=== PATIENT | female | born 1945 | race African-American/Black ===

== ENCOUNTER 2018-02-09 07:43 | Inpatient (IN) | payer MEDICARE ==
[2018-02-09 08:07] LABS: #Lymphocytes 1.3 thou/uL (1.20-3.40); #Monocytes 0.6 thou/uL (0.11-0.59); #Neutrophils 8.3 thou/uL (1.40-6.50); %Basophils 0.1 % (0.0-1.0); %Eosinophils 0.2 % (0.0-10.0); %Lymphocytes 12.7 % (21.0-51.0); %Neutrophils 80.9 % (42.0-75.0); Hemoglobin 10.9 g/dL (12.0-16.0); Mean Corpuscular HGB CONC 34.6 g/dL (32.0-36.0); Mean Corpuscular Hemoglobin 28.7 pg (27.0-31.0); Mean Corpuscular Volume 82.8 fL (78.0-98.0); Mean Platelet Volume 11.2 fL (7.4-10.4); Platelet Count 136 thou/uL (130-400); RBC Distribution Width 16.9 % (11.5-14.5); Red Blood Cell (RBC) Count 3.81 mill/uL (4.20-5.40); White Blood Cell (WBC) Count 10.3 thou/uL (4.8-10.8)
[2018-02-09 08:13] LABS: INR-International Normal Ratio 1.1; Prothrombin Time 14.5 SEC (12.0-14.7)
[2018-02-09 08:14] LABS: PTT 29.2 SEC (22.9-36.1)
[2018-02-09 08:17] LABS: ALT (SGPT) 26 U/L (8-55); AST (SGOT) 31 U/L (5-34); Albumin 3.7 g/dL (3.4-4.8); Alkaline Phosphatase 183 U/L (40-150); Anion Gap 14 mmol/L (10-20); BUN (Urea Nitrogen) 45 mg/dL (9.8-20.1); Bilirubin, Total 0.6 mg/dL (0.2-1.2); CK (CPK) 68 U/L (29-168); Calc. Creatinine Clearance 0 mL/min (70-130); Calcium 9.6 mg/dL (7.8-10.44); Carbon Dioxide 19 mmol/L (23-31); Chloride 113 mmol/L (98-107); Estimated GFR-MDRD 15; Globulin 4.2 g/dL (2.4-3.5); Glucose 174 mg/dL (83-110); Potassium 4.7 mmol/L (3.5-5.1); Protein, Total 7.9 g/dL (6.0-8.3); Sodium 141 mmol/L (136-145)
[2018-02-09 08:22] LABS: CKMB 1.2 ng/mL (0-6.6); Troponin I 0.077 ng/mL (< 0.028)
--- NOTE | 2018-02-09 08:36 | CT ---
BRAIN CT WITHOUT IV CONTRAST: HISTORY: A 72-year-old female with a history of left-sided weakness and a left-sided facial droop. Last seen normal approximately 8 hours ago. FINDINGS: There is a large, well defined area of abnormal low attenuation in the right temporal lobe and extend ing into the posterior frontal lobe and the anterior parietal lobe, evidence for a large, subacute ri ght middle cerebral artery distribution infarct. No evidence of acute hemorrhage. No evidence of a midline shift. Mild right-sided maxillary sinus mucosal disease. The mastoids are clear. IMPRESSION: Large right middle cerebral artery distribution subacute infarct without evidence for acute hemorrhag e. Findings discussed with Dr. Lobato in the ER at 8:00 a.m. CODE CR POS: ELISE
[2018-02-09] MEDS ORDERED: Labetalol HCl 100 MG/20 ML VIAL ONE (08:54)
--- NOTE | 2018-02-09 08:56 | RAD ---
CHEST 1 VIEW: Date: 02/09/18 HISTORY: 72-year-old female with history of altered mental status, aphasia, left-sided deficits, stroke alert. FINDINGS: Minimal cardiomegaly with some mild bilateral vascular congestion. No confluent pneumonia, overt alexis a, or pleural effusion. IMPRESSION: Cardiomegaly with mild vascular congestion. POS: DEBORAHH
[2018-02-09] MEDS ORDERED: niCARdipine 20MG In NaCl 20 MG/200 ML BAG ONE ×2 (09:08→13:09)
[2018-02-09] MEDS ORDERED: Ondansetron HCl/PF 4 MG/2 ML Vial IVP PRN (10:29)
[2018-02-09] MEDS ORDERED: Aspirin 300 MG Suppository ONE (11:00)
[2018-02-09] MEDS ORDERED: Dextrose 50% Abboject 50 ML SYRINGE SLOW IVP PRN (11:46)
[2018-02-09] MEDS ORDERED: Dextrose 5% in Water 1,000 ML IV PRN (11:46)
--- NOTE | 2018-02-09 12:02 | ULT ---
BILATERAL CAROTID DUPLEX ULTRASOUND INCLUDING COLOR AND SPECTRAL DOPPLER IMAGING: DATE: 02/09/18 HISTORY: 72-year-old female with history of CVA, motor deficits, left arm weakness, left hand weakness, left l eg weakness, and aphasia. FINDINGS: Visual plaque noted in the proximal ICAs and distal CCAs. PSV Right ICA: 71 cm/sec EDV: 7 cm/sec ICA/CCA Ratio: 0.8 PSV Left ICA: 86 cm/sec EDV: 13 cm/sec ICA/CCA Ratio: 1.0 Minimal increased velocities in both right and left ECAs, worse on the right side. IMPRESSION: No hemodynamically significant stenosis. Bilateral plaque, evidence for atherosclerotic arteriovascul ar carotid disease bilaterally. POS: ELISE
--- NOTE | 2018-02-09 12:32 | HP ---
CHIEF COMPLAINT: Altered mental status. HISTORY OF PRESENT ILLNESS: This patient is a 72-year-old female with history of hypertension, diabe medina who presented to this facility via [facility] transfer. The patient was apparently in her usual state of health yesterday; however, she went to bed early in the evening, according to her family ar ound 6:00 p.m. Today, the patient was found to be altered and the patient's son had asked another so n to come and evaluate her. When he was unable to get her on the phone, he called an ambulance and t he patient was subsequently transported. Here, the patient was noted to have slurred speech and prof ound left-sided weakness consistent with CVA. CT scan of the brain confirms a large right middle cer ebral artery distribution infarct which is already relatively mature. ER physician noted the patient will be on her window for TPA. He discussed the case with Dr. Aparicio to discuss possible retrieval i ntervention; however, given the majority of the infarct on the scan, she is not a candidate for that either. The patient has had significant elevations in her blood pressure in the emergency department which was initially unresponsive to labetalol and she has subsequently been placed on a Cardene drip . PAST MEDICAL HISTORY: Primarily notable from the record includes history of reflux and "blood clot i n the leg and neck," history of diabetes, hypertension, and apparent history of CVA as well. SOCIAL HISTORY: No alcohol, drugs or tobacco. FAMILY HISTORY: Not known at this time. REVIEW OF SYSTEMS: Not obtainable. CURRENT MEDICATIONS: Ferrous sulfate 65 mg 1 p.o. b.i.d. and Coreg 25 mg 1 p.o. b.i.d. ALLERGIES: None known. PHYSICAL EXAMINATION: VITAL SIGNS: Most recent recorded vitals, blood pressure 192/88, pulse was 80, respirations 16, O2 s at 94% on room air. GENERAL APPEARANCE: Age appropriate female. She is lying supine in the bed. She is intermittently awake. She does acknowledge her presence and occasionally speaks one syllable words. HEENT: Pupils are equal and reactive. She has no OP lesions. NECK: Supple and symmetric. HEART: Regular rate and rhythm without murmurs, gallops or rubs. LUNGS: Clear to auscultation bilaterally. No wheezes or rales. ABDOMEN: Soft, nontender, nondistended, positive bowel sounds. No masses or organomegaly. EXTREMITIES: Warm and dry without edema. SKIN: Intact without lesions. NEUROLOGIC: Patient is borderline obtunded, but we will interact. She has profound left hemiplegia at present. She has some dysarthria, but is able to communicate somewhat. She appears to have signi ficant left-sided neglect and left-sided facial hypesthesia. LABORATORY DATA AND IMAGING DATA: White count 7.3, hemoglobin 10.9, platelets 136. INR is 1.1, PTT 29.2. Sodium is 141, potassium 4.7, chloride 113, CO2 19, BUN 45, creatinine 3.59, glucose 174, calc ium 9.6, AST 31, ALT 26, alkaline phosphatase 183. CK 68, troponin 0.077, albumin 3.7. CT of the he ad as mentioned above with a large right middle cerebral artery infarct. Chest x-ray is negative. IMPRESSION AND PLAN: 1. Large right hemispheric infarct in the right MCA distribution. This infarct appears to be subacu te at this point fairly mature based on the evidence revealed on the CT scan. The patient has manife stations of profound left-sided hemiplegia and left-sided neglect with apparently some left-sided fac ial hypesthesia as well. The patient has received an aspirin. She will be admitted to the ICU. We will consult the stroke team including Neurology, speech therapy, PT and OT. We will obtain a caroti d Doppler and an echocardiogram. I discussed at length with the patient's family. The patient is ce rtainly at risk of some complications over the next 24-48 hours including extension of the infarct, w orsening cerebral edema, seizures and others. 2. Chronic kidney disease stage 4. The patient is followed by Dr. Murcia. She has not received a CTA partly because the infarct was beyond the point of being benefited from retrieval and because of the risks to the kidneys. We will consult Dr. Murcia to continue to follow the patient while she is in the hospital. 3. Hypertension. The patient has post-infarct hypertension. We will allow some permissive hyperten donaldo. She is currently on Cardene with acceptable blood pressure control. 4. Diabetes mellitus. We will continue with Accu-Cheks and sliding scale as needed. The patient has not determined any end of life issues or done any advanced planning. She has 2 sons. They can speak on her behalf, one of whom is present. I will consult Palliative Care team as well.
[2018-02-09] MEDS: Sodium Chloride 0.45% 1,000 ML IV SCH (15:00)
[2018-02-09] MEDS: Insulin Regular 300 UNITS/3 ML VIAL SC PRN (18:36)
--- NOTE | 2018-02-09 19:42 | CON ---
DATE OF CONSULTATION: 02/09/2018 This consult encompassed 70 minutes time. Of that time, greater than 50% was spent with the patient and/or in the patient's critical care unit. HISTORY OF PRESENT ILLNESS: The patient is a 72-year-old female who presented with altered mental st atus and left-sided hemiplegia. She apparently presented 12 hours after onset and is considered outs marlyn the window for TPA. She is severely hypertensive and is currently on a Cardene drip. The patient cannot give much in the way of history, but she can talk. PAST MEDICAL HISTORY: 1. Gastroesophageal reflux. 2. Blood clot in the leg and neck. 3. History of diabetes mellitus. 4. Hypertension. 5. Previous stroke. PAST SURGICAL HISTORY: Blindness in the left eye. SOCIAL HISTORY: Does not consume alcohol, does not use illicit drugs. FAMILY MEDICAL HISTORY: Unknown. MEDICATIONS PRIOR TO ADMISSION: Iron sulfate, Coreg. PAST SURGICAL HISTORY: Unknown. ALLERGIES: None. REVIEW OF SYSTEMS: Cannot be obtained secondary to patient's altered mental status. PHYSICAL EXAMINATION: VITAL SIGNS: Temperature 98, O2 sat 95%, blood pressure 185/75, pulse 89, respiration rate 17. GENERAL: The patient is awake. Neurologically, she has a left-sided facial droop. She has left arm and left leg hemiparesis. She has no sensation on the left side and no movement in the left side. Right side has full movement and full sensation. HEENT: Otherwise, unremarkable. NECK: No JVD. LUNGS: Clear without wheezing or rhonchi. CARDIAC: S1, S2 regular without murmur. ABDOMEN: Soft, nontender, nondistended. EXTREMITIES: No clubbing, cyanosis, or edema. IMAGING: Chest x-ray reviewed personally by myself shows normal heart size, perhaps some mild fullne ss in the right hilum, otherwise negative. Brain CT demonstrated a large right MCA distribution infa rct without evidence of acute hemorrhage. LABORATORY DATA: White blood cell count 10, hematocrit 31.6, platelet count 136. INR 1.1. Sodium 1 41, potassium 4.7, chloride 113, CO2 19, BUN 45, creatinine 3.6, glucose 174, alkaline phosphatase 18 3. Troponin 0.07. ASSESSMENT: 1. Cerebrovascular accident - right MCA distribution with resultant left-sided hemiparesis and left- sided facial paralysis. 2. Chronic kidney disease. 3. Hypertension. 4. Diabetes mellitus. 5. Hypertension, out of control. PLAN: The patient is currently on a Cardene drip for blood pressure control. Tomorrow she could pro bably be converted over to oral medications. Neurology has been consulted. She is on sliding scale insulin for her diabetes mellitus.
[2018-02-10] MEDS: niCARdipine HCl 50 MG in Sodium Chloride 0.9% 250 ML 230 ML IVPB SCH ×4 (03:00→20:01)
[2018-02-10 06:02] LABS: Cardiac Risk 5.1 (Less than 4.5)
[2018-02-10] MEDS: Insulin Regular 300 UNITS/3 ML VIAL SC PRN ×3 (06:49→17:59)
[2018-02-10] MEDS: Sodium Chloride 0.45% 1,000 ML IV SCH ×2 (07:37→20:01)
[2018-02-10 07:50] LABS: #Basophils 0.1 thou/uL (0.0-0.2); #Lymphocytes 1.2 thou/uL (1.20-3.40); #Monocytes 0.6 thou/uL (0.11-0.59); #Neutrophils 11.4 thou/uL (1.40-6.50); %Basophils 0.4 % (0.0-1.0); %Lymphocytes 9.2 % (21.0-51.0); %Monocytes 4.3 % (0.0-10.0); %Neutrophils 86.2 % (42.0-75.0); Hemoglobin 10.5 g/dL (12.0-16.0); Mean Corpuscular HGB CONC 34.8 g/dL (32.0-36.0); Mean Corpuscular Hemoglobin 28.5 pg (27.0-31.0); Mean Corpuscular Volume 81.8 fL (78.0-98.0); Mean Platelet Volume 10.9 fL (7.4-10.4); Platelet Count 154 thou/uL (130-400); White Blood Cell (WBC) Count 13.2 thou/uL (4.8-10.8)
[2018-02-10 08:18] LABS: Anion Gap 18 mmol/L (10-20); BUN (Urea Nitrogen) 54 mg/dL (9.8-20.1); Calc. Creatinine Clearance 17 mL/min (70-130); Calcium 9.4 mg/dL (7.8-10.44); Carbon Dioxide 14 mmol/L (23-31); Chloride 115 mmol/L (98-107); Estimated GFR-MDRD 15; Glucose 177 mg/dL (83-110); Sodium 142 mmol/L (136-145)
--- NOTE | 2018-02-10 08:54 | PRG ---
DATE OF SERVICE: 02/10/2018 The patient is doing about the same. She is dysarthric. She has hemiparesis on the left side, but s he will follow commands with the right. PHYSICAL EXAMINATION: VITAL SIGNS: Temperature is 99.2, pulse 97, blood pressure 169/60, O2 sat 93%. HEENT: Unremarkable except for facial droop. NECK: No JVD. LUNGS: Coarse breath sounds. CARDIAC: S1 and S2 regular. ABDOMEN: Soft, nontender. EXTREMITIES: No edema. LABORATORY DATA: White blood cell count 13.2, hematocrit 30, platelet count 154. INR 1.1. Sodium 1 42, potassium 5, chloride 115, CO2 14, BUN 54, creatinine 3.7, glucose 177. ASSESSMENT: 1. Status post cerebrovascular accident with left-sided hemiparesis. She has a right middle cerebra l artery distribution infarct. 2. Chronic kidney disease. 3. Non-anion gap metabolic acidosis. 4. Hypertension. 5. Poor swallowing. 6. Diabetes mellitus. PLAN: She needs to be seen by Speech Therapy to evaluate her swallowing. If she cannot swallow, the n we need to put in some type of feeding tube, whether it be NG tube or PEG tube so that we can give her blood pressure medication. In the meantime, she is continuing with Cardene drip which necessitat es keeping her in the CCU.
--- NOTE | 2018-02-10 13:53 | CON ---
DATE OF CONSULTATION: 02/09/2018 REFERRING PHYSICIAN: Dr. Sam Payton. REASON FOR CONSULTATION: Left hemiparesis. HISTORY OF PRESENT ILLNESS: Ms. Vogel is a pleasant 72-year-old -[place] female, who has been considered for evaluation of left hemiparesis. History is obtained from the patient's dictated H&P note as patient unable to provide and there were no family member present at bedside. Apparently , patient was in her usual state of health yesterday; however, she went to bed early in the evening a round 6:00 p.m. when one of the son had called her and she did not answer the phone, which concerned him and thus, he had called an ambulance. Patient was subsequently transferred to [facility]. She was found to have slurred speech and left hemiplegia. CT scan was obtained in the ER, which had shown large right MCA distribution. Hypodensity, for this reason, she was not a candidate for an y endovascular therapy. She is now being admitted to ICU for close observation. Patient currently d enies any headache, chest pain, palpitation. PAST MEDICAL HISTORY: Significant for diabetes, hypertension, history of stroke, and history of blood clot. FAMILY HISTORY: Not contributory. SOCIAL HISTORY: She does not smoke cigarettes, drink alcohol or use illicit drugs. CURRENT MEDICATIONS: Unknown. ALLERGIES: Include LISINOPRIL. REVIEW OF SYSTEMS: As mentioned, which was negative. PHYSICAL EXAMINATION: VITAL SIGNS: Blood pressure of 181/94, pulse of 95, respirations of 18, O2 sats of 93%, and temperat ure of 98.7. GENERAL: Well-developed, well-nourished -[place] female, in no apparent distress. RESPIRATORY: Clear to auscultation bilaterally. CARDIOVASCULAR: Regular rate and rhythm. NEUROLOGIC: Mental status: The patient is awake, alert, oriented x3. Speech and language mildly dy sarthric speech. Cranial nerves: Pupils are 3 mm and reactive. Visual camilo are intact. External muscles are intact. She does have a right gaze deviation. There is a left facial droop noted. Mot or exam showed normal tone and bulk on the right upper and right lower extremity. She has a flaccid left upper and left lower extremity. Her strength in the left upper and left lower extremity is 0/5. Strength in the right upper and right lower extremity is 5/5. Sensory: She has a hemineglect on t he left side. She has loss of sensation on the left side. Deep tendon reflexes, brisk reflexes in t he left upper and left lower extremity. Babinski plantar responses extensor on the left. Gait and R omberg coordination could not be tested. LABORATORY DATA: I reviewed, which included CBC, coag panel, CMP, which is significant for hemoglobi n 10.9, hematocrit 31.6, BUN of 45, creatinine of 3.59, glucose of 174, alkaline phosphatase of 183. IMAGING STUDIES: CT head without contrast was reviewed, which showed large hypodensity involving the right MCA distribution suggestive of acute ischemic event. IMPRESSION: 1. Large right middle cerebral artery distribution ischemic infarct. 2. Left hemiparesis noted due to #1. 3. Dysarthric noted due to #1. ASSESSMENT AND PLAN: Ms. Vogel is a pleasant 72-year-old -[place] female, who presented w ith an acute onset of left hemiparesis and dysarthria. She had a CT scan of the head done, which enma wed large right MCA distribution ischemic infarct. At this time, I would recommend making patient n. p.o. until further evaluated by Speech Therapy. I will recommend consulting PT, OT, speech therapy. I will recommend starting her on aspirin 300 mg suppository until she is able to take orally, at [facility] time it can be switched to aspirin 325 mg daily for secondary stroke prevention. I will recommend obtaining echocardiogram and placing her on telemetry monitoring to observe any paroxysmal atrial fi brillation. She does have a very large area of the stroke, which concerns me that she may develop sw elling. If there is a deterioration in neurological function, then we need to obtain stat CT head an d consult Neurosurgery for their assistance. I discussed the prognosis and the CT scan results [facility] with the son Abdifatah Bishop over the phone and explained that she does have a large area of the stroke and currently prognosis is guarded. I have answered all his questions and concerns during the conversation. Continue supportive care. Continue current medical management.
--- NOTE | 2018-02-10 15:04 | PDOC.PN ---
- Subjective Encounter Start Date: 02/10/18 Encounter Start Time: 08:50 Denies any pain or any specific needs. She expresses understanding of her medical situation. - Objective Resuscitation Status: Resuscitation Status FULL:Full Resuscitation Vital Signs & Weight: Vital Signs (12 hours) Temp Pulse Pulse Pulse Resp BP BP 02/10/18 12:00 99.7 F H 02/10/18 09:05 95 96 171/65 H 141/115 H 02/10/18 08:00 99.2 F 95 23 H 02/10/18 07:00 99.2 F 02/10/18 04:00 98.4 F Pulse Ox Pulse Ox Pulse Ox 02/10/18 12:00 02/10/18 09:05 95 94 L 02/10/18 08:00 95 02/10/18 07:00 02/10/18 04:00 Weight Admit Weight 170 lb 6.677 oz Weight 170 lb 6.677 oz Most Recent Monitor Data Heart Rate from ECG 98 NIBP 202/66 NIBP BP-Mean 85 Respiration from ECG 15 SpO2 92 I&O: 02/09/18 02/10/18 02/11/18 06:59 06:59 06:59 Intake Total 2337 30 Output Total 600 Balance 2337 -570 Result Diagrams: 02/10/18 05:30 02/10/18 05:30 Additional Labs: Accuchecks 02/10/18 02/10/18 02/09/18 11:26 05:35 23:25 POC Glucose 214 H 175 H 136 H 02/09/18 17:35 POC Glucose 209 H Phys Exam - Physical Examination Constitutional: NAD Still sleeps much of the time. Neck: no JVD, supple Respiratory: no wheezing, no rales, no rhonchi, clear to auscultation bilateral Cardiovascular: RRR, no significant murmur, no rub Gastrointestinal: soft, non-tender, no distention, positive bowel sounds Musculoskeletal: no edema Dense left hemiplegia. Speech is improved. Dx/Plan (1) Acute CVA (cerebrovascular accident) Code(s): I63.9 - CEREBRAL INFARCTION, UNSPECIFIED Status: Acute Comment: Dense left hemiplegia. BP has continued to be a challenge. Swallowing changes intermittently. Had ASA yesterday. Will change to oral today. Continue with the stroke team and assessing swallow. (2) Hypertensive urgency Code(s): I16.0 - HYPERTENSIVE URGENCY Status: Acute Comment: On Cardene gtt. Continue to titrate as needed. (3) Diabetes Code(s): E11.9 - TYPE 2 DIABETES MELLITUS WITHOUT COMPLICATIONS Status: Chronic Comment: Will continue with SSI. No able to eat much at this time. (4) Hypertension Code(s): I10 - ESSENTIAL (PRIMARY) HYPERTENSION Status: Chronic Comment: Resume home meds. (5) Hyperlipidemia Code(s): E78.5 - HYPERLIPIDEMIA, UNSPECIFIED Status: Chronic Comment: Resume home statin (6) Hemiplegia affecting left nondominant side Code(s): G81.94 - HEMIPLEGIA, UNSPECIFIED AFFECTING LEFT NONDOMINANT SIDE Status: Acute Comment: PT/OT (7) Dysphagia Code(s): R13.10 - DYSPHAGIA, UNSPECIFIED Status: Acute Comment: ST continually assessing. Believes she can take pills now, but still not ready for food. (8) CKD (chronic kidney disease) stage 4, GFR 15-29 ml/min Code(s): N18.4 - CHRONIC KIDNEY DISEASE, STAGE 4 (SEVERE) Status: Acute Comment: Renal dose meds. - Plan * .
[2018-02-10] MEDS: hydrALAZINE 20 MG/ML VIAL SLOW IVP PRN (20:04)
[2018-02-10] MEDS: Heparin 5,000 UNITS/ML VIAL SC SCH (20:04)
[2018-02-10] MEDS: Carvedilol 25 MG TAB PO SCH (20:13)
[2018-02-10] MEDS: Pravastatin Sodium 40 MG TAB PO SCH (20:13)
[2018-02-11] MEDS: niCARdipine HCl 50 MG in Sodium Chloride 0.9% 250 ML 230 ML IVPB SCH ×6 (00:27→23:43)
[2018-02-11] MEDS: Insulin Regular 300 UNITS/3 ML VIAL SC PRN ×4 (00:33→18:43)
[2018-02-11 05:45] LABS: #Lymphocytes 1.5 thou/uL (1.20-3.40); #Monocytes 0.9 thou/uL (0.11-0.59); #Neutrophils 10.2 thou/uL (1.40-6.50); %Basophils 0.2 % (0.0-1.0); %Lymphocytes 12.1 % (21.0-51.0); %Monocytes 6.7 % (0.0-10.0); %Neutrophils 80.9 % (42.0-75.0); Hemoglobin 9.7 g/dL (12.0-16.0); Mean Corpuscular HGB CONC 35.2 g/dL (32.0-36.0); Mean Corpuscular Hemoglobin 28.9 pg (27.0-31.0); Mean Platelet Volume 10.3 fL (7.4-10.4); Platelet Count 151 thou/uL (130-400); RBC Distribution Width 16.9 % (11.5-14.5); Red Blood Cell (RBC) Count 3.36 mill/uL (4.20-5.40); White Blood Cell (WBC) Count 12.7 thou/uL (4.8-10.8)
[2018-02-11 05:56] LABS: Anion Gap 16 mmol/L (10-20); BUN (Urea Nitrogen) 65 mg/dL (9.8-20.1); Calc. Creatinine Clearance 17 mL/min (70-130); Calcium 9.2 mg/dL (7.8-10.44); Carbon Dioxide 15 mmol/L (23-31); Chloride 118 mmol/L (98-107); Estimated GFR-MDRD 15; Glucose 248 mg/dL (83-110); Potassium 4.5 mmol/L (3.5-5.1); Sodium 144 mmol/L (136-145)
[2018-02-11] MEDS: Sodium Chloride 0.45% 1,000 ML IV SCH ×2 (06:02→20:01)
[2018-02-11] MEDS: Carvedilol 25 MG TAB PO SCH ×2 (09:40→20:03)
[2018-02-11] MEDS: Amlodipine 10 MG TAB PO SCH (09:40)
[2018-02-11] MEDS: Clopidogrel Bisulfate 75 MG TAB PO SCH (09:40)
[2018-02-11] MEDS: Leflunomide 10 mg Tablet PO SCH (09:41)
--- NOTE | 2018-02-11 09:45 | PRG ---
DATE OF SERVICE: 02/11/2018 SUBJECTIVE: The patient remains in the CCU on a Cardene drip. She will say one word phrases when st imulated, but will not follow any commands for me specifically. PHYSICAL EXAMINATION: VITAL SIGNS: Temperature 98.8, pulse 101, blood pressure 150/76. Currently on a Cardene drip at 15. HEENT: Unremarkable. NECK: No JVD. LUNGS: Clear. CARDIAC: S1 and S2 regular. ABDOMEN: Soft. EXTREMITIES: No edema. LABORATORY DATA: Sodium 144, potassium 4.5, chloride 118, CO2 15, BUN 65, creatinine 3.6. White blo od cell count 12.7, hematocrit 27.5, platelet count 151. ASSESSMENT: 1. Cerebrovascular accident with continued decline in mental status. 2. Chronic renal failure. 3. Large middle cerebral artery distribution infarct. PLAN: Her prognosis is extremely poor. I doubt that she can swallow any antihypertensive medication . Palliative care is meeting with the family today. I would encourage DNR and conversion to comfort measures.
[2018-02-11] MEDS: Heparin 5,000 UNITS/ML VIAL SC SCH ×2 (09:50→20:04)
[2018-02-11] MEDS ORDERED: Aspirin 300 MG Suppository PR SCH (12:30)
--- NOTE | 2018-02-11 15:55 | PDOC.PN ---
- Subjective Encounter Start Date: 02/11/18 Encounter Start Time: 12:30 Patient able to speak, but limited. Nursing notes she has been a little somnolent, but awakens easily and will speak if asked. - Objective Resuscitation Status: Resuscitation Status FULL:Full Resuscitation Vital Signs & Weight: Vital Signs (12 hours) Temp Pulse Pulse BP BP Pulse Ox Pulse Ox 02/11/18 12:00 98.5 F 02/11/18 10:44 98 98 173/61 H 181/56 H 95 96 02/11/18 08:00 98.1 F Weight Admit Weight 170 lb 6.677 oz Weight 170 lb 6.677 oz Most Recent Monitor Data Heart Rate from ECG 96 NIBP 168/54 NIBP BP-Mean 102 Respiration from ECG 16 SpO2 96 I&O: 02/10/18 02/11/18 02/12/18 06:59 06:59 06:59 Intake Total 2337 1504 Output Total 1100 Balance 2337 404 Result Diagrams: 02/11/18 05:30 02/11/18 05:30 Additional Labs: Accuchecks 02/11/18 02/11/18 02/10/18 12:06 00:34 17:57 POC Glucose 213 H 247 H 222 H Phys Exam - Physical Examination Lying supine, eyes open. HEENT: oral pharynx no lesions Neck: no JVD, supple Respiratory: no wheezing Upper airway rales from secretions. Cardiovascular: RRR, no significant murmur Gastrointestinal: soft, no distention, positive bowel sounds Some puffy edema of the hands, left > right. Dense left hemiplegia, subdued mental status, Left neglect. Dx/Plan (1) Acute CVA (cerebrovascular accident) Code(s): I63.9 - CEREBRAL INFARCTION, UNSPECIFIED Status: Acute Comment: Dense left hemiplegia. BP has continued to be a challenge but better. Swallowing changes intermittently. Had ASA yesterday. Will change to rectal today. Continue with the stroke team and assessing swallow. (2) Hypertensive urgency Code(s): I16.0 - HYPERTENSIVE URGENCY Status: Acute Comment: On Cardene gtt. Continue to titrate as needed. PRN's in addition to Cadene. Expect it will improve within a day or two. (3) Diabetes Code(s): E11.9 - TYPE 2 DIABETES MELLITUS WITHOUT COMPLICATIONS Status: Chronic Comment: Will continue with SSI. No able to eat much at this time. (4) Hypertension Code(s): I10 - ESSENTIAL (PRIMARY) HYPERTENSION Status: Chronic Comment: Resume home meds. When and if swallowing allows. (5) Hyperlipidemia Code(s): E78.5 - HYPERLIPIDEMIA, UNSPECIFIED Status: Chronic Comment: Resume home statin when possible. (6) Hemiplegia affecting left nondominant side Code(s): G81.94 - HEMIPLEGIA, UNSPECIFIED AFFECTING LEFT NONDOMINANT SIDE Status: Acute Comment: PT/OT (7) Dysphagia Code(s): R13.10 - DYSPHAGIA, UNSPECIFIED Status: Acute Comment: ST continually assessing. Believes she can take pills now, but still not ready for food. (8) CKD (chronic kidney disease) stage 4, GFR 15-29 ml/min Code(s): N18.4 - CHRONIC KIDNEY DISEASE, STAGE 4 (SEVERE) Status: Acute Comment: Renal dose meds. Made Dr. Murcia aware of her situation. - Plan * Very long discussion with the patient's children and sister. Explained everything that has happened and what we are doing for her. Answered their questions. They believe she wants everything possible done and she wants to fight to get better. Agreed that if she is not able to take po's in next 24 hours, we will consider DHT for feeding. They understand that there is risk of aspiration even with that. I also explained that there are a number of potential complications that still exist and that her recovery will be difficult , long and not guaranteed. * Time spent with family counseling 30 min.
[2018-02-11] MEDS: Artificial Tears 18 DROP/0.9 ML EA EYE PRN (18:16)
[2018-02-11] MEDS: Pravastatin Sodium 40 MG TAB PO SCH (20:04)
[2018-02-12] MEDS: niCARdipine HCl 50 MG in Sodium Chloride 0.9% 250 ML 230 ML IVPB SCH ×3 (03:03→10:37)
[2018-02-12] MEDS: Insulin Regular 300 UNITS/3 ML VIAL SC PRN ×3 (05:41→18:43)
--- NOTE | 2018-02-12 09:37 | PRG ---
DATE OF SERVICE: 02/12/2018 SUBJECTIVE: The patient remains in the CCU. She is almost entirely aphasic, but I can get her to sa y yes occasionally. OBJECTIVE: VITAL SIGNS: On exam, temperature is 98.9, pulse 99, blood pressure 182/63. A 24-hour intake 908, o utput 1100. HEENT: Unremarkable. NECK: No JVD. LUNGS: Clear. CARDIAC: S1 and S2, regular. ABDOMEN: Soft. EXTREMITIES: Trace edema. LABORATORY DATA: Sodium 144, potassium 4.5, chloride 118, CO2 of 18, BUN 65, creatinine 3.6, glucose 248. White blood cell count 12.7, hematocrit 27.5, and platelet count 151. ASSESSMENT: 1. Cerebrovascular accident. 2. Aphasia. 3. Poor oral intake. PLAN: She needs a Dobbhoff tube and start tube feeds. Apparently, the family is inclined to continu e with FULL CODE status, although I think the patient's prognosis is rather dismal. She does have a fairly significant non-anion gap metabolic acidosis, which may have to be addressed. I think we need to stop her IV fluids once tube feeds get started.
[2018-02-12 13:21] LABS: Anion Gap 15 mmol/L (10-20); BUN (Urea Nitrogen) 72 mg/dL (9.8-20.1); Calc. Creatinine Clearance 18 mL/min (70-130); Carbon Dioxide 14 mmol/L (23-31); Chloride 122 mmol/L (98-107); Estimated GFR-MDRD 16; Glucose 188 mg/dL (83-110); Potassium 4.4 mmol/L (3.5-5.1); Sodium 147 mmol/L (136-145)
--- NOTE | 2018-02-12 14:48 | PDOC.PN ---
- Subjective Encounter Start Date: 02/12/18 Encounter Start Time: 12:15 Unchanged. No new issues per nursing. - Objective Resuscitation Status: Resuscitation Status FULL:Full Resuscitation Vital Signs & Weight: Vital Signs (12 hours) Temp Pulse Pulse Pulse Resp BP BP 02/12/18 12:00 98.9 F 02/12/18 08:47 94 135 H 158/60 H 182/63 H 02/12/18 08:00 98.9 F 02/12/18 07:59 98.2 F 100 20 02/12/18 03:00 98.2 F Pulse Ox 02/12/18 12:00 100 02/12/18 08:47 02/12/18 08:00 02/12/18 07:59 100 02/12/18 03:00 Weight Admit Weight 170 lb 6.677 oz Weight 170 lb 6.677 oz Most Recent Monitor Data Heart Rate from ECG 99 NIBP 173/56 NIBP BP-Mean 102 Respiration from ECG 17 SpO2 100 I&O: 02/11/18 02/12/18 02/13/18 06:59 06:59 06:59 Intake Total 1504 2908 Output Total 1100 Balance 404 2908 Result Diagrams: 02/11/18 05:30 02/12/18 12:54 Additional Labs: Accuchecks 02/12/18 02/12/18 02/11/18 13:53 05:41 23:44 POC Glucose 184 H 199 H 177 H 02/11/18 02/11/18 18:43 12:06 POC Glucose 200 H 213 H Phys Exam - Physical Examination Constitutional: NAD Slightly tachypneic. Occasional cough with upper airway noise - secetions Respiratory: no wheezing Upper airway noise Cardiovascular: RRR, no significant murmur Gastrointestinal: soft, non-tender, no distention Generalized puffy edema Dense left hemiplegia. Still has movement on the right. May be slightly weaker on the right. Dx/Plan (1) Acute CVA (cerebrovascular accident) Code(s): I63.9 - CEREBRAL INFARCTION, UNSPECIFIED Status: Acute Comment: Dense left hemiplegia. BP has continued to be a challenge but better. Swallowing changes intermittently. She has not had any neurologic improvement in the first 48 hours. DHT placement for nutrition. Continue antiplatelet therapy. (2) Hypertensive urgency Code(s): I16.0 - HYPERTENSIVE URGENCY Status: Acute Comment: On Cardene gtt. Continue to titrate as needed. PRN's in addition to Cadene. Improving. (3) Diabetes Code(s): E11.9 - TYPE 2 DIABETES MELLITUS WITHOUT COMPLICATIONS Status: Chronic Comment: Will continue with SSI. No able to eat much at this time. (4) Hypertension Code(s): I10 - ESSENTIAL (PRIMARY) HYPERTENSION Status: Chronic Comment: Resume home meds. When and if swallowing allows or via DHT. (5) Hyperlipidemia Code(s): E78.5 - HYPERLIPIDEMIA, UNSPECIFIED Status: Chronic Comment: Resume home statin when possible. (6) Hemiplegia affecting left nondominant side Code(s): G81.94 - HEMIPLEGIA, UNSPECIFIED AFFECTING LEFT NONDOMINANT SIDE Status: Acute Comment: PT/OT (7) Dysphagia Code(s): R13.10 - DYSPHAGIA, UNSPECIFIED Status: Acute Comment: ST continually assessing. Believes she can take pills now, but still not ready for food. (8) CKD (chronic kidney disease) stage 4, GFR 15-29 ml/min Code(s): N18.4 - CHRONIC KIDNEY DISEASE, STAGE 4 (SEVERE) Status: Acute Comment: Renal dose meds. Made Dr. Murcia aware of her situation. - Plan * Prognosis is still very poor. Continue supportive measures. * Still acidotic. Check ABG for possible hypoventilation with hypercapnea.
[2018-02-12] MEDS: Amlodipine 10 MG TAB PO SCH (16:40)
[2018-02-12] MEDS: Clopidogrel Bisulfate 75 MG TAB PO SCH (16:40)
[2018-02-12] MEDS: Aspirin 300 MG Suppository PR SCH (16:40)
[2018-02-12] MEDS: Carvedilol 25 MG TAB PO SCH ×2 (16:40→20:45)
[2018-02-12] MEDS: Heparin 5,000 UNITS/ML VIAL SC SCH ×2 (16:40→20:45)
[2018-02-12] MEDS: Leflunomide 10 mg Tablet PO SCH (16:41)
[2018-02-12] MEDS: Sodium Chloride 0.45% 1,000 ML IV SCH (16:59)
--- NOTE | 2018-02-12 17:25 | RAD ---
KUB 02/12/18 PROVIDED CLINICAL HISTORY: Feeding tube placement. FINDINGS/IMPRESSION: Enteric catheter is noted, the tip of which projects over the right mid abdomen. The abdominal bowel gas pattern is nonspecific. POS: SIMA
[2018-02-12 17:45] LABS: pH, Arterial 7.39 (7.35-7.45)
[2018-02-12 17:46] LABS: Actual Bicarbonate (HCO3a) 13.3 mEq/L (22-28); Base Excess (BEa) -10.5 mEq/L (-2.0 to +3.0); CO2 Tension 22.2 mmHg (35.0-45.0); Calcium, Ionized 1.1 mmol/L (1.12-1.30); Hemoglobin (Hb) 7.1 g/dL (12.0-16.0); O2 Tension (PaO2) 90.1 mmHg (> 70.0); Puncture Site RR
[2018-02-12] MEDS: Pravastatin Sodium 40 MG TAB PO SCH (20:45)
[2018-02-13 05:03] LABS: Anion Gap 14 mmol/L (10-20); BUN (Urea Nitrogen) 82 mg/dL (9.8-20.1); Calc. Creatinine Clearance 17 mL/min (70-130); Calcium 8.6 mg/dL (7.8-10.44); Carbon Dioxide 13 mmol/L (23-31); Chloride 123 mmol/L (98-107); Estimated GFR-MDRD 15; Glucose 303 mg/dL (83-110); Potassium 4.3 mmol/L (3.5-5.1); Sodium 146 mmol/L (136-145)
[2018-02-13 05:28] LABS: #Lymphocytes 1.1 thou/uL (1.20-3.40); #Monocytes 0.6 thou/uL (0.11-0.59); #Neutrophils 7.2 thou/uL (1.40-6.50); %Basophils 0.2 % (0.0-1.0); %Eosinophils 0.1 % (0.0-10.0); %Lymphocytes 11.9 % (21.0-51.0); %Monocytes 7.1 % (0.0-10.0); %Neutrophils 80.7 % (42.0-75.0); Hemoglobin 7.9 g/dL (12.0-16.0); Mean Corpuscular HGB CONC 35.5 g/dL (32.0-36.0); Mean Corpuscular Hemoglobin 29.2 pg (27.0-31.0); Mean Corpuscular Volume 82.3 fL (78.0-98.0); Mean Platelet Volume 10.4 fL (7.4-10.4); PLT Morphology Comment Appears Decreased; Platelet Count 112 thou/uL (130-400); RBC Distribution Width 16.5 % (11.5-14.5); Red Blood Cell (RBC) Count 2.71 mill/uL (4.20-5.40); White Blood Cell (WBC) Count 8.9 thou/uL (4.8-10.8)
[2018-02-13] MEDS: Insulin Regular 300 UNITS/3 ML VIAL SC PRN ×3 (06:35→18:19)
[2018-02-13] MEDS: Aspirin 300 MG Suppository PR SCH (08:34)
[2018-02-13] MEDS: Clopidogrel Bisulfate 75 MG TAB PO SCH (08:42)
[2018-02-13] MEDS: Leflunomide 10 mg Tablet PO SCH (08:42)
[2018-02-13] MEDS: Heparin 5,000 UNITS/ML VIAL SC SCH ×2 (08:42→20:25)
[2018-02-13] MEDS: Amlodipine 10 MG TAB PO SCH (08:42)
[2018-02-13] MEDS: Carvedilol 25 MG TAB PO SCH ×2 (08:42→20:24)
[2018-02-13] MEDS: hydrALAZINE 20 MG/ML VIAL SLOW IVP PRN ×2 (08:50→19:28)
--- NOTE | 2018-02-13 10:02 | CON ---
DATE OF CONSULTATION: 02/13/2018 SERVICE: Renal Medicine. HISTORY OF PRESENT ILLNESS: Ms. Vogel is a 72-year-old black female with chronic renal failure fr om her hypertensive nephropathy and admitted for left-sided hemiplegia secondary to a CVA. We are be ing consulted for her chronic renal failure. Creatinine has been fluctuating the last few days. REVIEW OF SYSTEMS: Not obtainable since the patient is not following commands. MEDICATIONS: Aspirin 300 mg tab daily, Norvasc 10 mg daily, Plavix 75 mg once a day, hydralazine 10 mg p.r.n., heparin 5000 units subcutaneous b.i.d., Humulin R sliding scale, Imdur 60 mg daily, Leflun omide 20 mg daily, nicardipine drip - on hold, Zofran p.r.n. PAST MEDICAL HISTORY: Includes the following, recent diagnosis of CVA with left hemiplegia, type 2 d iabetes mellitus, chronic renal failure from hypertensive nephropathy, longstanding history of hypert ension. SOCIAL HISTORY: The patient lives in [place]. Single, several children. Currently, no smoking, no alcohol intake. Status post blood transfusion. No IV drug abuse. ALLERGIES: No known drug allergies. TRAUMA: None. IMMUNIZATIONS: Up to date. HOSPITALIZATIONS: Please see past medical history. FAMILY HISTORY: No family history of ESRD. PHYSICAL EXAMINATION: VITAL SIGNS: Blood pressure is noted at 187/79, heart rate 91, respiratory rate 20, temperature 98.8 , pulse ox 95%. GENERAL: The patient is somnolent. Minimal respond to verbal stimuli. SKIN: Adequate turgor. HEENT: She has slightly pale conjunctivae, anicteric sclerae. NECK: No neck mass, no carotid bruits, no JVD. CHEST: No deformities. LUNGS: Decreased breath sounds. HEART: Normal sinus rhythm. No murmur, no gallops, no rubs. ABDOMEN: Globular, soft, nontender, no masses. EXTREMITIES: No edema. NEUROLOGIC: Decreased mentation, left-sided weakness. No tremors, no asterixis. LABORATORY DATA AND X-RAY FINDINGS: Of 02/13/2018, white count 8.9, hemoglobin 7.9. Sodium 146, pot assium 4.3, chloride 123, carbon dioxide 13, BUN is 82, creatinine 3.57, glucose 303, calcium 8.6. F urther review of her creatinine shows the following, 10/13/2017, 3.37; 10/12/2017, 3.65, 02/10/2018, creatinine is 3.7; 02/09/2018, creatinine is 3.59; 12/06/2017, creatinine was 3.14. ASSESSMENT AND PLAN: 1. Chronic renal failure. This is secondary to hypertensive nephropathy. During this hospitalizati on, the creatinine is relatively stable, but over time as a followup in the renal clinic - her renal function has been worsening, which may actually reflect disease progression. Continue supportive car e. There is no indication for any dialytic intervention. 2. Status post cerebrovascular accident/left hemiplegia, supportive care. 3. Metabolic acidosis. Start sodium bicarbonate 650 mg t.i.d. 4. Borderline anemia - we will continue to observe. We will try first to optimize blood pressure be fore starting Epogen. 5. Hypertension. I will probably add minoxidil 5 mg tab q.a.m.
[2018-02-13] MEDS: Artificial Tears 18 DROP/0.9 ML EA EYE PRN (10:18)
--- NOTE | 2018-02-13 11:06 | PRG ---
DATE OF SERVICE: 02/13/2018 SUBJECTIVE: Ms. Vogel will open her eyes. She will answer with yes/no to questions, but does not expound beyond that. PHYSICAL EXAMINATION: VITAL SIGNS: Temperature is 98.8, pulse 91, respiration is 20, O2 sat 95% on room air, and blood pre ssure 187/79. HEENT: Unremarkable. NECK: No JVD. LUNGS: Clear. CARDIAC: S1 and S2, regular. ABDOMEN: Soft. EXTREMITIES: No edema. NEUROLOGIC: She is hemiparetic on the left. ASSESSMENT: 1. Large right middle cerebral artery distribution stroke. 2. Marginal neuro status. PLAN: This patient is probably going to be a PEG tube for nutrition. She has non-anion gap metaboli c acidosis secondary to her renal status. Dr. Murcia has been consulted to deal with that and started h er on bicarbonate. There really are no pulmonary concerns at this time, but her stroke puts her at r isk for aspiration. I will sign off the case. Please recall if further assistance needed. I would encourage palliative care to continue to work with this family as her prognosis for recovery is very poor.
--- NOTE | 2018-02-13 12:14 | PDOC.PN ---
- Subjective Encounter Start Date: 02/13/18 Encounter Start Time: 12:12 Minimally verbal. No new issues. - Objective Resuscitation Status: Resuscitation Status FULL:Full Resuscitation Vital Signs & Weight: Vital Signs (12 hours) Temp Pulse Pulse Pulse Resp BP BP 02/13/18 08:59 83 86 145/65 H 193/102 H 02/13/18 08:50 91 02/13/18 08:42 91 02/13/18 08:30 98.8 F 91 20 02/13/18 08:00 98.8 F 91 20 02/13/18 03:50 98.7 F 87 18 BP Pulse Ox 02/13/18 08:59 02/13/18 08:50 02/13/18 08:42 02/13/18 08:30 02/13/18 08:00 187/79 H 95 02/13/18 03:50 181/75 H 100 Weight Admit Weight 170 lb 6.677 oz Weight 171 lb 9.6 oz Most Recent Monitor Data Heart Rate from ECG 80 NIBP 163/62 NIBP BP-Mean 133 Respiration from ECG 21 SpO2 100 I&O: 02/12/18 02/13/18 02/14/18 06:59 06:59 06:59 Intake Total 2908 1703 Balance 2908 1703 Result Diagrams: 02/13/18 04:25 02/13/18 04:25 Additional Labs: Accuchecks 02/13/18 02/13/18 02/13/18 12:07 06:01 00:15 POC Glucose 324 H 298 H 251 H 02/12/18 02/12/18 18:45 13:53 POC Glucose 179 H 184 H Phys Exam - Physical Examination Sleeps much of the time. Will awaken and follow commands. Speaks one word Slow to answer. Has some upper airway rales. Cardiovascular: RRR, no significant murmur Gastrointestinal: soft, non-tender, no distention Musculoskeletal: no edema Dx/Plan (1) Acute CVA (cerebrovascular accident) Code(s): I63.9 - CEREBRAL INFARCTION, UNSPECIFIED Status: Acute Comment: Dense left hemiplegia. BP has continued to be a challenge but better. She has not had any neurologic improvement in three days. DHT placement for nutrition. Continue antiplatelet therapy. Will need placement. (2) Hypertensive urgency Code(s): I16.0 - HYPERTENSIVE URGENCY Status: Acute Comment: Still present, but subtle improvement. Dr. Murcia added minoxidil. (3) Diabetes Code(s): E11.9 - TYPE 2 DIABETES MELLITUS WITHOUT COMPLICATIONS Status: Chronic Comment: Will continue with SSI. Need to adjust as feeds are titrated to goal. (4) Hypertension Code(s): I10 - ESSENTIAL (PRIMARY) HYPERTENSION Status: Chronic Comment: Trying to use home meds. Minoxidil was added. (5) Hyperlipidemia Code(s): E78.5 - HYPERLIPIDEMIA, UNSPECIFIED Status: Chronic Comment: Resume home statin when possible. (6) Hemiplegia affecting left nondominant side Code(s): G81.94 - HEMIPLEGIA, UNSPECIFIED AFFECTING LEFT NONDOMINANT SIDE Status: Acute Comment: PT/OT. Will need placement. (7) Dysphagia Code(s): R13.10 - DYSPHAGIA, UNSPECIFIED Status: Acute Comment: Using DHT. Unlikely that she will recover swallow. Need to discuss PEG with family. (8) CKD (chronic kidney disease) stage 4, GFR 15-29 ml/min Code(s): N18.4 - CHRONIC KIDNEY DISEASE, STAGE 4 (SEVERE) Status: Acute Comment: Renal dose meds. Made Dr. Murcia aware of her situation. Added Bicarb for acidosis. - Plan * Transitioning to more chronic care. Consider PEG. Consider placement options.
[2018-02-13] MEDS: Scopolamine 1.5 mg/72 hour Patch TD SCH (12:53)
[2018-02-13] MEDS: Sodium Bicarbonate Tab 325 MG TAB PO SCH ×2 (14:34→20:24)
[2018-02-13] MEDS: Pravastatin Sodium 40 MG TAB PO SCH (20:24)
[2018-02-14] MEDS: Insulin Regular 300 UNITS/3 ML VIAL SC PRN ×5 (00:08→21:51)
[2018-02-14] MEDS: hydrALAZINE 20 MG/ML VIAL SLOW IVP PRN ×2 (03:27→14:20)
[2018-02-14 06:18] LABS: #Lymphocytes 0.6 thou/uL (1.20-3.40); #Monocytes 0.6 thou/uL (0.11-0.59); #Neutrophils 7.2 thou/uL (1.40-6.50); %Eosinophils 0.2 % (0.0-10.0); %Lymphocytes 7.4 % (21.0-51.0); %Monocytes 6.9 % (0.0-10.0); %Neutrophils 85.5 % (42.0-75.0); Hemoglobin 8.1 g/dL (12.0-16.0); Mean Corpuscular HGB CONC 35.2 g/dL (32.0-36.0); Mean Corpuscular Hemoglobin 29.3 pg (27.0-31.0); Mean Corpuscular Volume 83.4 fL (78.0-98.0); Mean Platelet Volume 10.5 fL (7.4-10.4); Platelet Count 126 thou/uL (130-400); RBC Distribution Width 16.5 % (11.5-14.5); Red Blood Cell (RBC) Count 2.77 mill/uL (4.20-5.40); White Blood Cell (WBC) Count 8.5 thou/uL (4.8-10.8)
[2018-02-14 06:27] LABS: Anion Gap 13 mmol/L (10-20); BUN (Urea Nitrogen) 88 mg/dL (9.8-20.1); Calc. Creatinine Clearance 17 mL/min (70-130); Carbon Dioxide 15 mmol/L (23-31); Chloride 125 mmol/L (98-107); Estimated GFR-MDRD 14; Glucose 424 mg/dL (83-110); Potassium 4.4 mmol/L (3.5-5.1); Sodium 149 mmol/L (136-145)
[2018-02-14] MEDS ORDERED: Sodium Chloride 0.45% 1,000 ML IV SCH (07:00)
[2018-02-14] MEDS: Amlodipine 10 MG TAB PO SCH (08:19)
[2018-02-14] MEDS: Clopidogrel Bisulfate 75 MG TAB PO SCH (08:20)
[2018-02-14] MEDS: Minoxidil 2.5 MG TAB PO SCH (08:21)
[2018-02-14] MEDS: Sodium Bicarbonate Tab 325 MG TAB PO SCH ×3 (08:22→21:42)
[2018-02-14] MEDS: Heparin 5,000 UNITS/ML VIAL SC SCH ×2 (08:22→21:42)
[2018-02-14] MEDS: Carvedilol 25 MG TAB PO SCH ×2 (08:22→21:41)
[2018-02-14] MEDS: Artificial Tears 18 DROP/0.9 ML EA EYE PRN (08:23)
[2018-02-14] MEDS ORDERED: Insulin Glargine 10 UNITS in Pre-Filled Syringe 1 EACH SC SCH (09:00)
[2018-02-14] MEDS: Aspirin 300 MG Suppository PR SCH (09:27)
[2018-02-14] MEDS: Sodium Chloride 0.45% 1,000 ML IV SCH ×3 (09:28→23:12)
[2018-02-14] MEDS: Leflunomide 10 mg Tablet PO SCH (09:28)
--- NOTE | 2018-02-14 09:35 | PRG ---
DATE OF SERVICE: 02/14/2018 SERVICE: Renal Medicine. SUBJECTIVE: Ms. Vogel is a 72-year-old black female with chronic renal failure from hypertensive nephropathy and admitted for CVA. She has a left-sided hemiplegia. We are following her up for her chronic renal failure. Creatinine this morning was noted at 3.72, which is slightly higher from yest erday of 3.57. Currently, she has been started on half normal saline. I decided to increase it from 125 to 150 mL per hour. No other complaints. PHYSICAL EXAMINATION: VITAL SIGNS: Blood pressure 201/80, heart rate 94, respiratory rate 22, temperature 98.5, pulse ox 9 5%. GENERAL: The patient is lethargic, but arousable, and can follow simple commands. SKIN: Adequate turgor. HEENT: She has slightly pale conjunctivae, anicteric sclerae. NECK: No neck mass, no carotid bruits, no JVD. CHEST: No deformities. LUNGS: Clear breath sounds. HEART: Normal sinus rhythm. No murmur, no gallops, no rubs. ABDOMEN: Globular, soft, nontender, no masses. EXTREMITIES: No edema, no deformities. MEDICATIONS: Of 02/14/2018 was reviewed. LABORATORY DATA: Of 02/14/2018 showed a white count of 8.5, hemoglobin 8.1. Sodium 146, potassium 4 .3, chloride 123, carbon dioxide 13, BUN 82, creatinine 3.57. On 02/14/2018, lab work showed a sodiu m of 149, potassium 4.4, chloride 125, carbon dioxide 15, BUN 88, creatinine 3.72, glucose 424, calci um 9. ASSESSMENT AND PLAN: 1. Acute kidney injury on top of her chronic renal failure - I suspect a component of prerenal azote zuleika. Agree to start the patient on 1/2 normal saline - we will increase it from 125 to 150 mL per ho ur. No indication for any dialytic intervention. 2. Mild hypernatremia - start on half normal saline 150 mL an hour. 3. Metabolic acidosis - sodium bicarbonate has been started. 4. Anemia. Continue to observe, p.r.n. blood transfusion. Once blood pressure is improved, we will start Epogen. 5. Hypertension. Recently I added minoxidil. Continue current blood pressure regimen. Adjust medi cations as needed. Overall, prognosis remains guarded.
--- NOTE | 2018-02-14 12:45 | PDOC.PN ---
- Subjective Encounter Start Date: 02/14/18 Encounter Start Time: 09:00 Subjective: awake, not oriented or follows verbal stimuli -: moves right UE freely -: unable to clear oral secretions - Objective Resuscitation Status: Resuscitation Status FULL:Full Resuscitation MAR Reviewed: Yes Vital Signs & Weight: Vital Signs (12 hours) Temp Pulse Pulse Pulse Resp BP BP 02/14/18 11:48 98.6 F 83 18 02/14/18 09:30 80 82 130/60 137/57 L 02/14/18 08:19 94 02/14/18 07:38 98.5 F 94 22 H 02/14/18 04:00 99.1 F 90 24 H 02/14/18 03:59 02/14/18 03:27 86 BP Pulse Ox 02/14/18 11:48 151/61 H 94 L 02/14/18 09:30 02/14/18 08:19 02/14/18 07:38 201/80 H 95 02/14/18 04:00 205/76 H 98 02/14/18 03:59 150/68 H 02/14/18 03:27 Weight Admit Weight 170 lb 6.677 oz Weight 176 lb 12.8 oz Most Recent Monitor Data Heart Rate from ECG 80 NIBP 163/62 NIBP BP-Mean 133 Respiration from ECG 21 SpO2 100 I&O: 02/13/18 02/14/18 02/15/18 06:59 06:59 06:59 Intake Total 1703 740 Balance 1703 740 Result Diagrams: 02/14/18 05:38 02/14/18 05:38 Additional Labs: Accuchecks 02/14/18 02/14/18 02/14/18 12:19 05:38 00:03 POC Glucose 438 H 416 H 358 H 02/13/18 18:18 POC Glucose 378 H Phys Exam - Physical Examination HEENT: PERRLA, sclera anicteric Neck: no JVD, supple Respiratory: no wheezing, no rales rhonchi+ Cardiovascular: RRR, no significant murmur Gastrointestinal: soft, no distention, positive bowel sounds Musculoskeletal: no edema, pulses present left hemiplegia, aphasia and dysphagia Dx/Plan (1) Acute CVA (cerebrovascular accident) Code(s): I63.9 - CEREBRAL INFARCTION, UNSPECIFIED Status: Acute Comment: Dense left hemiplegia with large right MCA cva (2) CKD (chronic kidney disease) stage 4, GFR 15-29 ml/min Code(s): N18.4 - CHRONIC KIDNEY DISEASE, STAGE 4 (SEVERE) Status: Chronic (3) Dysphagia Code(s): R13.10 - DYSPHAGIA, UNSPECIFIED Status: Acute (4) Hemiplegia affecting left nondominant side Code(s): G81.94 - HEMIPLEGIA, UNSPECIFIED AFFECTING LEFT NONDOMINANT SIDE Status: Acute Comment: PT/OT. Will need placement. (5) Hypertensive urgency Code(s): I16.0 - HYPERTENSIVE URGENCY Status: Acute (6) Diabetes Code(s): E11.9 - TYPE 2 DIABETES MELLITUS WITHOUT COMPLICATIONS Status: Chronic Qualifiers: Diabetes mellitus type: type 2 Diabetes mellitus care home insulin use: without intermediate card tender use Diabetes mellitus complication status: with kidney complications Diabetes mellitus complication detail: with chronic kidney disease Chronic kidney disease stage: stage 4 (severe) Qualified Code(s): E11.22 - Type 2 diabetes mellitus with diabetic chronic kidney disease; N18.4 - Chronic kidney disease, stage 4 (severe); N18.4 - Chronic kidney disease, stage 4 (severe); N18.4 - Chronic kidney disease, stage 4 (severe); N18.4 - Chronic kidney disease, stage 4 (severe) (7) Hyperlipidemia Code(s): E78.5 - HYPERLIPIDEMIA, UNSPECIFIED Status: Chronic Qualifiers: Hyperlipidemia type: unspecified Qualified Code(s): E78.5 - Hyperlipidemia , unspecified Comment: Resume home statin when possible. (8) Hypertension Code(s): I10 - ESSENTIAL (PRIMARY) HYPERTENSION Status: Chronic (9) FRANCIS (acute kidney injury) Code(s): N17.9 - ACUTE KIDNEY FAILURE, UNSPECIFIED Status: Acute (10) Metabolic acidosis Code(s): E87.2 - ACIDOSIS Status: Acute (11) FTT (failure to thrive) in adult Status: Acute - Plan prognosis gaurded, d/w daughter over phone -: family wants peg placed -: will need snf placement -: is on asp, plavix, coreg, imdur, minoxidil and pravachol -: 1/2 ns for hydration, d/w * . add lantus 10u bid with aggressive scale cov until glucose drops to less than 200. Discussed about code status with daughter and palliative care, they need time to come around, she will talk to her brothers and discuss about it. Review of Systems - Medications/Allergies Allergies/Adverse Reactions: Allergies Allergy/AdvReac Type Severity Reaction Status Date / Time lisinopril [From Prinivil] Allergy Verified 02/13/18 01:44 Medications: Current Medications Amlodipine Besylate (Norvasc) 10 mg PO DAILY [facility] Last Admin: 02/14/18 08:19 Dose: 10 mg Artificial Tears (Tears Naturale) 2 drop EA EYE PRN PRN PRN Reason: DRY EYES Last Admin: 02/14/18 08:23 Dose: 2 drop Aspirin (Aspirin) 300 mg [place] DAILY [facility] Last Admin: 02/14/18 09:27 Dose: 300 mg Carvedilol (Coreg) 25 mg PO BID [facility] Last Admin: 02/14/18 08:22 Dose: 25 mg Clopidogrel Bisulfate (Plavix) 75 mg PO DAILY [facility] Last Admin: 02/14/18 08:20 Dose: 75 mg Dextrose/Water (Dextrose 50%) 25 gm SLOW IVP PRN PRN PRN Reason: Hypoglycemia Glucagon (Glucagon) 1 mg IM PRN PRN PRN Reason: Hypoglycemia Heparin Sodium (Porcine) (Heparin) 5,000 units SC BID [facility] Last Admin: 02/14/18 08:22 Dose: 5,000 units Hydralazine HCl (Apresoline) 10 mg SLOW IVP Q4H PRN PRN Reason: SBP>185 Last Admin: 02/14/18 03:27 Dose: 10 mg Dextrose/Water (D5w) 1,000 mls @ 0 mls/hr IV .Q0M PRN; As Directed PRN Reason: Hypoglycemia Nicardipine HCl 50 mg/ Sodium (Chloride) 250 mls @ 0 mls/hr IVPB INF BETSY; Titrate PRN Reason: Protocol Last Admin: 02/12/18 10:37 Dose: 250 mls Sodium Chloride (1/2 Normal Saline) 1,000 mls @ 150 mls/hr IV .Q6H40M [facility] Last Admin: 02/14/18 09:28 Dose: Not Given Insulin Human Regular (Humulin R) 0 units SC .AGGRESSIVE SLIDING PRN; Protocol PRN Reason: AGGRESSIVE SLIDING SCALE Isosorbide Mononitrate (Imdur) 60 mg PO DAILY [facility] Last Admin: 02/14/18 08:21 Dose: 60 mg Minoxidil (Minoxidil) 5 mg PO DAILY [facility] Last Admin: 02/14/18 08:21 Dose: 5 mg Ondansetron HCl (Zofran) 4 mg IVP Q6H PRN PRN Reason: Nausea/Vomiting Pravastatin Sodium (Pravachol) 40 mg PO HS [facility] Last Admin: 02/13/18 20:24 Dose: 40 mg Scopolamine (Transderm Scop) 1.5 mg TD Q3D [facility] Last Admin: 02/13/18 12:53 Dose: 1.5 mg Sodium Bicarbonate (Bicarbonate, Sodium) 650 mg PO TID [facility] Last Admin: 02/14/18 08:22 Dose: 650 mg Sodium Chloride (Flush - Normal Saline) 10 ml IVF Q12HR [facility] Last Admin: 02/14/18 08:23 Dose: 10 ml Sodium Chloride (Flush - Normal Saline) 10 ml IVF PRN PRN PRN Reason: Saline Flush
--- NOTE | 2018-02-14 13:50 | CON ---
DATE OF CONSULTATION: 02/14/2018 HISTORY OF PRESENT ILLNESS: The patient is a 72-year-old female who was in her norm mo state of health until last week when she developed altered mental status. She was brought to the hospital and subsequently diagnosed with a large right hemispheric infarct in the right MCA distribut ion. She denies any pain or any other problems. PAST MEDICAL HISTORY: Diabetes, hypertension, cerebrovascular accident. SOCIAL HISTORY: She does not smoke or drink. ALLERGIES: LISINOPRIL. MEDICATIONS: Insulin 50 units subcu b.i.d., pravastatin 40 mg p.o. at bedtime, ____ 20 mg p daily, N orvasc 10 mg p.o. daily, isosorbide mononitrate 60 mg p.o. daily, Coreg 25 mg p.o. b.i.d., calcitriol 0.25 mcg p.o. daily, clonidine 0.2 mg p.o. q.8 h, Plavix 75 mg p.o. every day, Glipizide 2 p.o. b.i. d. REVIEW OF SYSTEMS: Unobtainable. PHYSICAL EXAMINATION: GENERAL: Shows an elderly black female in no acute distress. VITAL SIGNS: Temperature 98.6, pulse 83, respiratory rate 18, blood pressure 151/61. HEENT: Significant for a nasogastric tube in place. NECK: Supple. CHEST: Clear. CARDIOVASCULAR: Regular rate and rhythm. ABDOMEN: Soft, nontender, without organomegaly or masses. Bowel sounds are present and normoactive. RECTAL: Deferred. EXTREMITIES: Normal. NEUROLOGIC: Nonfocal. LABORATORY: Shows a hemoglobin of 8.1, hematocrit 23.1, platelet count 126,000. PT is 14.5 with an INR of 1.1. Chemistries show a chloride of 113, CO2 19, BUN 45, creatinine 3.59, glucose 174, alkali ne phosphatase 183. ASSESSMENT: 1. Oropharyngeal dysphagia secondary to cerebrovascular accident. 2. Cerebrovascular accident. 3. Chronic renal disease. RECOMMENDATIONS: 1. Esophagogastroduodenoscopy and PEG tomorrow. 2. Continue aspirin and Plavix. 3. Hold tube feedings at midnight.
[2018-02-14] MEDS: Pravastatin Sodium 40 MG TAB PO SCH (21:43)
[2018-02-15] MEDS: hydrALAZINE 20 MG/ML VIAL SLOW IVP PRN ×2 (02:25→16:20)
[2018-02-15] MEDS: Insulin Regular 300 UNITS/3 ML VIAL SC PRN ×2 (06:00→17:43)
[2018-02-15] MEDS: Sodium Chloride 0.45% 1,000 ML IV SCH ×4 (06:02→16:23)
[2018-02-15 06:18] LABS: Anion Gap 13 mmol/L (10-20); BUN (Urea Nitrogen) 80 mg/dL (9.8-20.1); Calc. Creatinine Clearance 19 mL/min (70-130); Carbon Dioxide 16 mmol/L (23-31); Chloride 124 mmol/L (98-107); Estimated GFR-MDRD 16; Glucose 267 mg/dL (83-110); Potassium 4.6 mmol/L (3.5-5.1); Sodium 148 mmol/L (136-145)
[2018-02-15 06:50] LABS: Band 10 % (5-11); Hemoglobin 8.2 g/dL (12.0-16.0); Hypochromia SLIGHT = 6-15 cells (100X) (0-5/hpf); Lymphocytes 6 % (21-51); MDiff Complete? YES; Mean Corpuscular HGB CONC 34.8 g/dL (32.0-36.0); Mean Corpuscular Volume 83.1 fL (78.0-98.0); Mean Platelet Volume 10.1 fL (7.4-10.4); Monocytes 5 % (0-10); Neutrophil 79 % (42-75); PLT Morphology Comment Appears Decreased; Platelet Count 107 thou/uL (130-400); RBC Distribution Width 16.6 % (11.5-14.5); Red Blood Cell (RBC) Count 2.84 mill/uL (4.20-5.40); White Blood Cell (WBC) Count 7.7 thou/uL (4.8-10.8)
[2018-02-15] MEDS: Minoxidil 2.5 MG TAB PO SCH (08:13)
[2018-02-15] MEDS: Amlodipine 10 MG TAB PO SCH (08:13)
[2018-02-15] MEDS: Carvedilol 25 MG TAB PO SCH ×2 (08:13→20:38)
[2018-02-15] MEDS: Heparin 5,000 UNITS/ML VIAL SC SCH ×2 (08:14→20:36)
[2018-02-15] MEDS: Sodium Bicarbonate Tab 325 MG TAB PO SCH ×3 (08:14→20:38)
--- NOTE | 2018-02-15 09:44 | PRG ---
DATE OF SERVICE: 02/15/2018 SUBJECTIVE: Ms. Vogel is a 72-year-old black female with known history of hypertension, chronic r enal failure and admitted for CVA. She has a left hemiplegia. This morning she is more lethargic an d unresponsive to my verbal stimuli. Her renal function is being monitored and is actually stable at the present time. No acute events last night. OBJECTIVE: VITAL SIGNS: Blood pressure is 182/83, heart rate 88, respiratory rate 20, temperature 98.2, pulse o x 96%. GENERAL: The patient is unresponsive to verbal stimuli. SKIN: Adequate turgor. HEENT: She has slightly pale conjunctivae, anicteric sclerae. NECK: No neck mass, no carotid bruits, no JVD. CHEST: No deformities. LUNGS: Clear breath sounds. No wheezing, no crackles. HEART: Normal sinus rhythm. No murmur, no gallops or rubs. ABDOMEN: Globular, soft, nontender, no masses. EXTREMITIES: No edema, no deformities. NEUROLOGIC: Decreased mentation. Left-sided weakness. MEDICATIONS: 02/15/2018 - Reviewed. LABORATORY DATA: 02/15/2018 - White count 7.7, hemoglobin 8.2. Sodium 140, potassium 4.6, chloride 124, carbon dioxide 16, BUN 80, creatinine 3.37, glucose 267, calcium 9.0. ASSESSMENT AND PLAN: 1. Status post cerebrovascular accident. Continue supportive care. The patient's mentation is some what more depressed today. 2. Labile hypertension. Still not in good control. We will increase minoxidil from 5 to 10 mg per day. 3. Chronic renal failure from hypertensive nephropathy. Renal function stable. As a matter of fact , creatinine is slightly improved from 3.7 to a most recent value of 3.37 after volume repletion. Ou r plan is to continue the current IV fluid at 1/2 normal saline - but would decrease 125 mL per hour. 4. Mild hypernatremia, stable and slowly improving. Continue IV fluids - hypotonic solution. The patient has been scheduled for a PEG tube placement today.
[2018-02-15] MEDS ORDERED: Labetalol HCl 100 MG/20 ML VIAL ONE (11:37)
[2018-02-15] MEDS ORDERED: CEFAZOLIN/Water 2 GM/20 ML SYRINGE ONE (12:12)
--- NOTE | 2018-02-15 12:14 | PDOC.PN ---
- Subjective Encounter Start Date: 02/15/18 Encounter Start Time: 09:15 Subjective: lethargic this am, not waking up to verbal stimuli or touch -: not in distress - Objective Resuscitation Status: Resuscitation Status FULL:Full Resuscitation MAR Reviewed: Yes Vital Signs & Weight: Vital Signs (12 hours) Temp Pulse Resp BP BP BP Pulse Ox 02/15/18 09:18 180/60 H 02/15/18 09:05 98.3 F 88 20 02/15/18 08:13 88 02/15/18 07:19 98.3 F 88 20 182/83 H 96 02/15/18 04:43 174/76 H 02/15/18 03:08 97.8 F 88 22 H 195/72 H 95 02/15/18 02:25 85 229/86 H Weight Admit Weight 170 lb 6.677 oz Weight 178 lb 11.2 oz Most Recent Monitor Data Heart Rate from ECG 80 NIBP 163/62 NIBP BP-Mean 133 Respiration from ECG 21 SpO2 100 I&O: 02/14/18 02/15/18 02/16/18 06:59 06:59 06:59 Intake Total 740 3841 Balance 740 3841 Result Diagrams: 02/15/18 05:56 02/15/18 05:56 Additional Labs: Accuchecks 02/15/18 02/15/18 02/14/18 05:22 00:05 21:33 POC Glucose 270 H 400 H 431 H 02/14/18 02/14/18 18:16 12:19 POC Glucose 425 H 438 H Phys Exam - Physical Examination HEENT: PERRLA, sclera anicteric Neck: no JVD, supple Respiratory: no wheezing, no rales Cardiovascular: RRR, no significant murmur Gastrointestinal: soft, non-tender, positive bowel sounds Musculoskeletal: no edema, pulses present left hemiplegia, dysphagia, aphasia Dx/Plan (1) Acute CVA (cerebrovascular accident) Code(s): I63.9 - CEREBRAL INFARCTION, UNSPECIFIED Status: Acute Comment: Dense left hemiplegia with large right MCA cva (2) CKD (chronic kidney disease) stage 4, GFR 15-29 ml/min Code(s): N18.4 - CHRONIC KIDNEY DISEASE, STAGE 4 (SEVERE) Status: Chronic (3) Dysphagia Code(s): R13.10 - DYSPHAGIA, UNSPECIFIED Status: Acute (4) Hemiplegia affecting left nondominant side Code(s): G81.94 - HEMIPLEGIA, UNSPECIFIED AFFECTING LEFT NONDOMINANT SIDE Status: Acute Comment: PT/OT. Will need placement. (5) Hypertensive urgency Code(s): I16.0 - HYPERTENSIVE URGENCY Status: Acute (6) Diabetes Code(s): E11.9 - TYPE 2 DIABETES MELLITUS WITHOUT COMPLICATIONS Status: Chronic Qualifiers: Diabetes mellitus type: type 2 Diabetes mellitus issuer insulin use: without issuer use Diabetes mellitus complication status: with kidney complications Diabetes mellitus complication detail: with chronic kidney disease Chronic kidney disease stage: stage 4 (severe) Qualified Code(s): E11.22 - Type 2 diabetes mellitus with diabetic chronic kidney disease; N18.4 - Chronic kidney disease, stage 4 (severe); N18.4 - Chronic kidney disease, stage 4 (severe); N18.4 - Chronic kidney disease, stage 4 (severe); N18.4 - Chronic kidney disease, stage 4 (severe) (7) Hyperlipidemia Code(s): E78.5 - HYPERLIPIDEMIA, UNSPECIFIED Status: Chronic Qualifiers: Hyperlipidemia type: unspecified Qualified Code(s): E78.5 - Hyperlipidemia , unspecified Comment: Resume home statin when possible. (8) Hypertension Code(s): I10 - ESSENTIAL (PRIMARY) HYPERTENSION Status: Chronic (9) FRANCIS (acute kidney injury) Code(s): N17.9 - ACUTE KIDNEY FAILURE, UNSPECIFIED Status: Acute (10) Metabolic acidosis Code(s): E87.2 - ACIDOSIS Status: Acute (11) FTT (failure to thrive) in adult Status: Acute - Plan for peg today -: start all antihypertensives via peg when allowed -: prognosis guarded, had massive cva and is encephalopathic since then -: family is aware of above, are yet to decide about code status -: placement pending, likely dc in 24-36hrs once she tolerated feeding * . Review of Systems - Medications/Allergies Allergies/Adverse Reactions: Allergies Allergy/AdvReac Type Severity Reaction Status Date / Time lisinopril [From Prinivil] Allergy Verified 02/13/18 01:44 Medications: Current Medications Amlodipine Besylate (Norvasc) 10 mg PO DAILY [facility] Last Admin: 02/15/18 08:13 Dose: 10 mg Artificial Tears (Tears Naturale) 2 drop EA EYE PRN PRN PRN Reason: DRY EYES Last Admin: 02/14/18 08:23 Dose: 2 drop Aspirin (Aspirin) 300 mg [place] DAILY [facility] Last Admin: 02/14/18 09:27 Dose: 300 mg Carvedilol (Coreg) 25 mg PO BID [facility] Last Admin: 02/15/18 08:13 Dose: 25 mg Clopidogrel Bisulfate (Plavix) 75 mg PO DAILY [facility] Last Admin: 02/14/18 08:20 Dose: 75 mg Dextrose/Water (Dextrose 50%) 25 gm SLOW IVP PRN PRN PRN Reason: Hypoglycemia Glucagon (Glucagon) 1 mg IM PRN PRN PRN Reason: Hypoglycemia Heparin Sodium (Porcine) (Heparin) 5,000 units SC BID [facility] Last Admin: 02/15/18 08:14 Dose: Not Given Hydralazine HCl (Apresoline) 10 mg SLOW IVP Q4H PRN PRN Reason: SBP>185 Last Admin: 02/15/18 02:25 Dose: 10 mg Dextrose/Water (D5w) 1,000 mls @ 0 mls/hr IV .Q0M PRN; As Directed PRN Reason: Hypoglycemia Nicardipine HCl 50 mg/ Sodium (Chloride) 250 mls @ 0 mls/hr IVPB INF [facility]; Titrate PRN Reason: Protocol Last Admin: 02/12/18 10:37 Dose: 250 mls Sodium Chloride (1/2 Normal Saline) 1,000 mls @ 150 mls/hr IV .Q6H40M [facility] Last Admin: 02/15/18 07:12 Dose: 1,000 mls Insulin Glargine 10 units/ (Miscellaneous Medication) 0.1 mls @ 0 mls/hr SC BID [facility] Insulin Human Regular (Humulin R) 0 units SC .AGGRESSIVE SLIDING PRN; Protocol PRN Reason: AGGRESSIVE SLIDING SCALE Last Admin: 02/15/18 06:00 Dose: 9 unit Isosorbide Mononitrate (Imdur) 60 mg PO DAILY [facility] Last Admin: 02/15/18 08:14 Dose: 60 mg Minoxidil (Minoxidil) 10 mg PO DAILY [facility] Ondansetron HCl (Zofran) 4 mg IVP Q6H PRN PRN Reason: Nausea/Vomiting Pravastatin Sodium (Pravachol) 40 mg PO [facility] Last Admin: 02/14/18 21:43 Dose: 40 mg Scopolamine (Transderm Scop) 1.5 mg TD Q3D [facility] Last Admin: 02/13/18 12:53 Dose: 1.5 mg Sodium Bicarbonate (Bicarbonate, Sodium) 650 mg PO TID [facility] Last Admin: 02/15/18 08:14 Dose: 650 mg Sodium Chloride (Flush - Normal Saline) 10 ml IVF Q12HR [facility] Last Admin: 02/15/18 08:14 Dose: Not Given Sodium Chloride (Flush - Normal Saline) 10 ml IVF PRN PRN PRN Reason: Saline Flush
[2018-02-15] MEDS ORDERED: Promethazine HCl 25 MG/ML VIAL SLOW IVP PRN (12:38)
[2018-02-15] MEDS ORDERED: Promethazine HCl 25 MG/ML VIAL IM PRN (12:38)
[2018-02-15] MEDS ORDERED: Ondansetron HCl/PF 4 MG/2 ML Vial IVP PRN (12:38)
[2018-02-15] MEDS ORDERED: PROPOFOL 200 MG/20 ML VIAL ONE (12:45)
[2018-02-15] MEDS ORDERED: Lidocaine 1% PF 5 ML VIAL ONE (12:45)
--- NOTE | 2018-02-15 13:08 | PQF ---
CLINICAL DOCUMENTATION IMPROVEMENT CLARIFICATION FORM: ICD-10 Updated PLEASE DO AN ADDENDUM TO THE PROGRESS NOTE WITH ANY DOCUMENTATION UPDATES OR ADDITIONS AND CARRY THROUGH TO DC SUMMARY. THANK YOU. DATE: 02/15 ATTN : DR. Jann SCOTT Please exercise your independent, professional judgment in responding to the clarification form. Clinical indicators are provided on the bottom of this form for your review. Please check appropriate box(s): [ x ] Encephalopathy: Type: [ x ] Acute [ ] Subacute [ ] Chronic Etiology: [ ] Hypertensive [ ] Metabolic [ ] Toxic [ ] Unspecified [ x ] Other (please specify) sec to cva [ ] Other diagnosis [ ] Unable to determine For continuity of documentation, please document condition throughout progress notes and discharge summary. Thank You. CLINICAL INDICATORS - SIGNS / SYMPTOMS / LABS ER PRESENTATION 02/09: PT PRESENTS VIA PHI FOR AMS SINCE THIS MORNING PULMONOLOGY CONSULT 02/09: PT PRESENTED W/AMS; 02/11 PN: CONTINUED DECLINE IN MENTAL STATUS NEPHROLOGY CONSULT 02/13: MINIMAL RESPONSE TO VERBAL STIMULI; DECREASED MENTATION; PN 02/14: LETHARGIC BUT AROUSABLE; PN 02/15: MORE LETHARGIC & UNRESPONSIVE TO MY VERBAL STIMULI ATTENDING PN 02/14: NOT ORIENTED OR FOLLOWING VERBAL STIMULI; PN 02/15: LETHARGIC THIS AM, NOT WAKING UP TO VERBAL STIMULI OR TOUCH; HAD MASSIVE CVA & IS ENCEPHALOPATHIC SINCE THEN RISK FACTORS: LARGE R MCA ISCHEMIC CVA HYPERTENSIVE URGENCY TREATMENTS: NICARDIPINE GTT (02/10 - PRESENT) CCU MONITORING (02/09 - 02/12) NEUROLOGY CONSULT THANK YOU! Kassie (This form is maintained as a part of the permanent medical record) 2014 [employer]. All Rights Reserved Kassie Sherman, RN, BSN [email or web address] Office: [phone] [facility]
--- NOTE | 2018-02-15 13:26 | OP ---
DATE OF PROCEDURE: 02/15/2018 GI ENDOSCOPY NOTE SURGEON: Sam Pedraza M.D. SENIOR MARKETING SPECIALIST SURGEON: None. PROCEDURE: Esophagogastroduodenoscopy with PEG tube placement. INDICATION: Oropharyngeal dysphagia following stroke. MEDICATIONS: 1. See anesthesia record. 2. Ancef 2 grams IV. FINDINGS: After discussion of the risks, benefits and alternatives of the procedure, informed consen t was obtained and witnessed. Pre-endoscopic cardiopulmonary examination was satisfactory. Timeout was performed before sedation was achieved. Sedation was achieved with anesthesia assistance in the endoscopy unit. The patient was placed in the supine position. A Pentax adult upper endoscope was p laced into the oropharynx and passed through the cricopharyngeus under direct visualization. The eso phageal mucosa appeared normal. The endoscope was advanced into the stomach. Forward and retroflexe d views of the entire gastric mucosa were obtained. The gastric mucosa appeared normal. The endosco pe was then advanced through the pylorus and into the first and second portions of the duodenum, whic h also appeared normal. The endoscope was then withdrawn back into the gastric lumen. Using one-to- one pressure and transillumination methods, a suitable site for PEG placement was located in the left upper quadrant. The site was prepped and draped in a sterile fashion and then anesthetized with sub cutaneous lidocaine. A 1 cm vertical incision was then made and the introducer needle and catheter w ere then introduced transcutaneously into the gastric lumen. The needle was withdrawn and the cathet er was grasped with a snare through the endoscope. The wire was passed through the catheter and gras ped with the snare and then the wire was withdrawn out of the mouth. The 20-Greek traction PEG tube was affixed to the wire and pulled through into position in the usual fashion without difficulty. T he external bumper clamp and ports were then affixed to the tube and the external bumper was tightene d to a distance of 3 cm. The endoscope was then passed back into the stomach to view the internal bu mper which appeared to be in good position with no complications apparent. The upper endoscope was t hen completely withdrawn and the patient was allowed to recover. The patient tolerated the procedure well. There were no immediate post-procedure complications. IMPRESSION: Successful placement of 20-Greek traction PEG tube to the left upper quadrant, with ext ernal bumper at a distance of 3 cm. RECOMMENDATIONS: 1. May use the PEG tube for medications now. 2. May use the tube for feeds in 4 hours. 3. Flush tube regularly. 4. We will plan to come by tomorrow to check on the PEG site and possibly adjust the external bumper as needed.
[2018-02-15] MEDS: Clopidogrel Bisulfate 75 MG TAB PO SCH (13:52)
[2018-02-15] MEDS: Aspirin 300 MG Suppository PR SCH (13:52)
[2018-02-15] MEDS ORDERED: Minoxidil 10 MG TAB PER TUBE SCH (14:00)
[2018-02-15] MEDS ORDERED: Clopidogrel Bisulfate 75 MG TAB PER TUBE SCH (14:00)
[2018-02-15] MEDS ORDERED: Aspirin 325 MG TAB PER TUBE SCH (14:00)
[2018-02-15] MEDS ORDERED: Carvedilol 25 MG TAB PER TUBE SCH (14:00)
[2018-02-15] MEDS ORDERED: Amlodipine 10 MG TAB PER TUBE SCH (14:00)
[2018-02-15] MEDS: Insulin Glargine 10 UNITS in Pre-Filled Syringe 1 EACH SC SCH (20:38)
[2018-02-15] MEDS: Pravastatin Sodium 40 MG TAB PO SCH (20:38)
[2018-02-16] MEDS: Insulin Regular 300 UNITS/3 ML VIAL SC PRN ×4 (00:33→23:39)
[2018-02-16] MEDS: Sodium Chloride 0.45% 1,000 ML IV SCH ×3 (01:40→19:55)
[2018-02-16] MEDS: hydrALAZINE 20 MG/ML VIAL SLOW IVP PRN (05:10)
[2018-02-16] MEDS: Amlodipine 10 MG TAB PO SCH (09:43)
[2018-02-16] MEDS: Clopidogrel Bisulfate 75 MG TAB PO SCH (09:44)
[2018-02-16] MEDS: Furosemide 40 MG TAB PO SCH ×2 (09:44→15:44)
[2018-02-16] MEDS: hydrALAZINE 25 MG TAB PO SCH ×3 (09:45→20:02)
[2018-02-16] MEDS: Sodium Bicarbonate Tab 325 MG TAB PO SCH ×3 (09:45→20:01)
[2018-02-16] MEDS: Carvedilol 25 MG TAB PO SCH ×2 (09:45→20:02)
[2018-02-16] MEDS: Aspirin 325 MG TAB PER TUBE SCH (09:46)
[2018-02-16] MEDS: Minoxidil 2.5 MG TAB PO SCH (09:47)
[2018-02-16] MEDS: Insulin Glargine 10 UNITS in Pre-Filled Syringe 1 EACH SC SCH ×2 (09:52→20:03)
--- NOTE | 2018-02-16 09:55 | PRG ---
DATE OF SERVICE: 02/16/2018 SUBJECTIVE: Ms. Vogel is a 72-year-old black female with chronic renal failure from hypertensive nephropathy and being seen by the [facility]al Service for her acute kidney injury on top of her chronic lion al failure. She was admitted for a cerebrovascular accident with left hemiplegia. Yesterday, she un derwent an upper GI endoscopy with PEG tube placement. This morning she is more arousable. No new c omplaints. PHYSICAL EXAMINATION: VITAL SIGNS: Blood pressure 183/89, heart rate 84, respiratory rate 16, temperature 98.7, pulse ox 9 8%. GENERAL: Sleepy, but arousable and can follow simple commands, not in distress. SKIN: Adequate turgor. HEENT: Slightly pale conjunctivae, anicteric sclerae. NECK: No neck mass, no carotid bruits, no JVD. CHEST: No deformities. LUNGS: Clear breath sounds. No wheezing, no crackles. HEART: Normal sinus rhythm. No murmur, no gallops or rubs. ABDOMEN: Globular, soft, nontender, no masses. EXTREMITIES: No edema, no deformities. NEUROLOGICAL: Decreased mentation: Left-sided weakness. MEDICATIONS: 02/16/2018 - Reviewed. LABORATORY DATA: 02/15/2018 - Hemoglobin 8.2. Sodium 148, potassium 4.6, chloride 124, carbon dioxi de 16, BUN 80, creatinine 3.37, glucose 267. ASSESSMENT AND PLAN: 1. Hypertension - minoxidil was increased to 10 mg tab q.a.m. yesterday. 2. Acute kidney injury/chronic renal failure - superimposed prerenal azotemia. Much improved creati nine with empiric volume repletion. 3. Mild hypernatremia - slightly improved with half normal saline. Would consider increasing free w ater intake by PEG tube. 4. Metabolic acidosis, currently on sodium bicarbonate 650 mg p.o. t.i.d. There is no indication for any dialytic intervention with this patient. Continue supportive care. Will recheck base met and CBC in the a.m.
[2018-02-16] MEDS: Heparin 5,000 UNITS/ML VIAL SC SCH ×2 (10:08→20:02)
[2018-02-16] MEDS ORDERED: Bisacodyl 10 MG SUPP PR SCH (10:45)
[2018-02-16] MEDS ORDERED: Isosorbide Dinitrate 20 MG TAB PER TUBE SCH (10:45)
--- NOTE | 2018-02-16 11:09 | PDOC.PN ---
- Subjective Encounter Start Date: 02/16/18 Encounter Start Time: 08:00 Subjective: awakens to touch, not in distress, mostly snoring -: per staff was talking a few words and sat with PT this am -: needed max support to sit - Objective Resuscitation Status: Resuscitation Status FULL:Full Resuscitation MAR Reviewed: Yes Vital Signs & Weight: Vital Signs (12 hours) Temp Pulse Resp BP BP Pulse Ox 02/16/18 09:45 84 02/16/18 09:43 84 02/16/18 07:56 98.7 F 84 16 183/89 H 98 02/16/18 06:18 161/76 H 02/16/18 05:10 80 197/74 H 02/16/18 04:20 98.1 F 80 20 197/74 H 98 02/16/18 00:00 98.5 F 80 20 166/79 H 99 Weight Admit Weight 170 lb 6.677 oz Weight 177 lb 11.2 oz Most Recent Monitor Data Heart Rate from ECG 80 NIBP 163/62 NIBP BP-Mean 133 Respiration from ECG 21 SpO2 100 I&O: 02/15/18 02/16/18 02/17/18 06:59 06:59 06:59 Intake Total 3841 170 Balance 3841 170 Result Diagrams: 02/15/18 05:56 02/15/18 05:56 Additional Labs: Accuchecks 02/16/18 02/16/18 02/15/18 05:18 00:27 20:30 POC Glucose 252 H 319 H 307 H 02/15/18 17:40 POC Glucose 212 H Phys Exam - Physical Examination HEENT: PERRLA, sclera anicteric Neck: no JVD, supple Respiratory: no wheezing, no rales Cardiovascular: RRR, no significant murmur Gastrointestinal: soft, non-tender, positive bowel sounds peg+ Musculoskeletal: pulses present, edema present left hemiplegia, dysphagia Dx/Plan (1) Acute CVA (cerebrovascular accident) Code(s): I63.9 - CEREBRAL INFARCTION, UNSPECIFIED Status: Acute Comment: Dense left hemiplegia with large right MCA cva (2) CKD (chronic kidney disease) stage 4, GFR 15-29 ml/min Code(s): N18.4 - CHRONIC KIDNEY DISEASE, STAGE 4 (SEVERE) Status: Chronic (3) Dysphagia Code(s): R13.10 - DYSPHAGIA, UNSPECIFIED Status: Acute (4) Hemiplegia affecting left nondominant side Code(s): G81.94 - HEMIPLEGIA, UNSPECIFIED AFFECTING LEFT NONDOMINANT SIDE Status: Acute Comment: PT/OT. Will need placement. (5) Hypertensive urgency Code(s): I16.0 - HYPERTENSIVE URGENCY Status: Resolved (6) Diabetes Code(s): E11.9 - TYPE 2 DIABETES MELLITUS WITHOUT COMPLICATIONS Status: Chronic Qualifiers: Diabetes mellitus type: type 2 Diabetes mellitus manager terminal insulin use: without manager terminal use Diabetes mellitus complication status: with kidney complications Diabetes mellitus complication detail: with chronic kidney disease Chronic kidney disease stage: stage 4 (severe) Qualified Code(s): E11.22 - Type 2 diabetes mellitus with diabetic chronic kidney disease; N18.4 - Chronic kidney disease, stage 4 (severe); N18.4 - Chronic kidney disease, stage 4 (severe); N18.4 - Chronic kidney disease, stage 4 (severe); N18.4 - Chronic kidney disease, stage 4 (severe) (7) Hyperlipidemia Code(s): E78.5 - HYPERLIPIDEMIA, UNSPECIFIED Status: Chronic Qualifiers: Hyperlipidemia type: unspecified Qualified Code(s): E78.5 - Hyperlipidemia , unspecified Comment: Resume home statin when possible. (8) Hypertension Code(s): I10 - ESSENTIAL (PRIMARY) HYPERTENSION Status: Chronic (9) FRANCIS (acute kidney injury) Code(s): N17.9 - ACUTE KIDNEY FAILURE, UNSPECIFIED Status: Acute (10) Metabolic acidosis Code(s): E87.2 - ACIDOSIS Status: Acute (11) FTT (failure to thrive) in adult Status: Acute (12) Acute encephalopathy Code(s): G93.40 - ENCEPHALOPATHY, UNSPECIFIED Status: Acute Comment: sec to massive cva - Plan peg feedings are initiated, gently increase volume as tolerated -: needs free water via peg as tolerated -: labs for today, still encephalopathic for the most part -: a bit of progress with cognitive function, per staff responded with 1 word -: -answers this am, needs to mobilize more. * . Add lasix with iv fluids, has edema++. Prognosis guarded Has been accepted to [facility], await clinical response to peg feeding, trending of renal function. Will d/w daughter later today Is on multiple meds for htn, add hydralazine. Review of Systems - Medications/Allergies Allergies/Adverse Reactions: Allergies Allergy/AdvReac Type Severity Reaction Status Date / Time lisinopril [From Prinivil] Allergy Verified 02/13/18 01:44 Medications: Current Medications Amlodipine Besylate (Norvasc) 10 mg PO DAILY [facility] Last Admin: 02/16/18 09:43 Dose: 10 mg Artificial Tears (Tears Naturale) 2 drop EA EYE PRN PRN PRN Reason: DRY EYES Last Admin: 02/14/18 08:23 Dose: 2 drop Aspirin (Aspirin) 325 mg PER TUBE DAILY [facility] Last Admin: 02/16/18 09:46 Dose: 325 mg Bisacodyl (Dulcolax) 10 mg MA NOW [facility] Stop: 02/16/18 13:00 Last Admin: 02/16/18 10:48 Dose: 10 mg Carvedilol (Coreg) 25 mg PO BID [facility] Last Admin: 02/16/18 09:45 Dose: 25 mg Clopidogrel Bisulfate (Plavix) 75 mg PO DAILY [facility] Last Admin: 02/16/18 09:44 Dose: 75 mg Dextrose/Water (Dextrose 50%) 25 gm SLOW IVP PRN PRN PRN Reason: Hypoglycemia Furosemide (Lasix) 40 mg PO 0900,1400 [facility] Last Admin: 02/16/18 09:44 Dose: 40 mg Glucagon (Glucagon) 1 mg IM PRN PRN PRN Reason: Hypoglycemia Heparin Sodium (Porcine) (Heparin) 5,000 units SC BID [facility] Last Admin: 02/16/18 10:08 Dose: 5,000 units Hydralazine HCl (Apresoline) 10 mg SLOW IVP Q4H PRN PRN Reason: SBP>185 Last Admin: 02/16/18 05:10 Dose: 10 mg Hydralazine HCl (Apresoline) 25 mg PO TID [facility] Last Admin: 02/16/18 09:45 Dose: 25 mg Dextrose/Water (D5w) 1,000 mls @ 0 mls/hr IV .Q0M PRN; As Directed PRN Reason: Hypoglycemia Sodium Chloride (1/2 Normal Saline) 1,000 mls @ 125 mls/hr IV .Q8H [facility] Last Admin: 02/16/18 10:09 Dose: 1,000 mls Insulin Glargine 10 units/ (Miscellaneous Medication) 0.1 mls @ 0 mls/hr SC BID [facility] Last Admin: 02/16/18 09:52 Dose: 0.1 mls Insulin Human Regular (Humulin R) 0 units SC .AGGRESSIVE SLIDING PRN; Protocol PRN Reason: AGGRESSIVE SLIDING SCALE Last Admin: 02/16/18 05:22 Dose: 9 unit Isosorbide Dinitrate (Isordil) 30 mg PER TUBE BID [facility] Isosorbide Dinitrate (Isordil) 30 mg PER TUBE NOW [facility] Stop: 02/16/18 12:00 Last Admin: 02/16/18 10:48 Dose: 30 mg Isosorbide Mononitrate (Imdur) 60 mg PO DAILY [facility] Last Admin: 02/16/18 09:53 Dose: Not Given Minoxidil (Minoxidil) 10 mg PO DAILY [facility] Last Admin: 02/16/18 09:47 Dose: 10 mg Ondansetron HCl (Zofran) 4 mg IVP Q6H PRN PRN Reason: Nausea/Vomiting Pravastatin Sodium (Pravachol) 40 mg PO HS [facility] Last Admin: 02/15/18 20:38 Dose: 40 mg Scopolamine (Transderm Scop) 1.5 mg TD Q3D [facility] Last Admin: 02/13/18 12:53 Dose: 1.5 mg Sodium Bicarbonate (Bicarbonate, Sodium) 650 mg PO TID [facility] Last Admin: 02/16/18 09:45 Dose: 650 mg Sodium Chloride (Flush - Normal Saline) 10 ml IVF Q12HR [facility] Last Admin: 02/16/18 09:55 Dose: 10 ml Sodium Chloride (Flush - Normal Saline) 10 ml IVF PRN PRN PRN Reason: Saline Flush
[2018-02-16 13:50] LABS: #Lymphocytes 1.3 thou/uL (1.20-3.40); #Monocytes 0.7 thou/uL (0.11-0.59); #Neutrophils 7.7 thou/uL (1.40-6.50); %Basophils 0.3 % (0.0-1.0); %Eosinophils 0.3 % (0.0-10.0); %Lymphocytes 13.6 % (21.0-51.0); %Monocytes 7.4 % (0.0-10.0); %Neutrophils 78.4 % (42.0-75.0); Hemoglobin 8.1 g/dL (12.0-16.0); Mean Corpuscular HGB CONC 34.7 g/dL (32.0-36.0); Mean Corpuscular Hemoglobin 28.6 pg (27.0-31.0); Mean Corpuscular Volume 82.4 fL (78.0-98.0); Mean Platelet Volume 10.7 fL (7.4-10.4); Platelet Count 115 thou/uL (130-400); RBC Distribution Width 16.6 % (11.5-14.5); Red Blood Cell (RBC) Count 2.85 mill/uL (4.20-5.40); White Blood Cell (WBC) Count 9.8 thou/uL (4.8-10.8)
[2018-02-16 14:12] LABS: Anion Gap 12 mmol/L (10-20); BUN (Urea Nitrogen) 78 mg/dL (9.8-20.1); Calc. Creatinine Clearance 20 mL/min (70-130); Calcium 8.7 mg/dL (7.8-10.44); Carbon Dioxide 15 mmol/L (23-31); Chloride 121 mmol/L (98-107); Estimated GFR-MDRD 17; Glucose 182 mg/dL (83-110); Potassium 4.5 mmol/L (3.5-5.1); Sodium 143 mmol/L (136-145)
[2018-02-16] MEDS: Scopolamine 1.5 mg/72 hour Patch TD SCH (15:43)
--- NOTE | 2018-02-16 17:59 | PRG ---
DATE OF SERVICE: 02/16/2018 SUBJECTIVE: The patient is status post PEG. She is without complaints, seems to be comfortable. OBJECTIVE: VITAL SIGNS: Temperature 97.9, pulse 81, respiratory rate 18, blood pressure 193/90. CHEST: Clear. CARDIOVASCULAR: Regular rate and rhythm. ABDOMEN: Protuberant, but nontender. The PEG site looks good. Bumpers were adjusted. LABORATORY DATA: Hemoglobin 8.1, hematocrit 23.8, platelet count 115. Chemistries significant for C O2 of 15, creatinine 3.27. ASSESSMENT: 1. Oropharyngeal dysphagia. 2. Status post PEG placement. RECOMMENDATIONS: 1. Continue to check residuals. 2. We will sign off. Reconsult if any PEG problems.
[2018-02-16] MEDS: Isosorbide Dinitrate 20 MG TAB PER TUBE SCH (20:00)
[2018-02-16] MEDS: Pravastatin Sodium 40 MG TAB PO SCH (20:02)
[2018-02-17] MEDS: Sodium Chloride 0.45% 1,000 ML IV SCH ×4 (03:32→21:48)
[2018-02-17] MEDS: Insulin Regular 300 UNITS/3 ML VIAL SC PRN ×3 (04:44→18:04)
[2018-02-17 05:21] LABS: #Lymphocytes 0.9 thou/uL (1.20-3.40); #Monocytes 0.4 thou/uL (0.11-0.59); #Neutrophils 5.9 thou/uL (1.40-6.50); %Basophils 0.2 % (0.0-1.0); %Eosinophils 0.5 % (0.0-10.0); %Neutrophils 80.3 % (42.0-75.0); Hemoglobin 7.3 g/dL (12.0-16.0); Mean Corpuscular Hemoglobin 28.4 pg (27.0-31.0); Mean Corpuscular Volume 83.4 fL (78.0-98.0); Mean Platelet Volume 11.2 fL (7.4-10.4); Platelet Count 111 thou/uL (130-400); RBC Distribution Width 16.5 % (11.5-14.5); Red Blood Cell (RBC) Count 2.59 mill/uL (4.20-5.40); White Blood Cell (WBC) Count 7.3 thou/uL (4.8-10.8)
[2018-02-17 05:31] LABS: Anion Gap 14 mmol/L (10-20); BUN (Urea Nitrogen) 89 mg/dL (9.8-20.1); Calc. Creatinine Clearance 19 mL/min (70-130); Calcium 8.7 mg/dL (7.8-10.44); Carbon Dioxide 13 mmol/L (23-31); Chloride 118 mmol/L (98-107); Estimated GFR-MDRD 16; Glucose 281 mg/dL (83-110); Potassium 4.3 mmol/L (3.5-5.1); Sodium 141 mmol/L (136-145)
--- NOTE | 2018-02-17 08:41 | PRG ---
DATE OF SERVICE: 02/17/2018 Mrs. Vogel is a 72-year-old black female followed up for her acute kidney injury on top of her ch ronic renal failure. She was initially admitted for a CVA with left-sided hemiplegia. This morning she still has decreased mentation, but she is arousable and can follow my simple commands. No acute event noted last night. She is currently on a diuretic regimen. PHYSICAL EXAMINATION: VITAL SIGNS: Blood pressure is noted at 165/71, heart rate 95, respiratory rate 22, temperature 99.3 , pulse ox 94%. GENERAL: The patient has decreased mentation, but arousable and can follow simple commands. SKIN: Adequate turgor. HEENT: She has slightly pale conjunctivae, anicteric sclerae. NECK: No neck mass, no carotid bruits, no JVD. CHEST: No deformities. LUNGS: Decreased breath sounds. HEART: Normal sinus rhythm. No murmur, no gallops, no rubs. ABDOMEN: Globular, soft, nontender, no masses. EXTREMITIES: Trace edema. MEDICATIONS: 02/17/2018 - Reviewed. LABORATORIES: 02/17/2018 - White count 7.3, hemoglobin 7.3, hematocrit 21.6. Sodium 141, potassium 4.3, chloride 118, carbon dioxide 13, BUN is 89, creatinine 3.48, GFR 16 mL per minute. Calcium 8.7. ASSESSMENT: 1. Status post cerebrovascular accident with left hemiplegia. Continue supportive care. PEG tube h as already been placed with this patient. 2. Acute kidney injury/chronic renal failure, fluctuating creatinine. The slightly higher creatinin e this a.m. may be a reflection of the current diuretic regimen. My bias is to adjust the furosemide downwards. There is no indication for any dialytic intervention with this patient. 3. Hypertension. Continue current blood pressure meds. Please note I recently increased her minoxi dil to 10 mg tab once a day. The blood pressure is slightly improved with this maneuver. 4. Anemia - will start Epogen 7500 units subcu every week.
[2018-02-17] MEDS ORDERED: glipiZIDE 5 MG TAB PO SCH (09:00)
[2018-02-17] MEDS ORDERED: Epoetin (ESRD) 20,000 UNITS/ML SC SCH (09:00)
[2018-02-17] MEDS: Amlodipine 10 MG TAB PO SCH (09:35)
[2018-02-17] MEDS: Isosorbide Dinitrate 20 MG TAB PER TUBE SCH ×2 (09:36→21:33)
[2018-02-17] MEDS: Sodium Bicarbonate Tab 325 MG TAB PO SCH ×3 (09:37→21:34)
[2018-02-17] MEDS: hydrALAZINE 25 MG TAB PO SCH ×3 (09:37→21:34)
[2018-02-17] MEDS: Minoxidil 2.5 MG TAB PO SCH (09:38)
[2018-02-17] MEDS: Carvedilol 25 MG TAB PO SCH ×2 (09:39→21:34)
[2018-02-17] MEDS: Clopidogrel Bisulfate 75 MG TAB PO SCH (09:39)
[2018-02-17] MEDS: Aspirin 325 MG TAB PER TUBE SCH (09:39)
[2018-02-17] MEDS: glipiZIDE 5 MG TAB PO SCH ×2 (09:40→21:35)
[2018-02-17] MEDS: Heparin 5,000 UNITS/ML VIAL SC SCH ×2 (09:41→21:32)
[2018-02-17] MEDS: Insulin Glargine 15 UNITS in Pre-Filled Syringe 1 EACH SC SCH ×2 (10:48→21:32)
--- NOTE | 2018-02-17 11:17 | PDOC.PN ---
- Subjective Encounter Start Date: 02/17/18 Encounter Start Time: 09:00 Subjective: awakens to touch, not oriented, does not follow verbal stimuli - Objective Resuscitation Status: Resuscitation Status FULL:Full Resuscitation MAR Reviewed: Yes Vital Signs & Weight: Vital Signs (12 hours) Temp Pulse Resp BP BP Pulse Ox 02/17/18 09:37 92 165/71 H 02/17/18 09:35 92 165/71 H 02/17/18 08:00 99.3 F 95 22 H 165/71 H 94 L 02/17/18 04:35 97.9 F 92 16 168/72 H 97 Weight Admit Weight 170 lb 6.677 oz Weight 185 lb Most Recent Monitor Data Heart Rate from ECG 80 NIBP 163/62 NIBP BP-Mean 133 Respiration from ECG 21 SpO2 100 I&O: 02/16/18 02/17/18 02/18/18 06:59 06:59 06:59 Intake Total 170 1550 Balance 170 1550 Result Diagrams: 02/17/18 04:49 02/17/18 04:49 Additional Labs: Accuchecks 02/17/18 02/16/18 02/16/18 04:45 23:28 19:55 POC Glucose 279 H 222 H 225 H 02/16/18 17:09 POC Glucose 206 H Phys Exam - Physical Examination HEENT: PERRLA, sclera anicteric Neck: no JVD, supple Respiratory: no wheezing, no rales rhonchi+ Cardiovascular: RRR, no significant murmur Gastrointestinal: soft, non-tender, positive bowel sounds peg+ Musculoskeletal: no edema, pulses present left hemiplegia, dysphagia, encephalopathy Dx/Plan (1) Acute CVA (cerebrovascular accident) Code(s): I63.9 - CEREBRAL INFARCTION, UNSPECIFIED Status: Acute Comment: Dense left hemiplegia with large right MCA cva (2) CKD (chronic kidney disease) stage 4, GFR 15-29 ml/min Code(s): N18.4 - CHRONIC KIDNEY DISEASE, STAGE 4 (SEVERE) Status: Chronic (3) Dysphagia Code(s): R13.10 - DYSPHAGIA, UNSPECIFIED Status: Acute (4) Hemiplegia affecting left nondominant side Code(s): G81.94 - HEMIPLEGIA, UNSPECIFIED AFFECTING LEFT NONDOMINANT SIDE Status: Acute Comment: PT/OT. Will need placement. (5) Hypertensive urgency Code(s): I16.0 - HYPERTENSIVE URGENCY Status: Resolved (6) Diabetes Code(s): E11.9 - TYPE 2 DIABETES MELLITUS WITHOUT COMPLICATIONS Status: Chronic Qualifiers: Diabetes mellitus type: type 2 Diabetes mellitus petroleum terminal plant operator insulin use: without petroleum terminal plant operator use Diabetes mellitus complication status: with kidney complications Diabetes mellitus complication detail: with chronic kidney disease Chronic kidney disease stage: stage 4 (severe) Qualified Code(s): E11.22 - Type 2 diabetes mellitus with diabetic chronic kidney disease; N18.4 - Chronic kidney disease, stage 4 (severe); N18.4 - Chronic kidney disease, stage 4 (severe); N18.4 - Chronic kidney disease, stage 4 (severe); N18.4 - Chronic kidney disease, stage 4 (severe) (7) Hyperlipidemia Code(s): E78.5 - HYPERLIPIDEMIA, UNSPECIFIED Status: Chronic Qualifiers: Hyperlipidemia type: unspecified Qualified Code(s): E78.5 - Hyperlipidemia , unspecified Comment: Resume home statin when possible. (8) Hypertension Code(s): I10 - ESSENTIAL (PRIMARY) HYPERTENSION Status: Chronic (9) FRANCIS (acute kidney injury) Code(s): N17.9 - ACUTE KIDNEY FAILURE, UNSPECIFIED Status: Acute (10) Metabolic acidosis Code(s): E87.2 - ACIDOSIS Status: Acute (11) FTT (failure to thrive) in adult Status: Acute (12) Acute encephalopathy Code(s): G93.40 - ENCEPHALOPATHY, UNSPECIFIED Status: Acute Comment: sec to massive cva - Plan d/w daughter and poa for patient -: plan for dc to [facility] in am -: d/w , needs weekly bmp at [facility] to be faxed to his office -: tolerating peg feeding, cognitively not much improvement -: prognosis is guarded and family is aware * . htn is fairly well controlled, oral lasix dm is labile, increase lantus and add glipizide. Revisited code status with daughter, wants her to be full code for now. Review of Systems - Medications/Allergies Allergies/Adverse Reactions: Allergies Allergy/AdvReac Type Severity Reaction Status Date / Time lisinopril [From Prinivil] Allergy Verified 02/13/18 01:44 Medications: Current Medications Amlodipine Besylate (Norvasc) 10 mg PO DAILY [facility] Last Admin: 02/17/18 09:35 Dose: 10 mg Artificial Tears (Tears Naturale) 2 drop EA EYE PRN PRN PRN Reason: DRY EYES Last Admin: 02/14/18 08:23 Dose: 2 drop Aspirin (Aspirin) 325 mg PER TUBE DAILY [facility] Last Admin: 02/17/18 09:39 Dose: 325 mg Carvedilol (Coreg) 25 mg PO BID [facility] Last Admin: 02/17/18 09:39 Dose: 25 mg Clonidine (Catapres) 0.2 mg PO Q8HR [facility] Clopidogrel Bisulfate (Plavix) 75 mg PO DAILY [facility] Last Admin: 02/17/18 09:39 Dose: 75 mg Dextrose/Water (Dextrose 50%) 25 gm SLOW IVP PRN PRN PRN Reason: Hypoglycemia Epoetin Vimal (Procrit) 7,500 units SC Q7D@0900 [facility] Last Admin: 02/17/18 10:18 Dose: 7,500 units Furosemide (Lasix) 40 mg PO DAILY[facility] Glipizide (Glucotrol) 5 mg PO BID [facility] Last Admin: 02/17/18 09:40 Dose: 5 mg Glucagon (Glucagon) 1 mg IM PRN PRN PRN Reason: Hypoglycemia Heparin Sodium (Porcine) (Heparin) 5,000 units SC BID [facility] Last Admin: 02/17/18 09:41 Dose: Not Given Hydralazine HCl (Apresoline) 10 mg SLOW IVP Q4H PRN PRN Reason: SBP>185 Last Admin: 02/16/18 05:10 Dose: 10 mg Hydralazine HCl (Apresoline) 25 mg PO TID [facility] Last Admin: 02/17/18 09:37 Dose: 25 mg Dextrose/Water (D5w) 1,000 mls @ 0 mls/hr IV .Q0M PRN; As Directed PRN Reason: Hypoglycemia Sodium Chloride (1/2 Normal Saline) 1,000 mls @ 125 mls/hr IV .Q8H [facility] Last Admin: 02/17/18 10:56 Dose: Not Given Insulin Glargine 15 units/ (Miscellaneous Medication) 0.15 mls @ 0 mls/hr SC BID [facility] Last Admin: 02/17/18 10:48 Dose: 0.15 mls Insulin Human Regular (Humulin R) 0 units SC .AGGRESSIVE SLIDING PRN; Protocol PRN Reason: AGGRESSIVE SLIDING SCALE Last Admin: 02/17/18 04:44 Dose: 9 unit Isosorbide Dinitrate (Isordil) 30 mg PER TUBE BID [facility] Last Admin: 02/17/18 09:36 Dose: 30 mg Minoxidil (Minoxidil) 10 mg PO DAILY [facility] Last Admin: 02/17/18 09:38 Dose: 10 mg Ondansetron HCl (Zofran) 4 mg IVP Q6H PRN PRN Reason: Nausea/Vomiting Pravastatin Sodium (Pravachol) 40 mg PO HS [facility] Last Admin: 02/16/18 20:02 Dose: 40 mg Scopolamine (Transderm Scop) 1.5 mg TD Q3D [facility] Last Admin: 02/16/18 15:43 Dose: 1.5 mg Sodium Bicarbonate (Bicarbonate, Sodium) 650 mg PO TID [facility] Last Admin: 02/17/18 09:37 Dose: 650 mg Sodium Chloride (Flush - Normal Saline) 10 ml IVF Q12HR [facility] Last Admin: 02/17/18 09:42 Dose: Not Given Sodium Chloride (Flush - Normal Saline) 10 ml IVF PRN PRN PRN Reason: Saline Flush
[2018-02-17] MEDS ORDERED: Metoclopramide HCl 10 MG/2 ML VIAL IVP SCH (13:00)
[2018-02-17] MEDS: cloNIDine 0.2 MG TAB PO SCH ×2 (15:05→21:34)
[2018-02-17] MEDS: Metoclopramide HCl 10 MG/2 ML VIAL IVP SCH (21:32)
[2018-02-17] MEDS: Pravastatin Sodium 40 MG TAB PO SCH (21:34)
[2018-02-18] MEDS: cloNIDine 0.2 MG TAB PO SCH ×4 (05:09→21:51)
[2018-02-18] MEDS: Insulin Regular 300 UNITS/3 ML VIAL SC PRN ×3 (05:10→18:51)
[2018-02-18] MEDS: Sodium Chloride 0.45% 1,000 ML IV SCH (06:11)
--- NOTE | 2018-02-18 07:20 | PRG ---
DATE OF SERVICE: 02/18/2018 SUBJECTIVE: Ms. Vogel is a 72-year-old black female with chronic renal failure from hypertensive nephropathy and being followed by the [facility]al [facility]. She was initially admitted with cerebrovascular accident with left hemiplegia. In the interim, she had a PEG tube placed. She is noted to be impro ving mentation guaman. This morning, she is more awake. She was responsive to my verbal stimuli. She can follow commands and she can answer appropriately. No acute events noted except for some abdomin al distention. Please note she had a PEG tube placed recently. No complaints of chest pain, shortne ss of breath today. OBJECTIVE: VITAL SIGNS: Blood pressure 142/59, heart rate 78, respiratory rate 20, temperature 98.6, pulse ox 9 4%. GENERAL: Noted to be awake, alert, comfortable, not in distress. SKIN: Adequate turgor. HEENT: Pinkish conjunctivae, anicteric sclerae. NECK: No neck mass, no carotid bruits, no JVD. CHEST: No deformities. LUNGS: Clear breath sounds. HEART: Normal sinus rhythm. No murmur, no gallops, no rubs. ABDOMEN: Globular, soft, nontender, no masses. EXTREMITIES: No edema, no deformities. Please note she has a PEG tube noted. MEDICATIONS: Of 02/18/2018 was reviewed. LABORATORY DATA: Of 02/18/2018 pending. Laboratories of 02/17/2018, sodium 141, potassium 4.3, chlo ride 118, carbon dioxide 13, BUN 89, creatinine 3.48. White count 7.3, hemoglobin 7.3. ASSESSMENT AND PLAN: 1. Chronic renal failure from hypertensive nephropathy, stable - most recent creatinine was noted at 3.48, which is near baseline. She is currently on a diuretic regimen. This has been adjusted downw ards. If renal function further worsens, we may need to hold off the diuretics. There is no indicat ion for any dialytic intervention. 2. Hypertension, much improved with minoxidil. 3. Anemia - patient currently has been started on Epogen. 4. Status post cerebrovascular accident. Continue supportive care. We will recheck base met and CBC in a.m.
[2018-02-18] MEDS ORDERED: Furosemide 40 MG TAB PO SCH (07:30)
[2018-02-18] MEDS: Heparin 5,000 UNITS/ML VIAL SC SCH ×2 (10:08→21:53)
[2018-02-18] MEDS: Metoclopramide HCl 10 MG/2 ML VIAL IVP SCH ×2 (10:08→21:54)
[2018-02-18] MEDS: Sodium Bicarbonate Tab 325 MG TAB PO SCH ×3 (10:09→21:47)
[2018-02-18] MEDS: Aspirin 325 MG TAB PER TUBE SCH (10:09)
[2018-02-18] MEDS: Minoxidil 2.5 MG TAB PO SCH (10:10)
[2018-02-18] MEDS: glipiZIDE 5 MG TAB PO SCH ×2 (10:10→21:51)
[2018-02-18] MEDS: Carvedilol 25 MG TAB PO SCH ×2 (10:10→21:51)
[2018-02-18] MEDS: Isosorbide Dinitrate 20 MG TAB PER TUBE SCH ×2 (10:10→21:47)
[2018-02-18] MEDS: hydrALAZINE 25 MG TAB PO SCH ×3 (10:11→21:52)
[2018-02-18] MEDS: Clopidogrel Bisulfate 75 MG TAB PO SCH (10:11)
[2018-02-18] MEDS: Amlodipine 10 MG TAB PO SCH (10:17)
[2018-02-18] MEDS: Insulin Glargine 25 UNITS in Pre-Filled Syringe 1 EACH SC SCH ×2 (10:42→22:24)
[2018-02-18] MEDS ORDERED: Fleet Enema 133 ML BOT PR SCH (11:15)
--- NOTE | 2018-02-18 13:51 | PDOC.PN ---
- Subjective Encounter Start Date: 02/18/18 Encounter Start Time: 09:15 Subjective: not awake or oriented -: lethargic, moves right UE -: has some residuals per staff on peg feeding - Objective Resuscitation Status: Resuscitation Status FULL:Full Resuscitation MAR Reviewed: Yes Vital Signs & Weight: Vital Signs (12 hours) Temp Pulse Resp BP BP Pulse Ox 02/18/18 11:54 98.7 F 88 16 128/56 L 92 L 02/18/18 10:17 89 02/18/18 10:12 142/59 H 02/18/18 10:11 89 02/18/18 07:59 99.4 F 89 18 95 02/18/18 05:09 142/59 H 02/18/18 03:46 98.6 F 78 20 142/59 H 94 L Weight Admit Weight 170 lb 6.677 oz Weight 187 lb 6.4 oz Most Recent Monitor Data Heart Rate from ECG 80 NIBP 163/62 NIBP BP-Mean 133 Respiration from ECG 21 SpO2 100 I&O: 02/17/18 02/18/18 02/19/18 06:59 06:59 06:59 Intake Total 6877 879 1222 Balance 5433 320 7690 Result Diagrams: 02/17/18 04:49 02/17/18 04:49 Additional Labs: Accuchecks 02/18/18 02/18/18 02/17/18 12:20 05:12 23:43 POC Glucose 317 H 245 H 308 H 02/17/18 02/17/18 20:25 17:50 POC Glucose 335 H 311 H Phys Exam - Physical Examination HEENT: PERRLA, sclera anicteric Neck: no nodes, no JVD Respiratory: no wheezing, no rales rhonchi+ Cardiovascular: RRR, no significant murmur Gastrointestinal: soft, non-tender, positive bowel sounds peg+ Musculoskeletal: no edema, pulses present left hemiplegia, dysphagia encephalopathic Dx/Plan (1) Acute CVA (cerebrovascular accident) Code(s): I63.9 - CEREBRAL INFARCTION, UNSPECIFIED Status: Acute Comment: Dense left hemiplegia with large right MCA cva (2) CKD (chronic kidney disease) stage 4, GFR 15-29 ml/min Code(s): N18.4 - CHRONIC KIDNEY DISEASE, STAGE 4 (SEVERE) Status: Chronic (3) Dysphagia Code(s): R13.10 - DYSPHAGIA, UNSPECIFIED Status: Acute (4) Hemiplegia affecting left nondominant side Code(s): G81.94 - HEMIPLEGIA, UNSPECIFIED AFFECTING LEFT NONDOMINANT SIDE Status: Acute Comment: PT/OT. Will need placement. (5) Hypertensive urgency Code(s): I16.0 - HYPERTENSIVE URGENCY Status: Resolved (6) Diabetes Code(s): E11.9 - TYPE 2 DIABETES MELLITUS WITHOUT COMPLICATIONS Status: Chronic Qualifiers: Diabetes mellitus type: type 2 Diabetes mellitus lobsterman insulin use: without lobsterman use Diabetes mellitus complication status: with kidney complications Diabetes mellitus complication detail: with chronic kidney disease Chronic kidney disease stage: stage 4 (severe) Qualified Code(s): E11.22 - Type 2 diabetes mellitus with diabetic chronic kidney disease; N18.4 - Chronic kidney disease, stage 4 (severe); N18.4 - Chronic kidney disease, stage 4 (severe); N18.4 - Chronic kidney disease, stage 4 (severe); N18.4 - Chronic kidney disease, stage 4 (severe) (7) Hyperlipidemia Code(s): E78.5 - HYPERLIPIDEMIA, UNSPECIFIED Status: Chronic Qualifiers: Hyperlipidemia type: unspecified Qualified Code(s): E78.5 - Hyperlipidemia , unspecified Comment: Resume home statin when possible. (8) Hypertension Code(s): I10 - ESSENTIAL (PRIMARY) HYPERTENSION Status: Chronic Qualifiers: Hypertension type: essential hypertension Qualified Code(s): I10 - Essential (primary) hypertension (9) FRANCIS (acute kidney injury) Code(s): N17.9 - ACUTE KIDNEY FAILURE, UNSPECIFIED Status: Acute (10) Metabolic acidosis Code(s): E87.2 - ACIDOSIS Status: Acute (11) FTT (failure to thrive) in adult Status: Acute (12) Acute encephalopathy Code(s): G93.40 - ENCEPHALOPATHY, UNSPECIFIED Status: Acute Comment: sec to massive cva - Plan neurologically no sig improvement, still encephalopathic -: poor prognosis, family wants her to be full code -: fleets until clear, reglan bid -: htn is stable, may dc to snf if passing stool and tolerating peg feeds -: weekly renal function panel to see trend * . Review of Systems - Medications/Allergies Allergies/Adverse Reactions: Allergies Allergy/AdvReac Type Severity Reaction Status Date / Time lisinopril [From Prinivil] Allergy Verified 02/13/18 01:44 Medications: Current Medications Amlodipine Besylate (Norvasc) 10 mg PO DAILY [facility] Last Admin: 02/18/18 10:17 Dose: 10 mg Artificial Tears (Tears Naturale) 2 drop EA EYE PRN PRN PRN Reason: DRY EYES Last Admin: 02/14/18 08:23 Dose: 2 drop Aspirin (Aspirin) 325 mg PER TUBE DAILY [facility] Last Admin: 02/18/18 10:09 Dose: 325 mg Carvedilol (Coreg) 25 mg PO BID [facility] Last Admin: 02/18/18 10:10 Dose: 25 mg Clonidine (Catapres) 0.2 mg PO TID [facility] Last Admin: 02/18/18 10:12 Dose: 0.2 mg Clopidogrel Bisulfate (Plavix) 75 mg PO DAILY [facility] Last Admin: 02/18/18 10:11 Dose: 75 mg Dextrose/Water (Dextrose 50%) 25 gm SLOW IVP PRN PRN PRN Reason: Hypoglycemia Epoetin Vimal (Procrit) 7,500 units SC Q7D@0900 [facility] Last Admin: 02/17/18 10:18 Dose: 7,500 units Furosemide (Lasix) 40 mg PO DAILY-[facility] Last Admin: 02/18/18 10:17 Dose: 40 mg Glipizide (Glucotrol) 5 mg PO BID [facility] Last Admin: 02/18/18 10:10 Dose: 5 mg Glucagon (Glucagon) 1 mg IM PRN PRN PRN Reason: Hypoglycemia Heparin Sodium (Porcine) (Heparin) 5,000 units SC BID [facility] Last Admin: 02/18/18 10:08 Dose: 5,000 units Hydralazine HCl (Apresoline) 10 mg SLOW IVP Q4H PRN PRN Reason: SBP>185 Last Admin: 02/16/18 05:10 Dose: 10 mg Hydralazine HCl (Apresoline) 25 mg PO TID [facility] Last Admin: 02/18/18 10:11 Dose: 25 mg Dextrose/Water (D5w) 1,000 mls @ 0 mls/hr IV .Q0M PRN; As Directed PRN Reason: Hypoglycemia Insulin Glargine 25 units/ (Miscellaneous Medication) 0.25 mls @ 0 mls/hr SC BID [facility] Last Admin: 02/18/18 10:42 Dose: 0.25 mls Insulin Human Regular (Humulin R) 0 units SC .AGGRESSIVE SLIDING PRN; Protocol PRN Reason: AGGRESSIVE SLIDING SCALE Last Admin: 02/18/18 12:42 Dose: 11 unit Isosorbide Dinitrate (Isordil) 30 mg PER TUBE BID [facility] Last Admin: 02/18/18 10:10 Dose: 30 mg Metoclopramide HCl (Reglan) 10 mg IVP Q12HR [facility] Last Admin: 02/18/18 10:08 Dose: 10 mg Minoxidil (Minoxidil) 10 mg PO DAILY [facility] Last Admin: 02/18/18 10:10 Dose: 10 mg Ondansetron HCl (Zofran) 4 mg IVP Q6H PRN PRN Reason: Nausea/Vomiting Pravastatin Sodium (Pravachol) 40 mg PO HS [facility] Last Admin: 02/17/18 21:34 Dose: 40 mg Scopolamine (Transderm Scop) 1.5 mg TD Q3D [facility] Last Admin: 02/16/18 15:43 Dose: 1.5 mg Sodium Bicarbonate (Bicarbonate, Sodium) 650 mg PO TID [facility] Last Admin: 02/18/18 10:09 Dose: 650 mg Sodium Chloride (Flush - Normal Saline) 10 ml IVF Q12HR [facility] Last Admin: 02/18/18 10:44 Dose: Not Given Sodium Chloride (Flush - Normal Saline) 10 ml IVF PRN PRN PRN Reason: Saline Flush
[2018-02-18] MEDS: Fleet Enema 133 ML BOT PR SCH ×2 (15:55→18:24)
[2018-02-18] MEDS: Pravastatin Sodium 40 MG TAB PO SCH (21:51)
[2018-02-19] MEDS: Fleet Enema 133 ML BOT PR SCH ×2 (00:21→07:43)
[2018-02-19 05:38] LABS: Anion Gap 14 mmol/L (10-20); BUN (Urea Nitrogen) 101 mg/dL (9.8-20.1); Calc. Creatinine Clearance 18 mL/min (70-130); Calcium 8.4 mg/dL (7.8-10.44); Carbon Dioxide 14 mmol/L (23-31); Chloride 118 mmol/L (98-107); Estimated GFR-MDRD 14; Glucose 86 mg/dL (83-110); Potassium 4.1 mmol/L (3.5-5.1); Sodium 142 mmol/L (136-145)
[2018-02-19 06:24] LABS: Mean Corpuscular HGB CONC 35.1 g/dL (32.0-36.0); Mean Corpuscular Hemoglobin 29.3 pg (27.0-31.0); Mean Corpuscular Volume 83.6 fL (78.0-98.0); Mean Platelet Volume 10.9 fL (7.4-10.4); Platelet Count 113 thou/uL (130-400); RBC Distribution Width 16.8 % (11.5-14.5); Red Blood Cell (RBC) Count 2.38 mill/uL (4.20-5.40); White Blood Cell (WBC) Count 10.5 thou/uL (4.8-10.8)
[2018-02-19 07:33] LABS: Band 25 % (5-11); Lymphocytes 11 % (21-51); MDiff Complete? YES; Monocytes 4 % (0-10); Neutrophil 60 % (42-75)
[2018-02-19] MEDS: Sodium Chloride 0.9% 1,000 ML IV SCH ×3 (09:49→21:56)
[2018-02-19] MEDS: Metoclopramide HCl 10 MG/2 ML VIAL IVP SCH (09:50)
[2018-02-19] MEDS: Minoxidil 2.5 MG TAB PO SCH (09:50)
[2018-02-19] MEDS: Aspirin 325 MG TAB PER TUBE SCH (09:51)
[2018-02-19] MEDS: Sodium Bicarbonate Tab 325 MG TAB PO SCH ×3 (09:51→21:50)
[2018-02-19] MEDS: Isosorbide Dinitrate 20 MG TAB PER TUBE SCH ×2 (09:51→21:51)
[2018-02-19] MEDS: Clopidogrel Bisulfate 75 MG TAB PO SCH (09:52)
[2018-02-19] MEDS: hydrALAZINE 25 MG TAB PO SCH ×3 (09:52→21:53)
[2018-02-19] MEDS: Carvedilol 25 MG TAB PO SCH ×2 (09:52→21:51)
[2018-02-19] MEDS: cloNIDine 0.2 MG TAB PO SCH ×3 (09:52→21:52)
[2018-02-19] MEDS: Amlodipine 10 MG TAB PO SCH (09:53)
[2018-02-19] MEDS: Heparin 5,000 UNITS/ML VIAL SC SCH ×2 (09:56→21:54)
--- NOTE | 2018-02-19 10:29 | PRG ---
DATE OF SERVICE: 02/19/2018 RENAL MEDICINE SUBJECTIVE: Ms. Vogel is a 72-year-old black female who was admitted for CVA with left hemiplegia . In the interim, she has received a PEG tube placement. We are following her up for acute kidney i njury on top of chronic renal failure. She was being diuresed recently and the diuretics have been a djusted downwards. However, I noted BUN was elevated more than 100 today. For this reason, we will stop the furosemide and start her on normal saline. She voices no new complaints. She is tolerating the PEG tube feeding. No complaints of chest pain or shortness of breath. Mentation is improving o lucas time. PHYSICAL EXAMINATION: VITAL SIGNS: Blood pressure is 176/50 with heart rate of 85, respiratory rate 24, temperature 99, pu lse ox 94% room air. GENERAL: Patient is awake, can follow commands. She is verbal. She is not in distress. SKIN: Adequate turgor. HEENT: Slightly pale conjunctivae, anicteric sclerae. NECK: No neck mass, no carotid bruits, no JVD. CHEST: No deformities. LUNGS: Decreased breath sounds. HEART: Normal sinus rhythm. No murmurs, no gallops, no rubs. ABDOMEN: Globular, soft, nontender, no masses. Positive for PEG tube. EXTREMITIES: No edema, no deformities. MEDICATIONS: Medications of 02/19/2018 reviewed. LABORATORY DATA: Laboratories of 02/19/2018, white count 10.5, hemoglobin 7. Sodium 142, potassium 4.1, chloride 118, carbon dioxide 14, BUN 101, creatinine 3.82, calcium 8.4. ASSESSMENT AND PLAN: 1. Acute kidney injury on top of her chronic renal failure, worsening renal dysfunction. We will di scontinue Lasix with this patient and start normal saline 100 mL per hour. 2. Metabolic acidosis. Continuing current sodium bicarbonate tabs. 3. Anemia, on weekly Epogen. P.r.n. blood transfusion. Consider blood transfusion if hemoglobin is less than 7. 4. Status post cerebrovascular accident with left hemiplegia. Continue supportive care. Her mentat ion has been much improved in the last 2 days. She is awake and can follow commands. She is verbal. We will recheck base met and CBC in a.m.
[2018-02-19] MEDS: glipiZIDE 5 MG TAB PO SCH ×2 (11:53→22:40)
[2018-02-19] MEDS: Insulin Glargine 25 UNITS in Pre-Filled Syringe 1 EACH SC SCH (11:55)
--- NOTE | 2018-02-19 12:13 | PDOC.PN ---
- Subjective Encounter Start Date: 02/19/18 Encounter Start Time: 09:00 Subjective: is more awake this morning and folllows verbal stimuli -: is moving her right extremities -: has not had bm from 4 days, no relief with 4 fleets so far - Objective Resuscitation Status: Resuscitation Status FULL:Full Resuscitation MAR Reviewed: Yes Vital Signs & Weight: Vital Signs (12 hours) Temp Pulse Resp BP BP Pulse Ox 02/19/18 11:58 99 F 86 24 H 94 L 02/19/18 09:53 85 02/19/18 09:52 85 176/50 H 02/19/18 08:55 99.0 F 85 24 H 94 L 02/19/18 07:51 99 F 85 24 H 94 L 02/19/18 04:00 98.8 F 81 18 145/54 H 94 L Weight Admit Weight 170 lb 6.677 oz Weight 187 lb 6.4 oz Most Recent Monitor Data Heart Rate from ECG 80 NIBP 163/62 NIBP BP-Mean 133 Respiration from ECG 21 SpO2 100 I&O: 02/18/18 02/19/18 02/20/18 06:59 06:59 06:59 Intake Total 537 1791 125 Balance 537 1791 125 Result Diagrams: 02/19/18 04:40 02/19/18 04:40 Additional Labs: Accuchecks 02/19/18 02/19/18 02/18/18 04:42 00:16 22:00 POC Glucose 93 141 H 172 H 02/18/18 02/18/18 18:37 12:20 POC Glucose 251 H 317 H Phys Exam - Physical Examination HEENT: PERRLA, sclera anicteric Neck: no JVD, supple Respiratory: no wheezing, no rales Cardiovascular: RRR, no significant murmur Gastrointestinal: soft, non-tender, positive bowel sounds peg+ Musculoskeletal: pulses present, edema present left hemiplegia, dysphagia Dx/Plan (1) Acute CVA (cerebrovascular accident) Code(s): I63.9 - CEREBRAL INFARCTION, UNSPECIFIED Status: Acute Comment: Dense left hemiplegia with large right MCA cva (2) CKD (chronic kidney disease) stage 4, GFR 15-29 ml/min Code(s): N18.4 - CHRONIC KIDNEY DISEASE, STAGE 4 (SEVERE) Status: Chronic (3) Dysphagia Code(s): R13.10 - DYSPHAGIA, UNSPECIFIED Status: Acute (4) Hemiplegia affecting left nondominant side Code(s): G81.94 - HEMIPLEGIA, UNSPECIFIED AFFECTING LEFT NONDOMINANT SIDE Status: Acute Comment: PT/OT. Will need placement. (5) Hypertensive urgency Code(s): I16.0 - HYPERTENSIVE URGENCY Status: Resolved (6) Diabetes Code(s): E11.9 - TYPE 2 DIABETES MELLITUS WITHOUT COMPLICATIONS Status: Chronic Qualifiers: Diabetes mellitus type: type 2 Diabetes mellitus halfway insulin use: without computer terminal operator use Diabetes mellitus complication status: with kidney complications Diabetes mellitus complication detail: with chronic kidney disease Chronic kidney disease stage: stage 4 (severe) Qualified Code(s): E11.22 - Type 2 diabetes mellitus with diabetic chronic kidney disease; N18.4 - Chronic kidney disease, stage 4 (severe); N18.4 - Chronic kidney disease, stage 4 (severe); N18.4 - Chronic kidney disease, stage 4 (severe); N18.4 - Chronic kidney disease, stage 4 (severe) (7) Hyperlipidemia Code(s): E78.5 - HYPERLIPIDEMIA, UNSPECIFIED Status: Chronic Qualifiers: Hyperlipidemia type: unspecified Qualified Code(s): E78.5 - Hyperlipidemia , unspecified Comment: Resume home statin when possible. (8) Hypertension Code(s): I10 - ESSENTIAL (PRIMARY) HYPERTENSION Status: Chronic Qualifiers: Hypertension type: essential hypertension Qualified Code(s): I10 - Essential (primary) hypertension (9) FRANCIS (acute kidney injury) Code(s): N17.9 - ACUTE KIDNEY FAILURE, UNSPECIFIED Status: Acute (10) Metabolic acidosis Code(s): E87.2 - ACIDOSIS Status: Acute (11) FTT (failure to thrive) in adult Status: Acute (12) Acute encephalopathy Code(s): G93.40 - ENCEPHALOPATHY, UNSPECIFIED Status: Acute Comment: sec to massive cva - Plan worsoning francis, on iv fluids now -: start peg feeding, reglan tid via peg -: kub xray, will start golytely if badly constipated -: watch for residuals, give 150ml free water inbetween 3 cans of peg feeds -: poor prognosis, hold discharge in view of worsoning renal function * . Review of Systems - Medications/Allergies Allergies/Adverse Reactions: Allergies Allergy/AdvReac Type Severity Reaction Status Date / Time lisinopril [From Prinivil] Allergy Verified 02/13/18 01:44 Medications: Current Medications Amlodipine Besylate (Norvasc) 10 mg PO DAILY [facility] Last Admin: 02/19/18 09:53 Dose: 10 mg Artificial Tears (Tears Naturale) 2 drop EA EYE PRN PRN PRN Reason: DRY EYES Last Admin: 02/14/18 08:23 Dose: 2 drop Aspirin (Aspirin) 325 mg PER TUBE DAILY [facility] Last Admin: 02/19/18 09:51 Dose: 325 mg Carvedilol (Coreg) 25 mg PO BID [facility] Last Admin: 02/19/18 09:52 Dose: 25 mg Clonidine (Catapres) 0.2 mg PO TID [facility] Last Admin: 02/19/18 09:52 Dose: 0.2 mg Clopidogrel Bisulfate (Plavix) 75 mg PO DAILY [facility] Last Admin: 02/19/18 09:52 Dose: 75 mg Dextrose/Water (Dextrose 50%) 25 gm SLOW IVP PRN PRN PRN Reason: Hypoglycemia Epoetin Vimal (Procrit) 7,500 units SC Q7D@0900 [facility] Last Admin: 02/17/18 10:18 Dose: 7,500 units Glipizide (Glucotrol) 5 mg PO BID [facility] Last Admin: 02/19/18 11:53 Dose: Not Given Glucagon (Glucagon) 1 mg IM PRN PRN PRN Reason: Hypoglycemia Heparin Sodium (Porcine) (Heparin) 5,000 units SC BID [facility] Last Admin: 02/19/18 09:56 Dose: 5,000 units Hydralazine HCl (Apresoline) 10 mg SLOW IVP Q4H PRN PRN Reason: SBP>185 Last Admin: 02/16/18 05:10 Dose: 10 mg Hydralazine HCl (Apresoline) 25 mg PO TID [facility] Last Admin: 02/19/18 09:52 Dose: 25 mg Dextrose/Water (D5w) 1,000 mls @ 0 mls/hr IV .Q0M PRN; As Directed PRN Reason: Hypoglycemia Insulin Glargine 25 units/ (Miscellaneous Medication) 0.25 mls @ 0 mls/hr SC BID [facility] Last Admin: 02/19/18 11:55 Dose: Not Given Sodium Chloride (Normal Saline 0.9%) 1,000 mls @ 125 mls/hr IV .Q8H [facility] Last Admin: 02/19/18 09:49 Dose: 1,000 mls Insulin Human Regular (Humulin R) 0 units SC .AGGRESSIVE SLIDING PRN; Protocol PRN Reason: AGGRESSIVE SLIDING SCALE Last Admin: 02/18/18 18:51 Dose: 9 unit Isosorbide Dinitrate (Isordil) 30 mg PER TUBE BID [facility] Last Admin: 02/19/18 09:51 Dose: 30 mg Metoclopramide HCl (Reglan) 10 mg IVP Q12HR [facility] Last Admin: 02/19/18 09:50 Dose: 10 mg Minoxidil (Minoxidil) 10 mg PO DAILY [facility] Last Admin: 02/19/18 09:50 Dose: 10 mg Ondansetron HCl (Zofran) 4 mg IVP Q6H PRN PRN Reason: Nausea/Vomiting Pravastatin Sodium (Pravachol) 40 mg PO HS [facility] Last Admin: 02/18/18 21:51 Dose: 40 mg Scopolamine (Transderm Scop) 1.5 mg TD Q3D [facility] Last Admin: 02/16/18 15:43 Dose: 1.5 mg Sodium Bicarbonate (Bicarbonate, Sodium) 650 mg PO TID [facility] Last Admin: 02/19/18 09:51 Dose: 650 mg Sodium Biphosphate/Sodium Phosphate (Fleet Enema) 133 ml NC ASDIR [facility] Last Admin: 02/19/18 07:43 Dose: 133 ml Sodium Chloride (Flush - Normal Saline) 10 ml IVF Q12HR [facility] Last Admin: 02/19/18 09:55 Dose: 10 ml Sodium Chloride (Flush - Normal Saline) 10 ml IVF PRN PRN PRN Reason: Saline Flush
[2018-02-19] MEDS: Scopolamine 1.5 mg/72 hour Patch TD SCH (12:18)
--- NOTE | 2018-02-19 14:54 | RAD ---
FRONTAL VIEW ABDOMEN/KUB: COMPARISON: 02/12/18. FINDINGS: There is a large calcification of the left aspect of the pelvis and additional smaller calcific densi ties overlying the pelvis. Left side ostomy is noted with air insufflated balloon at the left medial abdomen. There is moderate retained fecal material of the colon. Imaged upper abdomen reveals a pa ucity of bowel gas. Portions of upper abdomen are excluded from view. Mild chronic osseous deformity is present at the inferior pelvis. IMPRESSION: 1. Calcific densities overlying the pelvis. The component could relate to calcified uterine fibroid disease, although findings are not further delineated on the basis of this exam. 2. Nonspecific bowel gas pattern. POS: [facility]
[2018-02-19] MEDS: Metoclopramide 10 MG/10 ML UDCUP PER TUBE SCH ×2 (15:54→21:51)
[2018-02-19] MEDS: Insulin Regular 300 UNITS/3 ML VIAL SC PRN (17:33)
[2018-02-19] MEDS: Pravastatin Sodium 40 MG TAB PO SCH (21:54)
[2018-02-20] MEDS: Insulin Glargine 25 UNITS in Pre-Filled Syringe 1 EACH SC SCH ×3 (00:30→21:31)
[2018-02-20] MEDS: Sodium Chloride 0.9% 1,000 ML IV SCH ×3 (05:26→21:43)
[2018-02-20] MEDS: Insulin Regular 300 UNITS/3 ML VIAL SC PRN ×3 (05:53→19:18)
[2018-02-20 06:24] LABS: #Eosinphils 0.1 thou/uL (0.0-0.7); #Lymphocytes 0.9 thou/uL (1.20-3.40); #Monocytes 0.9 thou/uL (0.11-0.59); #Neutrophils 8.7 thou/uL (1.40-6.50); %Eosinophils 0.6 % (0.0-10.0); %Lymphocytes 8.9 % (21.0-51.0); %Monocytes 8.5 % (0.0-10.0); %Neutrophils 82.1 % (42.0-75.0); Hemoglobin 7.1 g/dL (12.0-16.0); Mean Corpuscular HGB CONC 35.1 g/dL (32.0-36.0); Mean Corpuscular Hemoglobin 29.5 pg (27.0-31.0); Mean Platelet Volume 11.4 fL (7.4-10.4); Platelet Count 121 thou/uL (130-400); Red Blood Cell (RBC) Count 2.42 mill/uL (4.20-5.40); White Blood Cell (WBC) Count 10.6 thou/uL (4.8-10.8)
[2018-02-20 06:36] LABS: Anion Gap 13 mmol/L (10-20); BUN (Urea Nitrogen) 98 mg/dL (9.8-20.1); Calc. Creatinine Clearance 18 mL/min (70-130); Calcium 8.3 mg/dL (7.8-10.44); Carbon Dioxide 14 mmol/L (23-31); Chloride 118 mmol/L (98-107); Estimated GFR-MDRD 15; Glucose 215 mg/dL (83-110); Potassium 4.1 mmol/L (3.5-5.1); Sodium 141 mmol/L (136-145)
--- NOTE | 2018-02-20 10:13 | PRG ---
DATE OF SERVICE: 02/20/2018 RENAL MEDICINE SUBJECTIVE: Ms. Vogel is a 72-year-old black female who was seen by the Renal Service for her chr onic renal failure and fluctuating creatinine. Due to the worsening renal dysfunction, she was start ed on normal saline. She has also been scheduled for blood transfusion. This morning, she is more a wake, alert, and able to converse appropriately. Please note this patient recently was diagnosed with CVA with left hemiplegia. PHYSICAL EXAMINATION: VITAL SIGNS: Blood pressure 153/83, heart rate 83, respiratory rate 20, temperature 98, pulse ox 95% on room air. GENERAL: Awake, alert, comfortable, not in distress. SKIN: Adequate turgor. HEENT: Slightly pale conjunctivae, anicteric sclerae. NECK: No neck mass, no carotid bruits, no JVD. CHEST: No deformities. LUNGS: Clear breath sounds. No wheezing, no crackles. HEART: Normal sinus rhythm. No murmur, no gallops, no rubs. ABDOMEN: Globular, soft, nontender. EXTREMITIES: No edema. MEDICATIONS: Medications of 02/20/2018 reviewed. LABORATORY DATA: Laboratories of 02/20/2018; white count 10.6, hemoglobin 7.1. Sodium 141, potassiu m 4.1, chloride ____, carbon dioxide 14, BUN 98, creatinine 3.7, glucose 215, calcium was noted at 8. 3. ASSESSMENT AND PLAN: 1. Chronic renal failure, fluctuating creatinine. Creatinine has stabilized from 3.82 to a most rec ent value of 3.7. Continue normal saline at 125 mL per hour. Continue to optimize hemodynamics. Th e patient will be receiving 1-2 units of packed red blood cells today. 2. Metabolic acidosis. Continue sodium bicarbonate. 3. Anemia p.r.n. blood transfusion. Continue weekly Epogen. 4. Hypertension, stable. Continue current antihypertensive regimen. We will be rechecking a base m et and CBC in a.m.
[2018-02-20] MEDS: Heparin 5,000 UNITS/ML VIAL SC SCH ×2 (10:22→21:35)
[2018-02-20] MEDS: Metoclopramide 10 MG/10 ML UDCUP PER TUBE SCH ×3 (10:25→21:32)
[2018-02-20] MEDS: glipiZIDE 5 MG TAB PO SCH ×2 (10:25→21:33)
[2018-02-20] MEDS: Aspirin 325 MG TAB PER TUBE SCH (10:25)
[2018-02-20] MEDS: Sodium Bicarbonate Tab 325 MG TAB PO SCH ×3 (10:25→21:35)
[2018-02-20] MEDS: Isosorbide Dinitrate 20 MG TAB PER TUBE SCH ×2 (10:26→21:34)
[2018-02-20] MEDS: Minoxidil 2.5 MG TAB PO SCH (10:27)
[2018-02-20] MEDS: Carvedilol 25 MG TAB PO SCH ×2 (10:28→21:43)
[2018-02-20] MEDS: Amlodipine 10 MG TAB PO SCH (10:28)
[2018-02-20] MEDS: cloNIDine 0.2 MG TAB PO SCH ×3 (10:28→21:33)
[2018-02-20] MEDS: Clopidogrel Bisulfate 75 MG TAB PO SCH (10:28)
[2018-02-20] MEDS: hydrALAZINE 25 MG TAB PO SCH ×3 (10:29→21:33)
--- NOTE | 2018-02-20 10:37 | PDOC.PN ---
- Subjective Encounter Start Date: 02/20/18 Encounter Start Time: 08:00 Subjective: is awake, responds to verbal stimuli -: moves right extremities but not left -: PT here to work with her, is needing max assist to even sit - Objective Resuscitation Status: Resuscitation Status FULL:Full Resuscitation MAR Reviewed: Yes Vital Signs & Weight: Vital Signs (12 hours) Temp Pulse Resp BP BP Pulse Ox 02/20/18 10:29 83 02/20/18 10:28 83 132/66 02/20/18 08:00 98.0 F 83 20 153/83 H 95 02/20/18 04:00 98.4 F 82 19 143/69 H 95 02/20/18 00:00 98.7 F 84 18 135/100 H 94 L Weight Admit Weight 170 lb 6.677 oz Weight 191 lb 3.2 oz Most Recent Monitor Data Heart Rate from ECG 80 NIBP 163/62 NIBP BP-Mean 133 Respiration from ECG 21 SpO2 100 I&O: 02/19/18 02/20/18 02/21/18 06:59 06:59 06:59 Intake Total 1791 2087 1607 Balance 1791 2087 1607 Result Diagrams: 02/20/18 05:56 02/20/18 05:56 Additional Labs: Accuchecks 02/20/18 02/19/18 02/19/18 05:46 22:27 16:39 POC Glucose 228 H 183 H 195 H 02/19/18 12:03 POC Glucose 92 Phys Exam - Physical Examination HEENT: PERRLA, sclera anicteric Neck: no JVD, supple Respiratory: no wheezing, no rales Cardiovascular: RRR, no significant murmur Gastrointestinal: soft, non-tender, positive bowel sounds Musculoskeletal: pulses present, edema present left hemiplegia, dysphagia Dx/Plan (1) Acute CVA (cerebrovascular accident) Code(s): I63.9 - CEREBRAL INFARCTION, UNSPECIFIED Status: Acute Comment: Dense left hemiplegia with large right MCA cva (2) CKD (chronic kidney disease) stage 4, GFR 15-29 ml/min Code(s): N18.4 - CHRONIC KIDNEY DISEASE, STAGE 4 (SEVERE) Status: Chronic (3) Dysphagia Code(s): R13.10 - DYSPHAGIA, UNSPECIFIED Status: Acute Comment: s/p peg (4) Hemiplegia affecting left nondominant side Code(s): G81.94 - HEMIPLEGIA, UNSPECIFIED AFFECTING LEFT NONDOMINANT SIDE Status: Acute Comment: PT/OT. Will need placement. (5) Hypertensive urgency Code(s): I16.0 - HYPERTENSIVE URGENCY Status: Resolved (6) Diabetes Code(s): E11.9 - TYPE 2 DIABETES MELLITUS WITHOUT COMPLICATIONS Status: Chronic Qualifiers: Diabetes mellitus type: type 2 Diabetes mellitus terminal make up operator insulin use: without usp use Diabetes mellitus complication status: with kidney complications Diabetes mellitus complication detail: with chronic kidney disease Chronic kidney disease stage: stage 4 (severe) Qualified Code(s): E11.22 - Type 2 diabetes mellitus with diabetic chronic kidney disease; N18.4 - Chronic kidney disease, stage 4 (severe); N18.4 - Chronic kidney disease, stage 4 (severe); N18.4 - Chronic kidney disease, stage 4 (severe); N18.4 - Chronic kidney disease, stage 4 (severe) (7) Hyperlipidemia Code(s): E78.5 - HYPERLIPIDEMIA, UNSPECIFIED Status: Chronic Qualifiers: Hyperlipidemia type: unspecified Qualified Code(s): E78.5 - Hyperlipidemia , unspecified Comment: Resume home statin when possible. (8) Hypertension Code(s): I10 - ESSENTIAL (PRIMARY) HYPERTENSION Status: Chronic Qualifiers: Hypertension type: essential hypertension Qualified Code(s): I10 - Essential (primary) hypertension (9) FRANCIS (acute kidney injury) Code(s): N17.9 - ACUTE KIDNEY FAILURE, UNSPECIFIED Status: Acute (10) Metabolic acidosis Code(s): E87.2 - ACIDOSIS Status: Acute (11) FTT (failure to thrive) in adult Status: Acute (12) Acute encephalopathy Code(s): G93.40 - ENCEPHALOPATHY, UNSPECIFIED Status: Acute Comment: sec to massive cva - Plan encephalopathy is slowly clearing up -: francis holding up, is on iv fluids, watch for overload -: constipation, 1 liter golytely, failed fleets enema -: htn is better controlled -: prognosis guarded, needs to mobilize more, peg feeds, free water as tolerat * . Review of Systems - Medications/Allergies Allergies/Adverse Reactions: Allergies Allergy/AdvReac Type Severity Reaction Status Date / Time lisinopril [From Prinivil] Allergy Verified 02/13/18 01:44 Medications: Current Medications Amlodipine Besylate (Norvasc) 10 mg PO DAILY [facility] Last Admin: 02/20/18 10:28 Dose: 10 mg Artificial Tears (Tears Naturale) 2 drop EA EYE PRN PRN PRN Reason: DRY EYES Last Admin: 02/14/18 08:23 Dose: 2 drop Aspirin (Aspirin) 325 mg PER TUBE DAILY [facility] Last Admin: 02/20/18 10:25 Dose: 325 mg Carvedilol (Coreg) 25 mg PO BID [facility] Last Admin: 02/20/18 10:28 Dose: 25 mg Clonidine (Catapres) 0.2 mg PO TID [facility] Last Admin: 02/20/18 10:28 Dose: 0.2 mg Clopidogrel Bisulfate (Plavix) 75 mg PO DAILY [facility] Last Admin: 02/20/18 10:28 Dose: 75 mg Dextrose/Water (Dextrose 50%) 25 gm SLOW IVP PRN PRN PRN Reason: Hypoglycemia Epoetin Vimal (Procrit) 7,500 units SC Q7D@0900 [facility] Last Admin: 02/17/18 10:18 Dose: 7,500 units Glipizide (Glucotrol) 5 mg PO BID [facility] Last Admin: 02/20/18 10:25 Dose: 5 mg Glucagon (Glucagon) 1 mg IM PRN PRN PRN Reason: Hypoglycemia Heparin Sodium (Porcine) (Heparin) 5,000 units SC BID [facility] Last Admin: 02/20/18 10:22 Dose: 5,000 units Hydralazine HCl (Apresoline) 10 mg SLOW IVP Q4H PRN PRN Reason: SBP>185 Last Admin: 02/16/18 05:10 Dose: 10 mg Hydralazine HCl (Apresoline) 25 mg PO TID [facility] Last Admin: 02/20/18 10:29 Dose: 25 mg Dextrose/Water (D5w) 1,000 mls @ 0 mls/hr IV .Q0M PRN; As Directed PRN Reason: Hypoglycemia Insulin Glargine 25 units/ (Miscellaneous Medication) 0.25 mls @ 0 mls/hr SC BID [facility] Last Admin: 02/20/18 10:23 Dose: 0.25 mls Sodium Chloride (Normal Saline 0.9%) 1,000 mls @ 125 mls/hr IV .Q8H [facility] Last Admin: 02/20/18 05:26 Dose: 1,000 mls Insulin Human Regular (Humulin R) 0 units SC .AGGRESSIVE SLIDING PRN; Protocol PRN Reason: AGGRESSIVE SLIDING SCALE Last Admin: 02/20/18 05:53 Dose: 6 unit Isosorbide Dinitrate (Isordil) 30 mg PER TUBE BID [facility] Last Admin: 02/20/18 10:26 Dose: 30 mg Metoclopramide HCl (Reglan) 10 mg PER TUBE TID [facility] Last Admin: 02/20/18 10:25 Dose: 10 mg Minoxidil (Minoxidil) 10 mg PO DAILY [facility] Last Admin: 02/20/18 10:27 Dose: 10 mg Ondansetron HCl (Zofran) 4 mg IVP Q6H PRN PRN Reason: Nausea/Vomiting Polyethylene Glycol/Electrolytes (Golytely) 1,000 ml PO ONE [facility] Pravastatin Sodium (Pravachol) 40 mg PO HS [facility] Last Admin: 02/19/18 21:54 Dose: 40 mg Scopolamine (Transderm Scop) 1.5 mg TD Q3D [facility] Last Admin: 02/19/18 12:18 Dose: 1.5 mg Sodium Bicarbonate (Bicarbonate, Sodium) 650 mg PO TID [facility] Last Admin: 02/20/18 10:25 Dose: 650 mg Sodium Biphosphate/Sodium Phosphate (Fleet Enema) 133 ml RI ASDIR [facility] Last Admin: 02/19/18 07:43 Dose: 133 ml Sodium Chloride (Flush - Normal Saline) 10 ml IVF Q12HR [facility] Last Admin: 02/19/18 21:56 Dose: Not Given Sodium Chloride (Flush - Normal Saline) 10 ml IVF PRN PRN PRN Reason: Saline Flush
[2018-02-20] MEDS ORDERED: GoLYTELY 4,000 ml Bottle PO SCH (11:15)
[2018-02-20] MEDS: Pravastatin Sodium 40 MG TAB PO SCH (21:35)
[2018-02-21 05:27] LABS: #Eosinphils 0.1 thou/uL (0.0-0.7); #Lymphocytes 0.9 thou/uL (1.20-3.40); #Monocytes 0.8 thou/uL (0.11-0.59); #Neutrophils 9.5 thou/uL (1.40-6.50); %Basophils 0.1 % (0.0-1.0); %Monocytes 6.7 % (0.0-10.0); %Neutrophils 84.2 % (42.0-75.0); Hemoglobin 8.6 g/dL (12.0-16.0); Mean Corpuscular HGB CONC 34.4 g/dL (32.0-36.0); Mean Corpuscular Hemoglobin 29.4 pg (27.0-31.0); Mean Corpuscular Volume 85.4 fL (78.0-98.0); Mean Platelet Volume 10.5 fL (7.4-10.4); Platelet Count 128 thou/uL (130-400); RBC Distribution Width 16.2 % (11.5-14.5); Red Blood Cell (RBC) Count 2.93 mill/uL (4.20-5.40); White Blood Cell (WBC) Count 11.3 thou/uL (4.8-10.8)
[2018-02-21 05:46] LABS: Anion Gap 12 mmol/L (10-20); BUN (Urea Nitrogen) 94 mg/dL (9.8-20.1); Calc. Creatinine Clearance 20 mL/min (70-130); Calcium 8.4 mg/dL (7.8-10.44); Carbon Dioxide 17 mmol/L (23-31); Chloride 121 mmol/L (98-107); Estimated GFR-MDRD 16; Glucose 174 mg/dL (83-110); Potassium 4.1 mmol/L (3.5-5.1); Sodium 146 mmol/L (136-145)
[2018-02-21] MEDS: Sodium Chloride 0.9% 1,000 ML IV SCH (06:21)
[2018-02-21] MEDS: Clopidogrel Bisulfate 75 MG TAB PO SCH (08:28)
[2018-02-21] MEDS: Sodium Bicarbonate Tab 325 MG TAB PO SCH ×2 (08:28→15:09)
[2018-02-21] MEDS: Amlodipine 10 MG TAB PO SCH (08:28)
[2018-02-21] MEDS: Metoclopramide 10 MG/10 ML UDCUP PER TUBE SCH ×2 (08:28→15:09)
[2018-02-21] MEDS: Carvedilol 25 MG TAB PO SCH (08:29)
[2018-02-21] MEDS: cloNIDine 0.2 MG TAB PO SCH ×2 (08:29→15:08)
[2018-02-21] MEDS: glipiZIDE 5 MG TAB PO SCH (08:29)
[2018-02-21] MEDS: Heparin 5,000 UNITS/ML VIAL SC SCH (08:30)
[2018-02-21] MEDS: Aspirin 325 MG TAB PER TUBE SCH (08:30)
[2018-02-21] MEDS: Isosorbide Dinitrate 20 MG TAB PER TUBE SCH (08:30)
[2018-02-21] MEDS: hydrALAZINE 25 MG TAB PO SCH ×2 (08:30→15:08)
[2018-02-21] MEDS: Insulin Glargine 25 UNITS in Pre-Filled Syringe 1 EACH SC SCH (08:31)
--- NOTE | 2018-02-21 08:59 | PRG ---
DATE OF SERVICE: 02/21/2018 SUBJECTIVE: Ms. Vogel is a 72-year-old black female with chronic renal failure and admitted for a cerebrovascular accident with left hemiplegia. Over the last several days, her mentation has slowl y been improving. We have been consulted to follow up with the patient's chronic renal failure. Her creatinine has been fluctuating. Recently, the BUN was noted to be 100 and for that reason was star eleazar hydrating this patient with normal saline at 125 mL per hour. In addition, her furosemide has be en discontinued. She is mentating better. She can follow commands now and she does converse with he r providers. No other complaints today. PHYSICAL EXAMINATION: VITAL SIGNS: Blood pressure is 186/87 - before medications, heart rate 82, respiratory rate 13, temp erature 98.4, pulse ox 95%. GENERAL: Noted to be awake, supine, comfortable, not in distress. SKIN: Adequate turgor. HEENT: Pinkish conjunctivae, anicteric sclerae. NECK: No neck mass, no carotid bruits, no JVD. CHEST: No deformities. LUNGS: Clear breath sounds, no wheezing, no crackles. HEART: Normal sinus rhythm. No murmur, no gallops or rubs. ABDOMEN: Globular, soft, nontender. No masses. EXTREMITIES: Trace edema. NEUROLOGIC: The patient is awake, can follow commands. Positive for left hemiplegia. MEDICATIONS: 02/21/2018 - Reviewed. LABORATORY DATA: 02/21/2018 - White count 11.3, hemoglobin 8.6. Sodium 146, potassium 4.1, chloride 121, carbon dioxide 17, BUN 94, creatinine 3.41, glucose 174, calcium 8.4. ASSESSMENT AND PLAN: 1. Mild hypernatremia. Change IV fluid to half normal saline and to run at 125 mL per hour. 2. Acute kidney injury on top of her chronic renal failure, stabilizing renal function. Creatinine is improved at 3.41 from a peak value of 3.82. She is nearing her baseline. Continue supportive car e. Continue to optimize hemodynamics. 3. Anemia. She received 2 units of packed red blood cells. Continue weekly Epogen. 4. Status post cerebrovascular accident with left hemiplegia. Continue supportive care. Please note the patient has a PEG tube and is being fed through the PEG tube.
[2018-02-21] MEDS ORDERED: Sodium Chloride 0.45% 1,000 ML IV SCH (09:00)
[2018-02-21] MEDS: Minoxidil 2.5 MG TAB PO SCH (09:42)
--- NOTE | 2018-02-21 11:49 | PDOC.PN ---
- Subjective Encounter Start Date: 02/21/18 Encounter Start Time: 10:30 Subjective: awake, responds to verbal stimuli -: is able to cough now -: moves right extremities - Objective Resuscitation Status: Resuscitation Status FULL:Full Resuscitation MAR Reviewed: Yes Vital Signs & Weight: Vital Signs (12 hours) Temp Pulse Resp BP BP Pulse Ox 02/21/18 11:00 97.6 F 75 15 145/60 H 95 02/21/18 08:30 82 186/87 H 02/21/18 08:29 186/87 H 02/21/18 08:28 82 186/87 H 02/21/18 08:00 98.4 F 82 13 02/21/18 07:55 98.4 F 83 13 186/87 H 95 02/21/18 03:27 97.8 F 80 22 H 176/79 H 94 L Weight Admit Weight 170 lb 6.677 oz Weight 199 lb 3.2 oz Most Recent Monitor Data Heart Rate from ECG 80 NIBP 163/62 NIBP BP-Mean 133 Respiration from ECG 21 SpO2 100 I&O: 02/20/18 02/21/18 02/22/18 06:59 06:59 06:59 Intake Total 20864 Balance 20864 Result Diagrams: 02/21/18 05:05 02/21/18 05:05 Additional Labs: Accuchecks 02/21/18 02/21/18 02/21/18 11:07 05:03 00:24 POC Glucose 215 H 172 H 174 H 02/20/18 02/20/18 02/20/18 21:32 18:15 13:26 POC Glucose 159 H 250 H 268 H Phys Exam - Physical Examination HEENT: PERRLA, sclera anicteric Neck: no JVD, supple Respiratory: no wheezing, no rales Cardiovascular: RRR, no significant murmur Gastrointestinal: soft, non-tender, positive bowel sounds peg+ Musculoskeletal: pulses present, edema present left hemiplegia, dysphagia responds well to verbal questions Dx/Plan (1) Acute CVA (cerebrovascular accident) Code(s): I63.9 - CEREBRAL INFARCTION, UNSPECIFIED Status: Acute Comment: Dense left hemiplegia with large right MCA cva (2) CKD (chronic kidney disease) stage 4, GFR 15-29 ml/min Code(s): N18.4 - CHRONIC KIDNEY DISEASE, STAGE 4 (SEVERE) Status: Chronic (3) Dysphagia Code(s): R13.10 - DYSPHAGIA, UNSPECIFIED Status: Acute Comment: s/p peg (4) Hemiplegia affecting left nondominant side Code(s): G81.94 - HEMIPLEGIA, UNSPECIFIED AFFECTING LEFT NONDOMINANT SIDE Status: Acute Comment: PT/OT. Will need placement. (5) Hypertensive urgency Code(s): I16.0 - HYPERTENSIVE URGENCY Status: Resolved (6) Diabetes Code(s): E11.9 - TYPE 2 DIABETES MELLITUS WITHOUT COMPLICATIONS Status: Chronic Qualifiers: Diabetes mellitus type: type 2 Diabetes mellitus usp insulin use: without termite treater use Diabetes mellitus complication status: with kidney complications Diabetes mellitus complication detail: with chronic kidney disease Chronic kidney disease stage: stage 4 (severe) Qualified Code(s): E11.22 - Type 2 diabetes mellitus with diabetic chronic kidney disease; N18.4 - Chronic kidney disease, stage 4 (severe); N18.4 - Chronic kidney disease, stage 4 (severe); N18.4 - Chronic kidney disease, stage 4 (severe); N18.4 - Chronic kidney disease, stage 4 (severe) (7) Hyperlipidemia Code(s): E78.5 - HYPERLIPIDEMIA, UNSPECIFIED Status: Chronic Qualifiers: Hyperlipidemia type: unspecified Qualified Code(s): E78.5 - Hyperlipidemia , unspecified Comment: Resume home statin when possible. (8) Hypertension Code(s): I10 - ESSENTIAL (PRIMARY) HYPERTENSION Status: Chronic Qualifiers: Hypertension type: essential hypertension Qualified Code(s): I10 - Essential (primary) hypertension (9) FRANCIS (acute kidney injury) Code(s): N17.9 - ACUTE KIDNEY FAILURE, UNSPECIFIED Status: Acute Comment: stable (10) Metabolic acidosis Code(s): E87.2 - ACIDOSIS Status: Acute Comment: stable (11) FTT (failure to thrive) in adult Status: Acute (12) Acute encephalopathy Code(s): G93.40 - ENCEPHALOPATHY, UNSPECIFIED Status: Acute Comment: sec to massive cva - Plan creatinine stable, bun is trending down -: continue peg feeding with free water -: overall prognosis is guarded -: [facility] pt [facility] -: weekly labs to 's office * .
[2018-02-21 13:33] VITALS: BMI 28.5
[2018-02-21 15:09] VITALS: BP 139/71
[2018-02-21] MEDS: Insulin Regular 300 UNITS/3 ML VIAL SC PRN (15:19)
[2018-02-21 15:26] VITALS: TEMP 98.6
--- NOTE | 2018-02-22 00:23 | DIS ---
DATE OF ADMISSION: 02/09/2018 DATE OF DISCHARGE: 02/21/2018 DISCHARGE DISPOSITION: To [facility]. PRIMARY DISCHARGE DIAGNOSES: Massive right middle cerebral artery infarct with left hemiplegia, dysphagia, acute kidney injury on top of chronic kidney disease stage 4, dysphagia, status post PEG, hypertensive urgency on arrival resolving, diabetes mellitus type 2, hypertension, dyslipidemia, metabolic acidosis due to kidney injury, failure to thrive, acute encephalopathy, resolving from last 48 hours. PROCEDURES DONE DURING HOSPITALIZATION: CT brain done on the day of admission, which showed large right MCA distribution subacute infarct without evidence of acute hemorrhage. Carotid Doppler done showed no hemodynamically significant stenosis. There was bilateral plaque seen in the carotids. Echo with 2D Doppler showed an EF of 60-65%. Patient had PEG tube placed on the for oropharyngeal dysphagia secondary to stroke. Discharge H&H 8.6 and 25, it dropped down to 7.1 and 20 and was given a unit of transfusion. On the , patient also had a transfusion done on the that is total of 2 units of packed cells were given during her admission here. Discharge BUN and creatinine 99 and 3.4. Admitting creatinine was 3.59. Admitting BUN was 45. Total cholesterol 128, triglycerides 160, LDL 71, HDL 25. DISCHARGE MEDICATIONS: Aspirin 325 mg p.o. daily, clonidine 0.2 mg 3 times daily, Coreg 25 mg twice daily, calcitriol 0.25 mcg p.o. daily, Norvasc 10 mg daily, Plavix 75 mg daily, Colace 100 mg twice daily, Lasix 40 mg daily, Glucotrol 5 mg twice daily, hydralazine 25 mg 3 times daily, Lantus 25 units subcutaneously twice daily, Isordil 30 mg p.o. twice daily, Arava 20 mg daily, Reglan 10 mg 3 times daily, minoxidil 10 mg daily, MiraLax 17 grams daily, pravastatin 40 mg p.o. at bedtime, scopolamine transdermal patch 1.5 mg q.72 hourly, sodium bicarbonate 650 mg 3 times daily. ALLERGIES: LISINOPRIL. INPATIENT CONSULTS: Dr. Carolina for Pulmonology, Dr. Irma Chavarria for Neurology, Dr. Murcia for Nephrology. DISCHARGE PLAN: Patient will need weekly renal function panel and the results to be faxed to Dr. Murcia. BRIEF COURSE DURING HOSPITALIZATION: Patient initially got admitted on 2017 for altered mental state. Her initial CT brain done showed massive right MCA infarct with left hemiplegia. Patient also had acute encephalopathy due to stroke and had dysphagia as well. She had hypertensive emergency on arrival and had to be placed on Cardene drip. She was admitted to ICU. Patient was later downgraded to medical floor after blood pressure was stabilized. Patient continued to have dysphagia and had a feeding tube placed by Dr. Sam Pedraza. Her encephalopathy is slowly resolving in the last 72 hours prior to discharge. She is following verbal stimuli and moving her right upper and lower extremity. She is able to cough at the time of discharge. The patient had severe constipation and failed Fleet's enema along with stool softeners initially and had to be given a liter of GoLYTELY. She has had a large bowel movement. She is currently tolerating 3-4 cans of Nepro. She is also tolerating free water 150-200 mL in between feeds. Patient has multiple medical issues and the family is clearly aware of her prognosis being guarded. She is at her baseline creatinine, although her BUN is elevated due to her not having oral intake for a long time during her stay here. She was initiated on PEG feeding on the , but then had to be stopped after 2 days due to increased residual due to constipation and ileus with increased residual and has been restarted from the last 36 hours and is tolerating it. She has still not participated actively with physical therapy except for max assist to sit on the bed. A total of 35 minutes was spent on discharge plan. I just spoke to Ms. Kendall, patient's daughter and POA prior to her being discharged to [facility]. Please see a [id number] documentation on [facility] for the day of discharge. [facility]
== END 2018-02-21 17:08 | DRG 64 ==
LOC: ERS 07:43 → CCU 09:55 → 2SE 02-12 23:08
PROVIDERS: ADMIT Internal Medicine; ATTEND Internal Medicine
PROC: 0DH63UZ Insertion of Feeding Device into Stomach, Percutaneous Approach (ICD-10-PCS; principal; 2018-02-15)
PROC: 30233N1 Transfusion of Nonautologous Red Blood Cells into Peripheral Vein, Percutaneous Approach (ICD-10-PCS; 2018-02-20)
DX: I63.511 Cerebral infarction due to unspecified occlusion or stenosis of right middle cerebral artery (principal); G93.49 Other encephalopathy; G81.94 Hemiplegia, unspecified affecting left nondominant side; E87.2 Acidosis; N18.4 Chronic kidney disease, stage 4 (severe); N17.9 Acute kidney failure, unspecified; E87.0 Hyperosmolality and hypernatremia; R47.01 Aphasia; R13.12 Dysphagia, oropharyngeal phase; R47.1 Dysarthria and anarthria; R29.710 NIHSS score 10; I16.0 Hypertensive urgency; R62.7 Adult failure to thrive; D63.1 Anemia in chronic kidney disease; I12.9 Hypertensive chronic kidney disease with stage 1 through stage 4 chronic kidney disease, or unspecified chronic kidney disease; E11.22 Type 2 diabetes mellitus with diabetic chronic kidney disease; K21.9 Gastro-esophageal reflux disease without esophagitis; Z86.718 Personal history of other venous thrombosis and embolism; Z79.4 Long term (current) use of insulin
CPT/HCPCS: 36415; 36416; 36430; 70450; 71045; 74018; 80048; 80053; 80061; 82553; 82805; 84484; 85025; 85610; 85730; 86850; 86900; 86901; 86921; 93005; 93306; 93880; 96365; 96366; 96375; A4216; G8978-GP-CN; G8979-GP-CM; G8987-GO-CN; G8988-GO-CL; G8996-GN-CK; G8997-GN-CJ; J0360; J1644; J1815; J2001; J2704; J2765; J7050; J7620; P9016; Q4081

== ENCOUNTER 2018-02-23 12:44 | Inpatient (IN) | payer MEDICARE ==
--- NOTE | 2018-02-23 15:14 | CT ---
ABDOMEN AND PELVIC CT SCAN WITHOUT IV CONTRAST: Date: 02/23/18 HISTORY: 72-year-old female with history of abdominal distention and vomiting. FINDINGS: Small bilateral pleural effusions. Minimal cardiomegaly. There is diffuse bilateral subcutaneous fat stranding, evidence for anasarca. The gallbladder is fairly prominently distended without overt gallb ladder wall thickening. No ductal dilatation. The liver, pancreas, and spleen appear to be unremarkab le as evaluated without IV contrast. No renal calculus or acute obstruction. Borderline size somew hat nodular appearing adrenal glands bilaterally, nonspecific, possibly some adrenal hyperplasia. Per cutaneous PEG tube noted extending into the stomach with some gas or air noted around the tube in the adjacent anterior abdominal wall. Fairly marked diffuse abnormal thickening of the stomach wall, inc luding fundus, body, and antrum. There is a small amount of oral contrast within the stomach lumen. N ormal appearing appendix. 6.0 cm diameter densely calcified mass in the uterus consistent with a larg e, calcified fibroid, as well as some smaller calcified fibroids. Leblanc catheter within the bladder w ith a small amount of air within the bladder. No evidence for bowel obstruction. No evidence for drai nable intraabdominal or pelvic abscess. IMPRESSION: Moderate ascites in the abdomen or pelvis with small pleural effusions and evidence of anasarca. Mode rately distended gallbladder without overt gallbladder wall thickening. PEG tube in place with some m inimal scattered oral contrast and air around the tube in the adjacent anterior abdominal wall soft t issues. Abnormal diffuse wall thickening of the stomach, nonspecific. Uterine calcified fibroids. Fol ey catheter in the bladder with some air within the bladder. Normal appearing appendix. No renal calc ulus or obstruction. Minimal image degradation for motion artifact in the upper abdomen/lower ches t. POS: [facility]
[2018-02-23 15:24] LABS: Bilirubin Negative (Negative); Blood, Urine Small (Negative); Clarity CLOUDY (Clear); Glucose, Urine (Dipstick) Negative (Negative); Leukocyte Small (Negative); Nitrite Negative (Negative); Protein, Urine (Dipstick) 100 mg/dL (Neg-Trace); Specific Gravity, Urine 1.014 (1.002-1.036); Urobilinogen 0.2 mg/dL (0.2-1.0)
[2018-02-23 15:26] LABS: Bacteria/HPF None Seen HPF (None Seen)
[2018-02-23 15:29] LABS: Yeast-AUWi Flag 317.3 (0-25.0)
[2018-02-23] MEDS ORDERED: Ondansetron HCl/PF 4 MG/2 ML Vial ONE (15:31)
[2018-02-23 15:33] LABS: #Eosinphils 0.1 thou/uL (0.0-0.7); #Lymphocytes 0.9 thou/uL (1.20-3.40); #Monocytes 0.8 thou/uL (0.11-0.59); #Neutrophils 11.9 thou/uL (1.40-6.50); %Basophils 0.3 % (0.0-1.0); %Eosinophils 0.5 % (0.0-10.0); %Lymphocytes 6.3 % (21.0-51.0); %Monocytes 5.8 % (0.0-10.0); %Neutrophils 87.1 % (42.0-75.0); Hemoglobin 9.5 g/dL (12.0-16.0); Mean Corpuscular HGB CONC 34.2 g/dL (32.0-36.0); Mean Corpuscular Hemoglobin 29.5 pg (27.0-31.0); Mean Corpuscular Volume 86.2 fL (78.0-98.0); Mean Platelet Volume 9.7 fL (7.4-10.4); Platelet Count 166 thou/uL (130-400); Red Blood Cell (RBC) Count 3.22 mill/uL (4.20-5.40); White Blood Cell (WBC) Count 13.6 thou/uL (4.8-10.8)
[2018-02-23 15:39] LABS: Crystals/HPF 1+ AMORPH URATES HPF (Negative); Hyaline Casts/LPF 0-3 HYALINE CAST LPF (0-3 Hyaline); Transitional Epithelial 0-3 HPF (0-3); Yeast-All Forms None Seen HPF (None Seen)
[2018-02-23 15:53] LABS: ALT (SGPT) 40 U/L (8-55); AST (SGOT) 48 U/L (5-34); Albumin 2.9 g/dL (3.4-4.8); Alkaline Phosphatase 272 U/L (40-150); Anion Gap 14 mmol/L (10-20); BUN (Urea Nitrogen) 93 mg/dL (9.8-20.1); Bilirubin, Total 0.6 mg/dL (0.2-1.2); Calc. Creatinine Clearance 0 mL/min (70-130); Calcium 8.9 mg/dL (7.8-10.44); Carbon Dioxide 19 mmol/L (23-31); Chloride 119 mmol/L (98-107); Estimated GFR-MDRD 17; Globulin 3.6 g/dL (2.4-3.5); Glucose 122 mg/dL (83-110); Lipase 50 U/L (8-78); Potassium 4.5 mmol/L (3.5-5.1); Protein, Total 6.5 g/dL (6.0-8.3); Sodium 147 mmol/L (136-145)
[2018-02-23] MEDS ORDERED: cloNIDine 0.1 MG TAB ONE ×2 (16:04→16:05)
[2018-02-23] MEDS ORDERED: Ondansetron HCl/PF 4 MG/2 ML Vial IVP PRN ×2 (18:20→21:09)
[2018-02-23] MEDS ORDERED: Ondansetron ODT 4 MG TAB SL PRN (18:20)
[2018-02-23] MEDS ORDERED: Sodium Chloride 0.9% 1,000 ML IV SCH (18:30)
[2018-02-23] MEDS ORDERED: Dextrose 5% in Water 1,000 ML IV PRN (19:39)
[2018-02-23] MEDS ORDERED: Dextrose 50% Abboject 50 ML SYRINGE SLOW IVP PRN (19:39)
[2018-02-23] MEDS ORDERED: Dextrose 5 %-0.45 % NaCl 1,000 ML IV SCH (19:45)
[2018-02-23] MEDS: Scopolamine 1.5 mg/72 hour Patch TD SCH (20:49)
[2018-02-23] MEDS: hydrALAZINE 20 MG/ML VIAL SLOW IVP PRN (20:51)
--- NOTE | 2018-02-23 21:04 | HP ---
DATE OF ADMISSION: 02/23/2018 CHIEF COMPLAINT: Abdominal pain. HISTORY OF PRESENT ILLNESS: This is a 72-year-old white female. She had a history of a CVA in the p ast with persistent left-sided weakness and residuals with left facial palsy. The patient had a PEG tube placement during last admission, this was 2 days ago when she was discharged to [facility] and it was noted that at the [facility], the PEG tube was leaking around and she was having abdominal pain and she was throwing up coffee ground emesis. When the patient arrived in the ER, she had a mil d elevated white count and there was obvious leakage of fluid around the PEG tube. CT abdomen was do ne which did show an evidence of air and fluid along the anterior abdominal wall, which was suggested as an ascites. The patient had a distended abdomen, but was nontender on palpation. The patient de nies having any chest pain. No headache or dizziness at this time. No fever. No constipation. The patient is passing gas, but no bowel movements today. PAST MEDICAL HISTORY: 1. Cerebrovascular accident. 2. Type 2 diabetes mellitus. 3. Hypertension. 4. History of dysphagia with PEG tube feeding. SOCIAL HISTORY: The patient is not a known nonsmoker. No history of alcohol, no history of illicit drug use. FAMILY HISTORY: Reviewed and noncontributory to the present complaint. REVIEW OF SYSTEMS: Unable to obtain as the patient has aphasia and she is not able to speak well, an d unable to comprehend her. Most of the complaints have been obtained from the patient's son who is at the bedside. ALLERGIES: No known drug allergies. HOME MEDICATIONS: 1. Amlodipine 10 mg p.o. daily. 2. Aspirin 325 mg p.o. daily. 3. Calcitriol 0.25 mcg p.o. daily. 4. Coreg 25 mg p.o. b.i.d. 5. Clonidine 0.2 mg p.o. t.i.d. 6. Plavix 75 mg p.o. daily. 7. Docusate. 8. Lasix. 9. Glipizide. 10. Hydralazine. 11. Insulin glargine subcu b.i.d. 12. Isosorbide mononitrate. 13. Leflunomide. 14. Metoprolol. 15. Metoclopramide. 16. Minoxidil. 17. Pravastatin. 18. Scopolamine. 19. Sodium bicarbonate. PHYSICAL EXAMINATION: VITAL SIGNS: Blood pressures are 178/86, heart rate is 84, respiratory rate is 18, saturation 98% on room air. GENERAL: The patient is moderately built, moderately nourished. HEENT: Atraumatic, normocephalic. PERRLA, extraocular muscles were intact. Oral mucosa is pink and moist. CARDIOVASCULAR: S1, S2 normal. No murmurs, rubs or gallops. LUNGS: Bilateral air entry was equal. No wheezing, no crackles. PSYCHIATRIC: No signs of suicidal ideation. No signs of edgardo was noted. LABORATORY DATA AND IMAGING: Sodium is 147, potassium 4.5, chloride is 119, BUN is 93, creatinine is 3.32. WBC is 13.6, hemoglobin is 9.5, hematocrit is 27.7, platelets 166. UA was having leukocyte e sterase positive with wbc's of 4.6, but no bacteria. A CT of the abdomen was done which showed an evidence of moderate ascites in the abdomen or pelvis wi th small pleural effusions and evidence of anasarca. There was abnormal diffuse wall thickening of t he stomach, which was nonspecific and the PEG tube in place with some minimal scattered oral contrast and air around the tube in the adjacent anterior abdominal wall tissues. ASSESSMENT: 1. PEG tube malfunction. 2. Possible sepsis. 3. Hypoglycemia. 4. Hypernatremia 5. Moderate to severe dehydration. 6. History of cerebrovascular accident. 7. Dysphagia. PLAN: 1. Plan is to closely monitor this patient, keep the patient n.p.o. and consult GI in the morning. The patient may have a possible leak from the PEG tube under the abdominal wall. The patient does murray ve distended abdomen with signs suggestive of ascites based on the CT abdomen, but the patient has no evidence of any cirrhosis. 2. The patient has evidence of mildly elevated white cells which could be from dehydration, but seps is cannot be ruled out, we will do a lactic acid at this time and do some septic workup. We will get the blood cultures also. When we will start the patient empirically on antibiotic, a Zosyn at this time. 3. The patient has hypoglycemia. The patient is n.p.o. as we would not start on the home dose of La ntus, but we will start her on 15 units subcu at bedtime at this time and we will start the patient o n D5 half NS as the patient has hypernatremia with possible water deficit. 4. Worsening renal functions, it is likely from dehydration, prerenal azotemia. We will continue wi th IV fluids as stated above. 5. Deep venous thrombosis prophylaxis, Lovenox. I spent 75 minutes with this patient.
[2018-02-23] MEDS ORDERED: HYDROcodone/Acetaminophen 5/325 mg Tablet PO PRN (21:09)
[2018-02-23] MEDS: Insulin Glargine 15 UNITS in Pre-Filled Syringe 1 EACH SC SCH (21:22)
[2018-02-23] MEDS: Piperacillin/Tazobactam 3.375 GM in Sodium Chloride 0.9% 100 ML IVPB SCH (21:22)
[2018-02-23] MEDS: Sodium Chloride 0.9% 1,000 ML IV SCH (22:42)
[2018-02-24] MEDS: hydrALAZINE 20 MG/ML VIAL SLOW IVP PRN ×3 (01:31→16:55)
[2018-02-24] MEDS: Piperacillin/Tazobactam 3.375 GM in Sodium Chloride 0.9% 100 ML IVPB SCH ×4 (02:06→21:42)
[2018-02-24 04:51] LABS: #Eosinphils 0.1 thou/uL (0.0-0.7); #Lymphocytes 0.8 thou/uL (1.20-3.40); #Monocytes 0.6 thou/uL (0.11-0.59); %Basophils 0.1 % (0.0-1.0); %Eosinophils 0.7 % (0.0-10.0); %Lymphocytes 7.4 % (21.0-51.0); %Monocytes 5.8 % (0.0-10.0); Anion Gap 14 mmol/L (10-20); BUN (Urea Nitrogen) 92 mg/dL (9.8-20.1); Calc. Creatinine Clearance 23 mL/min (70-130); Calcium 9.1 mg/dL (7.8-10.44); Carbon Dioxide 19 mmol/L (23-31); Chloride 120 mmol/L (98-107); Estimated GFR-MDRD 17; Glucose 100 mg/dL (83-110); Hemoglobin 9.2 g/dL (12.0-16.0); Mean Corpuscular HGB CONC 33.1 g/dL (32.0-36.0); Mean Corpuscular Hemoglobin 28.6 pg (27.0-31.0); Mean Corpuscular Volume 86.4 fL (78.0-98.0); Mean Platelet Volume 9.5 fL (7.4-10.4); Platelet Count 168 thou/uL (130-400); Potassium 4.4 mmol/L (3.5-5.1); RBC Distribution Width 16.9 % (11.5-14.5); Red Blood Cell (RBC) Count 3.24 mill/uL (4.20-5.40); Sodium 149 mmol/L (136-145); White Blood Cell (WBC) Count 10.5 thou/uL (4.8-10.8)
[2018-02-24] MEDS: Labetalol HCl 100 MG/20 ML VIAL SLOW IVP PRN ×4 (05:08→22:41)
[2018-02-24] MEDS ORDERED: cloNIDine 0.2mg/24 Hour PATCH TD SCH ×2 (06:00→09:00)
[2018-02-24] MEDS ORDERED: Famotidine/PF 20 mg/2ml Vial SLOW IVP SCH (09:00)
[2018-02-24] MEDS ORDERED: Enoxaparin Sodium 40 MG/0.4 ML SYRINGE SC SCH (09:00)
[2018-02-24] MEDS ORDERED: NIFEdipine XL 60 MG TAB PO SCH (09:30)
[2018-02-24] MEDS: Aspirin 300 MG Suppository PR SCH (09:32)
--- NOTE | 2018-02-24 09:36 | PRG ---
DATE OF SERVICE: 02/24/2018 SUBJECTIVE: Ms. Vogel is a 72-year-old black female with known history of chronic renal failure f rom presumed hypertensive nephropathy, recently status post CVA with left-sided weakness and left fac ial palsy and readmitted due to abdominal distension. Imaging of the abdomen showed moderate ascites . Please note she has also a PEG tube. We are being consulted for a followup with her chronic renal failure. Of interest, her renal failure is noted to be stable and her creatinine is actually improv ed compared to several days ago. She was seen recently at [facility] ER. She wa s started back on diuretics. Please note that previously we tried to diurese the patient, but renal function worsened. I would hernandez ggest we can start her on Lasix 40 mg b.i.d. with concomitant use of salt poor albumin in the hope th at it will keep the renal function stable. No other complaints, no chest pain or shortness of breath. OBJECTIVE: VITAL SIGNS: Blood pressure is 198/74, heart rate 84, respiratory rate 18, temperature 99.2, pulse o x 97%. GENERAL: Noted to be arousable, conversant, not in distress. SKIN: Adequate turgor. HEENT: Pinkish conjunctivae, anicteric sclerae. NECK: No neck mass, no carotid bruits, no JVD. CHEST: No deformities. LUNGS: Decreased breath sounds. HEART: Normal sinus rhythm. No murmur, no gallops, no rubs. ABDOMEN: Globular, soft, nontender. Positive for ascites. Positive for PEG tube. EXTREMITIES: No edema. MEDICATIONS: 02/24/2018 - Showed the following: Tylenol 650 mg q.4 hours p.r.n., aspirin 81 mg tabl et day, clonidine patch TTS 2 q. 7 days, Lovenox 40 mg subcu every day, Pepcid 20 mg IV daily, Humalo g sliding scale, Zofran p.r.n., Zosyn 3.375 grams IV q.6 hours. Normal saline 100 mL per hour. ASSESSMENT AND PLAN: 1. Chronic renal failure secondary to hypertensive nephropathy. Her creatinine was actually noted a t 3.26, which is actually improved from her last visit where she ran as high as 3.8. Due to the hype rnatremia, I would suggest we increase the free water through her PEG tube at least 200 mL every 6 ho urs. Change IV fluid to half normal saline. Her serum sodium please note is noted at 149, which is elevated. 2. Hypertension. Resume back her previous blood pressure meds. We will review her chart. For the buck ge, consider starting the patient on nifedipine 60 mg XL tab daily. 3. Anemia - continue to observe, p.r.n. blood transfusion. 4. Ascites. Consider salt poor albumin 25 grams IV q.6 hours with Lasix 40 mg IV q.12 hours. If re nal function will worsen, we will discontinue or adjust Lasix. There is no indication for any dialyt ic intervention with this patient. GFR is 17 mL per minute. The family is interested in considering dialysis if needed with this patient. Due to the recent CVA, my bias is conservative management.
[2018-02-24] MEDS: Sodium Chloride 0.9% 1,000 ML IV SCH (10:34)
[2018-02-24] MEDS ORDERED: Furosemide 40 MG/4 ML VIAL SLOW IVP SCH ×2 (11:00→14:00)
[2018-02-24] MEDS: Albumin 25% 25 GM/100 ML BOT IVPB SCH ×2 (11:42→22:59)
[2018-02-24] MEDS: Nitroglycerin 2% Ointment 1 INCH/1 GM Packet TOP PRN (12:53)
[2018-02-24] MEDS ORDERED: PROPOFOL 200 MG/20 ML VIAL ONE (13:47)
--- NOTE | 2018-02-24 15:36 | PDOC.PN ---
- Subjective Encounter Start Date: 02/24/18 Encounter Start Time: 15:34 Ms. Vogel was seen today in follow-up of malfunctioning PEG tub. She is awake , but a little lethargic. She denies having any pain. She has been seen by Dr. Hammond with Surgery a few minutes ago. - Objective Resuscitation Status: Resuscitation Status FULL:Full Resuscitation MAR Reviewed: Yes Vital Signs & Weight: Vital Signs (12 hours) Temp Pulse Resp BP BP Pulse Ox 02/24/18 14:53 86 198/68 H 02/24/18 12:56 182/66 H 02/24/18 12:00 98.5 F 84 14 95 02/24/18 11:46 80 202/78 H 02/24/18 09:46 84 198/78 H 02/24/18 09:33 84 198/78 H 02/24/18 08:15 99.2 F 84 18 02/24/18 08:00 99.2 F 84 18 198/78 H 97 02/24/18 05:08 89 200/84 H 02/24/18 05:05 98.8 F 85 18 200/84 H 95 Weight Admit Weight 209 lb 7.026 oz Weight 209 lb 7.026 oz I&O: 02/23/18 02/24/18 02/25/18 06:59 06:59 06:59 Intake Total 800 Output Total 850 Balance -50 Result Diagrams: 02/24/18 04:15 02/24/18 04:15 Additional Labs: Accuchecks 02/24/18 02/24/18 02/23/18 10:30 06:32 21:16 POC Glucose 89 99 111 H Phys Exam - Physical Examination HEENT: PERRLA Respiratory: no wheezing + rhonchi bilaterally, no wheezing or rales Cardiovascular: RRR, no significant murmur, no rub Gastrointestinal: soft + distended, PEG tube site- the ostomy is enlarged, and there is dark almost black drainage from the tube, BS are diminished Musculoskeletal: edema present Dx/Plan (1) PEG tube malfunction Code(s): K94.23 - GASTROSTOMY MALFUNCTION Status: Acute (2) Acute CVA (cerebrovascular accident) Code(s): I63.9 - CEREBRAL INFARCTION, UNSPECIFIED Status: Acute Comment: Dense left hemiplegia with large right MCA cva (3) CKD (chronic kidney disease) stage 4, GFR 15-29 ml/min Code(s): N18.4 - CHRONIC KIDNEY DISEASE, STAGE 4 (SEVERE) Status: Chronic (4) Diabetes Code(s): E11.9 - TYPE 2 DIABETES MELLITUS WITHOUT COMPLICATIONS Status: Chronic Qualifiers: Diabetes mellitus type: type 2 Diabetes mellitus senior living insulin use: without senior living use Diabetes mellitus complication status: with kidney complications Diabetes mellitus complication detail: with chronic kidney disease Chronic kidney disease stage: stage 4 (severe) Qualified Code(s): E11.22 - Type 2 diabetes mellitus with diabetic chronic kidney disease; N18.4 - Chronic kidney disease, stage 4 (severe); N18.4 - Chronic kidney disease, stage 4 (severe); N18.4 - Chronic kidney disease, stage 4 (severe); N18.4 - Chronic kidney disease, stage 4 (severe) (5) Hypertensive urgency Code(s): I16.0 - HYPERTENSIVE URGENCY Status: Resolved - Plan * PEG tube malfunction- plan is for urgent surgery today * Hypertensive Urgency- will increase the dose of Labetalol, and continue Hydralazine, and Catapres patch * DM-continue SSI, as tolerated, and hypoglycemic protocol * Chronic kidney disease- renal function is stable- she has been evaluated by Nephrology on her last admission, and this one as well..
[2018-02-24] MEDS ORDERED: Labetalol HCl 100 MG/20 ML VIAL SLOW IVP SCH (15:45)
[2018-02-24] MEDS ORDERED: Fentanyl 100 MCG/2 ML VIAL ONE (19:01)
[2018-02-24] MEDS ORDERED: Midazolam HCl 2 mg/2 ml Vial ONE (19:01)
--- NOTE | 2018-02-24 19:30 | HP ---
HISTORY OF PRESENT ILLNESS: Mg Vogel is a 72-year-old male patient who has had a stroke, is on the stroke unit, has chronic kidney disease, seen by Dr. Zane Murcia and admitted to the [facility] for PEG tube related problems. Apparently this PEG tube was placed by Dr. Pedraza on 02/15/2018. The patient was discharged from the hospital on 02/21/2018. Apparently, soon after discharge, he went t o the Med where the PEG tube was replaced as it was probably dislodged. He is admitted on this occas ion and has been admitted from the emergency room. CAT scan demonstrating PEG tube be within the gas tric lumen. Dr. Panda saw him because he had a large cloacal opening at the skin and leaking PEG tu be. Patient is a full code. ALLERGIES: LISINOPRIL. PAST MEDICAL HISTORY: Stroke, aphasic, nonambulatory, type 2 diabetes mellitus, hypertension. SOCIAL HISTORY: Tobacco per history none. Alcohol per history, none. Drug use per history none. FAMILY HISTORY: Noncontributory. PAST SURGICAL HISTORY: PEG tube. HOME MEDICATIONS: Amlodipine, aspirin, Calcitriol, Coreg, clonidine, Plavix, docusate, Lasix, glipiz marlyn, hydralazine, insulin subcutaneous b.i.d., isosorbide, metoprolol, Reglan, Minoxidil, and scopola mine. PHYSICAL EXAMINATION: VITAL SIGNS: Height 5 feet 7 inches, 209 pounds, 32 BMI, 98.5, 86, 190/60. LUNGS: Clear. No rhonchi. CARDIAC: Regular rate and rhythm. ABDOMEN: Soft, scar lower midline abdomen. PEG tube with a large cloacal opening, no infection. Ga stric drainage. EXTREMITIES: No ankle edema. LABORATORY DATA: Sodium 149, potassium 4.4, BUN 92, creatinine 3.26 with chronic kidney disease. ASSESSMENT AND PLAN: Dysfunctional PEG tube. We will plan placement of the new PEG tube and remove the old PEG tube. We will plan this today. Overall, prognosis is poor. He is a full code. Ca restrepo discussions with family appropriately.
[2018-02-24] MEDS ORDERED: Promethazine HCl 25 MG/ML VIAL SLOW IVP PRN (20:11)
[2018-02-24] MEDS ORDERED: Promethazine HCl 25 MG/ML VIAL IM PRN (20:11)
[2018-02-24] MEDS ORDERED: Ondansetron HCl/PF 4 MG/2 ML Vial IVP PRN (20:11)
[2018-02-24] MEDS: Furosemide 40 MG/4 ML VIAL SLOW IVP SCH (21:13)
[2018-02-24] MEDS: Dextrose 5 %-0.45 % NaCl 1,000 ML IV SCH (21:21)
[2018-02-24] MEDS: Pantoprazole 40 MG VIAL IVP SCH (21:37)
--- NOTE | 2018-02-24 21:37 | CON ---
DATE OF CONSULTATION: 02/24/2018 HISTORY OF PRESENT ILLNESS: The patient is a 72-year-old female who was admitted to the hospital las t night a transfer from long term where it was reported she had some abdominal distention, nausea, vomiting, and pain and that there was coffee ground like material seeping around her PEG tube site. The patient did have a stroke and was in this hospital and had a PEG tube placed by Dr. Sam Church pull technique on 02/15/2018. The patient was doing well with that. Bumper was loosened an d GI signed off on 02/16/2018. There are some residual issues and residuals on tube feeds, but other guaman tolerating her feeds well. When she left the hospital on 02/21/2018, she had a hemoglobin 8.6 a nd white count 11.3. On reviewing the CAT scan films in the emergency room, she has some air along t he tract of the PEG tube in the stomach. There is no evidence of free air in the abdomen. There is drainage around the PEG tube contrast with the radiologist on the liver, but not between the st omach and the abdominal wall. There is some wall thickening of the stomach reported, but there is no distention of the stomach with gas or with air or contrast. Here, the patient was admitted and star eleazar on Zosyn and albumin and Lovenox and Pepcid and a consult was called to my office this morning. Past medical history is notable for CVA. She may talk with the nurses. Apparently, the patient was discharged on the 02/21/2018. There is a report from the long term that the patient was in the em ergency room at [facility] or at another facility yesterday. The nurse here reports that the PEG that i s in place is not the PEG that was in place when the patient left this facility. PAST MEDICAL HISTORY: CVA, type 2 diabetes, hypertension, history of oropharyngeal dysphagia with PE G tube placed on the 02/15/2018. SOCIAL HISTORY: Unknown. The patient does not answer questions. FAMILY HISTORY: Unknown as the patient does not answers questions. REVIEW OF SYSTEMS: Unable to obtain as this patient does not answers questions. ALLERGIES: None known. MEDICATIONS: From the long term on chart was amlodipine, aspirin, calcitriol, Coreg, clonidine, P lavix, docusate, Lasix, glipizide, hydralazine, insulin, isosorbide, , metoprolol, Reglan, minox moises, pravastatin, scopolamine, and sodium bicarbonate. PRESENT MEDICATIONS HERE: Patient is on Tylenol, albumin, Lovenox, Pepcid, Lasix, Zosyn. PHYSICAL EXAMINATION: GENERAL: Patient is in the room. She is nonresponsive. This is similar to her while she was before she left the hospital after her stroke. She is not answering questions. She does not move spontane ously. VITAL SIGNS: Temperature is 98, pulse 84, blood pressure 182/62. LUNGS: Decreased breath sounds. HEART: Regular rate and rhythm. ABDOMEN: No bowel sounds. The PEG tube site has coffee-ground material coming out of the PEG tract. The PEG tract is very dilated and is very patulous and loose on the PEG tube. The PEG tube is able to be moved although it is little bit tight. Abdomen is soft and nontender. There is slight fluid wave. There is no shifting dullness. LABORATORY AND X-RAY FINDINGS: Sodium 149, potassium 4.2, BUN 92, creatinine 3.3, there was similar where the creatinine before she left the hospital. On 02/23/2018, albumin is 2.9, AST and ALT 48 and 40, alkaline phosphatase of 272. White count 10, hemoglobin 9.2, platelet count is 168. CT scan fi lms reviewed. ASSESSMENT: There is air in the PEG tract. The PEG tube tract is very loose. There is a different PEG in the stomach and was placed here. We placed a PEG with bumper on the inside and now is a PEG w ith balloon that keeps it adherent and inflate on inside of the stomach. The tract was deformed with air in it. On CAT scan, there are no overt signs of cellulitis or necrotizing fasciitis, but I susp ect it is likely that the PEG tube in some way was removed traumatically or came out and she was sent to another facility were a replacement PEG was placed blindly and it may have altered the tract, it looks like the PEG tubes in the stomach on the CAT scan, but I cannot be sure, I would not use it. RECOMMENDATIONS: 1. IV antibiotics. 2. IV fluids. 3. IV Protonix. 4. Surgical consultation. This whole I do not think it is going to close on its own and I do think we can reliably place a new PEG tube through the abdominal wall in this present condition.
[2018-02-24] MEDS: cloNIDine 0.3mg/24 Hour PATCH TD SCH (21:42)
[2018-02-24] MEDS ORDERED: Sodium Chloride 0.45% 1,000 ML IV SCH (22:50)
[2018-02-24] MEDS: Insulin Glargine 15 UNITS in Pre-Filled Syringe 1 EACH SC SCH (22:58)
[2018-02-25] MEDS: Albumin 25% 25 GM/100 ML BOT IVPB SCH ×4 (00:34→17:28)
[2018-02-25] MEDS: Piperacillin/Tazobactam 3.375 GM in Sodium Chloride 0.9% 100 ML IVPB SCH ×3 (03:04→16:26)
[2018-02-25] MEDS: Labetalol HCl 100 MG/20 ML VIAL SLOW IVP PRN ×2 (03:12→09:42)
[2018-02-25] MEDS: Nitroglycerin 2% Ointment 1 INCH/1 GM Packet TOP PRN (04:24)
[2018-02-25 05:35] LABS: #Eosinphils 0.1 thou/uL (0.0-0.7); #Monocytes 0.5 thou/uL (0.11-0.59); #Neutrophils 8.3 thou/uL (1.40-6.50); %Basophils 0.1 % (0.0-1.0); %Eosinophils 0.7 % (0.0-10.0); %Lymphocytes 9.9 % (21.0-51.0); %Monocytes 5.2 % (0.0-10.0); Mean Corpuscular Hemoglobin 30.2 pg (27.0-31.0); Mean Corpuscular Volume 86.4 fL (78.0-98.0); Mean Platelet Volume 8.5 fL (7.4-10.4); Platelet Count 148 thou/uL (130-400); RBC Distribution Width 16.8 % (11.5-14.5); Red Blood Cell (RBC) Count 2.64 mill/uL (4.20-5.40); White Blood Cell (WBC) Count 9.9 thou/uL (4.8-10.8)
[2018-02-25 05:44] LABS: ALT (SGPT) 31 U/L (8-55); AST (SGOT) 45 U/L (5-34); Albumin 3.4 g/dL (3.4-4.8); Alkaline Phosphatase 196 U/L (40-150); Anion Gap 19 mmol/L (10-20); BUN (Urea Nitrogen) 92 mg/dL (9.8-20.1); Bilirubin, Total 0.8 mg/dL (0.2-1.2); Calc. Creatinine Clearance 21 mL/min (70-130); Calcium 8.9 mg/dL (7.8-10.44); Carbon Dioxide 16 mmol/L (23-31); Chloride 122 mmol/L (98-107); Estimated GFR-MDRD 15; Globulin 2.9 g/dL (2.4-3.5); Glucose 108 mg/dL (83-110); Potassium 4.5 mmol/L (3.5-5.1); Protein, Total 6.3 g/dL (6.0-8.3); Sodium 152 mmol/L (136-145)
[2018-02-25] MEDS: Dextrose 5 %-0.45 % NaCl 1,000 ML IV SCH ×4 (06:26→17:25)
[2018-02-25] MEDS ORDERED: cloNIDine 0.2 MG TAB PER TUBE SCH (06:45)
--- NOTE | 2018-02-25 09:00 | OP ---
DATE OF PROCEDURE: 02/24/2018 PREOPERATIVE DIAGNOSES: Dysfunctional PEG tube with necrotizing infection around the PEG tube, necro tic skin and subcutaneous tissue. POSTOPERATIVE DIAGNOSES: Dysfunctional PEG tube with necrotizing infection around the PEG tube, nec rotic skin and subcutaneous tissue. PROCEDURES PERFORMED: Percutaneous endoscopic gastrostomy tube in new location; removal of old PEG t ube; debridement of skin, subcutaneous tissue with closure of deep fascia. SURGEON: Mauricio Hammond MD ANESTHESIA: TIVA, local 0.5% Marcaine with epinephrine 30 mL mixed with 2% Xylocaine 10 mL DESCRIPTION OF PROCEDURE: The patient was taken to the operating room. In supine position under int ravenous sedation, endoscope was placed per os under direct visualization and air insufflation, passe d down the esophagus and the stomach. Identified a good indentation in right subxiphoid and stab inc ision was made after local anesthetic infiltrated and trocar catheter introduced percutaneously into the abdominal cavity, identified endoscopically placing a snare around it, advancing the wire, graspi ng the wire with the snare, bringing the endoscope and wire out of the mouth, connecting the wire to the feeding tube, lubricated the feeding tube, pulled it back down through the mouth into stomach fix ating in the abdominal wall with a fixation device with antibiotic ointment and gauze. The patient t olerated the procedure well. Tube tailored to length and feeding apparatus secured. Abdomen was then prepared with ChloraPrep. The old PEG tube site over the old PEG tube that had been removed was cleansed, and necrotic skin excised sharply with a 10 blade and necrotic subcutaneous ti ssue excised sharply down to fascia. Fascia was approximated with [id number] suture and interru pted sutures of 0 PDS pop-offs. Wound was irrigated. Gauze packing applied. The patient tolerated the procedure well.
[2018-02-25] MEDS: Enoxaparin Sodium 30 MG/0.3 ML SYRINGE SC SCH (09:27)
[2018-02-25] MEDS: Furosemide 40 MG/4 ML VIAL SLOW IVP SCH (09:28)
[2018-02-25] MEDS: Pantoprazole 40 MG VIAL IVP SCH ×2 (09:28→21:31)
[2018-02-25] MEDS: Aspirin 300 MG Suppository PR SCH (09:28)
[2018-02-25] MEDS: NIFEdipine XL 60 MG TAB PO SCH (10:10)
[2018-02-25] MEDS: hydrALAZINE 20 MG/ML VIAL SLOW IVP PRN ×2 (11:21→22:19)
--- NOTE | 2018-02-25 12:37 | PRG ---
DATE OF SERVICE: 02/25/2018 Ms. Vogel is noncommunicative as she has been since her stroke. I talked with her daughter, mason jacobs to her what the findings were yesterday. She confirms that at the senior living the PEG came out when they were turning her and they brought her to [facility] for its replacement. Last night in the O R, Dr. Hammond debrided the PEG site abdominal wound and placed a wound VAC on that. He replaced a PE G tube. He did not note any overt bleeding in the stomach. I suspect the coffee-ground material com ing out of the PEG site was from the tract. PHYSICAL EXAMINATION: VITAL SIGNS: Temperature is 99.4, T-max 100.3, blood pressure 190/70. LUNGS: Clear. ABDOMEN: Notable for a wound VAC in place over the previous PEG site and a new PEG tube is in place. There was some fresh blood there, no overt oozing or bleeding. In talking with the nurse, they ch anged the gauze about twice today, but there has been no overt clot or heavy bleeding. There are no signs of pus or purulent drainage or cellulitis of the skin. LABORATORY STUDIES: White count 9.9, hemoglobin 8, platelet count of 148,000. Sodium 152, potassium 4.5, BUN and creatinine are 92 and 3.1. Liver function tests notable for AST of 45, alkaline phosph atase 196, otherwise normal. ASSESSMENT: 1. Stroke with oropharyngeal dysphagia. 2. Inflamed in the PEG tube site. It seems that when she left here with the PEG we had placed thing s were going well, but then it was inadvertently removed at the senior living. It was replaced at [facility]. When she arrived here the tract was deformed, dilated and drainage with a CAT scan showing air in the abdominal wall, but not into the abdominal cavity. This has been debrided by Dr. Hammond last night. She has been placed on Zosyn. 3. PEG site. There was some oozing. She is on Lovenox. RECOMMENDATIONS: 1. Considering decreasing her dose of Lovenox as she has renal failure. 2. Begin tube feeds and free water with elevated sodium. Proceed carefully as she has had problems with residuals in the past.
[2018-02-25] MEDS: cloNIDine 0.1 MG TAB PER TUBE PRN (13:45)
--- NOTE | 2018-02-25 15:51 | PDOC.PN ---
- Subjective Encounter Start Date: 02/25/18 Encounter Start Time: 15:49 Ms. Vogel was seen today in follow-up of malfunctioning PEG tube. This has been replaced. She is resting in bed, but is aphasic and can not express her concerns. She indicates she is not in pain. - Objective Resuscitation Status: Resuscitation Status FULL:Full Resuscitation MAR Reviewed: Yes Vital Signs & Weight: Vital Signs (12 hours) Temp Pulse Pulse Resp BP BP BP 02/25/18 15:23 98.9 F 99 20 02/25/18 15:12 198/70 H 02/25/18 15:09 99 235/96 H 02/25/18 13:45 190/70 H 02/25/18 12:40 188/62 H 02/25/18 11:45 99.4 F 100 20 02/25/18 11:21 100 190/70 H 02/25/18 11:15 190/70 H 02/25/18 10:10 100 198/78 H 02/25/18 09:42 100 208/74 H 02/25/18 08:30 100.3 F H 100 20 208/74 H 02/25/18 07:57 100.3 F H 100 20 02/25/18 04:00 97.3 F L 89 19 Pulse Ox 02/25/18 15:23 92 L 02/25/18 15:12 02/25/18 15:09 02/25/18 13:45 02/25/18 12:40 02/25/18 11:45 92 L 02/25/18 11:21 02/25/18 11:15 02/25/18 10:10 02/25/18 09:42 02/25/18 08:30 93 L 02/25/18 07:57 93 L 02/25/18 04:00 94 L Weight Admit Weight 209 lb 7.026 oz Weight 209 lb 7.026 oz I&O: 02/24/18 02/25/18 02/26/18 06:59 06:59 06:59 Intake Total 2300 Output Total 4620 Balance -2320 Result Diagrams: 02/25/18 05:08 02/25/18 05:08 Additional Labs: Accuchecks 02/25/18 02/25/18 02/24/18 10:50 05:55 22:06 POC Glucose 133 H 115 H 89 Phys Exam - Physical Examination HEENT: PERRLA Respiratory: no wheezing + coarse breath sounds, and upper airway noise Cardiovascular: RRR, no significant murmur, no rub Gastrointestinal: soft, non-tender, positive bowel sounds Musculoskeletal: no edema Dx/Plan (1) PEG tube malfunction Code(s): K94.23 - GASTROSTOMY MALFUNCTION Status: Acute (2) Acute CVA (cerebrovascular accident) Code(s): I63.9 - CEREBRAL INFARCTION, UNSPECIFIED Status: Acute Comment: Dense left hemiplegia with large right MCA cva (3) CKD (chronic kidney disease) stage 4, GFR 15-29 ml/min Code(s): N18.4 - CHRONIC KIDNEY DISEASE, STAGE 4 (SEVERE) Status: Chronic (4) Diabetes Code(s): E11.9 - TYPE 2 DIABETES MELLITUS WITHOUT COMPLICATIONS Status: Chronic Qualifiers: Diabetes mellitus type: type 2 Diabetes mellitus fpc insulin use: without exterminator helper use Diabetes mellitus complication status: with kidney complications Diabetes mellitus complication detail: with chronic kidney disease Chronic kidney disease stage: stage 4 (severe) Qualified Code(s): E11.22 - Type 2 diabetes mellitus with diabetic chronic kidney disease; N18.4 - Chronic kidney disease, stage 4 (severe); N18.4 - Chronic kidney disease, stage 4 (severe); N18.4 - Chronic kidney disease, stage 4 (severe); N18.4 - Chronic kidney disease, stage 4 (severe) (5) Hypertensive urgency Code(s): I16.0 - HYPERTENSIVE URGENCY Status: Resolved - Plan * Cellulitis around old PEG site- continue Zosyn- renal dose * HTN- she has very resistant blood pressure- will re-start her home medications with PRN' as needed * DM- blood glucose is stable * Mild Hypernatremia- will need to increase free water through the tube * Recent CVA- will need to re-start aspirin and Plavix .
[2018-02-25] MEDS ORDERED: Amlodipine 10 MG TAB PO SCH (16:00)
[2018-02-25] MEDS: Piperacillin/Tazobactam 2.25 GM in Sodium Chloride 0.9% 100 ML IVPB SCH ×2 (16:03→21:30)
[2018-02-25] MEDS ORDERED: Ondansetron ODT 4 MG TAB ONE (16:24)
--- NOTE | 2018-02-25 17:16 | PRG ---
DATE OF SERVICE: 02/25/2018 SUBJECTIVE: Ms. Vogel is a 72-year-old black female followed up by the Renal Service for chronic renal failure. Renal function has been fluctuating. I suspect this is from her decreased p.o. intak e as well as from the recent initiation of the furosemide. In the interim, she had her PEG tube repl aced by Dr. Hammond. The PEG tube can now be used. We will probably consider increasing free water by PEG tube. OBJECTIVE: VITAL SIGNS: Blood pressure is 190/70, heart rate 99, temperature 98.9, respiratory rate 20, pulse o x 92%. GENERAL: Noted to be sleepy, but arousable and can follow simple commands. SKIN: Adequate turgor. HEENT: Slightly pale conjunctivae. Anicteric sclerae. NECK: No neck mass, no carotid bruits, no JVD. CHEST: No deformities. LUNGS: Decreased breath sounds. HEART: Normal sinus rhythm. No murmur, no gallops, no rubs. ABDOMEN: Globular, soft, nontender. Positive for PEG tube. EXTREMITIES: Trace edema. MEDICATIONS: Medications of 02/25/2018 was reviewed. LABORATORY DATA: Laboratories of 02/25/2018, sodium 152, potassium 4.5, chloride 102, carbon dioxide 16, BUN 92, creatinine 3.61, glucose 108, calcium 8.9, AST 45, ALT 31. GFR 15 mL per minute. Album in 3.4. ASSESSMENT AND PLAN: 1. Status post cerebrovascular accident with left hemiplegia. Continue supportive care. 2. Dysphagia -- currently PEG tube reinserted. We will start tube feeding as soon as this is feasib le. 3. Hypernatremia. Continuing half normal saline -- consider increasing to 125 mL an hour. 4. Acute kidney injury/chronic renal failure. Again, superimposed prerenal azotemia. Increase IV f luid to 125 mL per hour. 5. Hypertension. Blood pressure meds are now resumed. She can start taking her p.o. antihypertensi ve regimen since the PEG tube has been replaced. Once the blood pressure is better controlled, we wi ll resume back her Epogen for anemia.
[2018-02-25] MEDS: HumaLOG 300 UNITS/3 ML VIAL SC PRN (17:55)
[2018-02-25] MEDS ORDERED: hydrALAZINE 25 MG TAB PO SCH ×2 (18:30→21:00)
--- NOTE | 2018-02-25 20:15 | PDOC.EVN ---
Event Note - Event Note Event Note: Patient had Code green called as she became unresponsive with incompreshensible sounds, her Blood pressure went upto 200 sytolic, with suspicion for a stroke, CT head was ordered, Pt also had a temp of 101, with Distended abdomen, suspiciuous for acute abdomen/ peritonitis, CT abdomen was ordered. pt will be moved to IMCU, discussed with Family about Code status, They want Full Code.
[2018-02-25 20:16] LABS: #Eosinphils 0.1 thou/uL (0.0-0.7); #Lymphocytes 1.1 thou/uL (1.20-3.40); #Monocytes 0.5 thou/uL (0.11-0.59); #Neutrophils 8.8 thou/uL (1.40-6.50); %Basophils 0.4 % (0.0-1.0); %Eosinophils 0.7 % (0.0-10.0); %Lymphocytes 10.1 % (21.0-51.0); %Monocytes 4.5 % (0.0-10.0); %Neutrophils 84.2 % (42.0-75.0); Hemoglobin 7.4 g/dL (12.0-16.0); Mean Corpuscular HGB CONC 33.9 g/dL (32.0-36.0); Mean Corpuscular Hemoglobin 29.5 pg (27.0-31.0); Mean Corpuscular Volume 86.9 fL (78.0-98.0); Mean Platelet Volume 8.2 fL (7.4-10.4); Platelet Count 128 thou/uL (130-400); Red Blood Cell (RBC) Count 2.53 mill/uL (4.20-5.40); White Blood Cell (WBC) Count 10.4 thou/uL (4.8-10.8)
[2018-02-25 20:17] LABS: Lactic Acid 0.7 mmol/L (0.5-2.2)
[2018-02-25 20:26] LABS: CKMB 4.5 ng/mL (0-6.6)
[2018-02-25 20:29] LABS: ALT (SGPT) 28 U/L (8-55); AST (SGOT) 38 U/L (5-34); Albumin 4.1 g/dL (3.4-4.8); Alkaline Phosphatase 217 U/L (40-150); Anion Gap 20 mmol/L (10-20); BUN (Urea Nitrogen) 88 mg/dL (9.8-20.1); Bilirubin, Total 0.8 mg/dL (0.2-1.2); Calc. Creatinine Clearance 20 mL/min (70-130); Carbon Dioxide 15 mmol/L (23-31); Chloride 121 mmol/L (98-107); Estimated GFR-MDRD 14; Globulin 2.6 g/dL (2.4-3.5); Glucose 170 mg/dL (83-110); Magnesium 2.4 mg/dL (1.6-2.6); Phosphorus 5.4 mg/dL (2.3-4.7); Potassium 4.3 mmol/L (3.5-5.1); Protein, Total 6.7 g/dL (6.0-8.3); Sodium 152 mmol/L (136-145)
[2018-02-25 20:35] LABS: Troponin I 0.633 ng/mL (< 0.028)
--- NOTE | 2018-02-25 20:55 | RAD ---
PORTABLE CHEST: 02/25/18 HISTORY: Respiratory distress. COMPARISON: 02/09/18 study. Heart size is enlarged. Pulmonary vessels are mildly engorged. Interstitial markings are similar to t he prior exam, probably largely chronic in nature. IMPRESSION: Cardiomegaly with mild vascular engorgement. Increased interstitial markings probably largely chronic in nature but could indicate some element of edema. POS: [facility]
[2018-02-25] MEDS: Isosorbide Dinitrate 20 MG TAB PER TUBE SCH (21:31)
[2018-02-25] MEDS: Sodium Bicarbonate Tab 325 MG TAB PO SCH (21:32)
[2018-02-25] MEDS: Carvedilol 25 MG TAB PO SCH (21:32)
--- NOTE | 2018-02-25 21:38 | CT ---
CT OF BRAIN PERFORMED WITHOUT CONTRAST ENHANCEMENT: 02/25/18 COMPARISON: 02/09/18 study. HISTORY: Patient with history of stroke. Altered mental status. Confusion and hypertension. On the previous examination there is a large right MCA infarct which appear to be acute to subacute i n nature. The area of decreased attenuation now involves more extensive area of the right middle cere bral artery territory. There is slightly greater effacement to the right lateral ventricle. There is perhaps 1 to 2 mm of shift of midline structures to the left. No hemorrhage is seen. IMPRESSION: Increased size to the right middle cerebral artery infarct with slight increased mass effect. No evid ence of hemorrhage. Findings telephoned at 2046 hours. POS: [facility]
[2018-02-25] MEDS: Insulin Glargine 15 UNITS in Pre-Filled Syringe 1 EACH SC SCH (21:41)
[2018-02-26] MEDS: niCARdipine HCl 25 MG in Sodium Chloride 0.9% 250 ML 240 ML IVPB SCH ×3 (00:46→08:19)
[2018-02-26] MEDS: Atorvastatin Calcium 40 MG TAB PO SCH ×3 (00:52→20:12)
[2018-02-26] MEDS: Albumin 25% 25 GM/100 ML BOT IVPB SCH ×2 (01:28→05:35)
[2018-02-26] MEDS: Dextrose 5 %-0.45 % NaCl 1,000 ML IV SCH ×3 (01:31→16:05)
[2018-02-26 02:13] LABS: CKMB 4.5 ng/mL (0-6.6)
[2018-02-26 02:18] LABS: Troponin I 0.932 ng/mL (< 0.028)
--- NOTE | 2018-02-26 02:55 | PRG-2 ---
JULIAN BERMEO PROVIDER NOTES DATE OF SERVICE: 02/25/2018 RESIDENT: Tono Crandall MD EVENT DETAIL: Resident responded to julian bruna was called due to change in mental status. The patient has a history of a recent CVA and was recently discharged to senior care. She had complication with her PEG tube and was brought back to the hospital due to PEG tube complications. Initially, her blood pressure was in the 200 systolic. When I arrived to the room, the patient would respond to commands, but was still making incomprehensible sounds. Family at bedside stated the patient has significant left-sided deficits and is unable to move her left arm or leg. The patient was moving her right arm and leg to command. Orders for CBC, CMP, cardiac enzymes, ammonia level and lactic acid were given. Additionally, a chest x-ray and CT of the brain were obtained. Discussion was had with the on-call Sound Physician and decision was made to move the patient to the [facility]. Results from the laboratories are mentioned, show cardiac enzymes of 0.633 with a CK-MB of 4.5, creatinine of 3.85, which appears to be the patient's baseline this hospital stay and sodium of 152, which again appears to be chronic. IMAGING: CT report shows increased size to the right MCA infarct with slight increase in mass effect and no evidence of hemorrhage. Chest x-ray was unremarkable. Code was ended. Further care to be directed by primary team. KERI
[2018-02-26] MEDS: Piperacillin/Tazobactam 2.25 GM in Sodium Chloride 0.9% 100 ML IVPB SCH ×3 (05:35→21:02)
[2018-02-26 05:54] LABS: Anion Gap 16 mmol/L (10-20); BUN (Urea Nitrogen) 85 mg/dL (9.8-20.1); Calc. Creatinine Clearance 19 mL/min (70-130); Carbon Dioxide 18 mmol/L (23-31); Chloride 121 mmol/L (98-107); Estimated GFR-MDRD 14; Glucose 208 mg/dL (83-110); Potassium 4.3 mmol/L (3.5-5.1); Sodium 151 mmol/L (136-145)
[2018-02-26 05:58] LABS: CKMB 4.2 ng/mL (0-6.6)
[2018-02-26 06:01] LABS: Critical Call Chem Troponin I RESULT DECREASING; Troponin I 0.866 ng/mL (< 0.028)
[2018-02-26 07:01] LABS: Band 5 % (5-11); Hemoglobin 7.3 g/dL (12.0-16.0); Hypochromia SLIGHT = 6-15 cells (100X) (0-5/hpf); Lymphocytes 7 % (21-51); MDiff Complete? YES; Mean Corpuscular HGB CONC 35.5 g/dL (32.0-36.0); Mean Corpuscular Hemoglobin 30.9 pg (27.0-31.0); Mean Corpuscular Volume 87.1 fL (78.0-98.0); Mean Platelet Volume 9.1 fL (7.4-10.4); Monocytes 2 % (0-10); Neutrophil 86 % (42-75); PLT Morphology Comment Appears Adequate; Platelet Count 139 thou/uL (130-400); Red Blood Cell (RBC) Count 2.37 mill/uL (4.20-5.40); White Blood Cell (WBC) Count 11.2 thou/uL (4.8-10.8)
--- NOTE | 2018-02-26 07:58 | PDOC.PN ---
- Subjective Encounter Start Date: 02/26/18 Encounter Start Time: 07:55 Ms. Vogel has been moved to the ICU. The events of last night were noted. There was a Code green called due to concerns for a decrease in mental status. CT scan demonstrated some extension of her previous stroke. She is awake and alert. She is able to say a few words, but her voice is weak, and a bit slurred. Her respirations are labored. It was said that she was not moving her right side, but she is able to lift her right arm and leg, and squeeze my hand on command with her right hand. - Objective Resuscitation Status: Resuscitation Status FULL:Full Resuscitation MAR Reviewed: Yes Vital Signs & Weight: Vital Signs (12 hours) Temp Pulse Resp BP Pulse Ox 02/26/18 07:00 98.2 F 02/26/18 04:00 98.4 F 02/26/18 00:15 98.9 F 99 22 H 95 02/26/18 00:00 98.9 F 02/25/18 22:19 100 02/25/18 21:45 100.3 F H 100 22 H 90 L 02/25/18 20:00 99.4 F 100 24 H 194/68 H 90 L Weight Admit Weight 194 lb 7.163 oz Weight 194 lb 7.163 oz Most Recent Monitor Data Heart Rate from ECG 88 NIBP 163/64 NIBP BP-Mean 80 Respiration from ECG 19 SpO2 91 I&O: 02/25/18 02/26/18 02/27/18 06:59 06:59 06:59 Intake Total 2300 1339 0 Output Total 4620 2965 140 Balance -2320 -1626 -140 Result Diagrams: 02/26/18 05:04 02/26/18 05:04 Additional Labs: Accuchecks 02/25/18 02/25/18 02/25/18 21:42 19:57 16:50 POC Glucose 177 H 181 H 204 H 02/25/18 10:50 POC Glucose 133 H Phys Exam - Physical Examination HEENT: PERRLA + rhonchi bilaterally, and coarse breath sounds Cardiovascular: RRR, no significant murmur, no rub Gastrointestinal: soft, positive bowel sounds + distended Musculoskeletal: edema present + edematous extremities Left Hemiparesis, + able to lift her right arm and leg, and squeeze my hand when asked if she hurts, she is able to shake her head a mouth a few words. Dx/Plan (1) PEG tube malfunction Code(s): K94.23 - GASTROSTOMY MALFUNCTION Status: Acute (2) Acute CVA (cerebrovascular accident) Code(s): I63.9 - CEREBRAL INFARCTION, UNSPECIFIED Status: Acute Comment: Dense left hemiplegia with large right MCA cva (3) CKD (chronic kidney disease) stage 4, GFR 15-29 ml/min Code(s): N18.4 - CHRONIC KIDNEY DISEASE, STAGE 4 (SEVERE) Status: Chronic (4) Diabetes Code(s): E11.9 - TYPE 2 DIABETES MELLITUS WITHOUT COMPLICATIONS Status: Chronic Qualifiers: Diabetes mellitus type: type 2 Diabetes mellitus penitentiary insulin use: without penitentiary use Diabetes mellitus complication status: with kidney complications Diabetes mellitus complication detail: with chronic kidney disease Chronic kidney disease stage: stage 4 (severe) Qualified Code(s): E11.22 - Type 2 diabetes mellitus with diabetic chronic kidney disease; N18.4 - Chronic kidney disease, stage 4 (severe); N18.4 - Chronic kidney disease, stage 4 (severe); N18.4 - Chronic kidney disease, stage 4 (severe); N18.4 - Chronic kidney disease, stage 4 (severe) (5) Hypertensive urgency Code(s): I16.0 - HYPERTENSIVE URGENCY Status: Resolved - Plan * Acute CVA- with some extension of her stroke- Clinically she appears about the same Neurologically to me than yesterday, with the exception of her speech is a bit more dysarthric, and her right side may be slightly weaker. * Hypertensive Urgency -She is now on a Cardene drip, and her blood pressure is better controlled * PEG tube Malfunction, and dislodgement- She has a new PEG tube placed, The old site has a wound vac in place- will continue IV antbiotics, for the necrotizing infection around the old site. She is a risk for Peritonitis due to the dislodgement of the previous PEG tube * Await the results of the CT scan of the abdomen * She has been reported to have vomited yesterday, and now she is requiring additional Oxygen support will monitor * DM-blood glucose is stable * CKD stage 4- renal function is slightly higher than yesterday- will monitor- Nephrology following * Will discuss with the patient's family- her prognosis is poor. .
[2018-02-26] MEDS: Aspirin 300 MG Suppository PR SCH (08:15)
[2018-02-26] MEDS: Polyethylene Glycol 3350 17 GM Packet PO SCH (08:19)
[2018-02-26] MEDS: Pantoprazole 40 MG VIAL IVP SCH ×2 (08:19→20:12)
[2018-02-26] MEDS: Enoxaparin Sodium 30 MG/0.3 ML SYRINGE SC SCH (08:19)
[2018-02-26] MEDS: Minoxidil 2.5 MG TAB PO SCH (08:20)
[2018-02-26] MEDS: Amlodipine 10 MG TAB PO SCH (08:20)
[2018-02-26] MEDS: hydrALAZINE 25 MG TAB PO SCH ×3 (08:20→20:12)
[2018-02-26] MEDS: Carvedilol 25 MG TAB PO SCH ×2 (08:21→20:11)
[2018-02-26] MEDS: Sodium Bicarbonate Tab 325 MG TAB PO SCH ×3 (08:21→20:11)
[2018-02-26] MEDS: NIFEdipine XL 60 MG TAB PO SCH (08:21)
[2018-02-26] MEDS: Aspirin 325 MG TAB PER TUBE SCH (08:21)
[2018-02-26] MEDS: Clopidogrel Bisulfate 75 MG TAB PO SCH (08:21)
[2018-02-26] MEDS: Isosorbide Dinitrate 20 MG TAB PER TUBE SCH ×2 (08:26→20:13)
--- NOTE | 2018-02-26 08:41 | PDOC.EVN ---
Event Note - Event Note Event Note: I spoke with Kristy this morning, the patient's [id number] ) . She tells me she is the spokes person,for the family because she has more medical knowledge. She tells me her is " right by her " during the conversation.I updated her on the events of last night. I explained to her the treatments which are being performed now. I also explained that due to the Large Stroke, and severe renal failure, Diabetes mellitus, infected dislodged PEG tube, elevated BNP, and troponins, distended abdomen, and risk of aspiration , that her overall prognosis is very poor. I also explained to her that I reviewed her previous hospital stay, and at that time, even prior to the hospitalization, she was informed for the patient's poor prognosis, and risk for extension of her stroke. She was very pleasant on the phone, and says that she explained this all to the family, and does remember that conversation on the previous admission, but sats that the family has decided that they want her to remain a FULL Code, and that they want everything possible done. She asked me about the tronin level, her renal function and her hemoglobin level. She would like more blood cultures done , to see if there is new infection, and would like the elevated tronin's addressed. She also says she believes she will be talking with Dr. Murcia soon about dialysis. ACP time 40 minutes.
[2018-02-26] MEDS: HumaLOG 300 UNITS/3 ML VIAL SC PRN ×2 (11:20→16:05)
--- NOTE | 2018-02-26 12:50 | PRG ---
DATE OF SERVICE: 02/26/2018 SERVICE: Renal Medicine. SUBJECTIVE: Ms. Vogel is a 72-year-old black female, followed by Renal Service for her chronic re nal failure from hypertensive nephropathy. Blood pressure has been labile, and for that reason, she was transferred to the unit to start IV nicardipine. Currently, it has been off. She had also a men patricia status change. Neurological status - mentation was fluctuating. A repeat CT scan was done on , and a comment was made that there might be increased size of the previous infarct. However , Neurology reevaluated the patient and the feeling is this is about the same size. OBJECTIVE: VITAL SIGNS: Blood pressure is currently 159/60 with a heart rate of 83, respiratory rate 16, pulse ox 93%. GENERAL EXAM: Noted to have decreased mentation, but these are as one can follow my verbal commands and responds to my verbal stimuli. HEENT: Pinkish conjunctivae. Anicteric sclerae. NECK: No neck mass, no carotid bruits, no JVD. CHEST: No deformities. LUNGS: Decreased breath sounds. HEART: Normal sinus rhythm. No murmur, no gallops, no rubs. ABDOMEN: Globular, soft, nontender. Positive for PD catheter. EXTREMITIES: No edema, no deformities. MEDICATIONS: 02/26/2018 reviewed. LABORATORY DATA: Laboratories of 02/26/2018, white count 11.2, hemoglobin 7.3, sodium 151, potassium 4.3, chloride 121, carbon dioxide 18, BUN 85, creatinine 3.82, glucose 208, calcium 9.0. ASSESSMENT AND PLAN: 1. Acute kidney injury/chronic renal failure, slightly higher creatinine 3.82. Yesterday, this was noted at 3.85. There may be some stabilization of the renal dysfunction. Continue half normal salin e. There is no indication for any dialytic intervention with this patient. 2. Hypertension, much improved with IV nicardipine. 3. Anemia p.r.n. blood transfusion. 4. Status post cerebrovascular accident. Supportive care. Neurology is following. Family is june mplating palliative care.
--- NOTE | 2018-02-26 15:19 | CON ---
DATE OF CONSULTATION: 02/26/2018 REASON FOR CONSULTATION: Elevated troponin. PRIMARY CARE PROVIDER: Dr. Coon. HISTORY OF PRESENT ILLNESS: Ms. Vogel is an unfortunate 72-year-old woman with no previous histor y of disease, who recently presented with CVA 3 weeks ago. She was discharged to an outpatient facility. She returned after her PEG tube was dislodged. It was found in the peritoneum. She is r eceiving tube feeds through the PEG tube. She recently was readmitted to the hospital or family felt she had a decrease in her mental status. Code Slim was called. CT scan showed extension of her re cent CVA. I have now been consulted for elevated troponin. History cannot be obtained from the loi ent. No previous history of coronary disease. PAST MEDICAL HISTORY: Recent stroke, diabetes mellitus, and hypertension. SOCIAL HISTORY: None. ALCOHOL: None. HOME MEDICATIONS: Include amlodipine, aspirin, Calcitriol, Coreg, isosorbide, clonidine, Plavix, met oprolol, docusate, Reglan, minoxidil, scopolamine, Lasix, and glipizide. REVIEW OF SYSTEMS: Unobtainable. PHYSICAL EXAMINATION: VITAL SIGNS: Blood pressure 159/60, pulse 83, and respirations 20. NEUROLOGIC: Right-sided weakness. She is nonverbal and not awaken to voice. HEENT: Sclerae without icterus. Mouth has moist mucous membranes with normal pallor. NECK: No JVD. Carotid upstroke brisk. No bruits bilaterally. LUNGS: Rhonchi, rales noted bilaterally. BACK: No scoliosis or kyphosis. CARDIAC: Regular rate and rhythm with normal S1 and S2. No S3 or S4 noted. No significant rubs, murmurs, thrills, or gallops noted throughout the precordium. PMI is not displaced. There is no parasternal heave. ABDOMEN: Soft, nontender, nondistended. No peritoneal signs present. No hepatosplenomegaly. No abnormal striae. EXTREMITIES: 2+ femoral and 2+ dorsalis pedis pulses. No cyanosis, clubbing, or edema. SKIN: No gross abnormalities. PERTINENT LABS: Hemoglobin 7.3, white blood cell count 11,000, platelet count of 139, creatinine 3.8 with a GFR of 14. Peak troponin 0.9 and is down trending. Sodium 151. IMPRESSION: 1. Elevated troponin. 2. Recent cerebrovascular accident. 3. Chronic kidney disease, stage 4. 4. Anemia. 5. ? aspiration pneumonia. 6. Recent dislodged PEG tube. RECOMMENDATIONS: I had a long discussion with the family about Ms. Vogel's cardiac status. She c ertainly had increase in her troponin, but at this point is unlikely to change her prognosis. Last e cho dated 02/10/2018 with LVEF 60% to 65%. At this point, we would not recommend repeating her echo. Her troponin is likely multifactorial and related to recent CVA increased creatinine in addition to anemia. She likely has demand ischemia. She has no overt signs or symptoms of acute myocardial inf arction. I did explain to the family that even if she was having an acute myocardial infarction, wou ld be certainly difficult to proceed with a more aggressive approach with angiography given a risk of causing renal failure and unlikely to change her quality of life and prognosis. I tried percent nallely listic expectation to the family. At this point, I recommend aggressive blood pressure therapy. She is currently on aspirin in addition to statin therapy and beta-teresa therapy. She is also on Plav ix.
[2018-02-26 15:23] LABS: Actual Bicarbonate (HCO3a) 17.5 mEq/L (22-28); Base Excess (BEa) -6.5 mEq/L (-2.0 to +3.0); CO2 Tension 28.9 mmHg (35.0-45.0); O2 Tension (PaO2) 81.2 mmHg (> 70.0)
[2018-02-26 15:24] LABS: Carboxyhemoglobin (COHb) 2.4 gm% (0.0-3.0)
[2018-02-26 15:26] LABS: Calcium, Ionized 1.1 mmol/L (1.12-1.30)
[2018-02-26 15:27] LABS: Puncture Site RR
[2018-02-26 15:30] LABS: ALV-art Gradient 139.355 (0-20)
--- NOTE | 2018-02-26 16:40 | CT ---
CT ABDOMEN AND PELVIS WITHOUT IV CONTRAST: 02/26/18 HISTORY: PEG tube malfunction. COMPARISON: 02/23/18. FINDINGS: This examination was performed on 02/25/18 at 2034 hours but is not being submitted for interpretation until 02/26/18 at 1551 hours. There are small bilateral pleural effusions which has mildly increased on the left compared to prior study. There has been interval removal of the prior gastrostomy tube with interval placement of a new gastro stomy tube. The gastrostomy tube does traverse the most lateral aspect of the lateral segment of the left hepatic lobe, but the distal portion of the gastrostomy tube does appear to be within the stomac h. There is a small to moderate amount of intraperitoneal free fluid which is overall similar to the joel or exam. Although no IV contrast is utilized for this exam, but no defined fluid collection is apprec iated. The spleen, pancreas, and bilateral kidneys demonstrate a grossly normal nonenhanced CT appearance. T here is mild thickening of each adrenal gland which is a stable finding. Leblanc catheter is present in a decompressed urinary bladder. There are calcified uterine fibroids including large calcified uterine fibroid noted. There is residual contrast again noted within the colon. Vascular calcifications are seen in the abdominal aorta and involving the iliac arteries. Subcutaneous edema is again seen predominantly laterally and greater in the flank regions and gluteal regions. There has been no other significant interval change from the prior exam. IMPRESSION: 1. Interval replacement of gastrostomy tube. The current gastrostomy tube does traverse the most lateral aspect lateral segment of the left hepatic lobe but does appear to be within the stomach. 2. Overall stable moderate amount of intraperitoneal free fluid. 3. This exam was performed without intravenous contrast, but no defined fluid collection is seen to suggest abscess collection based on this exam. 4. Tiny right and small left pleural effusions. Pleural fluid at the left lung base has mildly i ncreased from the prior study. 5. Subcutaneous emphysema adipose layer right lower abdomen probably related to recent injection . 6. No dilated loops of small bowel are seen. 7. Mild cardiomegaly. 8. Positioning of the new gastrostomy tube was discussed with Dr. Hammond on 02/26/18 at 1559 hour s. POS: [facility]
--- NOTE | 2018-02-26 16:52 | CON ---
DATE OF CONSULTATION: 02/26/2018 REFERRING PHYSICIAN: Dr. Fabian Byrd. REASON FOR CONSULTATION: New stroke. HISTORY OF PRESENT ILLNESS: Ms. Vogel is a pleasant 72-year-old - [place] female, who has been consulted for evaluation of new stroke. I am familiar with this patient from her prior admission on 02/09/2018, at which time , she was noted to have acute right middle cerebral artery ischemic infarct from which she developed left hemiparesis, dysarthria, and dysphagia. She required PEG tube placement. She was discharged to rehab facility about 2 days ago. She was brought back on 02/23/2018 after she was found to have leakage around her PEG tube site for which she required removal of the old PEG tube and placement of a new PEG tube. Since being admitted to the hospital, she has continued to decline in her strength and alertness for which she had a CT head without contrast done and on the CT scan of the head that was done on 2017 showed increased size to the right middle cerebral artery infarct for which I am being further asked to evaluate. Patient's [id number] is present at bedside who is a former ICU nurse. She reports that patient is still able to follow simple commands and able to converse with them. She is able to move her right side, but unable to move her left side. PAST MEDICAL HISTORY, PAST SURGICAL HISTORY, FAMILY HISTORY, SOCIAL HISTORY, CURRENT MEDICATIONS, AND ALLERGIES: Reviewed there as dictated H&P note done by Dr. Mauricio Hammond. REVIEW OF SYSTEMS: Unable to perform. PHYSICAL EXAMINATION: VITAL SIGNS: Blood pressure of 144/50, pulse of 82, temperature of 98.2, respirations of 20, O2 sats of 93% on room air. GENERAL: Well-developed, well-nourished -Beninese female, in no apparent distress. RESPIRATORY: Clear to auscultation bilaterally. CARDIOVASCULAR: Regular rate and rhythm. NEUROLOGIC: Mental status: The patient is somewhat obtunded. She does wake up to verbal stimuli. She is able to state her first and last name. She is able to state her age. She is able to follow some simple commands. Speech and language: Severely dysarthric speech noted. Cranial nerves: Pupils are 3 mm and reactive. Visual camilo are full to threat. External muscles are intact. No nystagmus is noted. There is a left facial droop noted. Tongue and uvula are midline. Motor exam showed normal tone and bulk in the right upper and right lower extremities. She has a flaccid left upper and left lower extremity. Her strength in the left upper and left lower extremity is 0/5. She may have mild hemineglect on the left lower extremity. Sensory: Diminished sensation in both upper and lower extremities. Babinski: Plantar responses extensor on the left, flexion on the right. Deep tendon reflexes 1+ of flexion with upper extremities. LABORATORY DATA: Reviewed, which included CBC, CMP, urinalysis which is significant for WBC of 11.2, hemoglobin 7.3, hematocrit 20.7. Sodium of 151, BUN of 85, creatinine of 3.82, glucose of 273, troponin of 0.866, BNP of 3169.4 , otherwise unremarkable. IMAGING STUDIES: CT head without contrast done on yesterday as well as done on 02/09/2018 were reviewed and compared which showed increase in the total size of the right MCA stroke with mild mass effect and cerebral edema with resulting right to left midline shift of 1-2 mm. IMPRESSION: 1. Subacute right middle cerebral artery distribution ischemic infarct. 2. Cerebral edema secondary to #1. 3. Worsening left-sided weakness, due to #1. ASSESSMENT AND PLAN: Ms. Vogel is a pleasant 72-year-old -[place] female with recent right MCA stroke, presented with worsening confusion and worsening alertness and worsening of the right-sided weakness. She did have a CT head without contrast which showed expansion of the previous stroke. In my opinion, this is not a new stroke and just an extension of the previous stroke. My opinion, her symptoms of increased lethargy, confusion, and worsening left- sided weakness are likely metabolic in nature. I have discussed this with the patient's daughter in law and explained that the treatment plan does not change from the stroke standpoint. At this time, I will recommend controlling underlying medical risk factors as well as continuing to control underlying medical management. We will keep a close eye on neurological deterioration. Thank you for consultation. KERI
[2018-02-26 17:13] LABS: Hemoglobin 6.9 g/dL (12.0-16.0)
--- NOTE | 2018-02-26 17:34 | CON ---
DATE OF CONSULTATION: 02/26/2018 SUBJECTIVE: This is a 72-year-old -[place] female with a dense left hemiparesis, multiple me dical problems. Her PEG tube was dislodged after being discharged from the hospital, it was replaced by Dr. Hammond. She is a FULL CODE. Apparently, the qa automation architect, Dr. Murcia has discussed with the family at length. PAST MEDICAL HISTORY: Extensive medical history is well outlined pertinent for hypertension, CVA, re nal failure, diabetes, PEG in place, encephalopathy. MEDICATIONS: List of medicines from home includes multiple as outlined, Norvasc 10, aspirin, Coreg 2 5 b.i.d., Plavix 75, Lasix 40, insulin, ISMO 30, Arava 20 mg, Reglan as needed, minoxidil 10, pravast atin 40, Catapres 0.2 three times a day, Glucotrol 5 mg twice a day, and hydralazine 25 three times a day. ALLERGIES: PRINIVIL. TOBACCO: None. ALCOHOL: None. REVIEW OF SYSTEMS: Otherwise unobtainable. PHYSICAL EXAMINATION: GENERAL: Awake, responsive, has noticed the left side. VITAL SIGNS: Blood pressure 150/87, she is on a Cardene drip. Sats are 95% on 4 liters. She is afe brile. Nurses tell me that she did aspirate. CHEST: Decreased breath sounds, no wheezing. CARDIAC: Normal S1 and S2. No gallops. ABDOMEN: Soft, distended. EXTREMITIES: No edema. LABORATORY DATA: White count 11,000, H&H is 7 and 20, platelet count 139. Sodium is 151, BUN and cr eatinine are 85 and 3.82. Troponin is elevated. BNP is 3163. Urine is growing Enterobacter aerugin wei. X-RAY FINDINGS: Her chest x-ray did not show any acute infiltrates from last night. CT of the brain shows previous right middle cerebral infarct. IMPRESSION: 1. 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 2. PEG in place. 3. Renal failure. 4. Hypertension. 5. imbalance. PLAN: Her blood pressure medicine has been adjusted by Nephrology. Pulmonary will follow. She is o n Zosyn adjusted for renal failure. Supportive care. Family wants all supportive care. This is a 70-minute consultation note in which 50% spent in direct patient care.
[2018-02-26] MEDS: Scopolamine 1.5 mg/72 hour Patch TD SCH (20:11)
[2018-02-26] MEDS: Insulin Glargine 15 UNITS in Pre-Filled Syringe 1 EACH SC SCH (20:13)
[2018-02-27] MEDS: Dextrose 5 %-0.45 % NaCl 1,000 ML IV SCH ×2 (05:12→08:17)
[2018-02-27] MEDS: hydrALAZINE 20 MG/ML VIAL SLOW IVP PRN (05:12)
[2018-02-27] MEDS: Piperacillin/Tazobactam 2.25 GM in Sodium Chloride 0.9% 100 ML IVPB SCH ×3 (05:12→21:12)
[2018-02-27 06:54] LABS: Hemoglobin A1c 6.4 % (4.0-6.0)
[2018-02-27 06:58] LABS: INR-International Normal Ratio 1.5; Prothrombin Time 18.2 SEC (12.0-14.7)
--- NOTE | 2018-02-27 07:33 | PDOC.CTH ---
Cardiology Progress Note - Subjective No changes overnight. Pt received one unit of PPRBC - Objective Vital Signs Temp Pulse Pulse Resp BP BP Pulse Ox 02/27/18 07:00 98.7 F 02/27/18 05:12 85 197/72 H 02/27/18 03:45 98.1 F 02/27/18 03:00 98.1 F 02/27/18 00:00 98.2 F 02/26/18 23:41 98.3 F 80 22 H 166/59 H 02/26/18 20:12 85 169/66 H 02/26/18 20:00 98.1 F 85 18 97 Admit Weight 194 lb 7.163 oz Weight 195 lb 5.273 oz 02/26/18 02/27/18 02/28/18 06:59 06:59 06:59 Intake Total 1339 1916 Output Total 2965 1240 120 Balance -1626 676 -120 - Physical Examination Neck: carotid US brisk, no JVD present Lungs: unlabored respirations, other: (rhonchi, rales bilaterally) Heart: RRR Abdomen: soft Extremities: + femoral B - Labs Result Diagrams: 02/27/18 06:24 02/27/18 06:21 Troponin/CKMB CK-MB (CK-2) 4.2 ng/mL (0-6.6) 02/26/18 05:04 Troponin I 0.866 ng/mL (< 0.028) H* 02/26/18 05:04 - Assessment/Plan Elevated troponin CVA (extension of previous CVA) Renal failure profound anemia HTN Aspiration peg tube dislodgment From a CV standpoint, recommend conservative treatment BP management prognosis appears poor one unit of PRBC given
[2018-02-27 07:43] LABS: Anion Gap 17 mmol/L (10-20); BUN (Urea Nitrogen) 78 mg/dL (9.8-20.1); Calc. Creatinine Clearance 19 mL/min (70-130); Calcium 9.2 mg/dL (7.8-10.44); Carbon Dioxide 18 mmol/L (23-31); Chloride 124 mmol/L (98-107); Estimated GFR-MDRD 15; Glucose 161 mg/dL (83-110); Sodium 155 mmol/L (136-145)
[2018-02-27 08:04] LABS: Hemoglobin 8.2 g/dL (12.0-16.0); Mean Corpuscular HGB CONC 33.3 g/dL (32.0-36.0); Mean Corpuscular Hemoglobin 29.8 pg (27.0-31.0); Mean Corpuscular Volume 89.4 fL (78.0-98.0); Mean Platelet Volume 9.5 fL (7.4-10.4); Platelet Count 113 thou/uL (130-400); Red Blood Cell (RBC) Count 2.75 mill/uL (4.20-5.40); White Blood Cell (WBC) Count 11.3 thou/uL (4.8-10.8)
[2018-02-27] MEDS: Enoxaparin Sodium 30 MG/0.3 ML SYRINGE SC SCH (08:15)
[2018-02-27] MEDS: Polyethylene Glycol 3350 17 GM Packet PO SCH (08:15)
[2018-02-27] MEDS: Isosorbide Dinitrate 20 MG TAB PER TUBE SCH ×2 (08:15→20:16)
[2018-02-27] MEDS: Pantoprazole 40 MG VIAL IVP SCH ×2 (08:15→20:15)
[2018-02-27] MEDS: NIFEdipine XL 60 MG TAB PO SCH (08:15)
[2018-02-27] MEDS: Clopidogrel Bisulfate 75 MG TAB PO SCH (08:16)
[2018-02-27] MEDS: Sodium Bicarbonate Tab 325 MG TAB PO SCH ×3 (08:16→20:16)
[2018-02-27] MEDS: Amlodipine 10 MG TAB PO SCH (08:16)
[2018-02-27] MEDS: Minoxidil 2.5 MG TAB PO SCH (08:16)
[2018-02-27] MEDS: hydrALAZINE 25 MG TAB PO SCH ×3 (08:16→20:15)
[2018-02-27] MEDS: Aspirin 325 MG TAB PER TUBE SCH (08:17)
[2018-02-27] MEDS: Aspirin 300 MG Suppository PR SCH (08:17)
[2018-02-27] MEDS: Carvedilol 25 MG TAB PO SCH ×2 (08:17→20:16)
[2018-02-27 08:26] LABS: #Eosinphils 0.1 thou/uL (0.0-0.7); #Lymphocytes 0.8 thou/uL (1.20-3.40); #Monocytes 0.3 thou/uL (0.11-0.59); #Neutrophils 10.1 thou/uL (1.40-6.50); %Eosinophils 1.1 % (0.0-10.0); %Lymphocytes 7.2 % (21.0-51.0); %Monocytes 2.2 % (0.0-10.0); %Neutrophils 89.4 % (42.0-75.0); Hypochromia SLIGHT = 6-15 cells (100X) (0-5/hpf); Lymphocytes 10 % (21-51); MDiff Complete? YES; Microcytosis SLIGHT = 6-15 cells (100X) (0-5/hpf); Monocytes 6 % (0-10); Neutrophil 80 % (42-75); PLT Morphology Comment Appears Decreased; Polychromasia SLIGHT = 2-3 cells (100X) (0-2/hpf); Reactive Lymphocytes 4 % (0-10)
--- NOTE | 2018-02-27 09:05 | PDOC.PN ---
- Subjective Encounter Start Date: 02/27/18 Encounter Start Time: 09:03 Ms. Vogel was seen today in follow-up of recent dislodged PEG tube. She is sleeping now. I am told she will awaken periodically and will speak a few words. She is still moving the right side. - Objective Resuscitation Status: Resuscitation Status FULL:Full Resuscitation MAR Reviewed: Yes Vital Signs & Weight: Vital Signs (12 hours) Temp Pulse Pulse Resp BP BP Pulse Ox 02/27/18 08:16 87 171/68 H 02/27/18 08:15 87 171/68 H 02/27/18 08:00 98.7 F 02/27/18 07:36 98.7 F 87 24 H 98 02/27/18 07:00 98.7 F 02/27/18 05:12 85 197/72 H 02/27/18 03:45 98.1 F 02/27/18 03:00 98.1 F 02/27/18 00:00 98.2 F 02/26/18 23:41 98.3 F 80 22 H 166/59 H Weight Admit Weight 194 lb 7.163 oz Weight 195 lb 5.273 oz Most Recent Monitor Data Heart Rate from ECG 84 NIBP 171/68 NIBP BP-Mean 140 Respiration from ECG 21 SpO2 99 I&O: 02/26/18 02/27/18 02/28/18 06:59 06:59 06:59 Intake Total 1339 1916 Output Total 2965 1240 160 Balance -1626 676 -160 Result Diagrams: 02/27/18 06:24 02/27/18 06:21 Additional Labs: Accuchecks 02/27/18 02/26/18 02/26/18 06:29 22:28 16:05 POC Glucose 149 H 176 H 212 H 02/26/18 11:18 POC Glucose 273 H Phys Exam - Physical Examination HEENT: PERRLA + rhonchi bilaterally and some upper airway noise. Cardiovascular: RRR, no significant murmur, no rub Gastrointestinal: soft, non-tender, positive bowel sounds + mild distention, tympanic to percussion Musculoskeletal: edema present + generalized edema in the upper extremities + Dysarthria, and dysphagia,Left hemiparesis + right sided weakness Dx/Plan (1) PEG tube malfunction Code(s): K94.23 - GASTROSTOMY MALFUNCTION Status: Acute (2) Acute CVA (cerebrovascular accident) Code(s): I63.9 - CEREBRAL INFARCTION, UNSPECIFIED Status: Acute Comment: Dense left hemiplegia with large right MCA cva (3) CKD (chronic kidney disease) stage 4, GFR 15-29 ml/min Code(s): N18.4 - CHRONIC KIDNEY DISEASE, STAGE 4 (SEVERE) Status: Chronic (4) Diabetes Code(s): E11.9 - TYPE 2 DIABETES MELLITUS WITHOUT COMPLICATIONS Status: Chronic Qualifiers: Diabetes mellitus type: type 2 Diabetes mellitus fpc insulin use: without fpc use Diabetes mellitus complication status: with kidney complications Diabetes mellitus complication detail: with chronic kidney disease Chronic kidney disease stage: stage 4 (severe) Qualified Code(s): E11.22 - Type 2 diabetes mellitus with diabetic chronic kidney disease; N18.4 - Chronic kidney disease, stage 4 (severe); N18.4 - Chronic kidney disease, stage 4 (severe); N18.4 - Chronic kidney disease, stage 4 (severe); N18.4 - Chronic kidney disease, stage 4 (severe) (5) Hypertensive urgency Code(s): I16.0 - HYPERTENSIVE URGENCY Status: Resolved - Plan * Hypertensivve Urgency- better- she is now off the Cardene drip, and her blood pressure now is 131/51 * Continue her home medications via the PEG tube * CT scan results of the abdomen were noted, and the family has been notified of the results * Anemia- hemoglobin has improved after transfusion * DM- Continue Lantus insulin as well as a SSI. * CKD- she has severe renal disease- stage 4- Dining Room Captain is monitoring- no dialysis indication at this time * CVA- continue aspirin and Plavix, and statin- resume PT/OT when appropriate * Aggressive respiratory care * Prognosis continues to be guarded
--- NOTE | 2018-02-27 09:59 | PRG ---
DATE OF SERVICE: 02/27/2018 SUBJECTIVE: A 72-year-old female, encephalopathic, obtunded, response. PHYSICAL EXAMINATION: VITAL SIGNS: Blood pressure is 171/65, pulse 85, respirations 26, sats 90%. NEUROLOGIC: As noted, encephalopathic. CHEST: Bilateral rhonchi. CARDIAC: Normal S1 and S2, no gallops. ABDOMEN: Soft, no masses. IMAGING DATA AND LABORATORY DATA: Chest x-ray shows bilateral small pleural effusion, cephalization. Her creatinine 3.6, BUN is 78, glucose 149. Urine is growing Enterococcus. IMPRESSION: 1. Status post revision of the percutaneous endoscopic gastrostomy. Apparently, the percutaneous en doscopic gastrostomy tube is going through the lobe of the liver. 2. History of cerebrovascular accident. 3. Chronic renal failure. 4. History of coronary artery disease. 5. History of congestive heart failure. PLAN: Continue present treatment. Dialysis as per Nephrology. Empiric antibiotics for presumed asp iration. Supportive care. Prognosis is grave. Family wants continued full supportive care.
--- NOTE | 2018-02-27 10:41 | RAD ---
PORTABLE AP CHEST XRAY: DATE: 02/27/18. HISTORY: On ventilator. Followup evaluation. COMPARISON: 02/25/18. FINDINGS: There is a suggestion of small bilateral pleural effusions. There is minimal linear patchy density a t the right lung base which is accentuated due to patient rotation but could be related to either ate lectasis or developing pneumonia or aspiration pneumonitis. Pulmonary vasculature is borderline incr eased. The cardiac silhouette is within normal limits. Osseous structures appear intact. IMPRESSION: 1. Tiny bilateral pleural effusions. 2. Interstitial and patchy density right lung base which may be related to atelectasis, although asp iration pneumonitis or pneumonia is a possibility. Continued followup is recommended. POS: [facility]
[2018-02-27] MEDS: D5 1/4 NS 1,000 ML IV SCH ×2 (11:15→18:05)
[2018-02-27] MEDS: HumaLOG 300 UNITS/3 ML VIAL SC PRN ×2 (11:16→15:43)
--- NOTE | 2018-02-27 11:27 | PRG ---
DATE OF SERVICE: 02/27/2018 RENAL MEDICINE SUBJECTIVE: Ms. Vogel is a 72-year-old black female with chronic renal failure and being followed by the Renal Service for her renal dysfunction. She recently was diagnosed to have CVA with a large infarct noted. Mentation has been fluctuating. Renal function has also been fluctuating. Due to h er hyponatremia, she is currently on D5 half normal saline. No acute events noted. PEG tube was reinserted recently. The patient's family has consulted with palliative care. They still want to proceed with everything. PHYSICAL EXAMINATION: VITAL SIGNS: Blood pressure is 131/51, heart rate is 79, respiratory 23, pulse ox 97%. GENERAL: The patient has depressed mentation. Occasionally has intermittent response to verbal stim efrain. HEENT: She has has slightly pale conjunctivae, anicteric sclerae. NECK: No neck mass, no carotid bruits, no JVD. CHEST: No deformities. LUNGS: Clear breath sounds. HEART: Normal sinus rhythm. No murmurs, no gallops, no rubs. ABDOMEN: Globular, soft, nontender, no masses. EXTREMITIES: No edema, no deformities. Positive for PEG tube. MEDICATIONS: Medications of 02/17/2018 reviewed. LABORATORY DATA: Laboratories of 02/17/2018; white count 11.2 hemoglobin 8.2. Sodium 155, potassium 4, chloride 124, carbon dioxide 18, BUN 78, creatinine 3.67, glucose 161, calcium 9.2. ASSESSMENT AND PLAN: 1. Acute kidney injury/chronic renal failure, renal function stable. As a matter of fact, creatinin e improved from 3.8 to a most recent value of 3.67. GFR is 15 mL per minute. There is no indication for any dialytic intervention with this patient. 2. Hypernatremia - we will change IV fluid to D5 0.25% sodium chloride and run at 125 mL per hour. 3. Status post cerebrovascular accident. Continue supportive care. 4. Anemia, p.r.n. blood transfusion. We will start patient on Epogen since the blood pressure is be tter controlled - 7,500 units subcutaneously every week. 5. Labile hypertension, much improved. Continue current type hypertensive regimen.
[2018-02-27 11:57] LABS: Hemoglobin 8.2 g/dL (12.0-16.0)
[2018-02-27] MEDS: Epoetin (ESRD) 20,000 UNITS/ML SC SCH (13:44)
[2018-02-27 19:37] LABS: Hemoglobin 8.5 g/dL (12.0-16.0)
[2018-02-27] MEDS: Atorvastatin Calcium 40 MG TAB PO SCH (20:15)
[2018-02-27] MEDS: Insulin Glargine 15 UNITS in Pre-Filled Syringe 1 EACH SC SCH (20:17)
[2018-02-28] MEDS: hydrALAZINE 20 MG/ML VIAL SLOW IVP PRN ×2 (00:11→05:12)
[2018-02-28] MEDS: D5 1/4 NS 1,000 ML IV SCH ×3 (02:08→12:04)
--- NOTE | 2018-02-28 03:14 | PRG ---
DATE OF SERVICE: 02/27/2018 SUBJECTIVE: Ms. Vogel remains in the ICU. She communicates little bit. Her mental status comes and goes. OBJECTIVE: VITAL SIGNS: Blood pressure 114/46, pulse 83, temperature 98.7. Urine output yesterday 1240. GENERAL: She is she is okay. She nods her head yes. HEENT: Oropharynx without lesions. ABDOMEN: Soft. The PEG tube site is no bleeding. The wound VAC dressing is intact, little bit prot uberant. LABORATORY STUDIES: White count 11.3, hemoglobin 8.2, platelet count 113, neutrophils 89. Bands non e recorded. INR is 1.5. Sodium 135, potassium 4, chloride 124, bicarb 18, anion gap 13, BUN and cre atinine are 78 and 3.67. Cultures negative at 48 hours in blood. ASSESSMENT: 1. Status post cerebrovascular accident. 2. Hypernatremia. IV fluids have been trained to 0.25 normal saline 125 an hour. We will go ahead and try to use the PEG tube for some free water. 3. Kidney failure, acute on chronic. 4. Anemia. After transfusion, her blood count up, we will go and check that again today. 5. PEG tube complications with it, apparently being removed at the group home and attempt to be pl aced in an outside facility resulting abdominal wound that had be addressed surgically. At that time , has been noted the PEG tube was placed in the left margin of the left lobe of the liver. There are no signs of bleeding on CAT scan. PLAN: 1. Monitor H&H q.8 hours for any signs of bleeding. 2. Trial of free water via the PEG in light of hyponatremia. If she tolerates this, we can retry st art tube feeds at a low rate.
[2018-02-28] MEDS: cloNIDine 0.1 MG TAB PER TUBE PRN (03:26)
[2018-02-28 03:34] LABS: #Eosinphils 0.2 thou/uL (0.0-0.7); #Lymphocytes 1.1 thou/uL (1.20-3.40); #Monocytes 0.4 thou/uL (0.11-0.59); #Neutrophils 6.8 thou/uL (1.40-6.50); %Basophils 0.1 % (0.0-1.0); %Eosinophils 1.9 % (0.0-10.0); %Lymphocytes 12.4 % (21.0-51.0); %Monocytes 4.6 % (0.0-10.0); %Neutrophils 81.1 % (42.0-75.0); Hemoglobin 8.2 g/dL (12.0-16.0); Mean Corpuscular HGB CONC 34.9 g/dL (32.0-36.0); Mean Corpuscular Hemoglobin 30.9 pg (27.0-31.0); Mean Corpuscular Volume 88.7 fL (78.0-98.0); Mean Platelet Volume 8.8 fL (7.4-10.4); Platelet Count 96 thou/uL (130-400); RBC Distribution Width 15.9 % (11.5-14.5); Red Blood Cell (RBC) Count 2.65 mill/uL (4.20-5.40); White Blood Cell (WBC) Count 8.4 thou/uL (4.8-10.8)
[2018-02-28 03:49] LABS: Anion Gap 14 mmol/L (10-20); BUN (Urea Nitrogen) 71 mg/dL (9.8-20.1); Calc. Creatinine Clearance 20 mL/min (70-130); Calcium 8.6 mg/dL (7.8-10.44); Carbon Dioxide 18 mmol/L (23-31); Chloride 119 mmol/L (98-107); Estimated GFR-MDRD 15; Glucose 200 mg/dL (83-110); Potassium 3.6 mmol/L (3.5-5.1); Sodium 147 mmol/L (136-145)
[2018-02-28] MEDS: Piperacillin/Tazobactam 2.25 GM in Sodium Chloride 0.9% 100 ML IVPB SCH ×3 (05:12→22:44)
[2018-02-28] MEDS: HumaLOG 300 UNITS/3 ML VIAL SC PRN ×4 (06:10→22:52)
--- NOTE | 2018-02-28 06:18 | PDOC.CTH ---
Cardiology Progress Note - Subjective Pt answering questions and following commands today - Objective Vital Signs Temp Pulse Resp BP Pulse Ox 02/28/18 05:12 174/67 H 02/28/18 03:26 178/57 H 02/28/18 03:00 98 F 02/28/18 00:11 87 184/69 H 02/27/18 23:00 98.6 F 02/27/18 20:15 87 184/56 H 02/27/18 20:00 98.6 F 80 18 97 02/27/18 19:00 98.1 F Admit Weight 194 lb 7.163 oz Weight 196 lb 3.382 oz 02/26/18 02/27/18 02/28/18 06:59 06:59 06:59 Intake Total 1339 1916 3280 Output Total 2965 1240 1190 Balance -7284 714 6084 - Physical Examination Neck: no JVD present Lungs: other: (rhonchi, rales) Heart: RRR Abdomen: NT/ND, soft Extremities: + femoral B - Labs Result Diagrams: 02/28/18 03:24 02/28/18 03:24 Troponin/CKMB CK-MB (CK-2) 4.2 ng/mL (0-6.6) 02/26/18 05:04 Troponin I 0.866 ng/mL (< 0.028) H* 02/26/18 05:04 - Assessment/Plan Elevated troponin CVA (extension of previous CVA) Renal failure profound anemia HTN Aspiration peg tube dislodgment Improving Hb stable. No new CV changes present Spoke with daughter in law yesterday No new CV recommendations at this time An aggressive CV approach at this point will not change pts outcome
--- NOTE | 2018-02-28 07:50 | PRG ---
DATE OF SERVICE: 02/28/2018 The patient is doing about the same according to what I have read in the notes and discussed with [facility] staff. It does not appear that she has a clearcut indication for CCU other than the family comp lains about the care out on the floor. PHYSICAL EXAMINATION: VITAL SIGNS: Temperature is 98.0, pulse 73, blood pressure 158/49, O2 sat 97%, respiratory rate 14. Total intake for the last 24 hours 3280, output 1190. NEUROLOGIC: Remarkable for left-sided hemiplegia. She is able to vocalize better than the last time I saw her about 3 weeks ago. HEENT: Otherwise unremarkable. NECK: No JVD. LUNGS: Clear. CARDIAC: S1 and S2 regular. ABDOMEN: She has a midline wound VAC. She also has a PEG tube in the upper part of her abdomen. Sh nancy has generalized edema throughout. LABORATORY DATA: Sodium 147, potassium 3.6, chloride 119, CO2 18, BUN 71, creatinine 3.5, glucose 20 0. White blood cell count 8.4, hematocrit 24.5, platelet count 96. X-ray shows atelectasis at the bases, some perihilar edema. ASSESSMENT: 1. This patient has a large right middle cerebral artery infarct with extension and severe debilitat ion. 2. Chronic renal failure. 3. Hypernatremia at the time of admission, which has improved with the 1/4 normal saline administrat ion. 4. History of congestive heart failure. 5. Question of aspiration pneumonia. PLAN: 1. From my standpoint, she is stable for transfer to the floor, although there may be some family is sues that would need to be addressed. 2. Continue 1/4 normal saline. 3. Continue IV Zosyn, stop at 5-7 days. 4. Continue family education. This patient's prognosis is dismal.
[2018-02-28] MEDS: Aspirin 300 MG Suppository PR SCH (09:00)
--- NOTE | 2018-02-28 09:12 | PDOC.PN ---
- Subjective Encounter Start Date: 02/28/18 Encounter Start Time: 09:10 Ms. Vogel was seen today in follow-up of CVA and dislodged PEG tube. She is awake and will answer a few questions with one or two words. She will squeeze with the right hand. When asked if she is in pain, she shakes her head and says no. - Objective Resuscitation Status: Resuscitation Status FULL:Full Resuscitation MAR Reviewed: Yes Vital Signs & Weight: Vital Signs (12 hours) Temp Pulse BP 02/28/18 05:12 174/67 H 02/28/18 03:26 178/57 H 02/28/18 03:00 98 F 02/28/18 00:11 87 184/69 H 02/27/18 23:00 98.6 F Weight Admit Weight 194 lb 7.163 oz Weight 196 lb 3.382 oz Most Recent Monitor Data Heart Rate from ECG 73 NIBP 158/49 NIBP BP-Mean 116 Respiration from ECG 14 SpO2 97 I&O: 02/27/18 02/28/18 03/01/18 06:59 06:59 06:59 Intake Total 1916 3280 Output Total 1240 1190 Balance 676 2090 Result Diagrams: 02/28/18 03:24 02/28/18 03:24 Additional Labs: Accuchecks 02/28/18 02/28/18 02/27/18 06:09 00:08 15:42 POC Glucose 189 H 184 H 183 H 02/27/18 11:16 POC Glucose 201 H Phys Exam - Physical Examination HEENT: PERRLA Respiratory: no wheezing, no rales + rhonchi bilaterally, no wheezeing Cardiovascular: RRR, no significant murmur, no rub Gastrointestinal: soft, positive bowel sounds Musculoskeletal: edema present + massive edema in all extremities + Left hemiparesis, and dysarthria Dx/Plan (1) PEG tube malfunction Code(s): K94.23 - GASTROSTOMY MALFUNCTION Status: Acute (2) Acute CVA (cerebrovascular accident) Code(s): I63.9 - CEREBRAL INFARCTION, UNSPECIFIED Status: Acute Comment: Dense left hemiplegia with large right MCA cva (3) CKD (chronic kidney disease) stage 4, GFR 15-29 ml/min Code(s): N18.4 - CHRONIC KIDNEY DISEASE, STAGE 4 (SEVERE) Status: Chronic (4) Diabetes Code(s): E11.9 - TYPE 2 DIABETES MELLITUS WITHOUT COMPLICATIONS Status: Chronic Qualifiers: Diabetes mellitus type: type 2 Diabetes mellitus chcf insulin use: without manager terminal use Diabetes mellitus complication status: with kidney complications Diabetes mellitus complication detail: with chronic kidney disease Chronic kidney disease stage: stage 4 (severe) Qualified Code(s): E11.22 - Type 2 diabetes mellitus with diabetic chronic kidney disease; N18.4 - Chronic kidney disease, stage 4 (severe); N18.4 - Chronic kidney disease, stage 4 (severe); N18.4 - Chronic kidney disease, stage 4 (severe); N18.4 - Chronic kidney disease, stage 4 (severe) (5) Hypertensive urgency Code(s): I16.0 - HYPERTENSIVE URGENCY Status: Resolved - Plan * Dislodged PEG Tube- s/p Surgical replacement of a new one- Continue IV antibiotics, as previous PEG site had some necrotizing infection around the site. * Massive CVA with extension- continue aspirin and Plavix * ? Aspiration Pneumonia, vs. Volume overload- Continue Zosyn, * Severe Chronic kidney disease- Management as per Nephrology- she may need dialysis- will observe * Anemia- her H&H has remained stable. * DM- blood glucose is stable * HTN- blood pressure has been labile- but mostly in the 150-170 range systolic - this is an acceptable range given her long-standing history of difficult to control blood pressure..
--- NOTE | 2018-02-28 09:58 | PRG ---
DATE OF SERVICE: 02/28/2018 SUBJECTIVE: Ms. Vogel is a 72-year-old black female with known history of chronic renal failure a nd being followed up for his acute renal dysfunction as well as chronic renal failure. Recently, samir carver is status post CVA. She was also noted to be hypernatremic and IV fluids has been changed at th e present time. No acute events noted. OBJECTIVE: VITAL SIGNS: Blood pressure is 158/49 with a heart rate of 73, respiratory rate 14, pulse ox 97%. GENERAL: Lethargic and responsive to verbal stimuli, not in distress HEENT: She has slightly pale conjunctivae, anicteric sclerae. NECK: No neck mass, no carotid bruits, no JVD. CHEST: No deformities. LUNGS: Decreased breath sounds. HEART: Normal sinus rhythm. No murmur, no gallops, no rubs. ABDOMEN: Globular, soft, nontender. Positive for PEG tube. EXTREMITIES: No edema, no deformities. MEDICATIONS: Of 02/28/2018 reviewed. LABORATORY DATA: 02/28/2018, white count 8.4, hemoglobin 8.2, hematocrit 23.5. Sodium 147, potassiu m 3.6, chloride 119, carbon dioxide 18, BUN 71, creatinine 3.53, glucose 200, calcium 8.6. ASSESSMENT AND PLAN: 1. Chronic renal failure, stabilizing renal function. Continue supportive care. No indication for any dialytic intervention. 2. Hypernatremia, slowly improving with D5 0.25% sodium chloride. The plan is to continue current m anagement. 3. Anemia. The patient has been resumed on weekly Epogen. 4. Labile hypertension, much improved. Continue current blood pressure meds. Overall, prognosis re pj poor with this patient. Continue supportive care.
--- NOTE | 2018-02-28 10:03 | PRG ---
DATE OF SERVICE: 02/26/2018 SUBJECTIVE: Ms. Vogel last evening had a code green and was moved to the ICU. Apparently, she murray d elevated blood pressure and some mental status change. She was given nicardipine IV and transferre d here. She also was felt to have a tight abdomen and was not tolerating tube feeds. Brain CAT scan indicates increased size of the right middle cerebral artery infarct with slight increased mass effe ct. CT scan of the abdomen and pelvis showed the PEG tube that had been replaced, traversed in the m ost lateral aspect, segment of the left hepatic lobe of the liver and in the stomach. The amount of intraperitoneal fluid from previous scan apparently is stable. There is no defined fluid collection in the abdominal wall or around the area of the liver where the PEG is and I have reviewed those film s with the radiologist, small effusions, subcutaneous emphysema across the right lower abdomen relate d to recent injection with mild cardiomyopathy. Since arrival in the unit, the patient's altered men patricia status is up and down, the patient is without complaints. I asked her how she is feeling, she sa ys she is okay. PHYSICAL EXAMINATION: VITAL SIGNS: Blood pressure is 167/67, temperature is 96. GENERAL: She is moving extremities and her head spontaneously. LUNGS: Decreased breath sounds at bases. ABDOMEN: Slight protuberant, not tense. There is no crepitus. PEG tube site is a little bit of ooz ing red blood, but no clot. Nurses note that they had not changed the dressings excessively. The wo und VAC is in place. Bowel sounds are quiescent. EXTREMITIES: Reveal trace edema. LABORATORY STUDIES: White count was 11.2 this morning; hemoglobin 7.3-7.4 last night, 8.0 yesterday morning; platelet count 139. INR on 02/09/2018 was 1.1. Sodium 151, potassium 4.3, chloride 121, bi carbonate 18, BUN 85, creatinine 3.82. Troponins were 0.9 and 0.8 yesterday. BNP was 3100. Blood c ultures negative from the . IMAGING: Images reviewed with radiology. ASSESSMENT: 1. This is a 72-year-old female with a stroke, had a PEG tube placed with the custodial. The PEG tube apparently came out and then she went to an outside facility where it was placed back in at the bedside and ultimately she was sent back here with a copious amount of fluid draining around the PEG tube site and a scan showing air and fluid in the anterior abdominal wall between the rectus sheath and the skin, necessitating removal of the PEG tube. This was done by General Surgery in the operati ng room and another PEG tube was placed by General Surgery in the operating room with a wound VAC aida ng placed. This was done as the previous PEG hole was high risk for infection and was leaking copiou sly around a massively dilated tract. 2. She had a code green last night with deterioration in mental status and is returning somewhat tod ay. She had elevated blood pressure and this was thought to be a source. There was some concern by the radiologist that her stroke had extended or the area had enlarged, although the family notes and they talked with the neurologist who states this is really unchanged and they felt the fluctuations w ere more related to everything that has been going on with her, that dictation is not yet available f or my review. 3. No overt signs of sepsis. She remains on antibiotics. Blood cultures are negative. CT scan enma ws no signs of abscess, intraabdominal fluid collection. There are no signs of cellulitis or fasciit is. 4. Intolerance of tube feeds. I think this relates to probably some component of her diabetes and i llness overall and lack of mobility. There were issues with tube feedings at last admission. Presen tly, she is not tolerating it and we are not going to force that for a day or so. We did discuss wit h the family the option of using Reglan, but with present issues of mental status, I think we should hold off from that especially with renal insufficiency. 5. Renal insufficiency, worsening. 6. Non-Q-wave myocardial infarction, likely demand ischemia as outlined by Cardiology. They felt th at with her clinical state, renal dysfunction, and stage 4 chronic renal disease, she would be a poor candidate for catheterization. 7. With regard to the PEG tube, this has inadvertently been placed through the very lateral aspect o f the liver. I have reviewed the films that goes into the stomach, there does not appear to be hemat winifred of the liver capsule. The ascites around the liver and the pelvis seems to be the same appearanc e as it did on the CAT scan that she came in with on the before this PEG was placed. This is at risk to bleed, but as I explained to the family I think there is more risk to remove it at this time , as it is snug tight on the abdominal wall. We will watch it closely. Her hemoglobin did drop a bi t to 6.9. I have informed the family regarding to have the blood transfusion. We are going to watch the hemoglobin every 8 hours. Apparently, Dr. Ocasio is covering for Dr. Hammond is aware of the is demario with the PEG tube. RECOMMENDATIONS: 1. Transfuse. 2. Hold off on PEG tube feeds, can use PEG for medications and free water. 3. Serial H&Hs. 4. We will get an INR with the morning labs as well as hemoglobin A1c of gastroparesis.
--- NOTE | 2018-02-28 10:10 | RAD ---
PORTABLE SUPINE CHEST 1 VIEW: Date: 02/28/18 HISTORY: 72-year-old female with history of respiratory insufficiency. COMPARISON: 02/27/18. FINDINGS: Cardiomegaly with bilateral vascular congestion and interstitial and alveolar pulmonary edema and davian ateral pleural effusions. Findings have worsened when compared to the prior 02/25/18 study. IMPRESSION: Worsening vascular congestion, edema, and pleural effusions, with cardiomegaly. Findings are evidence for congestive heart failure. Continue follow-up for clearing or stability. POS: [facility]
[2018-02-28] MEDS: Sodium Bicarbonate Tab 325 MG TAB PO SCH ×3 (10:35→22:43)
[2018-02-28] MEDS: Minoxidil 2.5 MG TAB PO SCH (10:35)
[2018-02-28] MEDS: hydrALAZINE 25 MG TAB PO SCH ×3 (10:36→22:40)
[2018-02-28] MEDS: Amlodipine 10 MG TAB PO SCH (10:37)
[2018-02-28] MEDS: Clopidogrel Bisulfate 75 MG TAB PO SCH (10:37)
[2018-02-28] MEDS: Carvedilol 25 MG TAB PO SCH ×2 (10:37→22:40)
[2018-02-28] MEDS: Aspirin 325 MG TAB PER TUBE SCH (10:37)
[2018-02-28] MEDS: Enoxaparin Sodium 30 MG/0.3 ML SYRINGE SC SCH (10:38)
[2018-02-28] MEDS: NIFEdipine XL 60 MG TAB PO SCH (10:39)
[2018-02-28] MEDS: Pantoprazole 40 MG VIAL IVP SCH ×2 (10:39→22:43)
[2018-02-28] MEDS: Polyethylene Glycol 3350 17 GM Packet PO SCH ×2 (10:40→10:42)
[2018-02-28] MEDS: Isosorbide Dinitrate 20 MG TAB PER TUBE SCH ×2 (10:48→22:42)
--- NOTE | 2018-02-28 13:34 | EKG ---
Test Reason : STAT Blood Pressure : / mmHG Vent. Rate : 088 BPM Atrial Rate : 088 BPM P-R Int : 132 ms QRS Dur : 080 ms QT Int : 396 ms P-R-T Axes : 062 024 186 degrees QTc Int : 479 ms Normal sinus rhythm Septal infarct , age undetermined Abnormal ECG When compared with ECG of 09-FEB-2018 08:23, (Unconfirmed) ST no longer depressed in Anterior leads Confirmed by KESHIA AVALOS, SRadha ([id number]) on 02/28/2018 1:33:37 PM Referred By: Confirmed By:DR. Gera SCHMITT MD
--- NOTE | 2018-02-28 20:59 | PRG ---
DATE OF SERVICE: 02/28/2018 SUBJECTIVE: The patient adds nothing subjective. The nursing personnel informed me that the PEG tub e has high residuals and difficult to use. OBJECTIVE: VITAL SIGNS: Pulse is 76, respiratory rate 13, blood pressure 160/53, temperature is 98.5. CHEST: Clear. CARDIOVASCULAR: Regular rate and rhythm. ABDOMEN: Soft, nontender. PEG tube is noted. Wound VAC is on a previous PEG site. ASSESSMENT: 1. Previous PEG with large wound status post wound VAC. 2. High gastric residuals through the left hepatic lobe. RECOMMENDATIONS: May try a nasogastric tube and see if tube feedings can proceed that route. Other possibilities would be to remove the existing PEG and place a jejunal tube. The third option would b e to place a Dobbhoff tube into the third portion of the duodenum. I think this probably would be th e best bet.
[2018-02-28] MEDS: Atorvastatin Calcium 40 MG TAB PO SCH (22:40)
[2018-02-28] MEDS: Insulin Glargine 15 UNITS in Pre-Filled Syringe 1 EACH SC SCH (22:41)
[2018-03-01] MEDS: Labetalol HCl 100 MG/20 ML VIAL SLOW IVP PRN (04:13)
[2018-03-01] MEDS: D5 1/4 NS 1,000 ML IV SCH ×3 (04:15→14:06)
[2018-03-01] MEDS: Piperacillin/Tazobactam 2.25 GM in Sodium Chloride 0.9% 100 ML IVPB SCH ×3 (05:15→23:19)
[2018-03-01 05:42] LABS: Anion Gap 13 mmol/L (10-20); BUN (Urea Nitrogen) 61 mg/dL (9.8-20.1); Calc. Creatinine Clearance 21 mL/min (70-130); Calcium 8.2 mg/dL (7.8-10.44); Carbon Dioxide 18 mmol/L (23-31); Chloride 117 mmol/L (98-107); Estimated GFR-MDRD 16; Glucose 171 mg/dL (83-110); Potassium 3.5 mmol/L (3.5-5.1); Sodium 144 mmol/L (136-145)
[2018-03-01 05:46] LABS: #Eosinphils 0.2 thou/uL (0.0-0.7); #Lymphocytes 1.2 thou/uL (1.20-3.40); #Monocytes 0.4 thou/uL (0.11-0.59); #Neutrophils 6.7 thou/uL (1.40-6.50); %Eosinophils 2.3 % (0.0-10.0); %Lymphocytes 13.8 % (21.0-51.0); %Neutrophils 78.9 % (42.0-75.0); Mean Corpuscular HGB CONC 33.8 g/dL (32.0-36.0); Mean Corpuscular Hemoglobin 30.2 pg (27.0-31.0); Mean Corpuscular Volume 89.4 fL (78.0-98.0); Mean Platelet Volume 9.7 fL (7.4-10.4); Platelet Count 103 thou/uL (130-400); RBC Distribution Width 15.6 % (11.5-14.5); Red Blood Cell (RBC) Count 2.65 mill/uL (4.20-5.40); White Blood Cell (WBC) Count 8.4 thou/uL (4.8-10.8)
[2018-03-01] MEDS: HumaLOG 300 UNITS/3 ML VIAL SC PRN ×2 (06:06→12:42)
--- NOTE | 2018-03-01 08:46 | PDOC.PN ---
- Subjective Encounter Start Date: 03/01/18 Encounter Start Time: 08:45 Ms. Vogel was seen today in follow-up of Dislodged PEG tube. She is awake and she will respond. She indicates by shaking her head that she is not feeling any pain.. - Objective Resuscitation Status: Resuscitation Status FULL:Full Resuscitation MAR Reviewed: Yes Vital Signs & Weight: Vital Signs (12 hours) Temp Pulse BP 03/01/18 04:13 76 165/62 H 03/01/18 04:00 98.0 F 03/01/18 00:00 99.1 F 02/28/18 22:40 76 165/62 H Weight Admit Weight 194 lb 7.163 oz Weight 196 lb 3.382 oz Most Recent Monitor Data Heart Rate from ECG 75 NIBP 181/54 NIBP BP-Mean 85 Respiration from ECG 20 SpO2 98 I&O: 02/28/18 03/01/18 03/02/18 06:59 06:59 06:59 Intake Total 3280 4572 Output Total 1190 1012 Balance 2090 3560 Result Diagrams: 03/01/18 04:55 03/01/18 04:55 Additional Labs: Accuchecks 02/28/18 02/28/18 02/28/18 22:51 16:39 11:50 POC Glucose 187 H 172 H 207 H Phys Exam - Physical Examination HEENT: PERRLA + upper airway noise, and some deacreased breath sounds at the bases Cardiovascular: RRR, no significant murmur, no rub Gastrointestinal: soft, positive bowel sounds + distended Musculoskeletal: edema present + diffuse edema in both upper and lower extremities Dx/Plan (1) PEG tube malfunction Code(s): K94.23 - GASTROSTOMY MALFUNCTION Status: Acute (2) Acute CVA (cerebrovascular accident) Code(s): I63.9 - CEREBRAL INFARCTION, UNSPECIFIED Status: Acute Comment: Dense left hemiplegia with large right MCA cva (3) CKD (chronic kidney disease) stage 4, GFR 15-29 ml/min Code(s): N18.4 - CHRONIC KIDNEY DISEASE, STAGE 4 (SEVERE) Status: Chronic (4) Diabetes Code(s): E11.9 - TYPE 2 DIABETES MELLITUS WITHOUT COMPLICATIONS Status: Chronic Qualifiers: Diabetes mellitus type: type 2 Diabetes mellitus chcf insulin use: without ferry terminal agent use Diabetes mellitus complication status: with kidney complications Diabetes mellitus complication detail: with chronic kidney disease Chronic kidney disease stage: stage 4 (severe) Qualified Code(s): E11.22 - Type 2 diabetes mellitus with diabetic chronic kidney disease; N18.4 - Chronic kidney disease, stage 4 (severe); N18.4 - Chronic kidney disease, stage 4 (severe); N18.4 - Chronic kidney disease, stage 4 (severe); N18.4 - Chronic kidney disease, stage 4 (severe) (5) Hypertensive urgency Code(s): I16.0 - HYPERTENSIVE URGENCY Status: Resolved - Plan * Dislodgement of PEG tube- She had a new Feeding tube incerted surgically- I am informed that this is not functioning well- will defer to GI/Surgery * HTN- blood pressure is labile, but can keep this in the range of 150-160 systolic- will treat with PRN medication while she is NPO, and consider Cardene drip, if she rebounds again * CVA- stable- may need to give aspirin rectally while she is not able to receive medication via her oral/PEG * DM- blood glucose is stable. * Chronic kidney disease- stable- no change
--- NOTE | 2018-03-01 09:52 | RAD ---
CHEST ONE VIEW: HISTORY: Ventilated patient. Respiratory distress. COMPARISON: 02/28/2018 FINDINGS: Stable cardiac silhouette. There is persistent rightward deviation of the trachea. The pulmonary ve ssels and hilum are normal. The costophrenic angles are clear. No masses or consolidation. Previou sly noted opacities in the lung bases have decreased. No pneumothorax or osseous abnormalities. IMPRESSION: Improved aeration of lung parenchyma. Previously noted vascular congestion/edema has decreased. Con tinued surveillance is recommended. POS: [facility]
--- NOTE | 2018-03-01 10:06 | PRG ---
DATE OF SERVICE: 03/01/2018 SUBJECTIVE: The patient remains in the CCU. She has been clinically stable. She is able to answer in short responses. OBJECTIVE: VITAL SIGNS: On exam, temperature is 98.0, pulse 85, blood pressure 121/54, sat 98%, a 24-hour intak e 4572 and output 1012. HEENT: Unremarkable. No JVD. LUNGS: Clear. CARDIAC: S1 and S2, regular. EXTREMITIES: Edematous throughout. ABDOMEN: Soft and nontender. LABORATORY DATA: Sodium ____, chloride 117, CO2 of 18, BUN 61, creatinine 3.4, glucose 171. White b lood cell count 8.4, hematocrit 23.7, platelet count 103. ASSESSMENT: 1. Cerebrovascular accident with severe debilitation 2. Chronic renal failure. 3. Improved hypernatremia. 4. Improved x-ray, possible aspiration at the time of admission. PLAN: She is stable to go to the floor. I think there are some family issues regarding previous kristen sing care on the floor and this may have to be addressed. I have reviewed her orders and agree with current plan in place.
[2018-03-01] MEDS: Amlodipine 10 MG TAB PO SCH (11:34)
[2018-03-01] MEDS: Enoxaparin Sodium 30 MG/0.3 ML SYRINGE SC SCH (11:35)
[2018-03-01] MEDS: Clopidogrel Bisulfate 75 MG TAB PO SCH (11:35)
[2018-03-01] MEDS: Carvedilol 25 MG TAB PO SCH ×2 (11:35→20:34)
[2018-03-01] MEDS: Aspirin 300 MG Suppository PR SCH (11:35)
[2018-03-01] MEDS: Minoxidil 2.5 MG TAB PO SCH (11:37)
[2018-03-01] MEDS: Isosorbide Dinitrate 20 MG TAB PER TUBE SCH ×2 (11:37→20:35)
[2018-03-01] MEDS: hydrALAZINE 25 MG TAB PO SCH ×3 (11:37→20:34)
[2018-03-01] MEDS: Polyethylene Glycol 3350 17 GM Packet PO SCH (11:38)
[2018-03-01] MEDS: Sodium Bicarbonate Tab 325 MG TAB PO SCH ×3 (11:38→21:08)
[2018-03-01] MEDS: Pantoprazole 40 MG VIAL IVP SCH ×2 (11:38→20:36)
[2018-03-01] MEDS: NIFEdipine XL 60 MG TAB PO SCH (11:38)
--- NOTE | 2018-03-01 12:59 | PRG ---
DATE OF SERVICE: 03/01/2018 SERVICE: Renal Medicine. SUBJECTIVE: Ms. Vogel is a 72-year-old black female, followed up for chronic renal failure. She has underlying hypertensive nephropathy. Renal function has been labile. However, in the last few d ays, renal function has been stabilizing. She also was admitted due to an abdominal pain and displac ement of a PEG tube. She was also noted to be hypernatremic in the past and we have being giving 1/4 normal saline with this patient with improvement in serum sodium. This morning, she is more awake. OBJECTIVE: VITAL SIGNS: Blood pressure is 181/54, heart rate 75, respiratory rate 20, pulse ox 98%. GENERAL EXAM: The patient is awake and can converse, not in distress SKIN: Adequate turgor. HEENT: Slightly pale conjunctivae. Anicteric sclerae. NECK: No neck mass, no carotid bruits, no JVD. CHEST: No deformities. LUNGS: Decreased breath sounds. HEART: Normal sinus rhythm. No murmur, no gallops, no rubs. ABDOMEN: Globular, soft. Positive for PEG. EXTREMITIES: No edema. NEUROLOGICAL EXAM: Left-sided weakness. Medications of 03/01/2018 were reviewed. LABORATORY DATA: Laboratories of 03/01/2018, white count 8.4, hemoglobin 8, hematocrit 23.7. Sodium 144, potassium 3.5, chloride 117, carbon dioxide 18, BUN 61, creatinine 3.46, GFR 16 mL per minute. Calcium 8.2. ASSESSMENT AND PLAN: 1. Chronic renal failure from hypertensive nephropathy, stabilizing renal function. Creatinine note d at 3.4, which is near baseline. Continue supportive care. 2. Hypernatremia, much improved. Currently, on 1/4 normal sodium chloride. Continue current IV flu ids. No changes to be made today. 3. Anemia - on weekly Epogen. 4. Status post cerebrovascular accident. Continue supportive care. Awaiting fdc placement .
--- NOTE | 2018-03-01 17:44 | PRG ---
DATE OF SERVICE: 03/01/2018 SUBJECTIVE: The patient had a Dobbhoff tube placed. She is otherwise without change. OBJECTIVE: VITAL SIGNS: Temperature is 98.5, pulse of 76, blood pressure 153/44, respiratory rate of 13. CHEST: Clear. CARDIOVASCULAR: Regular rate and rhythm. ABDOMEN: Without change. Benign. LABORATORY DATA: Shows a white blood cell count of 8.4, hemoglobin 8.0. Chemistries show a BUN of 6 1, creatinine 3.46. ASSESSMENT: 1. Previous percutaneous endoscopic gastrostomy with subsequent large wound, status post removal and wound VAC. 2. High gastric residuals. 3. Present PEG going through the left hepatic lobe. RECOMMENDATIONS: 1. Continue Dobbhoff feedings. 2. May let present PEG tract mature and then possibly remove. We will discuss with Dr. Manish whyte.
--- NOTE | 2018-03-01 18:01 | RAD ---
DOBHOFF FEEDING TUBE ADVANCEMENT UNDER FLUOROSCOPY 03/01/18 COMPARISON: None. FINDINGS: Initial lifeguard radiograph of the abdomen demonstrates a percutaneous feeding tube in the left upper qu adrant. Dobhoff feeding tube is in the body of the stomach. Under fluoroscopy, the Dobhoff feeding tube was advanced such that the distal tip is in the third por tion of the duodenum. Gastrografin was administered and opacifies the third portion of the duodenum. Gastrografin flows freely into the proximal small bowel loops. IMPRESSION: Successful advancement of the Dobhoff feeding tube with the distal tip in the third portion of the du odenum. POS: [facility]
--- NOTE | 2018-03-01 18:17 | RAD ---
KUB: Date: 03/01/18 HISTORY: Evaluate Dobbhoff tube location. FINDINGS: The Dobbhoff tube is in a stable position when compared to the fluoroscopic guided placement, at whic h time distal tip overlies the horizontal portion of the duodenum. There is contrast media within the stomach and colon. IMPRESSION: Stable Dobbhoff feeding tube, distal tip overlies expected location of the horizontal portion of the duodenum. POS: [facility]
[2018-03-01] MEDS: Scopolamine 1.5 mg/72 hour Patch TD SCH (20:33)
[2018-03-01] MEDS: Atorvastatin Calcium 40 MG TAB PO SCH (20:34)
[2018-03-01] MEDS: Insulin Glargine 15 UNITS in Pre-Filled Syringe 1 EACH SC SCH (20:35)
[2018-03-02 03:53] LABS: #Eosinphils 0.1 thou/uL (0.0-0.7); #Lymphocytes 1.4 thou/uL (1.20-3.40); #Monocytes 0.4 thou/uL (0.11-0.59); #Neutrophils 5.8 thou/uL (1.40-6.50); %Basophils 0.6 % (0.0-1.0); %Eosinophils 1.9 % (0.0-10.0); %Lymphocytes 18.1 % (21.0-51.0); %Monocytes 4.9 % (0.0-10.0); %Neutrophils 74.5 % (42.0-75.0); Hemoglobin 7.9 g/dL (12.0-16.0); Mean Corpuscular HGB CONC 34.8 g/dL (32.0-36.0); Mean Corpuscular Hemoglobin 30.7 pg (27.0-31.0); Mean Corpuscular Volume 88.2 fL (78.0-98.0); Mean Platelet Volume 8.7 fL (7.4-10.4); Platelet Count 85 thou/uL (130-400); RBC Distribution Width 15.5 % (11.5-14.5); Red Blood Cell (RBC) Count 2.57 mill/uL (4.20-5.40); White Blood Cell (WBC) Count 7.8 thou/uL (4.8-10.8)
[2018-03-02 04:00] LABS: Anion Gap 13 mmol/L (10-20); BUN (Urea Nitrogen) 57 mg/dL (9.8-20.1); Calc. Creatinine Clearance 21 mL/min (70-130); Calcium 7.9 mg/dL (7.8-10.44); Carbon Dioxide 17 mmol/L (23-31); Chloride 115 mmol/L (98-107); Estimated GFR-MDRD 15; Glucose 170 mg/dL (83-110); Potassium 3.2 mmol/L (3.5-5.1); Sodium 142 mmol/L (136-145)
[2018-03-02] MEDS: Piperacillin/Tazobactam 2.25 GM in Sodium Chloride 0.9% 100 ML IVPB SCH ×3 (06:44→21:24)
[2018-03-02] MEDS: D5 1/4 NS 1,000 ML IV SCH ×3 (06:48→23:43)
--- NOTE | 2018-03-02 08:22 | PRG ---
DATE OF SERVICE: 03/02/2018 Ms. Vogel is doing reasonably well. She has a Dobbhoff tube that is now in place. PHYSICAL EXAMINATION: VITAL SIGNS: Temperature is 98.5, pulse 87, respiration 16, O2 sat 100% on 2 liters, blood pressure 106/48. GENERAL: She will answer in short phrases. HEENT: Pupils are reactive. Sclerae icteric. Oropharynx clear. NECK: No JVD. LUNGS: Clear. CARDIAC: S1 and S2 regular. ABDOMEN: Wound VAC noted. EXTREMITIES: Edematous throughout. LABORATORY DATA: White blood cell count 7.8, hematocrit 22.7, platelet count 85. Sodium 142, potass ium 3.2, chloride 115, CO2 17, BUN 57, creatinine 2.5, glucose 170. ASSESSMENT: 1. Status post cerebrovascular accident. 2. Chronic renal failure. 3. Improved hypernatremia. PLAN: The main issue now is what to do about her feeding tube. Management is being left up to Dr. Giuliano cloud and Dr. Moody. Her pulmonary status is stable.
[2018-03-02] MEDS: Sodium Bicarbonate Tab 325 MG TAB PO SCH ×3 (09:01→21:23)
[2018-03-02] MEDS: Enoxaparin Sodium 30 MG/0.3 ML SYRINGE SC SCH (09:01)
[2018-03-02] MEDS: Minoxidil 2.5 MG TAB PO SCH (09:01)
[2018-03-02] MEDS: Amlodipine 10 MG TAB PO SCH (09:02)
[2018-03-02] MEDS: Carvedilol 25 MG TAB PO SCH ×2 (09:03→21:24)
[2018-03-02] MEDS: Clopidogrel Bisulfate 75 MG TAB PO SCH (09:03)
[2018-03-02] MEDS: Isosorbide Dinitrate 20 MG TAB PER TUBE SCH ×2 (09:03→21:24)
[2018-03-02] MEDS: NIFEdipine XL 60 MG TAB PO SCH (09:03)
[2018-03-02] MEDS: hydrALAZINE 25 MG TAB PO SCH ×3 (09:03→21:24)
[2018-03-02] MEDS: Pantoprazole 40 MG VIAL IVP SCH ×2 (09:04→21:23)
[2018-03-02] MEDS: Polyethylene Glycol 3350 17 GM Packet PO SCH (09:04)
[2018-03-02] MEDS: Aspirin 300 MG Suppository PR SCH (09:04)
--- NOTE | 2018-03-02 09:46 | PDOC.GSPN ---
Surgery Progress Note: Subj - Subjective Narrative: Bilious drainage at old PEG site, low volume. 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 Should be safe to continue feeds via dobhoff since this is past D3, but will get CT w oral contrast only via dobhoff to make sure no other area of involvement and no abscess/ undrained fluid collection. New PEG placed to drain to decompress stomach. Surgery Progress Note: Obj - Vital signs Vital signs: Vital Signs - Most Recent Temp Pulse Resp BP Pulse Ox 98.5 F 77 16 156/48 H 100 03/02/18 07:27 03/02/18 09:03 03/02/18 07:27 03/02/18 07:27 03/02/18 07:27 Surgery Progress Note: Results - Labs Result Diagrams: 03/02/18 03:30 03/02/18 03:30 Lab results: Laboratory Results - last 24 hr 03/02/18 03/02/18 03/02/18 00:51 03:30 03:30 WBC 7.8 RBC 2.57 L Hgb 7.9 L Hct 22.7 L MCV 88.2 MCH 30.7 MCHC 34.8 RDW 15.5 H Plt Count 85 L MPV 8.7 Neutrophils % 74.5 Lymphocytes % 18.1 L Monocytes % 4.9 Eosinophils % 1.9 Basophils % 0.6 Neutrophils # 5.8 Lymphocytes # 1.4 Monocytes # 0.4 Eosinophils # 0.1 Basophils # 0.0 Sodium 142 Potassium 3.2 L Chloride 115 H Carbon Dioxide 17 L Anion Gap 13 BUN 57 H Creatinine 3.53 H Estimated GFR (MDRD) 15 Glucose 170 H POC Glucose 157 H Calcium 7.9 03/02/18 06:05 WBC RBC Hgb Hct MCV MCH MCHC RDW Plt Count MPV Neutrophils % Lymphocytes % Monocytes % Eosinophils % Basophils % Neutrophils # Lymphocytes # Monocytes # Eosinophils # Basophils # Sodium Potassium Chloride Carbon Dioxide Anion Gap BUN Creatinine Estimated GFR (MDRD) Glucose POC Glucose 184 H Calcium
--- NOTE | 2018-03-02 11:04 | PDOC.PN ---
- Subjective Encounter Start Date: 03/02/18 (f/u stroke) Encounter Start Time: 11:02 Subjective: Pt denies pain when asked, able to follow commands on right -: side. Is grunting, but answering yes/no and pausing. - Objective Resuscitation Status: Resuscitation Status FULL:Full Resuscitation Vital Signs & Weight: Vital Signs (12 hours) Temp Pulse Resp BP Pulse Ox 03/02/18 09:03 77 03/02/18 09:02 77 03/02/18 07:27 98.5 F 77 16 156/48 H 100 03/02/18 03:57 99.3 F 68 14 155/47 H 99 Weight Admit Weight 194 lb 7.163 oz Weight 226 lb 6.4 oz Most Recent Monitor Data Heart Rate from ECG 75 NIBP 149/43 NIBP BP-Mean 101 Respiration from ECG 21 SpO2 99 I&O: 03/01/18 03/02/18 03/03/18 06:59 06:59 06:59 Intake Total 4572 1585 Output Total 1012 955 Balance 3560 630 Result Diagrams: 03/02/18 03:30 03/02/18 03:30 Additional Labs: Accuchecks 03/02/18 03/02/18 03/01/18 06:05 00:51 20:25 POC Glucose 184 H 157 H 162 H 03/01/18 03/01/18 16:56 12:41 POC Glucose 145 H 177 H EKG Reviewed by me: Yes (tele - sinus 60-80's) Phys Exam - Physical Examination Constitutional: NAD facial droop left side Respiratory: no wheezing, no rales, no rhonchi Cardiovascular: RRR, no significant murmur Gastrointestinal: soft, non-tender, positive bowel sounds wound vac in place pitting edema in arms/hands and legs no movement left side, facial droop able to move right leg side to side. Able to shake hand, lift right hand Deviation from normal: unable to assess Skin: no rash Dx/Plan (1) PEG tube malfunction Code(s): K94.23 - GASTROSTOMY MALFUNCTION Status: Acute (2) Dysphagia Code(s): R13.10 - DYSPHAGIA, UNSPECIFIED Status: Acute Qualifiers: Dysphagia type: unspecified Qualified Code(s): R13.10 - Dysphagia, unspecified Comment: s/p peg (3) Hemiplegia affecting left nondominant side Code(s): G81.94 - HEMIPLEGIA, UNSPECIFIED AFFECTING LEFT NONDOMINANT SIDE Status: Acute Qualifiers: Hemiplegia type: flaccid (4) Metabolic acidosis Code(s): E87.2 - ACIDOSIS Status: Acute (5) CKD (chronic kidney disease) stage 4, GFR 15-29 ml/min Code(s): N18.4 - CHRONIC KIDNEY DISEASE, STAGE 4 (SEVERE) Status: Chronic (6) Diabetes Code(s): E11.9 - TYPE 2 DIABETES MELLITUS WITHOUT COMPLICATIONS Status: Chronic Qualifiers: Diabetes mellitus type: type 2 Diabetes mellitus intermediate school teacher insulin use: without intermediate school teacher use Diabetes mellitus complication status: with kidney complications Diabetes mellitus complication detail: with chronic kidney disease Chronic kidney disease stage: stage 4 (severe) Qualified Code(s): E11.22 - Type 2 diabetes mellitus with diabetic chronic kidney disease; N18.4 - Chronic kidney disease, stage 4 (severe); N18.4 - Chronic kidney disease, stage 4 (severe); N18.4 - Chronic kidney disease, stage 4 (severe); N18.4 - Chronic kidney disease, stage 4 (severe) (7) Hyperlipidemia Code(s): E78.5 - HYPERLIPIDEMIA, UNSPECIFIED Status: Chronic Qualifiers: Hyperlipidemia type: unspecified Qualified Code(s): E78.5 - Hyperlipidemia , unspecified (8) Hypertension Code(s): I10 - ESSENTIAL (PRIMARY) HYPERTENSION Status: Chronic Qualifiers: Hypertension type: essential hypertension Qualified Code(s): I10 - Essential (primary) hypertension (9) Hypokalemia Code(s): E87.6 - HYPOKALEMIA Status: Acute (10) Thrombocytopenia Code(s): D69.6 - THROMBOCYTOPENIA, UNSPECIFIED Status: Acute - Plan * Abd wound - appreciate Gen Surg - wound vac in place, CT ordered for eval and current PEG not being used * Appreciate nephro consult -managing fluids, acidosis, ckd * hypokalemia - replace potassium * htn - controlled * recent stroke - on aspirin, statin, plavix. * * Urine culture from 02/23 shows enterobacter resistant to Zosyn - low colony count, doubt infection. After abx, retest urine unless clinical change to warrant antibiotics change * * thrombocytopenia - monitor. pt is on dual anti-platelet therapy - if this continues to decline or any concerns, will need to discuss with neurology and/ or cardiology. * * zuleta cath in place - consider removal tomorrow if not needed for UOP tracking by Nephrology * * dvt prophy- scd's. Pt with platelets less than 100. * gi prophy - on ppi * code status full * * pt remains at high risk in current condition. Reviewed current plan of care with RN.
[2018-03-02] MEDS ORDERED: Iopamidol 370 76% 50 ML VIAL FS ONE (11:11)
--- NOTE | 2018-03-02 12:12 | PRG ---
DATE OF SERVICE: 03/02/2018 SUBJECTIVE: The patient is moaning. She presently undergoing a CT contrast, oral contrast infusion through Dobbhoff tube. ____ no reported Dobbhoff problems. OBJECTIVE: VITAL SIGNS: Temperature 98.5, pulse 77, respiratory rate 16, and blood pressure 156/48. CHEST: Clear. CARDIOVASCULAR: Regular rate and rhythm. ABDOMEN: Distended, somewhat ____ tympanitic. LABORATORY DATA: Shows a white blood cell count 7.8, hemoglobin 7.9, hematocrit 22.7, platelet count of 85. Chemistries show a potassium of 3.2, CO2 of 17, BUN is 57, creatinine of 3.53. ASSESSMENT: 1. PEG leak secondary to pull PEG. 2. New PEG through the left lobe of the liver. RECOMMENDATIONS: 1. Agree with CT scan. 2. Continue Dobbhoff feedings. 3. Continue a new PEG tube to suction.
--- NOTE | 2018-03-02 13:27 | CT ---
CT ABDOMEN AND PELVIS WITHOUT CONTRAST: Date: 03/02/18 HISTORY: Gastrocutaneous fistula. COMPARISON: CT abdomen and pelvis without contrast dated 02/25/18. FINDINGS: There are layering bilateral pleural effusions. Mild atelectasis. Moderate edema in the lung bases. There was contrast given through the Dobbhoff tube. There was contrast extending through the sinus tr act to the skin from the greater curvature of the stomach. Hepatic contour is nodular. Moderate ascites. Calcified fibroid uterus. IMPRESSION: 1. Contrast does extend from the stomach lumen to the overlying sinus tract. 2. Severe edema of the stomach. 3. Similar appearance of the ascites. 4. New moderate size layering pleural effusions with associated compressive atelectasis. There is al so mild pulmonary edema of the lung bases. POS: [facility]
[2018-03-02] MEDS: HumaLOG 300 UNITS/3 ML VIAL SC PRN ×2 (13:49→18:11)
[2018-03-02] MEDS: Sodium Chloride 0.45% 1,000 ML IV SCH (21:00)
--- NOTE | 2018-03-02 21:06 | PDOC.EVN ---
Event Note - Event Note Event Note: reviewed chart and home medicines were aspirin and plavix. given the low platelets, will place a hold order on the plavix, and discuss with Cardiology and/or Neurology tomorrow. Repeat CBC in AM as well.
[2018-03-02] MEDS: Atorvastatin Calcium 40 MG TAB PO SCH (21:24)
[2018-03-02] MEDS: Insulin Glargine 15 UNITS in Pre-Filled Syringe 1 EACH SC SCH (21:26)
--- NOTE | 2018-03-02 21:29 | PRG ---
DATE OF SERVICE: 03/02/2018 SUBJECTIVE: Ms. Vogel is a 72-year-old black female who is status post cerebrovascular accident a nd being followed by Renal Service for her chronic renal failure. She has been having fluctuating cr eatinine. She has been empirically volume repleted. In addition, she was at one time noted to be hy ponatremic. For that reason, has been placed on quarter normal saline. No new complaints today. Th is morning, she is more awake and can converse. No new complaints. No chest pain or shortness of br eath. PHYSICAL EXAMINATION: VITAL SIGNS: Blood pressure is 152/51, heart rate 77, respiratory rate 19, temperature 98.3, pulse o x 97%. GENERAL: Noted to be awake, alert, comfortable, not in distress. SKIN: Adequate turgor. HEENT: She has slightly pale conjunctivae, anicteric sclerae. NECK: No neck mass, no carotid bruits, no JVD. CHEST: No deformities. LUNGS: Clear breath sounds. HEART: Normal sinus rhythm. No murmurs, no gallops, no rubs. ABDOMEN: Globular, soft, nontender, no masses. Positive for PEG tube. EXTREMITIES: No edema. NEUROLOGIC: Decreased motor in left extremities. MEDICATIONS: Medications of 03/02/2018 reviewed. LABORATORY DATA: Laboratories of 03/02/2018; white count 7.8, hemoglobin 7.9. Sodium 142, potassium 3.2, chloride 115, carbon dioxide 17, BUN 37, creatinine 3.5, glucose 170, calcium 7.9. ASSESSMENT AND PLAN: 1. Chronic renal failure, creatinine noted at 3.5. This is near baseline. Yesterday, this was 3.46 . Continue current management. No indication for any dialytic intervention. Change 1/4 normal sali ne to at least D5 half normal saline to run at about 100 mL an hour. 2. Anemia, continuing weekly Epogen, p.r.n. blood transfusion. 3. Status post cerebrovascular accident. Continue supportive care. 4. Hypernatremia, resolved. We will change IV fluid from 1/4 normal saline to half normal saline. Continue supportive care.
[2018-03-03 03:25] LABS: #Eosinphils 0.1 thou/uL (0.0-0.7); #Lymphocytes 1.1 thou/uL (1.20-3.40); #Monocytes 0.6 thou/uL (0.11-0.59); #Neutrophils 6.6 thou/uL (1.40-6.50); %Basophils 0.2 % (0.0-1.0); %Eosinophils 1.8 % (0.0-10.0); %Lymphocytes 12.7 % (21.0-51.0); %Monocytes 6.9 % (0.0-10.0); %Neutrophils 78.4 % (42.0-75.0); Hemoglobin 8.2 g/dL (12.0-16.0); Mean Corpuscular HGB CONC 34.8 g/dL (32.0-36.0); Mean Corpuscular Hemoglobin 30.7 pg (27.0-31.0); Mean Corpuscular Volume 88.3 fL (78.0-98.0); Mean Platelet Volume 9.7 fL (7.4-10.4); Platelet Count 84 thou/uL (130-400); RBC Distribution Width 15.4 % (11.5-14.5); Red Blood Cell (RBC) Count 2.66 mill/uL (4.20-5.40); White Blood Cell (WBC) Count 8.5 thou/uL (4.8-10.8)
[2018-03-03 03:42] LABS: Anion Gap 15 mmol/L (10-20); BUN (Urea Nitrogen) 54 mg/dL (9.8-20.1); Calc. Creatinine Clearance 22 mL/min (70-130); Calcium 8.3 mg/dL (7.8-10.44); Carbon Dioxide 16 mmol/L (23-31); Chloride 111 mmol/L (98-107); Estimated GFR-MDRD 15; Glucose 229 mg/dL (83-110); Magnesium 1.7 mg/dL (1.6-2.6); Potassium 3.5 mmol/L (3.5-5.1); Sodium 138 mmol/L (136-145)
[2018-03-03] MEDS: Sodium Chloride 0.45% 1,000 ML IV SCH ×2 (05:41→17:03)
[2018-03-03] MEDS: Piperacillin/Tazobactam 2.25 GM in Sodium Chloride 0.9% 100 ML IVPB SCH (05:41)
[2018-03-03] MEDS: HumaLOG 300 UNITS/3 ML VIAL SC PRN ×2 (05:47→11:59)
--- NOTE | 2018-03-03 08:01 | PRG ---
DATE OF SERVICE: 03/03/2018 SUBJECTIVE: The patient remains in the IMCU. She moans almost continuously, but is able to answer s hort questions. She says she feels okay and feels like she is stronger. PHYSICAL EXAMINATION: VITAL SIGNS: Temperature is 98.9 with a T-max of 99.1, pulse 87, respiration 20, O2 sat 97% on 2 lit ers, blood pressure 176/61. HEENT: Unremarkable. NECK: No JVD. CHEST: Fairly clear. CARDIOVASCULAR: S1, S2 regular. ABDOMEN: Soft. Wound VAC noted. EXTREMITIES: Generalized edema throughout. LABORATORY DATA: White blood cell count 8.5, hemoglobin 8.2, hematocrit 23.5, platelet count 84. So dium 138, potassium 3.5, chloride 111, CO2 16, BUN 54, creatinine 3.6, glucose 229. ASSESSMENT: 1. Stable pulmonary status. 2. Status post stroke. 3. Non-anion gap metabolic acidosis. 4. Chronic renal failure. 5. PEG tube issues. PLAN: She remains stable from a Pulmonary and Critical Care standpoint and really can go out to the stroke floor from my standpoint. I think that there are some family issues with administration that may need to be worked up before that happens. I will be happy to follow along with you.
[2018-03-03] MEDS: Sodium Bicarbonate Tab 325 MG TAB PO SCH ×2 (08:33→16:02)
[2018-03-03] MEDS: Minoxidil 2.5 MG TAB PO SCH (08:34)
[2018-03-03] MEDS: hydrALAZINE 25 MG TAB PO SCH ×2 (08:34→16:01)
[2018-03-03] MEDS: Carvedilol 25 MG TAB PO SCH ×2 (08:35→21:31)
[2018-03-03] MEDS: Aspirin 300 MG Suppository PR SCH (08:35)
[2018-03-03] MEDS: NIFEdipine XL 60 MG TAB PO SCH (08:35)
[2018-03-03] MEDS: Isosorbide Dinitrate 20 MG TAB PER TUBE SCH ×2 (08:35→21:31)
[2018-03-03] MEDS: Polyethylene Glycol 3350 17 GM Packet PO SCH (08:36)
[2018-03-03] MEDS: Pantoprazole 40 MG VIAL IVP SCH (08:36)
[2018-03-03] MEDS: Amlodipine 10 MG TAB PO SCH (08:36)
[2018-03-03] MEDS ORDERED: Heparin 5,000 UNITS/ML VIAL SC SCH (09:00)
[2018-03-03] MEDS ORDERED: Cefepime 2 GM in Sodium Chloride 0.9% 100 ML IVPB SCH (09:30)
--- NOTE | 2018-03-03 09:35 | PDOC.PN ---
- Subjective Encounter Start Date: 03/03/18 (f/u htn) Encounter Start Time: 09:33 Subjective: Dobhoff came out some this AM - RN reports it was easily -: replaced. Awaiting xray. Loose stools overnight and today - Objective Resuscitation Status: Resuscitation Status FULL:Full Resuscitation Vital Signs & Weight: Vital Signs (12 hours) Temp Pulse Resp BP BP Pulse Ox 03/03/18 08:36 87 173/57 H 03/03/18 08:35 87 173/57 H 03/03/18 08:34 87 173/57 H 03/03/18 07:21 98.9 F 87 20 176/61 H 97 03/03/18 04:00 99.1 F 81 25 H 162/48 H 97 03/03/18 00:00 99.1 F 77 25 H 143/47 H 97 Weight Admit Weight 194 lb 7.163 oz Weight 224 lb 9.6 oz Most Recent Monitor Data Heart Rate from ECG 75 NIBP 149/43 NIBP BP-Mean 101 Respiration from ECG 21 SpO2 99 I&O: 03/02/18 03/03/18 03/04/18 06:59 06:59 06:59 Intake Total 1585 2225 Output Total 955 975 Balance 630 1250 Result Diagrams: 03/03/18 03:10 03/03/18 03:10 Additional Labs: Accuchecks 03/03/18 03/03/18 03/02/18 05:46 00:46 17:49 POC Glucose 232 H 207 H 222 H 03/02/18 13:41 POC Glucose 186 H EKG Reviewed by me: Yes (sinus 60-80's) Phys Exam - Physical Examination Constitutional: NAD left facial droop, head leans to left side Respiratory: no wheezing, no rales scattered rhonchi Cardiovascular: RRR, no significant murmur Gastrointestinal: non-tender, positive bowel sounds abdominal wall edema and some ecchymosis c/w injections pitting edema in arms and legs no movement on left side Skin: no rash Dx/Plan (1) PEG tube malfunction Code(s): K94.23 - GASTROSTOMY MALFUNCTION Status: Acute (2) Dysphagia Code(s): R13.10 - DYSPHAGIA, UNSPECIFIED Status: Acute Qualifiers: Dysphagia type: unspecified Qualified Code(s): R13.10 - Dysphagia, unspecified Comment: s/p peg (3) Hemiplegia affecting left nondominant side Code(s): G81.94 - HEMIPLEGIA, UNSPECIFIED AFFECTING LEFT NONDOMINANT SIDE Status: Acute Qualifiers: Hemiplegia type: flaccid (4) Metabolic acidosis Code(s): E87.2 - ACIDOSIS Status: Acute (5) CKD (chronic kidney disease) stage 4, GFR 15-29 ml/min Code(s): N18.4 - CHRONIC KIDNEY DISEASE, STAGE 4 (SEVERE) Status: Chronic (6) Diabetes Code(s): E11.9 - TYPE 2 DIABETES MELLITUS WITHOUT COMPLICATIONS Status: Chronic Qualifiers: Diabetes mellitus type: type 2 Diabetes mellitus parts counterman insulin use: without usp use Diabetes mellitus complication status: with kidney complications Diabetes mellitus complication detail: with chronic kidney disease Chronic kidney disease stage: stage 4 (severe) Qualified Code(s): E11.22 - Type 2 diabetes mellitus with diabetic chronic kidney disease; N18.4 - Chronic kidney disease, stage 4 (severe); N18.4 - Chronic kidney disease, stage 4 (severe); N18.4 - Chronic kidney disease, stage 4 (severe); N18.4 - Chronic kidney disease, stage 4 (severe) (7) Hyperlipidemia Code(s): E78.5 - HYPERLIPIDEMIA, UNSPECIFIED Status: Chronic Qualifiers: Hyperlipidemia type: unspecified Qualified Code(s): E78.5 - Hyperlipidemia , unspecified (8) Hypertension Code(s): I10 - ESSENTIAL (PRIMARY) HYPERTENSION Status: Chronic Qualifiers: Hypertension type: essential hypertension Qualified Code(s): I10 - Essential (primary) hypertension (9) Hypokalemia Code(s): E87.6 - HYPOKALEMIA Status: Resolved (10) Thrombocytopenia Code(s): D69.6 - THROMBOCYTOPENIA, UNSPECIFIED Status: Acute - Plan * Pt with abdominal wall wound vac and has been on zosyn IV since admission - will consult ID with regards to antibiotics and duration. In the meantime will change to Cefepime with renal dosing due to the urine culture with enterobacter resistant to zosyn * * appreciate Gen Surgery consult - CT ordered yesterday which shows severe edema of the stomach, await further guidance, to be seen by Dr. Hammond today * * Appreciate Nephrology managing fluid status and renal function. Pt with edema and ascites - can be diuresed with lasix if sx, however hold for now to avoid worsening renal function. * * thrombocytopenia - discussed with Dr. Vargas and Dr. Chavarria - no indication to continue plavix. Will continue with full dose aspirin with goal of secondary stroke prevention. Given how complicated the patient is, will also request Hematology consult * * BP - goal is likely 140-160 * * hemorrhoids - preparation h * loose stools - start florastor * DM not well controlled - increase lantus to 18 units at night * dobhoff placement to be confirmed with xray, resume tube feeds as able * change rectal aspirin to oral * * dvt prophy - scd's due to thrombocytopenia * gi prophy - change to protonix through PEG tube * code status full * * reviewed plan of care with RN. Will review with family as they are available.
--- NOTE | 2018-03-03 09:50 | PRG ---
DATE OF SERVICE: 03/03/2018 SUBJECTIVE: Ms. Vogel is a 72-year-old black female being followed up for her chronic renal failu re. She recently was admitted for CVA. She has had labile hypertension. She has now acceptable BP readings. She is currently also on a tube feeding. The PEG tube is not being used, but she has a t emporary NG tube. She has also been anemic and has been placed on maintenance Epogen. This morning, no new complaints. PHYSICAL EXAMINATION: VITAL SIGNS: Blood pressure 173/57, heart rate 87, respiratory rate 20, temperature 98.9, pulse ox 9 7%. GENERAL: Noted to be awake, alert, responsive to verbal stimuli. Can follow commands. SKIN: Adequate turgor. HEENT: Slightly pale conjunctivae, anicteric sclerae. NECK: No neck mass, no carotid bruits, no JVD. CHEST: No deformities. LUNGS: Clear breath sounds. HEART: Normal sinus rhythm. No murmur, no gallops, no rubs. ABDOMEN: Globular, soft, nontender, no masses. Positive for PEG tube. EXTREMITIES: No edema, no deformities. MEDICATIONS: 03/03/2018 - Reviewed. LABORATORY: 03/03/2018 - White count 8.5, hemoglobin 8.2. Sodium 138, potassium 3.5, 111, carbon di oxide 16, BUN 54, creatinine 3.68, calcium 8.3. 03/02/2018 - CT scan of the abdomen and pelvis; moderate sized layering pleural effusion. Hepatic c ontour is normal. There was contrast extending to the sinus tract to the skin from the greater curva ture of the stomach. 03/03/2018 - BUN is 54, creatinine 3.68, potassium 3.5, carbon dioxide 16. ASSESSMENT: 1. Chronic renal failure - secondary to hypertensive nephropathy. Creatinine noted at 3.68. This i s relatively stable. The patient has been changed to half normal saline to run at 100 mL per hour. The slightly higher creatinine may reflect some prerenal component. No indication for any acute dial ytic intervention. 2. Status post cerebrovascular accident with left hemiplegia. Continue supportive care. 3. Labile hypertension continuing current blood pressure medications. 4. Metabolic acidosis. If this further worsens, consider starting on sodium bicarbonate 650 mg 1 ta b t.i.d. 5. Anemia on weekly Epogen. Continue current supportive care.
[2018-03-03] MEDS: Labetalol HCl 100 MG/20 ML VIAL SLOW IVP PRN (10:13)
--- NOTE | 2018-03-03 10:44 | RAD ---
KUB: Date: 03-03-18 Provided Clinical History: Dobbhoff tube placement. Comparison: 03-01-18 FINDINGS: Enteric catheter is noted, the tip of which overlies the right mid abdomen. The abdominal bowel gas p attern is nonspecific. IMPRESSION: As above. POS: [facility]
[2018-03-03] MEDS ORDERED: MD-Gastroview 120 ML BOT ONE (11:34)
[2018-03-03] MEDS ORDERED: Lidocaine 1% PF 5 ML VIAL ONE (12:38)
[2018-03-03] MEDS ORDERED: PROPOFOL 200 MG/20 ML VIAL ONE (12:38)
[2018-03-03] MEDS ORDERED: PHENYLEPHRINE-NS 100 MCG/ML 10 ML SYRINGE ONE (12:38)
[2018-03-03] MEDS ORDERED: ePHEDrine/0.9% NaCl/PF SYRINGE 50 mg/10 ml ONE (12:38)
--- NOTE | 2018-03-03 15:05 | PRG ---
DATE OF SERVICE: 03/03/2018 SUBJECTIVE: Mr. Vogel is in IMCU. Since I placed her new PEG tube on 02/24/2018 and removed her old PEG tube and oversewed the old PEG tube site after debriding necrotic skin and subcutaneous tissu e and then place absorbable PDS sutures to close the fascial defect to minimize leakage. The patient has had a CAT scan demonstrating that the new PEG tube divorces the far left lobe of the liver, whic h is very small in caliber. The patient has had some leakage of her old PEG tube site managed by nancy cing a postpyloric Dobbhoff tube and administering feeding tube while placing the new PEG tube to gra vity drainage. This morning, it is noted that the tube feedings through her Dobbhoff tube are draini ng out her PEG to gravity drainage and x-rays this morning revealed the Dobbhoff to be in the distal stomach. Nurses report that the tape has ____ on the nose. The tube had withdrawn 6-8 inches corres ponding to the above findings. Wound VAC is over the old PEG tube site. Abdomen is soft. Past ches t x-rays revealed the stomach wall edema. ASSESSMENT AND PLAN: Abdominal wound with sinus tract to the stomach. Would treat this with a wound VAC as we are doing this should close with time. We will view the wound with the next VAC change wi th wound care. The patient's Dobbhoff tube had withdrawn into the stomach and will ask x-ray to replace this under f luoroscopic visualization again postpyloric and secure the tube better and restrain the patient to pr event dislodgement. At this point, Dr. Moody has suggested removing the new PEG tube after the tract was matured, but I do not think this is necessary. This tube can be used as it is, the fact that it traverses the left lo be of the liver, it is of no consequence and this portion of the liver is very small in caliber and s hould provide no problems in the future. I would continue to use this tube as it is.
--- NOTE | 2018-03-03 15:35 | RAD ---
NG TUBE PLACEMENT WITH FLUOROSCOPY 03/03/18 HISTORY: Dobhoff tube placement with fluoro. COMPARISON: CT prior day. FINDINGS: The patient initially given some contrast through the already placed Dobhoff tube. The dobhoff tube h as an unusual vertical appearance. There was contrast in the gastric stomach and fundus although ther e appear to be contrast extending outside the lumen. Dobhoff tube was advanced and more contrast was given. There is contrast extravasating into the peritoneal cavity. The exam was ended. The case was d iscussed with the surgeon. Plan is for patient to go to the operating Room. IMPRESSION: Perforated stomach prior to the advancement of the Dobhoff tube. It is a possibility that the sinus t ract had been perforated with the tube extending into the peritoneal cavity. The indwelling Dobhoff t ube was pulled. POS: [facility]
[2018-03-03] MEDS ORDERED: Heparin 10,000 UNITS/1 ML VIAL ONE (16:00)
[2018-03-03] MEDS ORDERED: Bupivacaine HCl 0.5%/Epinephrine 1:200,000/PF 30 ml Vial ONE ×2 (16:00→16:17)
[2018-03-03] MEDS ORDERED: Sodium Chloride 0.9% 10 ML ONE ×2 (16:01→17:10)
[2018-03-03] MEDS ORDERED: Lidocaine 2% 10 ML INJ ONE (16:01)
--- NOTE | 2018-03-03 16:11 | RAD ---
CHEST ONE VIEW: 03/03/18 HISTORY: Dyspnea. COMPARISON: 03/01/18. FINDINGS: The cardiac silhouette is magnified and enlarged. Pulmonary vasculature is slightly more engorged. Me diastinum is midline. No confluent air space consolidation or evidence of pneumothorax. Cardiac monit or leads overlie the chest. IMPRESSION: Cardiomegaly with mild pulmonary vascular congestion. POS: [facility]
[2018-03-03] MEDS ORDERED: Midazolam HCl 2 mg/2 ml Vial ONE (16:35)
[2018-03-03] MEDS ORDERED: Fentanyl 100 MCG/2 ML VIAL ONE (16:35)
[2018-03-03] MEDS ORDERED: Lidocaine 2% Jelly 5 ML TUBE ONE (16:36)
[2018-03-03] MEDS ORDERED: Piperacillin/Tazobactam 3.375 GM VIAL ONE (17:53)
[2018-03-03] MEDS ORDERED: Phenylephrine HCL 10 MG/ML VIAL ONE (18:06)
--- NOTE | 2018-03-03 19:00 | PDOC.EVN ---
Event Note - Event Note Event Note: Pt to the OR this afternoon and then anticipated to go to the ICU. Will lower the lantus tonight due to uncertainty with fluids, blood sugars, if PEG or dobhoff will be available for tube feeds with the goal of avoiding hypoglycemia.
[2018-03-03] MEDS ORDERED: fentaNYL Citrate/PF 2,000 MCG in Sodium Chloride 0.9% 60 ML IV SCH (19:59)
[2018-03-03] MEDS ORDERED: Fentanyl BOLUS 250 ML IVPB PRN (19:59)
[2018-03-03] MEDS ORDERED: Lorazepam 2 MG/ML VIAL SLOW IVP PRN (19:59)
[2018-03-03] MEDS ORDERED: Propofol BOLUS 1,000 MG/100 ML VIAL IV PRN (19:59)
[2018-03-03] MEDS ORDERED: Propofol 1,000 MG/100 ML VIAL IV PRN (19:59)
[2018-03-03] MEDS ORDERED: DISCONTINUE PREVIOUS NARCOTIC PAIN MEDICATIONS AND BENZODIAZEPINES FS SCH (19:59)
[2018-03-03] MEDS ORDERED: Ventilator Sedation Protocol 1 EACH FS SCH (20:00)
[2018-03-03 20:44] LABS: CO2 Tension 29.3 mmHg (35.0-45.0); pH, Arterial 7.34 (7.35-7.45)
[2018-03-03 20:47] LABS: Actual Bicarbonate (HCO3a) 15.6 mEq/L (22-28); Hemoglobin (Hb) 10.4 g/dL (12.0-16.0); O2 Tension (PaO2) 112.2 mmHg (> 70.0)
[2018-03-03 20:48] LABS: ALV-art Gradient 172.025 (0-20); Calcium, Ionized 1.1 mmol/L (1.12-1.30); Carboxyhemoglobin (COHb) 0.9 gm% (0.0-3.0); Potassium - ABG Lab 3.7 mmol/L (3.70-5.30); Puncture Site R RADIAL
--- NOTE | 2018-03-03 20:49 | RAD ---
PORTABLE CHEST ONE VIEW: 03/03/18 at 7:19 p.m. HISTORY: Respiratory failure. FINDINGS/IMPRESSION: Comparison is made with earlier exam of 3:42 p.m. from the same date. Interval placement of an endotracheal tube is seen with tip at the level of the clavicular heads. The nasogastric tube can be traced into the stomach with tip excluded from the film. There is a right in ternal jugular double lumen venous catheter with tips in the projection of the right atrium. no pneu mothoraces are seen. The heart size is enlarged. There is pulmonary vascular congestion. There are bi basilar infiltrates, right greater than left with probable accompanying small effusions. There is a l eft internal jugular central venous catheter with tip in the projection of the right atrium. No pneum othorax is seen. POS: [facility]
--- NOTE | 2018-03-03 20:50 | RAD ---
ABDOMEN ONE VIEW: 03/03/18 HISTORY: NG tube placement. FINDINGS/IMPRESSION: There is an NG tube in the projection of the stomach in the left upper quadrant. There are postoperat manuela changes in the left hemiabdomen. The bowel gas pattern is unremarkable. A calcified uterine fibro id is present. POS: [facility]
[2018-03-03] MEDS: hydrALAZINE 20 MG/ML VIAL SLOW IVP PRN (20:57)
[2018-03-03] MEDS ORDERED: Insulin Glargine 18 UNITS in Pre-Filled Syringe 1 EACH SC SCH (21:00)
[2018-03-03] MEDS ORDERED: Pantoprazole 40 MG GRANULES PACKET PER TUBE SCH (21:00)
[2018-03-03] MEDS: Preparation H HC 1% Cream 26 GM TUBE TOP SCH (21:31)
[2018-03-03] MEDS: Insulin Glargine 10 UNITS in Pre-Filled Syringe SC SCH (21:31)
[2018-03-03] MEDS ORDERED: Sodium Chloride 0.9% 500 ML IV SCH (22:30)
[2018-03-03] MEDS: cloNIDine 0.3mg/24 Hour PATCH TD SCH (22:45)
[2018-03-03 23:20] LABS: Hemoglobin 8.1 g/dL (12.0-16.0)
--- NOTE | 2018-03-03 23:56 | CON ---
DATE OF CONSULTATION: 03/03/2018 REASON FOR CONSULTATION: Thrombocytopenia. HISTORY OF PRESENT ILLNESS: Ms. Vogel is a 72-year-old female, who presented to the emergency sudeep with abdominal pain. She was noted to have a leaking PEG tube with necrotic tissue. She was start ed on antibiotics including vancomycin and Zosyn. She had a positive urine culture for Enterobacter. On admission, she had a white count of 13.6, hemoglobin of 9.5 and a platelet count of 166,000. Ov er the course of last week and a half, her platelets have slowly dropped and are currently at 84,000. The patient has no history of thrombocytopenia. She has not had any heparin this admission. She d id receive a low dose Lovenox for approximately 5 days. The patient has a history of chronic kidney disease, 4. She was recently started on Procrit for chronic anemia. The patient has had abdominal a nd pelvis CT during this hospitalization. There is no evidence of splenomegaly. The patient has a h istory of CVA with hemiparesis. She does answer simple questions. History was obtained from review of the medical record and discussion with the daughter. PAST MEDICAL AND SURGICAL HISTORY: 1. Cerebrovascular accident. 2. Type 2 diabetes. 3. Hypertension. 4. History of dysphagia with PEG tube placement. ALLERGIES: No known drug allergies. CURRENT MEDICATIONS: 1. Norvasc 10 mg daily. 2. Ecotrin 325 daily. 3. Lipitor 40 mg daily. 4. Coreg 25 mg b.i.d. 5. Cefepime daily. 6. Catapres patch weekly. 7. Procrit 7500 units weekly. 8. Apresoline 50 mg t.i.d. 9. Insulin p.r.n. 10. Minoxidil 10 mg daily. 11. Procardia 60 mg daily. 12. Protonix 40 mg daily. 13. MiraLax daily. 14. Bicarbonate daily. FAMILY HISTORY: Noncontributory. SOCIAL HISTORY: The patient is . No alcohol, tobacco or illicit drug use. REVIEW OF SYSTEMS: Unable to obtain secondary to aphasia. PHYSICAL EXAMINATION: VITAL SIGNS: Temperature is 97.9, pulse 77, respiratory rate 20, blood pressure is 169/61. She is 1 00% on 2 liters. GENERAL: Well-developed, well-nourished female, in no acute distress. HEENT: Normocephalic, atraumatic. Pupils are equal and reactive to light. CARDIOVASCULAR: Regular rate and rhythm. LUNGS: Clear. ABDOMEN: Mildly tender to palpation. Bowel sounds are positive. EXTREMITIES: No clubbing, cyanosis or edema. SKIN: No rash. HEMATOLOGIC: No petechia or purpura. NEUROLOGIC: The patient has hemiparesis. PERTINENT LABORATORY AND X-RAYS: Current WBCs are 8.5, hemoglobin 8.2, hematocrit 23.5, platelet cou nt is 84,000, 78% neutrophils, 12% lymphocytes. Sodium is 138, potassium 3.5, chloride 111, CO2 of 1 6, BUN is 54, creatinine 3.68, calcium is 8.6. Radiology per HPI. ASSESSMENT: 1. Acute onset of thrombocytopenia. 2. Enterobacter urinary tract infection with Zosyn administration. 3. Prolonged hospitalization. DISCUSSION: The patient's platelet count was normal on this admission. She was administered Zosyn I V antibiotics, which certainly can reduce her platelet count. Her thrombocytopenia is likely a combi nation of medication induced as well as consumptive from prolonged illness. No transfusion is requir ed at this time. We will continue to monitor her CBC and continue her aspirin and Plavix. The case was discussed with Dr. Alcocer. Thank you for the consult.
[2018-03-04] MEDS ORDERED: Sodium Chloride 0.9% 500 ML IV SCH (00:15)
[2018-03-04] MEDS ORDERED: Norepinephrine 8 MG/250 ML IVPB SCH (00:15)
--- NOTE | 2018-03-04 01:02 | CON ---
DATE OF CONSULTATION: 03/03/2018 REASON FOR CONSULTATION: Complications following placement of gastrostomy tube with an infection around the gastrostomy site. HISTORY OF PRESENT ILLNESS: A 72-year-old patient with a history of type 2 diabetes mellitus, hypertension, and prior CVA, who had a gastrostomy tube placed and was transferred to rehab facility. At the long term, the gastrostomy tube was leaking significantly and patient was complaining of abdominal pain and had coffee-ground emesis. Therefore, she was shipped to the emergency room. On arrival, there was obvious leakage of fluid around the gastrostomy tube. Patient had an abdomen and pelvis CT, which demonstrated extension of contrast from the stomach lumen into the sinus tract of the gastrostomy with severe edema of the stomach, some layering of pleural effusions. General Surgery was consulted and patient had a removal of the original gastrostomy tube with placement of a new tube in a new location. The skin and their required debridements down to fascia level and the fascia was approximated with suture. Patient was given Zosyn, because of the abdominal wall changes. She had a Dobbhoff tube placed. There was evidence of contrast in the gastric area, although there was evidence of contrast extension outside the lumen and the contrast was extravasating into the peritoneal cavity. The patient has been taken to the OR for evaluation of this area of the stomach and repair if necessary. Ms. Vogel was somewhat drowsy. She denied any headaches, no respiratory symptoms. She had some abdominal pain in the upper segments of her abdomen. Patient has a indwelling Leblanc catheter. She has a peripheral IV access. PAST MEDICAL HISTORY: Prior to this visit includes a CVA, diabetes mellitus type 2, hypertension, gastrostomy tube placement with the complications noted above. SOCIAL HISTORY: long term resident. Never smoker. FAMILY HISTORY: Noncontributory. ALLERGIES: None. CURRENT MEDICATIONS: Patient is on Tylenol, [place], Norvasc, Ecotrin, Lipitor, Coreg, cefepime, Catapres, clonidine, hydralazine, insulin, scopolamine, Saccharomyces, tag pantoprazole and ondansetron. PHYSICAL EXAMINATION: VITAL SIGNS: T-max 98.9, blood pressure 140/60, pulse 87, respirations 20, O2 sat 100. SKIN: Demonstrates the area of ulceration with necrotic wound opening and measuring about 3 cm x 2.5 cm, there is a mild area of erythema surrounding this region. Patient is awake, but a little bit disoriented. She follows some commands. She has a peripheral IV access and a Leblanc catheter. I's and O's have been positive for the past many days. HEENT: Ocular movements conjugate. Pale conjunctivae. Oral cavity not remarkable. NECK: Supple, no jugular vein distention. LUNGS: Symmetric air entry. HEART: S1, S2, regular rate. ABDOMEN: With the wound dressed at this time, the dressing was not removed. Patient still has the new gastrostomy tube in place. She has a Dobbhoff inserted to allow feeding until the old gastrostomy tract heels. Patient is in moderate distention, but no ascites noted. No bladder distention. EXTREMITIES: She is able to move extremities on command, but she is diffusely weak. NEUROLOGIC: She is awake, a little bit confused, and follows some commands. LABORATORY DATA: White cell count is at 8.5, hemoglobin 8.2, MCV 88, platelets 84,000, 78% neutrophils. INR 1.5, pH 7.4, pCO2 of 28, pO2 of 81. Sodium 138, creatinine 3.68, this is about her baseline. The phosphorus 5.4, bilirubin 0.8. AST 38, ALT 28, alkaline phosphatase 217, albumin 4.1, globulin 2.6. Urinalysis with 4-6 wbc's. The imaging studies that beyond the ones that we discussed, it appears that the new gastrostomy catheter tract versus the left lobe of the liver. ASSESSMENT: Type 2 diabetes with hypertension and large middle cerebral artery distribution cerebrovascular accident with severe neurological impairment including swallowing dysfunction requiring PEG placement, which led to the complications noted above. DISCUSSION: Patient has a new PEG tube now which appears to traverse the left lobe of the liver. The old tract appears to be leaking still into the abdomen, even after the repair and Dr. Hammond is going back into check this out and fix it. Patient has been switched to cefepime. She had been on Zosyn before. Most of the organisms retrieved from this kind of situation in nursing homes patients are Gram-negative rods, so I believe Cefepime should be adequate. The duration of therapy will not be prolonged and will continue until there is a proper source control with the verification of closure of the leakage a few more days after that. MTDD
[2018-03-04] MEDS: Albuterol Sulfate 2.5 mg/3 ml Neb NEB SCH ×4 (01:30→18:48)
--- NOTE | 2018-03-04 03:27 | OP ---
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 PROCEDURES: Diagnostic laparoscopy, laparoscopic closure of gastrocutaneous fistula, laparoscopic cl osure with 0 V-Loc suture of peritoneum to the old gastrocutaneous fistula site (old percutaneous end oscopic gastrostomy site), debridement of skin and subcutaneous tissue at the old percutaneous endosc opic gastrostomy site. Takedown of liver from around the new G-tube site. Upper endoscopy noting ab sence of any gastric leakage. Ultrasound-guided placement of right IJ hemodialysis catheter, left IJ triple lumen catheter, fluoroscopic assisted. SURGEON: Muaricio Hammond MD ANESTHESIA: General. PROCEDURE IN DETAIL: The patient was taken to the operating room under general anesthesia. Neck, ch est, and abdomen were prepared with ChloraPrep, draped in routine fashion. Using ultrasound guidance , the right and left internal jugular veins were cannulated with trocar catheters and J-wire threaded . Trocar catheter removed. Skin incised and enlarged sharply at J-wire entrance site and stab incis ion was made over the right chest. Using Seldinger technique, a triple-lumen catheter placed in the left internal jugular vein and secured with 3-0 nylon suture and Biopatch. On the right side, the an giodynamics cuffed tunnel hemodialysis catheter tunneled using the tunneling device with the fabric c uff just beneath the skin exit site and catheter secured with 2 interrupted sutures of 3-0 nylon and Biopatch sterile dressing was applied. Small and medium sized dilators placed over the J-wire into t he internal jugular vein and removed. Dilator and pull-away sheath placed over the J-wire into the s uperior vena cava and J wire and dilator were removed. Catheter placed through pull-away sheath and the pull-away sheath removed. Platysma approximated with 0 Vicryl, skin with subdermal 4-0 Monocryl, and DermaGlue applied. Fluoroscopic images revealed good line placement. Each port aspirated blood and flushed with saline solution and an IJ catheter flushed with heparinized saline solution 1000 un its heparin per mL indicated volume of the port. Infraumbilical incision was made. Pneumoperitoneum obtained with the Veress needle, replacing it wit h a 5 port and laparoscope inserted. Right lateral subcostal incision was made and a 5 port placed. Right lower quadrant incision was made and a 5 port placed. Right lateral mid abdominal incision wa s made and a 12 port placed. Stomach was inspected and abdominal contents was inspected, there were some free fluid, but there were no signs of any inflammation in her peritonitis and certainly no sign s of tube feedings as suspected from preoperative contrast study of Dobbhoff tube, this suggested a l eakage of the stomach. I did take down laparoscopically the old G-tube site where she had a previous gastrocutaneous fistula and I did mobilize this and cleared the fat from the serosa of the stomach a nd closed this with a fire of the FLACA stapler. After 2 fires of blue-load stapler, the staple line w as hemostatic and this was assured with clips. Area irrigated at the old gastrocutaneous fistula sit e, 0 V-Loc suture was run continuous closing the peritoneum and fascia intra-abdominally. This was _ ____(04:14) suture. It was then noted that the new G-tube site had traversed the left lateral edge o f the liver and a small slit in the liver was made using cautery at 80 whiting, freeing the liver from this spot and then snugging the G-tube to the abdominal wall by the G-tube fixation device. This was inspected and noted to be in good position. Endoscope then placed per os under direct visualization and noted the G-tube device within the gastric lumen and the scope passed down in the distal stomach which appeared slightly edematous, but it did insufflate, understand the scope was advanced towards the pylorus, but could never stay in the stomach well as it would not hold insufflation. During this the stomach did stand at one point very well throughout the stomach and this was inspected laparosco pically and there were no leaks. A nasogastric tube was then placed by Anesthesia. The endoscope wa s removed. Staple line of the stomach where the old gastrocutaneous fistula site was closed, it was inspected and noted be hemostatic. Robby was sprayed over this area. Irrigant evacuated, pneumoper itoneum evacuated after 12-mm port site closed with 0 Vicryl GraNee needle. Laparoscopic sites appro ximated with colton and the skin and subcutaneous tissue around the gastrocutaneous fistula site fro m the old G-tube was debrided sharply and PDS sutures were placed where necessary to help to secure t he fascia. A gauze dressing applied. Wound VAC to be applied tomorrow. Patient tolerated the proce dure well and she was transferred to the ICU in stable condition. Preoperative hemoglobin was 8, she was given 2 units of blood.
[2018-03-04] MEDS: Sodium Chloride 0.45% 1,000 ML IV SCH ×3 (04:00→21:13)
[2018-03-04 05:34] LABS: #Lymphocytes 0.9 thou/uL (1.20-3.40); #Monocytes 0.6 thou/uL (0.11-0.59); #Neutrophils 7.2 thou/uL (1.40-6.50); %Basophils 0.2 % (0.0-1.0); %Eosinophils 0.6 % (0.0-10.0); %Lymphocytes 10.3 % (21.0-51.0); %Monocytes 6.3 % (0.0-10.0); %Neutrophils 82.7 % (42.0-75.0); Mean Corpuscular HGB CONC 34.7 g/dL (32.0-36.0); Mean Corpuscular Hemoglobin 31.2 pg (27.0-31.0); Mean Corpuscular Volume 89.8 fL (78.0-98.0); Mean Platelet Volume 10.3 fL (7.4-10.4); Platelet Count 82 thou/uL (130-400); RBC Distribution Width 14.6 % (11.5-14.5); Red Blood Cell (RBC) Count 2.89 mill/uL (4.20-5.40); White Blood Cell (WBC) Count 8.8 thou/uL (4.8-10.8)
[2018-03-04 05:52] LABS: ALT (SGPT) 20 U/L (8-55); AST (SGOT) 34 U/L (5-34); Albumin 2.3 g/dL (3.4-4.8); Alkaline Phosphatase 107 U/L (40-150); Anion Gap 15 mmol/L (10-20); BUN (Urea Nitrogen) 53 mg/dL (9.8-20.1); Bilirubin, Total 0.8 mg/dL (0.2-1.2); Calc. Creatinine Clearance 21 mL/min (70-130); Calcium 7.4 mg/dL (7.8-10.44); Carbon Dioxide 14 mmol/L (23-31); Chloride 113 mmol/L (98-107); Estimated GFR-MDRD 14; Globulin 1.9 g/dL (2.4-3.5); Glucose 154 mg/dL (83-110); Magnesium 1.8 mg/dL (1.6-2.6); Phosphorus 5.3 mg/dL (2.3-4.7); Potassium 3.9 mmol/L (3.5-5.1); Protein, Total 4.2 g/dL (6.0-8.3); Sodium 138 mmol/L (136-145)
[2018-03-04 07:44] LABS: Actual Bicarbonate (HCO3a) 14.6 mEq/L (22-28); Base Excess (BEa) -9.6 mEq/L (-2.0 to +3.0); CO2 Tension 26.4 mmHg (35.0-45.0); Calcium, Ionized 1.1 mmol/L (1.12-1.30); Carboxyhemoglobin (COHb) 1.9 gm% (0.0-3.0); Hemoglobin (Hb) 8.4 g/dL (12.0-16.0); O2 Tension (PaO2) 109.5 mmHg (> 70.0); Potassium - ABG Lab 3.8 mmol/L (3.70-5.30); pH, Arterial 7.36 (7.35-7.45)
[2018-03-04 07:45] LABS: Puncture Site RR
--- NOTE | 2018-03-04 08:35 | PRG ---
DATE OF SERVICE: 03/04/2018 This is 35 minutes of critical care time. SUBJECTIVE: Ms. Vogel went to the OR last night. She had general endotracheal anesthesia and was left intubated after surgery. Procedures included the laparoscopy with closure of a gastrocutaneous fistula and takedown of liver around her new G-tube site. She also had a right IJ hemodialysis cath eter inserted and left IJ triple-lumen catheter inserted. She is currently on mechanical ventilation this morning, on a fentanyl drip, and in no acute distress. OBJECTIVE: VITAL SIGNS: On exam, her temperature is 99.3, pulse 79, blood pressure 111/45. A 24-hour intake 25 59, output 20. HEENT: Pupils are reactive. Sclerae anicteric. Oropharynx, tongue is slightly swollen. NECK: No adenopathy or JVD. Catheters noted on both sides. CARDIAC: S1 and S2, regular, without murmur. LUNGS: Clear anteriorly. ABDOMEN: Midline PEG tube noted. A dressing over the lower portion of the abdomen. EXTREMITIES: Without clubbing or cyanosis. She has generalized edema throughout. LABORATORY DATA: White blood cell count 8.8, hemoglobin 9, hematocrit 26, platelet count 82. ABG pe nding. Sodium 138, potassium 3.9, chloride 113, CO2 of 14, BUN 53, creatinine 3.8, glucose 154, calc ium 7.4, albumin 2.3. ASSESSMENT: 1. Postoperative mechanical ventilation/acute respiratory failure. 2. Status post stroke. 3. Infection at PEG tube site. 4. Thrombocytopenia. PLAN: If ABG looks good today, the patient will be extubated. The patient is likely headed towards dialysis and has a dialysis catheter now in place. Her prognosis remains quite poor, but the family has been inclined to continue with aggressive therapy.
[2018-03-04] MEDS: Carvedilol 25 MG TAB PO SCH ×2 (08:39→21:12)
[2018-03-04] MEDS: Minoxidil 2.5 MG TAB PO SCH (08:39)
[2018-03-04] MEDS: Amlodipine 10 MG TAB PO SCH (08:43)
[2018-03-04] MEDS: Preparation H HC 1% Cream 26 GM TUBE TOP SCH ×2 (08:43→21:12)
[2018-03-04] MEDS ORDERED: Saccharomyces boulardii 250 MG CAP PO SCH (09:00)
[2018-03-04] MEDS ORDERED: Aspirin 325 mg Enteric Coated Tablet PO SCH (09:00)
[2018-03-04] MEDS ORDERED: Furosemide 40 MG/4 ML VIAL SLOW IVP SCH (09:45)
--- NOTE | 2018-03-04 09:48 | PRG ---
DATE OF SERVICE: 03/04/2018 SUBJECTIVE: Ms. Vogel is a 72-year-old black female followed up by [facility] for her chronic renal failure. Creatinine has been fluctuating. Most recent creatinine is noted at 3.84 which is hi gher from yesterday of 3.68. GFR is 14 mL per minute. She underwent exploratory surgery yesterday. Dr. Hammond placed a new PEG tube. In addition, she had also a laparoscopic closure of the old gastr ocutaneous fistula. A cuffed hemodialysis catheter has also been placed. This morning she is noted to be stable. She is awake and conversing with me. Not in overt distress. Please note this patient is status post cerebrovascular accident. PHYSICAL EXAMINATION: VITAL SIGNS: Blood pressure 145/53, heart rate 87, pulse ox 100%. GENERAL: Awake, alert, comfortable, not in overt distress. SKIN: Adequate turgor. HEENT: Slightly pale conjunctivae, anicteric sclerae. NECK: No neck mass, no carotid bruits, no JVD. CHEST: No deformities. LUNGS: Decreased breath sounds. HEART: Normal sinus rhythm. No murmur, no gallops, rubs. ABDOMEN: Globular, soft. Positive for PEG. EXTREMITIES: Positive for edema. MEDICATIONS: 03/04/2018 - Reviewed. LABORATORY DATA: 03/04/2018 - Sodium 138, potassium 3.9, chloride 113, carbon dioxide 14, BUN 53, cr eatinine 3.84, glucose 154, phosphorus 5.3, albumin 2.3. ASSESSMENT AND PLAN: 1. Chronic renal failure - renal function is worsening. Most recent creatinine is 3.8. No indicati on for any acute dialysis today. We will time the dialysis. 2. Anasarca. The patient has significant ascites on imaging. She has also leg edema. My plan is a gain to give a 1 time dose of Lasix 40 mg IV. 3. Anemia: Continue current weekly Epogen, p.r.n. blood transfusion. 4. Status post cerebrovascular accident. Supportive care. 5. Labile hypertension. Continue current blood pressure meds.
[2018-03-04] MEDS: NIFEdipine XL 60 MG TAB PO SCH (10:38)
--- NOTE | 2018-03-04 10:42 | PDOC.PN ---
- Subjective Encounter Start Date: 03/04/18 (f/u stroke) Encounter Start Time: 10:40 Subjective: Pt hypotensive overnight, clonidine patch removed and bp -: meds held. Extubated this morning. No issues this morning - Objective Resuscitation Status: Resuscitation Status FULL:Full Resuscitation Vital Signs & Weight: Vital Signs (12 hours) Temp Pulse Pulse Resp BP BP Pulse Ox 03/04/18 10:38 83 115/44 L 03/04/18 09:35 88 146/55 H 03/04/18 08:00 99.4 F 20 03/04/18 07:28 83 115/44 L 03/04/18 07:12 83 16 99 03/04/18 06:00 16 03/04/18 04:17 80 03/04/18 04:00 99.3 F 16 03/04/18 02:00 16 03/04/18 01:30 80 123/52 L 100 03/04/18 00:18 97.5 F L 03/04/18 00:00 97.5 F L 16 03/03/18 23:00 97.4 F L Pulse Ox 03/04/18 10:38 03/04/18 09:35 97 03/04/18 08:00 03/04/18 07:28 03/04/18 07:12 03/04/18 06:00 03/04/18 04:17 03/04/18 04:00 03/04/18 02:00 03/04/18 01:30 03/04/18 00:18 03/04/18 00:00 03/03/18 23:00 Weight Admit Weight 194 lb 7.163 oz Weight 222 lb 0.088 oz Most Recent Monitor Data Heart Rate from ECG 88 NIBP 156/53 NIBP BP-Mean 118 Respiration from ECG 17 SpO2 98 I&O: 03/03/18 03/04/18 03/05/18 06:59 06:59 06:59 Intake Total 2225 2559 Output Total 975 20 20 Balance 1250 2539 -20 Result Diagrams: 03/04/18 05:17 03/04/18 05:17 Additional Labs: Accuchecks 03/04/18 03/03/18 03/03/18 05:27 21:00 11:56 POC Glucose 151 H 173 H 187 H EKG Reviewed by me: Yes (sinus 80's) Phys Exam - Physical Examination Constitutional: NAD facial droop on left Respiratory: no wheezing, no rales, no rhonchi Cardiovascular: RRR, no significant murmur Gastrointestinal: positive bowel sounds abdominal wall edema. surgical bandage in place, PEG tube in place edema throughout arms and legs movement of right arm/hand and leg. no movement on left Skin: no rash Dx/Plan (1) PEG tube malfunction Code(s): K94.23 - GASTROSTOMY MALFUNCTION Status: Acute (2) Dysphagia Code(s): R13.10 - DYSPHAGIA, UNSPECIFIED Status: Acute Qualifiers: Dysphagia type: unspecified Qualified Code(s): R13.10 - Dysphagia, unspecified Comment: s/p peg (3) Hemiplegia affecting left nondominant side Code(s): G81.94 - HEMIPLEGIA, UNSPECIFIED AFFECTING LEFT NONDOMINANT SIDE Status: Acute Qualifiers: Hemiplegia type: flaccid (4) Metabolic acidosis Code(s): E87.2 - ACIDOSIS Status: Acute (5) CKD (chronic kidney disease) stage 4, GFR 15-29 ml/min Code(s): N18.4 - CHRONIC KIDNEY DISEASE, STAGE 4 (SEVERE) Status: Chronic (6) Diabetes Code(s): E11.9 - TYPE 2 DIABETES MELLITUS WITHOUT COMPLICATIONS Status: Chronic Qualifiers: Diabetes mellitus type: type 2 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 use Diabetes mellitus complication status: with kidney complications Diabetes mellitus complication detail: with chronic kidney disease Chronic kidney disease stage: stage 4 (severe) Qualified Code(s): E11.22 - Type 2 diabetes mellitus with diabetic chronic kidney disease; N18.4 - Chronic kidney disease, stage 4 (severe); N18.4 - Chronic kidney disease, stage 4 (severe); N18.4 - Chronic kidney disease, stage 4 (severe); N18.4 - Chronic kidney disease, stage 4 (severe) (7) Hyperlipidemia Code(s): E78.5 - HYPERLIPIDEMIA, UNSPECIFIED Status: Chronic Qualifiers: Hyperlipidemia type: unspecified Qualified Code(s): E78.5 - Hyperlipidemia , unspecified (8) Hypertension Code(s): I10 - ESSENTIAL (PRIMARY) HYPERTENSION Status: Chronic Qualifiers: Hypertension type: essential hypertension Qualified Code(s): I10 - Essential (primary) hypertension (9) Hypokalemia Code(s): E87.6 - HYPOKALEMIA Status: Resolved (10) Thrombocytopenia Code(s): D69.6 - THROMBOCYTOPENIA, UNSPECIFIED Status: Acute - Plan * * Pt with abdominal wall wound vac now s/p surgery yesterday with Dr. Hammond. * * Appreciate ID consult - continue cefepime * = * * Appreciate Nephrology managing fluid status and renal function. Pt with edema and ascites - can be diuresed with lasix if sx, however hold for now to avoid worsening renal function. * * thrombocytopenia - appreciate Hematology consult, which states anti-platelet medications can be continued unless platelets less than 40. Will continue to hold the plavix - there is no added benefit per Neurology and pt at higher risk of bleeding, and Cardiology does not think it is essential -pt can be on aspirin alone. I'm concerned about the additional risk of bleeding as well in this complicated current condition. * * BP - goal is likely 140-160. Will d/c the nifedipine as it cannot be crushed , and pt is on amlodipine. d/c clonidine for now - it was removed last night due to hypotension, add back when needed. Pt to receive the isosorbide now. * * hemorrhoids - preparation h * loose stools - florastor * DM - lantus reduced due to surgery and uncertainty with when feeds will return - will adjust as needed. * * dvt prophy - scd's due to thrombocytopenia * gi prophy - protonix through PEG tube * code status full * * reviewed plan of care with RN. * Spoke with Palliative care and a family meeting will be arranged. * * pt remains at high risk in current condition.
[2018-03-04] MEDS: Isosorbide Dinitrate 20 MG TAB PER TUBE SCH ×2 (10:44→21:12)
[2018-03-04] MEDS: Cefepime 1 GM in Sodium Chloride 0.9% 100 ML IVPB SCH (10:44)
[2018-03-04 16:27] LABS: #Eosinphils 0.1 thou/uL (0.0-0.7); #Lymphocytes 1.3 thou/uL (1.20-3.40); #Neutrophils 10.3 thou/uL (1.40-6.50); %Eosinophils 0.6 % (0.0-10.0); %Lymphocytes 10.5 % (21.0-51.0); %Monocytes 7.9 % (0.0-10.0); %Neutrophils 80.9 % (42.0-75.0); Hemoglobin 9.4 g/dL (12.0-16.0); Mean Corpuscular HGB CONC 35.6 g/dL (32.0-36.0); Mean Corpuscular Hemoglobin 31.5 pg (27.0-31.0); Mean Corpuscular Volume 88.5 fL (78.0-98.0); Mean Platelet Volume 10.1 fL (7.4-10.4); Platelet Count 90 thou/uL (130-400); RBC Distribution Width 14.7 % (11.5-14.5); Red Blood Cell (RBC) Count 2.97 mill/uL (4.20-5.40); White Blood Cell (WBC) Count 12.7 thou/uL (4.8-10.8)
[2018-03-04 16:28] LABS: Anion Gap 15 mmol/L (10-20); BUN (Urea Nitrogen) 55 mg/dL (9.8-20.1); Calc. Creatinine Clearance 20 mL/min (70-130); Carbon Dioxide 15 mmol/L (23-31); Chloride 111 mmol/L (98-107); Estimated GFR-MDRD 13; Glucose 141 mg/dL (83-110); Potassium 3.9 mmol/L (3.5-5.1); Sodium 137 mmol/L (136-145)
[2018-03-04] MEDS: hydrALAZINE 20 MG/ML VIAL SLOW IVP PRN (18:56)
[2018-03-04 19:05] LABS: Cardiac Risk 5.3 (Less than 4.5)
[2018-03-04 19:09] LABS: INR-International Normal Ratio 1.5; PTT 38.3 SEC (22.9-36.1)
[2018-03-04] MEDS ORDERED: Propofol 1,000 MG/100 ML VIAL IV ONE (20:17)
--- NOTE | 2018-03-04 20:41 | RAD ---
FRONTAL VIEW CHEST: 03/04/18 COMPARISON: Previous day. INDICATION: Respiratory failure, dyspnea. FINDINGS: There is increasing pleural based density at the mid inferior right hemithorax. Tunneled right sided vascular catheter, enteric catheter, and left IJ catheter remain. Removal of prior endotracheal tube, when comparing to prior exam. There is patchy left perihilar opacity. The cardiac silhouette is part ially obscured. IMPRESSION: Progressive density at the inferior right hemithorax which may be related to component of collapse an d/or adjacent progressive pleural fluid. Patchy left perihilar edema. Interval extubation. POS: [facility]
[2018-03-04] MEDS ORDERED: Ventilator Sedation Protocol 1 EACH FS ONE (21:05)
[2018-03-04] MEDS ORDERED: DISCONTINUE PREVIOUS NARCOTIC PAIN MEDICATIONS AND BENZODIAZEPINES FS SCH (21:09)
[2018-03-04] MEDS ORDERED: Propofol BOLUS 1,000 MG/100 ML VIAL IV PRN (21:09)
[2018-03-04] MEDS ORDERED: Lorazepam 2 MG/ML VIAL SLOW IVP PRN (21:09)
[2018-03-04] MEDS ORDERED: Fentanyl BOLUS 250 ML IVPB PRN (21:09)
[2018-03-04] MEDS ORDERED: fentaNYL Citrate/PF 2,000 MCG in Sodium Chloride 0.9% 60 ML IV SCH (21:09)
[2018-03-04] MEDS: Insulin Glargine 10 UNITS in Pre-Filled Syringe SC SCH (21:12)
[2018-03-04 21:18] LABS: pH, Arterial 7.37 (7.35-7.45)
[2018-03-04 21:19] LABS: Actual Bicarbonate (HCO3a) 13.2 mEq/L (22-28); Base Excess (BEa) -10.6 mEq/L (-2.0 to +3.0); CO2 Tension 23.1 mmHg (35.0-45.0); Calcium, Ionized 1.1 mmol/L (1.12-1.30); Carboxyhemoglobin (COHb) 0.9 gm% (0.0-3.0); Hemoglobin (Hb) 9.3 g/dL (12.0-16.0); O2 Tension (PaO2) 89.3 mmHg (> 70.0); Puncture Site RRAD
[2018-03-04] MEDS: FAT EMULSION IV SCH (22:26)
[2018-03-04] MEDS: [UNRECOGNIZED DRUG - OTHER] IV SCH (22:26)
[2018-03-04] MEDS: SODIUM ACETATE IV SCH (22:26)
[2018-03-04] MEDS: CALCIUM CHLORIDE IV SCH (22:26)
--- NOTE | 2018-03-04 23:25 | PRG ---
DATE OF SERVICE: 03/04/2018 Ms. Vogel has become progressively tachypneic, I am told, this evening. OBJECTIVE: VITAL SIGNS: Heart rate was 103, when arrived blood pressure 187/74, respiratory rate was in the 30s to low 40s. LUNGS: Were remarkable for mild rhonchi. HEART: Regular rhythm. ABDOMEN: Soft and massively distended and tympanitic. EXTREMITIES: Without asymmetry or edema. NEUROLOGIC: No gross neurological deficits. LABORATORY DATA: White count this afternoon is 12.7, hemoglobin 9.4, platelets 90,000. Sodium 137, potassium 3.9, chloride 111, bicarbonate 15, BUN 55, creatinine 4.14. Blood gas shows pH 7.36, CO2 of 26, pO2 of 109. Chest radiograph shows bilateral effusions. IMPRESSION: Impending respiratory failure. I did not think she needed to be emergently intubated, but I have a strong suspicion that before tomorrow morning , she will need to be intubated. The issues include abdominal distention present up in her diaphragms, poor ability to handle secretions and metabolic acidosis on top of deconditioning. She was agreeable to intubation. I have also discussed with family after she was intubated and explained her plan of care. Intake and output for the day were reviewed. It appears that she had only 88 mL of urine output today. She will probably need dialysis first thing in the morning. Critical care time was 30 minutes not including procedure. KERI
--- NOTE | 2018-03-05 00:13 | PRG ---
DATE OF SERVICE: 03/04/2018 SUBJECTIVE: Ms. Mg Vogel today is doing well. Dr. Carolina is extubated her. She is awake a nd stable. OBJECTIVE: VITAL SIGNS: Heart rate 96, respiratory rate 20, blood pressure 115/44. LUNGS: Rhonchi at base. CARDIAC: Regular rate and rhythm. ABDOMEN: Soft, nontender. Wound VAC has been applied to the old G-tube site. LABORATORY DATA: This morning, her hemoglobin was 9.0 and this afternoon 9.4. Basic metabolic profi le stable with BUN of 55, creatinine 4.14, GFR 13, carbon dioxide 15, potassium 3.9. Urine output vi a her Leblanc 24 hours 20 mL. When I placed her hemodialysis catheter, her central venous pressures we re tremendously high. She has not been dialyzed since placement of the dialysis catheter. ASSESSMENT AND PLAN: 1. Recent stroke, severe debilitation and mobility. Prognosis is poor. 2. Dysphagia. 3. Malfunctioning gastrostomy tube. 4. Recent laparoscopy and lysis of adhesions. Plan TPN administration with G-tube to gravity draina ge. G-tube to gravity drainage thus far as put out 350 mL. 5. Renal failure, dialysis per Dr. Murcia. She has a hemodialysis catheter in place.
[2018-03-05] MEDS: Albuterol Sulfate 2.5 mg/3 ml Neb NEB SCH ×4 (00:32→18:13)
[2018-03-05] MEDS: HumaLOG 300 UNITS/3 ML VIAL SC PRN ×4 (00:53→16:53)
--- NOTE | 2018-03-05 02:07 | OP ---
DATE OF SERVICE: 03/04/18 Ms. Vogel's bite block was placed in her mouth. Throat was sprayed with Cetacaine spray. With her in the sitting position was gently flexed upward. Her vocal cords were easily visualized. Bronchoscope was passed into her cords. The first 6 inches of her trachea was remarkable for salivary type secretions that were partially occluding her trachea. This was all suction cleared, and then the endotracheal tube was advanced and secured at 23 to 24 cm. No distal secretions or aspirated gastric contents were seen. She tolerated intubation. She was given 50 mg propofol bolus. Blood pressure dropped to the 130s with intubation. She went to sleep and appeared very comfortable. I have explained to the the family, which she will likely be intubated for several more days. KERI
[2018-03-05 05:19] LABS: ALT (SGPT) 146 U/L (8-55); AST (SGOT) 162 U/L (5-34); Albumin 2.6 g/dL (3.4-4.8); Alkaline Phosphatase 132 U/L (40-150); Anion Gap 17 mmol/L (10-20); BUN (Urea Nitrogen) 58 mg/dL (9.8-20.1); Bilirubin, Total 0.4 mg/dL (0.2-1.2); Calc. Creatinine Clearance 19 mL/min (70-130); Calcium 8.2 mg/dL (7.8-10.44); Carbon Dioxide 12 mmol/L (23-31); Chloride 110 mmol/L (98-107); Estimated GFR-MDRD 12; Globulin 2.6 g/dL (2.4-3.5); Glucose 213 mg/dL (83-110); Phosphorus 5.5 mg/dL (2.3-4.7); Potassium 3.7 mmol/L (3.5-5.1); Protein, Total 5.2 g/dL (6.0-8.3); Sodium 135 mmol/L (136-145)
[2018-03-05] MEDS: Sodium Chloride 0.45% 1,000 ML IV SCH ×2 (06:01→16:34)
[2018-03-05 06:06] LABS: Band 19 % (5-11); Eosinophils 1 % (0-10); Hemoglobin 7.9 g/dL (12.0-16.0); Lymphocytes 10 % (21-51); MDiff Complete? YES; Mean Corpuscular HGB CONC 35.9 g/dL (32.0-36.0); Mean Corpuscular Hemoglobin 31.7 pg (27.0-31.0); Mean Corpuscular Volume 88.2 fL (78.0-98.0); Mean Platelet Volume 10.3 fL (7.4-10.4); Monocytes 8 % (0-10); Neutrophil 62 % (42-75); PLT Morphology Comment Appears Decreased; Platelet Count 82 thou/uL (130-400); RBC Distribution Width 14.8 % (11.5-14.5); Red Blood Cell (RBC) Count 2.48 mill/uL (4.20-5.40); White Blood Cell (WBC) Count 10.7 thou/uL (4.8-10.8)
[2018-03-05 07:25] LABS: Actual Bicarbonate (HCO3a) 13.4 mEq/L (22-28); Base Excess (BEa) -10.6 mEq/L (-2.0 to +3.0); CO2 Tension 23.4 mmHg (35.0-45.0); Calcium, Ionized 1.1 mmol/L (1.12-1.30); Carboxyhemoglobin (COHb) 0.2 gm% (0.0-3.0); Hemoglobin (Hb) 7.1 g/dL (12.0-16.0); O2 Tension (PaO2) 139.7 mmHg (> 70.0); Potassium - ABG Lab 3.6 mmol/L (3.70-5.30); pH, Arterial 7.38 (7.35-7.45)
[2018-03-05 07:26] LABS: Puncture Site RRA
[2018-03-05] MEDS: Preparation H HC 1% Cream 26 GM TUBE TOP SCH ×2 (07:46→21:34)
[2018-03-05] MEDS: Propofol 1,000 MG/100 ML VIAL IV PRN ×2 (08:00→17:48)
--- NOTE | 2018-03-05 08:45 | PDOC.PN ---
- Subjective Encounter Start Date: 03/05/18 (f/u hypertension) Encounter Start Time: 08:43 Subjective: Pt intubated yesterday evening due to change in resp status. Lantus -: held last night. meds held due to NG tube with a lot of output. -: Plan for short dialysis today - Objective Resuscitation Status: Resuscitation Status FULL:Full Resuscitation Vital Signs & Weight: Vital Signs (12 hours) Temp Pulse Resp BP Pulse Ox 03/05/18 07:00 98.6 F 03/05/18 06:46 95 179/53 H 03/05/18 06:45 94 21 H 99 03/05/18 06:00 22 H 03/05/18 04:00 23 H 03/05/18 02:11 92 03/05/18 02:00 22 H 03/05/18 00:32 90 17 100 03/05/18 00:00 98.8 F 19 100 03/04/18 22:00 23 H 03/04/18 21:21 96 03/04/18 21:05 20 Weight Admit Weight 194 lb 7.163 oz Weight 3.601 oz Most Recent Monitor Data Heart Rate from ECG 97 NIBP 165/47 NIBP BP-Mean 93 Respiration from ECG 12 SpO2 100 I&O: 03/04/18 03/05/18 03/06/18 06:59 06:59 06:59 Intake Total 2559 3184 Output Total 20 896 37 Balance 2539 2288 -37 Result Diagrams: 03/05/18 04:40 03/05/18 04:40 Additional Labs: Accuchecks 03/05/18 03/05/18 03/04/18 06:03 00:49 21:02 POC Glucose 227 H 202 H 153 H 03/04/18 15:50 POC Glucose 141 H EKG Reviewed by me: Yes (tele - sinus 90's) Phys Exam - Physical Examination Constitutional: NAD intubated and sedated Respiratory: no wheezing, no rales scattered rhonchi Cardiovascular: RRR, no significant murmur Gastrointestinal: soft, positive bowel sounds abdominal wall edema slightly improved Unable to assess Deviation from normal: unable to assess Skin: no rash Dx/Plan (1) PEG tube malfunction Code(s): K94.23 - GASTROSTOMY MALFUNCTION Status: Acute (2) Dysphagia Code(s): R13.10 - DYSPHAGIA, UNSPECIFIED Status: Acute Qualifiers: Dysphagia type: unspecified Qualified Code(s): R13.10 - Dysphagia, unspecified Comment: s/p peg (3) Hemiplegia affecting left nondominant side Code(s): G81.94 - HEMIPLEGIA, UNSPECIFIED AFFECTING LEFT NONDOMINANT SIDE Status: Acute Qualifiers: Hemiplegia type: flaccid (4) Metabolic acidosis Code(s): E87.2 - ACIDOSIS Status: Acute (5) CKD (chronic kidney disease) stage 4, GFR 15-29 ml/min Code(s): N18.4 - CHRONIC KIDNEY DISEASE, STAGE 4 (SEVERE) Status: Chronic (6) Diabetes Code(s): E11.9 - TYPE 2 DIABETES MELLITUS WITHOUT COMPLICATIONS Status: Chronic Qualifiers: Diabetes mellitus type: type 2 Diabetes mellitus long-term insulin use: without long-term use Diabetes mellitus complication status: with kidney complications Diabetes mellitus complication detail: with chronic kidney disease Chronic kidney disease stage: stage 4 (severe) Qualified Code(s): E11.22 - Type 2 diabetes mellitus with diabetic chronic kidney disease; N18.4 - Chronic kidney disease, stage 4 (severe); N18.4 - Chronic kidney disease, stage 4 (severe); N18.4 - Chronic kidney disease, stage 4 (severe); N18.4 - Chronic kidney disease, stage 4 (severe) (7) Hyperlipidemia Code(s): E78.5 - HYPERLIPIDEMIA, UNSPECIFIED Status: Chronic Qualifiers: Hyperlipidemia type: unspecified Qualified Code(s): E78.5 - Hyperlipidemia , unspecified (8) Hypertension Code(s): I10 - ESSENTIAL (PRIMARY) HYPERTENSION Status: Chronic Qualifiers: Hypertension type: essential hypertension Qualified Code(s): I10 - Essential (primary) hypertension (9) Hypokalemia Code(s): E87.6 - HYPOKALEMIA Status: Resolved (10) Thrombocytopenia Code(s): D69.6 - THROMBOCYTOPENIA, UNSPECIFIED Status: Acute (11) Acute respiratory failure Code(s): J96.00 - ACUTE RESPIRATORY FAILURE, UNSP W HYPOXIA OR HYPERCAPNIA Status: Acute - Plan * Pt POD#2 from surgery * Appreciate Pulmonology consult - intubated/sedated * * Appreciate ID consult - continue cefepime * * Appreciate Nephrology plan for short dialysis today * * NG tube with large output - will change meds to transdermal and IV - resume clonidine, change to metoprolol and prn hydralazine. * * thrombocytopenia - stable - appreciate Hematology consult, which states anti- platelet medications can be continued unless platelets less than 40. Will continue to hold the plavix - there is no added benefit per Neurology and pt at higher risk of bleeding, and Cardiology does not think it is essential -pt can be on aspirin alone. I'm concerned about the additional risk of bleeding as well in this complicated current condition. * DM - blood sugars in the 200's on TPN - restart lantus - will start at 10 units and adjust, continue coverage with SSI. * * dvt prophy - scd's due to thrombocytopenia * gi prophy - add IV protonix * code status full * * reviewed plan of care with RN. * pt remains at high risk in current condition with overall poor prognosis.
--- NOTE | 2018-03-05 08:59 | RAD ---
CHEST 1 VIEW: Date: 03/05/18 HISTORY: Dyspnea. Ventilated patient. COMPARISON: Radiograph prior day. FINDINGS: Dialysis catheter and left IJ central venous catheter is similar. Endotracheal tube tip at level of c lavicles. Layering effusions. Heart size enlarged. Pulmonary arteries are dilated. There is right lower lobe collapse. IMPRESSION: No significant change in radiographic appearance of chest. No significant improvement. POS: [facility]
[2018-03-05] MEDS ORDERED: cloNIDine 0.1mg/24 Hour PATCH TD SCH (09:00)
[2018-03-05] MEDS ORDERED: Insulin Glargine 10 UNITS in Pre-Filled Syringe 1 EACH SC SCH ×2 (09:00→21:00)
[2018-03-05] MEDS: Pantoprazole 40 MG VIAL IVP SCH (09:25)
[2018-03-05] MEDS: Metoprolol Tartrate 5 MG/5 ML VIAL IVP SCH ×3 (09:40→20:37)
[2018-03-05] MEDS ORDERED: Heparin 1,000 UNITS/ML VIAL ONE (11:11)
--- NOTE | 2018-03-05 11:23 | PRG ---
DATE OF CONSULTATION: 03/05/2018 RENAL MEDICINE SUBJECTIVE: Ms. Vogel is a 72-year-old black female being followed by the Renal Service for her c hronic renal failure. Renal function has been worsening. Yesterday, due to respiratory distress, clare cruz has been intubated. She was given Lasix yesterday without any significant urine output. She november h ave now progressed with renal dysfunction. Dialysis catheter was inserted by Dr. Hammond yesterday. My plan is to do a 1 hour hemodialysis with her today, using no heparin and we are attempting to sam ve one liter as tolerated. OBJECTIVE: VITAL SIGNS: Blood pressure is noted at 152/47, heart rate 84, O2 sat 98%. GENERAL: The patient is sedated, intubated on ventilator support. SKIN: Adequate turgor. HEENT: Slightly pale conjunctivae, anicteric sclerae. NECK: No neck mass, no carotid bruits, no JVD. CHEST: No deformities. LUNGS: Decreased breath sounds. HEART: Normal sinus rhythm. No murmurs, no gallops, no rubs. ABDOMEN: Globular, soft, nontender. Positive for surgical scar. EXTREMITIES: Trace edema. MEDICATIONS: Medications of 03/05/2018 was reviewed. LABORATORY DATA: Laboratories of 03/05/2018; white count 10.7, hemoglobin 7.9. Sodium 135, potassiu m 3.7, chloride 110, carbon dioxide 12, BUN 58, creatinine 4.35, phosphorus 5.5, AST 162, ALT 146 and albumin 2.6. ASSESSMENT AND PLAN: 1. Acute kidney injury/chronic renal failure, worsening renal dysfunction. There is worsening renal dysfunction over the last several days. Due to the volume overload and worsening renal function, I have decided to initiate hemodialysis. We will do a 1 hour hemodialysis today and do again 2-hour he modialysis. I have scheduled her for a daily dialysis for the next several days. Overall, prognosis remains guarded with this patient. 2. Labile hypertension, fluid removal with dialysis. 3. Acute respiratory failure, hemodialysis and fluid removal today. 4. Status post acute abdomen - status post exploratory laparotomy with july Osuna. 5. Anemia, on weekly Epogen, p.r.n. blood transfusion.
[2018-03-05 13:10] LABS: HBSAB Concentration 4.16 mIU/mL; Hep B Surf AB Non-Reactive (NonReactive)
[2018-03-05] MEDS: Cefepime 1 GM in Sodium Chloride 0.9% 100 ML IVPB SCH (13:45)
[2018-03-05] MEDS: hydrALAZINE 20 MG/ML VIAL SLOW IVP PRN (13:49)
[2018-03-05 13:53] LABS: HBSAg Index 0.22 S/CO (0-0.99); Hep B Surf Ag Non-Reactive S/CO (NonReactive)
--- NOTE | 2018-03-05 16:20 | PRG ---
DATE OF SERVICE: 03/05/2018 SUBJECTIVE: Ms. Vogel's vital signs were stable overnight. OBJECTIVE: VITAL SIGNS: She is still hypertensive with a blood pressure of 171/54, heart rate 87. Catapres patch was started. LUNGS: Clear anteriorly. HEART: Regular rhythm. ABDOMEN: Soft. EXTREMITIES: Without asymmetry. Hopefully, dialysis will help to facilitate blood pressure control. LABORATORY DATA: White count 10.7, hemoglobin was falling from 9.4-7.9, platelets 82,000. Intake and output is positive 2288. BUN is 58, creatinine is 4.35. Bicarbonate was 12. PH this morning 7.38, CO2 23, pO2 of 137. IMPRESSION: 1. Metabolic acidosis in part secondary to hyperchloremia and in part secondary to renal failure, dialysis should help this. 2. Respiratory failure secondary to acidemia combined with massive abdominal distention. 3. Clinical ileus with massive abdominal distention. 4. Recent stroke with severe deconditioning. 5. Swallowing dysfunction after stroke. 6. Laparoscopy and lysis of adhesions. PLAN: Continue mechanical ventilation with dialysis. Hopefully, acid base status will improve until her abdominal distention improved. She is certainly not weanable. Critical care time is 35 minutes. MTDD
--- NOTE | 2018-03-05 20:33 | PRG ---
DATE OF SERVICE: 03/05/2018 SUBJECTIVE: Mg Vogel is doing well today. She remains off the ventilator. OBJECTIVE: VITAL SIGNS: 88, 16, 171/54. LUNGS: Clear to auscultation. Mild rhonchi at base. CARDIAC: Regular rate and rhythm. ABDOMEN: Soft. EXTREMITIES: Edema all extremities. Gastric drainage 24 hours 500 mL. PEG tube to gravity drainage 95 mL. Leblanc 301 mL 24 hours. LABORATORY DATA: White count 10, hemoglobin 7.9, sodium 135, potassium 3.7, carbon dioxide 12, creat inine 4.35, BUN 58. ASSESSMENT AND PLAN: 1. Chronic disease, end-stage renal disease. Continue hemodialysis. She underwent hemodialysis tod ay. 2. Right arm midline. Catheter placed in a patient with chronic kidney disease removed on TPN and t olerating that well. Prior stroke. Overall, prognosis is poor.
--- NOTE | 2018-03-05 20:54 | PDOC.EVN ---
Event Note - Event Note Event Note: reviewed blood sugars - in the 200's - add 10 units lantus tonight and continue to titrate. Blood pressures also remain elevated - change to 0.3 mg clonidine patch. Discussed this with JESSE walker, no questions or further needs.
[2018-03-05] MEDS: cloNIDine 0.3mg/24 Hour PATCH TD SCH (21:15)
[2018-03-05] MEDS: FAT EMULSION IV SCH (22:09)
[2018-03-05] MEDS: [UNRECOGNIZED DRUG - OTHER] IV SCH (22:09)
[2018-03-05] MEDS: CALCIUM CHLORIDE IV SCH (22:09)
[2018-03-05] MEDS: SODIUM ACETATE IV SCH (22:09)
[2018-03-06] MEDS: Propofol 1,000 MG/100 ML VIAL IV PRN ×4 (00:18→17:35)
[2018-03-06] MEDS: HumaLOG 300 UNITS/3 ML VIAL SC PRN ×4 (00:18→18:21)
[2018-03-06] MEDS: Albuterol Sulfate 2.5 mg/3 ml Neb NEB SCH ×4 (00:34→18:54)
[2018-03-06] MEDS: Metoprolol Tartrate 5 MG/5 ML VIAL IVP SCH ×4 (03:01→20:36)
[2018-03-06] MEDS: Labetalol HCl 100 MG/20 ML VIAL SLOW IVP PRN (03:34)
[2018-03-06] MEDS: Sodium Chloride 0.45% 1,000 ML IV SCH (06:01)
[2018-03-06 06:31] LABS: ALT (SGPT) 93 U/L (8-55); AST (SGOT) 60 U/L (5-34); Albumin 2.5 g/dL (3.4-4.8); Alkaline Phosphatase 127 U/L (40-150); Anion Gap 13 mmol/L (10-20); BUN (Urea Nitrogen) 54 mg/dL (9.8-20.1); Bilirubin, Total 0.5 mg/dL (0.2-1.2); Calc. Creatinine Clearance 22 mL/min (70-130); Calcium 8.3 mg/dL (7.8-10.44); Carbon Dioxide 18 mmol/L (23-31); Chloride 108 mmol/L (98-107); Estimated GFR-MDRD 14; Globulin 2.6 g/dL (2.4-3.5); Glucose 242 mg/dL (83-110); Magnesium 1.7 mg/dL (1.6-2.6); Phosphorus 4.3 mg/dL (2.3-4.7); Potassium 3.2 mmol/L (3.5-5.1); Protein, Total 5.1 g/dL (6.0-8.3); Sodium 136 mmol/L (136-145)
[2018-03-06 06:37] LABS: Band 17 % (5-11); Eosinophils 3 % (0-10); Lymphocytes 7 % (21-51); MDiff Complete? YES; Mean Corpuscular HGB CONC 35.4 g/dL (32.0-36.0); Mean Corpuscular Hemoglobin 31.4 pg (27.0-31.0); Mean Corpuscular Volume 88.7 fL (78.0-98.0); Mean Platelet Volume 9.7 fL (7.4-10.4); Monocytes 8 % (0-10); Myelocyte 1 % (0-0); Neutrophil 64 % (42-75); PLT Morphology Comment Appears Decreased; Platelet Count 70 thou/uL (130-400); Red Blood Cell (RBC) Count 2.23 mill/uL (4.20-5.40); White Blood Cell (WBC) Count 8.3 thou/uL (4.8-10.8)
--- NOTE | 2018-03-06 07:06 | PDOC.PN ---
- Subjective Encounter Start Date: 03/06/18 (f/u DM) Encounter Start Time: 07:05 Subjective: Pt remains intubated and sedated. no overnight events. BP's remain -: elevated and blood sugars in the mid-200's - Objective Resuscitation Status: Resuscitation Status FULL:Full Resuscitation Vital Signs & Weight: Vital Signs (12 hours) Temp Pulse Resp BP Pulse Ox 03/06/18 06:48 82 170/50 H 03/06/18 06:46 81 14 99 03/06/18 06:00 16 03/06/18 04:00 16 03/06/18 03:34 84 175/57 H 03/06/18 02:28 91 03/06/18 02:00 17 03/06/18 00:34 91 16 100 03/06/18 00:00 98 F 21 H 03/05/18 22:10 88 172/59 H 03/05/18 22:00 18 03/05/18 20:00 98.6 F 85 16 100 Weight Admit Weight 194 lb 7.163 oz Weight 227 lb 1.218 oz Most Recent Monitor Data Heart Rate from ECG 78 NIBP 170/50 NIBP BP-Mean 119 Respiration from ECG 15 SpO2 100 I&O: 03/05/18 03/06/18 03/07/18 06:59 06:59 06:59 Intake Total 3184 2258 Output Total 896 1327 Balance 2288 931 Result Diagrams: 03/06/18 05:45 03/06/18 05:45 Additional Labs: Accuchecks 03/06/18 03/06/18 03/05/18 05:48 00:17 16:52 POC Glucose 240 H 252 H 251 H 03/05/18 11:02 POC Glucose 274 H EKG Reviewed by me: Yes (tele - sinus 80's, episode of narrow complex tachy, resolved) Phys Exam - Physical Examination Constitutional: NAD intubated, sedated Respiratory: no wheezing, no rales, no rhonchi Cardiovascular: RRR, no significant murmur Gastrointestinal: soft, positive bowel sounds unchanged abd wall edema generalized edema - unchanged unable to assess - no spontaneous movement Deviation from normal: unable to assess Skin: no rash Dx/Plan (1) Acute respiratory failure Code(s): J96.00 - ACUTE RESPIRATORY FAILURE, UNSP W HYPOXIA OR HYPERCAPNIA Status: Acute (2) PEG tube malfunction Code(s): K94.23 - GASTROSTOMY MALFUNCTION Status: Acute (3) Dysphagia Code(s): R13.10 - DYSPHAGIA, UNSPECIFIED Status: Acute Qualifiers: Dysphagia type: unspecified Qualified Code(s): R13.10 - Dysphagia, unspecified Comment: s/p peg (4) Hemiplegia affecting left nondominant side Code(s): G81.94 - HEMIPLEGIA, UNSPECIFIED AFFECTING LEFT NONDOMINANT SIDE Status: Acute Qualifiers: Hemiplegia type: flaccid (5) Metabolic acidosis Code(s): E87.2 - ACIDOSIS Status: Acute (6) Diabetes Code(s): E11.9 - TYPE 2 DIABETES MELLITUS WITHOUT COMPLICATIONS Status: Chronic Qualifiers: Diabetes mellitus type: type 2 Diabetes mellitus long-term insulin use: without long-term use Diabetes mellitus complication status: with kidney complications Diabetes mellitus complication detail: with chronic kidney disease Chronic kidney disease stage: stage 4 (severe) Qualified Code(s): E11.22 - Type 2 diabetes mellitus with diabetic chronic kidney disease; N18.4 - Chronic kidney disease, stage 4 (severe); N18.4 - Chronic kidney disease, stage 4 (severe); N18.4 - Chronic kidney disease, stage 4 (severe); N18.4 - Chronic kidney disease, stage 4 (severe) (7) Hyperlipidemia Code(s): E78.5 - HYPERLIPIDEMIA, UNSPECIFIED Status: Chronic Qualifiers: Hyperlipidemia type: unspecified Qualified Code(s): E78.5 - Hyperlipidemia , unspecified (8) Hypertension Code(s): I10 - ESSENTIAL (PRIMARY) HYPERTENSION Status: Chronic Qualifiers: Hypertension type: essential hypertension Qualified Code(s): I10 - Essential (primary) hypertension (9) Hypokalemia Code(s): E87.6 - HYPOKALEMIA Status: Resolved (10) Thrombocytopenia Code(s): D69.6 - THROMBOCYTOPENIA, UNSPECIFIED Status: Acute (11) CKD (chronic kidney disease) stage 5, GFR less than 15 ml/min Code(s): N18.5 - CHRONIC KIDNEY DISEASE, STAGE 5 Status: Acute - Plan * Pt POD#3 from surgery * Appreciate Pulmonology consult - intubated/sedated * * Appreciate ID consult - continue cefepime for abdominal wound - now on antibiotics day 12 (cefepime started 03/04, Zosyn 02/23 - 03/03) * * Appreciate Nephrology - dialysis plan daily for now - started yesterday. * BP remains uncontrolled - on IV metoprolol, and clonidine patch. Will need to determine if NG tube can be used vs adding scheduled IV medication. Anticipate dialysis will help as well. * * thrombocytopenia - stable - no change to the plan of aspirin only. Pt seen by Hematology last week, can continue plavix unless platelets are less than 40k. However, no clear indication to do this after discussion with Dr. Vargas and Dr. Mitesh Chavarria last week. Pt is at risk of bleeding, has multiple significant issues at this time and overall poor prognosis. Medications reviewed and last dose of aspirin was Mar, resume when it is considered safer. * * DM - blood sugars in the mid-200's. Lantus started yesterday morning, changed to BID last evening without change. will increase to 20 units BID. Pt with abdominal wall edema, uncertain of how much absorption is occurring - if remains uncontrolled, may need to consider an insulin gtt. * * dvt prophy - scd's due to thrombocytopenia * gi prophy - IV protonix * code status full * * reviewed plan of care with RN. * pt remains at high risk in current condition with overall poor prognosis. * 17:31 - updated by RN today for large amount of bleeding from wound vac and transfusion of 2 units prbc. NG tube available for medications. Given that bp' s remain elevated, will resume her home medication of amlodipine for improved control. Pt is on metoprolol IV and clonidine patch currently.
[2018-03-06 07:19] LABS: CO2 Tension 28.7 mmHg (35.0-45.0); O2 Tension (PaO2) 129.3 mmHg (> 70.0); pH, Arterial 7.38 (7.35-7.45)
[2018-03-06 07:20] LABS: Actual Bicarbonate (HCO3a) 16.4 mEq/L (22-28); Calcium, Ionized 1.1 mmol/L (1.12-1.30); Carboxyhemoglobin (COHb) 1.5 gm% (0.0-3.0); Hemoglobin (Hb) 5.6 g/dL (12.0-16.0); Puncture Site RRA
[2018-03-06 07:21] LABS: ALV-art Gradient 48.725 (0-20)
[2018-03-06] MEDS: Insulin Glargine 20 UNITS in Pre-Filled Syringe 1 EACH SC SCH ×2 (08:39→20:37)
[2018-03-06] MEDS: Pantoprazole 40 MG VIAL IVP SCH (08:39)
[2018-03-06] MEDS: Preparation H HC 1% Cream 26 GM TUBE TOP SCH ×2 (09:38→20:37)
--- NOTE | 2018-03-06 11:24 | RAD ---
CHEST 1 VIEW: Date: HISTORY: Ventilated patient. COMPARISON: Chest radiograph from prior day. FINDINGS: Dialysis catheter and left IJ central venous catheter similar. Exam limited due to rightward patient rotation. Layering effusions and right lower lobe atelectasis. There is mild edema. Enteric tube tip not well seen. IMPRESSION: Rotated and limited exam. No significant change. POS: [facility]
--- NOTE | 2018-03-06 11:27 | PRG ---
DATE OF SERVICE: 03/06/2018 SUBJECTIVE: Ms. Vogel is a 72-year-old black female with known history of chronic renal failure, has been initiated on dialysis due to volume overload. Early this morning, her gastrostomy site has been bleeding. It is being re-ligated by Dr. Hammond. She was also noted to be on anemic side. For this reason, we will be giving a total of 2 units of packed RBC. One unit will be given right now. Platelet count was noted to be on the low side. The plan is to give her platelet as well as DDAVP. Case discussed with Dr. Hammond and Dr. Han. PHYSICAL EXAMINATION: VITAL SIGNS: Blood pressure is noted at 166/48, heart rate 75, respiratory rate is 12, O2 sat 100%. GENERAL: Patient is sedated, intubated on ventilator support. SKIN: Adequate turgor. HEENT: Pale conjunctivae, anicteric sclerae. NECK: No neck mass, no carotid bruits, no JVD. LUNGS: Decreased breath sounds. HEART: Normal sinus rhythm. ABDOMEN: Globular, soft. Positive for surgical wound. EXTREMITIES: No edema. MEDICATIONS: Of 03/06/2018 was reviewed. LABORATORY DATA: Of 03/06/2018, white count 8.3, hemoglobin 7, sodium 136, potassium 3.2, chloride 1 08, carbon dioxide 18, BUN 54, creatinine 3.79, glucose 242, phosphorus 4.3, magnesium 1.7, albumin 2 .5. ASSESSMENT AND PLAN: 1. Chronic renal failure/acute kidney injury - hemodialysis has been initiated due to volume overloa d. Fluid removal only as tolerated with dialysis. I have planned to do a 2-hour hemodialysis with t his patient without any heparin. 2. Bleeding from PEG sites/surgical area - being re-ligated by Dr. Hammond. 3. Anemia, p.r.n. blood transfusion. Continue weekly Epogen. We will give 2 units of packed RBC. DDAVP and platelets will also be given. Overall, prognosis remains guarded with this patient.
[2018-03-06] MEDS: Cefepime 1 GM in Sodium Chloride 0.9% 100 ML IVPB SCH (16:11)
[2018-03-06] MEDS: Epoetin (ESRD) 20,000 UNITS/ML SC SCH (16:42)
--- NOTE | 2018-03-06 16:49 | PRG ---
DATE OF SERVICE: 03/06/2018 SUBJECTIVE: Ms. Vogel is intubated in the ICU ____. She has been stable. I was called this morn ing that she has bleeding out of her old PEG tube site with a wound VAC was in place. She put out 40 0 mL. The wound VAC was removed. Wound inspected. The PDS sutures present in the fascia were intac t, but there were some separation in one area approximately 2.5 cm2. Coming from this wound with flora p inspiration was a thin serous bloody colored fluid. This appeared more bloody ascites. There was no evidence of GI bleeding from her PEG tube site or her NG tube. Her hemoglobin is 7 this morning. At the bedside, several 3-0 Vicryl and PDS sutures were placed. Wound VAC was applied. OBJECTIVE: LUNGS: Clear to auscultation. CARDIAC: Regular rate and rhythm without murmur or gallop. ABDOMEN: Soft. EXTREMITIES: Edematous. LABORATORY DATA: Hemoglobin 7, white count 8. Sodium 136, potassium 3.2, BUN 54, creatinine 3.79, G FR 14. Accu-Cheks 251-288. ASSESSMENT AND PLAN: 1. End-stage renal disease superimposed on chronic kidney disease, undergoing dialysis at this time, Dr. Murcia has seen her. Continue dialysis. 2. Anemia transfusions. No evidence of gastrointestinal bleeding. 3. Ascites leaking from old PEG tube site, I have placed sutures at the bedside and we were applied a wound VAC. 4. Stroke. 5. Respiratory failure.
--- NOTE | 2018-03-06 17:22 | PRG ---
DATE OF SERVICE: 03/06/2018 SUBJECTIVE: Ms. Vogel had bleeding into her wound VAC today. Dr. Hammond quickly addressed this a t the bedside. Some of it appeared to be blood, and a lot of it appeared to be bloody ascites. OBJECTIVE: VITAL SIGNS: She is afebrile, respiratory rate is 14, blood pressure 156/47, heart rate 79. LUNGS: Clear. HEART: Regular rhythm. ABDOMEN: Distended. EXTREMITIES: Without asymmetry. LABORATORY DATA: White count 8.3, hemoglobin 7.0. She was to be transfused 2 units of packed cells. I gave her DDAVP for uremic platelet dysfunction and also transfused 1 unit of platelets. Sodium 136, potassium 3.2, chloride 108, bicarbonate 18, BUN 54, creatinine 3.79. Intake and output is positive 931. Leblanc output was reported as 1042 mL. IMPRESSION: 1. Respiratory failure secondary to retained secretions, abdominal distention and metabolic acidosis , requiring reintubation. 2. Wound bleeding. 3. Diabetes. 4. Acute on chronic kidney disease. 5. Mild elevation of liver enzymes. PLAN: Continue supportive care.
[2018-03-06 19:41] LABS: #Eosinphils 0.2 thou/uL (0.0-0.7); #Lymphocytes 1.3 thou/uL (1.20-3.40); #Monocytes 0.6 thou/uL (0.11-0.59); #Neutrophils 5.3 thou/uL (1.40-6.50); %Basophils 0.3 % (0.0-1.0); %Eosinophils 2.4 % (0.0-10.0); %Lymphocytes 17.6 % (21.0-51.0); %Monocytes 7.8 % (0.0-10.0); %Neutrophils 71.9 % (42.0-75.0); Hemoglobin 9.4 g/dL (12.0-16.0); Mean Corpuscular HGB CONC 35.7 g/dL (32.0-36.0); Mean Corpuscular Hemoglobin 31.3 pg (27.0-31.0); Mean Corpuscular Volume 87.5 fL (78.0-98.0); Mean Platelet Volume 8.7 fL (7.4-10.4); Platelet Count 91 thou/uL (130-400); RBC Distribution Width 14.2 % (11.5-14.5); Red Blood Cell (RBC) Count 3.02 mill/uL (4.20-5.40); White Blood Cell (WBC) Count 7.4 thou/uL (4.8-10.8)
[2018-03-06] MEDS: Amlodipine 5 MG TAB PO SCH (20:36)
[2018-03-06] MEDS: SODIUM ACETATE IV SCH (22:04)
[2018-03-06] MEDS: CALCIUM CHLORIDE IV SCH (22:04)
[2018-03-06] MEDS: FAT EMULSION IV SCH (22:04)
[2018-03-06] MEDS: [UNRECOGNIZED DRUG - OTHER] IV SCH (22:04)
[2018-03-07] MEDS: HumaLOG 300 UNITS/3 ML VIAL SC PRN ×4 (00:26→17:28)
[2018-03-07] MEDS: Albuterol Sulfate 2.5 mg/3 ml Neb NEB SCH ×5 (00:39→23:35)
[2018-03-07] MEDS: Propofol 1,000 MG/100 ML VIAL IV PRN (02:46)
[2018-03-07] MEDS: Metoprolol Tartrate 5 MG/5 ML VIAL IVP SCH ×6 (02:49→21:17)
[2018-03-07 05:13] LABS: Band 15 % (5-11); Eosinophils 5 % (0-10); Hemoglobin 8.7 g/dL (12.0-16.0); Lymphocytes 11 % (21-51); MDiff Complete? YES; Mean Corpuscular HGB CONC 35.9 g/dL (32.0-36.0); Mean Corpuscular Hemoglobin 31.3 pg (27.0-31.0); Mean Corpuscular Volume 87.4 fL (78.0-98.0); Mean Platelet Volume 9.2 fL (7.4-10.4); Monocytes 7 % (0-10); Neutrophil 62 % (42-75); PLT Morphology Comment Appears Decreased; Platelet Count 75 thou/uL (130-400); RBC Distribution Width 14.4 % (11.5-14.5); Red Blood Cell (RBC) Count 2.79 mill/uL (4.20-5.40); White Blood Cell (WBC) Count 6.9 thou/uL (4.8-10.8)
[2018-03-07 05:18] LABS: ALT (SGPT) 60 U/L (8-55); AST (SGOT) 37 U/L (5-34); Albumin 2.3 g/dL (3.4-4.8); Alkaline Phosphatase 116 U/L (40-150); Anion Gap 13 mmol/L (10-20); BUN (Urea Nitrogen) 41 mg/dL (9.8-20.1); Bilirubin, Total 0.6 mg/dL (0.2-1.2); Calc. Creatinine Clearance 29 mL/min (70-130); Calcium 8.1 mg/dL (7.8-10.44); Carbon Dioxide 21 mmol/L (23-31); Chloride 104 mmol/L (98-107); Estimated GFR-MDRD 19; Globulin 2.5 g/dL (2.4-3.5); Glucose 233 mg/dL (83-110); Magnesium 1.7 mg/dL (1.6-2.6); Potassium 2.8 mmol/L (3.5-5.1); Protein, Total 4.8 g/dL (6.0-8.3); Sodium 135 mmol/L (136-145)
[2018-03-07 06:38] LABS: Actual Bicarbonate (HCO3a) 21.2 mEq/L (22-28); Base Excess (BEa) -3.6 mEq/L (-2.0 to +3.0); O2 Tension (PaO2) 92.4 mmHg (> 70.0); pH, Arterial 7.38 (7.35-7.45)
[2018-03-07 06:39] LABS: Calcium, Ionized 1.1 mmol/L (1.12-1.30); Carboxyhemoglobin (COHb) 1.1 gm% (0.0-3.0); Hemoglobin (Hb) 9.4 g/dL (12.0-16.0); Potassium - ABG Lab 2.9 mmol/L (3.70-5.30); Puncture Site RRA
[2018-03-07] MEDS: Pantoprazole 40 MG VIAL IVP SCH (08:09)
[2018-03-07] MEDS: Insulin Glargine 20 UNITS in Pre-Filled Syringe 1 EACH SC SCH ×2 (08:10→21:07)
--- NOTE | 2018-03-07 08:28 | PRG ---
DATE OF SERVICE: 03/07/2018 Thirty-five minutes critical care time. SUBJECTIVE: Ms. Vogel failed extubation on Wednesday and had to be reintubated later that night. Scott cruz has remained on mechanical ventilation over the weekend. Yesterday, she had some bleeding into her wound VAC, which was addressed by Surgery. She is currently on TPN. She is also receiving intermit tent dialysis. PHYSICAL EXAMINATION: VITAL SIGNS: Temperature 98.7, pulse 78, blood pressure 154/44, O2 sat 98%, 24-hour intake 2135 and output 2700 that was through dialysis. HEENT: Unremarkable except for the endotracheal tube in place. NECK: No JVD. LUNGS: Fairly clear anteriorly. CARDIOVASCULAR: S1 and S2, regular, without murmur. ABDOMEN: Soft. The midline wound VAC is noted. The PEG tube is noted. EXTREMITIES: Edematous throughout. IMAGING: Chest x-ray shows normal heart size. She has bilateral small pleural effusions. LABORATORY DATA: Sodium 135, potassium 3.8, chloride 104, CO2 of 21, BUN 41, creatinine 2.8, glucose 233, AST 37, ALT 60. White blood cell count 6.9, hemoglobin 8.7, hematocrit 24.4, platelet count 75 , pH 7.38, pCO2 of 37, pO2 of 92 on SIMV rate 14, tidal volume 500, PEEP 5, pressure 10, FiO2 25%. ASSESSMENT: 1. Acute respiratory failure, requiring mechanical ventilation. 2. Status post massive stroke with severe debilitation. 3. Acute on chronic renal failure. 4. Percutaneous endoscopic gastrostomy tube. 5. Hypokalemia. PLAN: 1. The patient's neuromuscular weakness is her biggest deterrent to weaning and extubation at this [facility]. Based on what I have seen over the last month, I think this patient likely needs a tracheostomy placed, but I need to gauge how her family feels about this. 2. Continue dialysis. 3. Slowly wean SIMV rate.
--- NOTE | 2018-03-07 09:10 | RAD ---
PORTABLE AP CHEST RADIOGRAPH: Date: 03-07-18 History: On ventilator. Follow up evaluation. Comparison: 03-06-18 FINDINGS: Nasogastric tube, left internal jugular vein central venous catheter, and right internal jugular vein hemodialysis catheter remain in place and unchanged in position. Tip of the central venous catheter as well as dialysis catheter overlie the right atrium. Cardiac silhouette is mildly enlarged. Pulmona ry vasculature does appear moderately increased. There is subsegmental atelectasis in the right mid l pedrito zone which has improved. Probable tiny left pleural effusion atelectasis. No other interval hayden e. IMPRESSION: 1. Cardiomegaly with mild pulmonary vascular congestion. 2. Lines and tubes in place as described above. 3. Small left pleural effusion. 4. Subsegmental atelectasis at the right lung base. POS: [facility]
--- NOTE | 2018-03-07 09:30 | PRG ---
DATE OF SERVICE: 03/07/2018 SUBJECTIVE: Ms. Vogel is a 72-year-old black female being followed by the Renal Service for her chronic renal failure. Renal function has worsened in the last several days. She has been initiated for dialysis due to volume overload as well as progressive ischemia. I am currently at the bedside supervising her dialysis. We are using no heparin with dialysis. Attempting fluid removal as tolera eleazar by the patient. She has had some bleeding around her PEG site tube which was addressed by Dr. Valdivia. She also received several units of blood. yesterday with dialysis. No acute events last night. OBJECTIVE: VITAL SIGNS: Blood pressure is 122/43, heart rate 77, respiratory rate 12, pulse ox 96%. GENERAL: Sedated and intubated on ventilator support. SKIN: Adequate turgor. HEENT: She has slightly pale conjunctivae, anicteric sclerae. NECK: No neck mass, no carotid bruits, no JVD. CHEST: No deformities. LUNGS: Decreased breath sounds. HEART: Normal sinus rhythm. No murmur, no gallops, no rubs. ABDOMEN: Globular, soft, nontender, no masses. EXTREMITIES: No edema, no deformities. MEDICATIONS: 03/07/2018 - Reviewed. LABORATORY DATA: 03/07/2018 - White count 6.9, hemoglobin 8.7, hematocrit 24.4, sodium 135, potassiu m 2.8, chloride 104, carbon dioxide 21, BUN 41, creatinine 2.89. AST 37 and ALT 60, glucose 233, alb umin 2.3. ASSESSMENT AND PLAN: 1. Chronic renal failure/the possibility that this patient may have reached ESRD remains. She is un dergoing 3-hour hemodialysis today with fluid removal. Using no heparin. Adjust potassium bath in t he dialysis due to the potassium 2.8. We will plan to do a 4-0 potassium bath with this patient. 2. Status post cerebrovascular accident. Supportive care. 3. Labile hypertension. Continue current blood pressure meds. 4. Acute respiratory failure, currently intubated. The possibility of tracheostomy remains with thi s patient.
[2018-03-07] MEDS: Amlodipine 5 MG TAB PO SCH ×3 (10:56→21:07)
[2018-03-07] MEDS: Preparation H HC 1% Cream 26 GM TUBE TOP SCH (10:56)
[2018-03-07] MEDS: Cefepime 1 GM in Sodium Chloride 0.9% 100 ML IVPB SCH (11:00)
--- NOTE | 2018-03-07 13:42 | PDOC.PN ---
- Subjective Encounter Start Date: 03/07/18 Encounter Start Time: 14:00 -: old records requested/rev Pt seen and examined, chart reviewed in its entirety, this is my first visit with this patient for this encounter pt remains intubated on SIMV. arousable, follows commands. No F/C, no N/V/d/C, c/o back hurting only. All systems reviewed and neg for all systems except as above - Objective Resuscitation Status: Resuscitation Status FULL:Full Resuscitation MAR Reviewed: Yes Vital Signs & Weight: Vital Signs (12 hours) Temp Pulse Resp BP Pulse Ox 03/07/18 13:13 79 20 99 03/07/18 12:00 12 03/07/18 11:17 78 136/47 L 03/07/18 10:56 78 136/47 L 03/07/18 10:13 78 136/47 L 03/07/18 10:00 12 03/07/18 08:00 98.5 F 78 14 98 03/07/18 07:00 98.5 F 03/07/18 06:27 73 154/44 H 03/07/18 06:00 18 03/07/18 04:00 98.7 F 19 03/07/18 02:43 75 03/07/18 02:00 18 Weight Admit Weight 194 lb 7.163 oz Weight 222 lb 14.197 oz Most Recent Monitor Data Heart Rate from ECG 79 NIBP 164/53 NIBP BP-Mean 107 Respiration from ECG 11 SpO2 99 I&O: 03/06/18 03/07/18 03/08/18 06:59 06:59 06:59 Intake Total 2258 2135 Output Total 1327 2056 95 Balance 931 79 -95 Result Diagrams: 03/07/18 04:25 03/07/18 04:25 Additional Labs: Accuchecks 03/07/18 03/07/18 03/07/18 11:31 06:22 00:24 POC Glucose 181 H 237 H 244 H 03/06/18 18:20 POC Glucose 260 H Radiology Reviewed by me: Yes EKG Reviewed by me: Yes Phys Exam - Physical Examination Constitutional: NAD HEENT: PERRLA, moist MMs, sclera anicteric, oral pharynx no lesions orally intubated Neck: no nodes, no JVD, supple, full ROM Respiratory: no wheezing, no rales, no rhonchi, clear to auscultation bilateral Cardiovascular: RRR, no significant murmur, no rub Gastrointestinal: positive bowel sounds tense, distended, PEG C/D/I Musculoskeletal: edema present Neurological: moves all 4 limbs Lymphatic: no nodes Psychiatric: normal affect Skin: no rash, normal turgor, cap refill <2 seconds Dx/Plan (1) Acute respiratory failure Code(s): J96.00 - ACUTE RESPIRATORY FAILURE, UNSP W HYPOXIA OR HYPERCAPNIA Status: Acute Qualifiers: Respiratory failure complication: hypoxia Qualified Code(s): J96.01 - Acute respiratory failure with hypoxia (2) CKD (chronic kidney disease) stage 5, GFR less than 15 ml/min Code(s): N18.5 - CHRONIC KIDNEY DISEASE, STAGE 5 Status: Chronic (3) PEG tube malfunction Code(s): K94.23 - GASTROSTOMY MALFUNCTION Status: Acute (4) Thrombocytopenia Code(s): D69.6 - THROMBOCYTOPENIA, UNSPECIFIED Status: Acute (5) Hypokalemia Code(s): E87.6 - HYPOKALEMIA Status: Resolved (6) FRANCIS (acute kidney injury) Code(s): N17.9 - ACUTE KIDNEY FAILURE, UNSPECIFIED Status: Chronic Comment: stable (7) Acute encephalopathy Code(s): G93.40 - ENCEPHALOPATHY, UNSPECIFIED Status: Resolved Comment: sec to massive cva (8) Dysphagia Code(s): R13.10 - DYSPHAGIA, UNSPECIFIED Status: Acute Qualifiers: Dysphagia type: unspecified Qualified Code(s): R13.10 - Dysphagia, unspecified Comment: s/p peg (9) FTT (failure to thrive) in adult Status: Chronic (10) Hemiplegia affecting left nondominant side Code(s): G81.94 - HEMIPLEGIA, UNSPECIFIED AFFECTING LEFT NONDOMINANT SIDE Status: Chronic Qualifiers: Hemiplegia type: flaccid (11) Metabolic acidosis Code(s): E87.2 - ACIDOSIS Status: Resolved (12) Diabetes Code(s): E11.9 - TYPE 2 DIABETES MELLITUS WITHOUT COMPLICATIONS Status: Chronic Qualifiers: Diabetes mellitus type: type 2 Diabetes mellitus mcfp insulin use: without buttermaker use Diabetes mellitus complication status: with kidney complications Diabetes mellitus complication detail: with chronic kidney disease Chronic kidney disease stage: stage 4 (severe) Qualified Code(s): E11.22 - Type 2 diabetes mellitus with diabetic chronic kidney disease; N18.4 - Chronic kidney disease, stage 4 (severe); N18.4 - Chronic kidney disease, stage 4 (severe); N18.4 - Chronic kidney disease, stage 4 (severe); N18.4 - Chronic kidney disease, stage 4 (severe) (13) Hyperlipidemia Code(s): E78.5 - HYPERLIPIDEMIA, UNSPECIFIED Status: Chronic Qualifiers: Hyperlipidemia type: unspecified Qualified Code(s): E78.5 - Hyperlipidemia , unspecified (14) Hypertension Code(s): I10 - ESSENTIAL (PRIMARY) HYPERTENSION Status: Chronic Qualifiers: Hypertension type: essential hypertension Qualified Code(s): I10 - Essential (primary) hypertension (15) Hypertensive urgency Code(s): I16.0 - HYPERTENSIVE URGENCY Status: Resolved - Plan cont current plan of care, zuleta catheter, PT/OT, vp [employer] and crm, respiratory therapy * .
[2018-03-07] MEDS: Labetalol HCl 100 MG/20 ML VIAL SLOW IVP PRN (14:50)
--- NOTE | 2018-03-07 18:54 | PRG ---
DATE OF SERVICE: 03/07/2018 SUBJECTIVE: Ms. Vogel is doing well today. She is on the ventilator. Her urine output is 155. NG tube is clamped. OBJECTIVE LUNGS: Clear to auscultation. CARDIAC: Regular rate and rhythm without murmur or gallop. ABDOMEN: Soft, bowel sounds present. LABORATORY DATA: White count 6, hemoglobin 8.7. Basic metabolic profile unremarkable except for pot assium of 2.8, which is being replaced. BUN 41, creatinine 2.89. ASSESSMENT: Acute renal failure, end-stage renal disease, chronic kidney disease. PLAN: 1. Continue dialysis. 2. Hemodialysis catheter. 3. We will plan to clamp her G-tube, initiate tube feedings per PEG tube. Medications per PEG tube. 4. Respiratory failure, discussion with family per Pulmonary, she may need a tracheostomy.
[2018-03-07] MEDS: FAT EMULSION IV SCH (22:30)
[2018-03-07] MEDS: CALCIUM CHLORIDE IV SCH (22:30)
[2018-03-07] MEDS: [UNRECOGNIZED DRUG - OTHER] IV SCH (22:30)
[2018-03-07] MEDS: SODIUM ACETATE IV SCH (22:30)
[2018-03-08] MEDS: HumaLOG 300 UNITS/3 ML VIAL SC PRN ×4 (00:06→18:16)
[2018-03-08] MEDS: Labetalol HCl 100 MG/20 ML VIAL SLOW IVP PRN ×4 (00:08→22:18)
[2018-03-08] MEDS: hydrALAZINE 20 MG/ML VIAL SLOW IVP PRN ×2 (01:21→18:06)
[2018-03-08] MEDS: Preparation H HC 1% Cream 26 GM TUBE TOP SCH ×3 (01:43→20:58)
[2018-03-08] MEDS: Metoprolol Tartrate 5 MG/5 ML VIAL IVP SCH ×4 (02:31→20:43)
[2018-03-08 05:37] LABS: Band 16 % (5-11); Eosinophils 3 % (0-10); Hemoglobin 9.4 g/dL (12.0-16.0); Lymphocytes 12 % (21-51); MDiff Complete? YES; Mean Corpuscular HGB CONC 35.3 g/dL (32.0-36.0); Mean Corpuscular Hemoglobin 31.2 pg (27.0-31.0); Mean Corpuscular Volume 88.3 fL (78.0-98.0); Mean Platelet Volume 9.4 fL (7.4-10.4); Monocytes 8 % (0-10); Neutrophil 61 % (42-75); PLT Morphology Comment Appears Decreased; Platelet Count 75 thou/uL (130-400); RBC Distribution Width 15.2 % (11.5-14.5); Red Blood Cell (RBC) Count 3.01 mill/uL (4.20-5.40); White Blood Cell (WBC) Count 7.7 thou/uL (4.8-10.8)
[2018-03-08 05:47] LABS: ALT (SGPT) 48 U/L (8-55); AST (SGOT) 42 U/L (5-34); Albumin 2.5 g/dL (3.4-4.8); Alkaline Phosphatase 135 U/L (40-150); Anion Gap 13 mmol/L (10-20); BUN (Urea Nitrogen) 29 mg/dL (9.8-20.1); Calc. Creatinine Clearance 33 mL/min (70-130); Calcium 8.3 mg/dL (7.8-10.44); Carbon Dioxide 24 mmol/L (23-31); Chloride 102 mmol/L (98-107); Estimated GFR-MDRD 24; Glucose 220 mg/dL (83-110); Magnesium 1.7 mg/dL (1.6-2.6); Phosphorus 1.6 mg/dL (2.3-4.7); Potassium 3.1 mmol/L (3.5-5.1); Protein, Total 5.5 g/dL (6.0-8.3); Sodium 136 mmol/L (136-145)
[2018-03-08] MEDS: Albuterol Sulfate 2.5 mg/3 ml Neb NEB SCH ×4 (06:23→23:11)
[2018-03-08 06:51] LABS: Actual Bicarbonate (HCO3a) 25.8 mEq/L (22-28); Base Excess (BEa) 1.6 mEq/L (-2.0 to +3.0); CO2 Tension 39.2 mmHg (35.0-45.0); O2 Tension (PaO2) 73.9 mmHg (> 70.0); pH, Arterial 7.44 (7.35-7.45)
[2018-03-08 06:52] LABS: Calcium, Ionized 1.1 mmol/L (1.12-1.30); Carboxyhemoglobin (COHb) 1.5 gm% (0.0-3.0); Hemoglobin (Hb) 8.9 g/dL (12.0-16.0); Potassium - ABG Lab 3.1 mmol/L (3.70-5.30); Puncture Site RBRACH
--- NOTE | 2018-03-08 08:09 | RAD ---
CHEST ONE VIEW: HISTORY: Dyspnea. Intubated. Followup. COMPARISON: 03/07/2018 FINDINGS: The cardiac silhouette is magnified and enlarged. The pulmonary vasculature remains engorged. Patch y bibasilar infiltrates, right greater than left, are similar in appearance to the previous exam. The mediastinum is midline. Lines and tubes appear unchanged in position. campus monitor leads ove rly the chest. IMPRESSION: Stable radiographic appearance of the chest. POS: [facility]
--- NOTE | 2018-03-08 08:23 | PRG ---
DATE OF SERVICE: 03/08/2018 Thirty-five minutes critical care time. The patient remains intubated on mechanical ventilation. I could not get her to wake up this morning , but she was on a fentanyl drip. PHYSICAL EXAMINATION: VITAL SIGNS: Her temperature is 99.2 with no fever overnight, pulse 85, blood pressure 140/47, O2 sa t 97%. Total intake for the last 24 hours 1765, output 1070 +3000 by dialysis. HEENT: Pupils are reactive. Sclerae icteric. Oropharynx; ET tube in place. NECK: No JVD. LUNGS: Clear without wheezing or rhonchi. CARDIAC: S1 and S2 regular. ABDOMEN: Soft, nontender. PEG tube noted. Wound VAC noted. EXTREMITIES: 2+ edema throughout. LABORATORY DATA: White blood count 7.7, hematocrit 26.5, platelet count 75,000. PH 7.44, pCO2 of 39 , pO2 of 74 that is on SIMV rate 10, tidal volume 500, PEEP 5, pressure 10, FiO2 25%. Sodium 136, po tassium 3.1, chloride 102, CO2 24, BUN 29, creatinine 2.4, glucose 220. ASSESSMENT: 1. Acute respiratory failure requiring mechanical ventilation - status post one failed extubation se condary to inability to clear oropharyngeal secretions. 2. Acute on chronic renal failure. 3. Cerebrovascular accident. 4. Hypertension. PLAN: Still have not run into the family. I need to discussed with them what they want done in the event of another extubation failure. I am very concerned the patient's neurologic status is such sandra t she will not tolerate extubation due to inability to clear secretions. For the time being I am on putting her on CPAP pressure support ventilation. We will hold her fentan yl drip and just treat her with Ativan as needed for breakthrough agitation. She is starting to rece manuela enteral tube feeds again. Her prognosis is extremely poor.
[2018-03-08] MEDS: Pantoprazole 40 MG VIAL IVP SCH (09:02)
[2018-03-08] MEDS: Amlodipine 5 MG TAB PO SCH ×2 (09:02→20:42)
[2018-03-08] MEDS: Insulin Glargine 20 UNITS in Pre-Filled Syringe 1 EACH SC SCH ×2 (09:03→20:42)
--- NOTE | 2018-03-08 09:19 | PRG ---
DATE OF SERVICE: 03/08/2018 SERVICE: Renal Medicine. SUBJECTIVE: Ms. Vogel is a 72-year-old black female with known history of chronic renal failure, hemodialysis has been initiated due to volume overload. I did review the chest x-ray today and it sh ows increased lung markings. She is currently on TPN. [facility] she could not be we[facility] off. She has been receiving daily dialysis. No acute events. OBJECTIVE: VITAL SIGNS: Blood pressure is currently noted at 140/47, O2 sat 97%, temperature 99.2, heart rate 8 5. GENERAL EXAM: Patient is sedated and intubated on ventilator support. SKIN: Adequate turgor. HEENT: Slightly pale conjunctivae. Anicteric sclerae. NECK: No neck mass, no carotid bruits, no JVD. LUNGS: Decreased breath sounds. HEART: Normal sinus rhythm. No murmur, no gallops, no rubs. ABDOMEN: Globular, soft, nontender. Positive for wound VAC and PEG tube. EXTREMITIES: Positive for edema. Medications of 03/08/2018 were reviewed. LABORATORY DATA: Laboratories of 03/08/2018, white count 7.7, hemoglobin 9.4. Sodium 136, potassium 3.1, chloride 102, carbon dioxide 24, BUN 29, creatinine 2.41, glucose 220, phosphorus 1.6, magnesiu m 1.7, AST 42, ALT 48, albumin 2.5. ASSESSMENT AND PLAN: 1. Chronic renal failure - most likely the patient has end-stage renal disease. Continue current he modialysis regimen. My plan is to do a 4-hour hemodialysis with this patient with maximal fluid sam prudencio as tolerated by the patient. 2. Anemia - continuing weekly Epogen - p.r.n. blood transfusion. 3. Hypokalemia - we will be using a 4-0 potassium bath with dialysis today. 4. Mild hypophosphatemia - adjust TPN. Consult pharmacy. Overall, prognosis with the patient remains poor. Continue supportive care. Family still pursuing a ggressive management.
--- NOTE | 2018-03-08 13:13 | PDOC.PN ---
- Subjective Encounter Start Date: 03/08/18 Encounter Start Time: 10:40 -: non-verbal PT orally intubated, arousable. No acute events overnight, no f/C, no N/V/D/c no family at bedside ROS not obtainable due to intubated status - Objective Resuscitation Status: Resuscitation Status FULL:Full Resuscitation MAR Reviewed: Yes Vital Signs & Weight: Vital Signs (12 hours) Temp Pulse Resp BP Pulse Ox 03/08/18 12:56 85 13 99 03/08/18 12:00 99.4 F 17 03/08/18 10:46 85 147/44 H 03/08/18 10:00 15 03/08/18 09:02 83 162/40 H 03/08/18 08:00 99.7 F H 83 10 L 98 03/08/18 06:24 83 148/47 H 03/08/18 06:23 85 10 L 98 03/08/18 05:50 11 L 03/08/18 05:11 92 178/51 H 03/08/18 04:00 99.2 F 11 L 03/08/18 02:00 14 03/08/18 01:21 87 183/50 H Weight Admit Weight 194 lb 7.163 oz Weight 215 lb 2.738 oz Most Recent Monitor Data Heart Rate from ECG 86 NIBP 171/55 NIBP BP-Mean 82 Respiration from ECG 17 SpO2 99 I&O: 03/07/18 03/08/18 03/09/18 06:59 06:59 06:59 Intake Total 2135 1765.1 100 Output Total 2056 1070 100 Balance 79 695.1 0 Result Diagrams: 03/08/18 05:00 03/08/18 05:00 Additional Labs: Accuchecks 03/08/18 03/08/18 03/08/18 12:45 05:02 00:05 POC Glucose 212 H 217 H 206 H 03/07/18 17:26 POC Glucose 232 H Radiology Reviewed by me: Yes Phys Exam - Physical Examination Constitutional: NAD HEENT: PERRLA, moist MMs, sclera anicteric, oral pharynx no lesions orally intubated Neck: no nodes, no JVD, supple, full ROM coarse bilateral breath sounds Cardiovascular: RRR, no significant murmur, no rub Gastrointestinal: positive bowel sounds tense, distended Musculoskeletal: edema present Lymphatic: no nodes Skin: no rash, normal turgor, cap refill <2 seconds Dx/Plan (1) Acute respiratory failure Code(s): J96.00 - ACUTE RESPIRATORY FAILURE, UNSP W HYPOXIA OR HYPERCAPNIA Status: Acute Qualifiers: Respiratory failure complication: hypoxia Qualified Code(s): J96.01 - Acute respiratory failure with hypoxia Comment: on ventilator, pulm managing (2) CKD (chronic kidney disease) stage 5, GFR less than 15 ml/min Code(s): N18.5 - CHRONIC KIDNEY DISEASE, STAGE 5 Status: Chronic Comment: on HD at present (3) PEG tube malfunction Code(s): K94.23 - GASTROSTOMY MALFUNCTION Status: Acute (4) Thrombocytopenia Code(s): D69.6 - THROMBOCYTOPENIA, UNSPECIFIED Status: Acute Comment: stable at 75K (5) Hypokalemia Code(s): E87.6 - HYPOKALEMIA Status: Resolved (6) FRANCIS (acute kidney injury) Code(s): N17.9 - ACUTE KIDNEY FAILURE, UNSPECIFIED Status: Acute Comment: stable (7) Acute encephalopathy Code(s): G93.40 - ENCEPHALOPATHY, UNSPECIFIED Status: Resolved Comment: sec to massive cva - stable (8) Dysphagia Code(s): R13.10 - DYSPHAGIA, UNSPECIFIED Status: Acute Qualifiers: Dysphagia type: unspecified Qualified Code(s): R13.10 - Dysphagia, unspecified Comment: s/p peg (9) FTT (failure to thrive) in adult Status: Chronic (10) Hemiplegia affecting left nondominant side Code(s): G81.94 - HEMIPLEGIA, UNSPECIFIED AFFECTING LEFT NONDOMINANT SIDE Status: Chronic Qualifiers: Hemiplegia type: flaccid (11) Metabolic acidosis Code(s): E87.2 - ACIDOSIS Status: Resolved (12) Diabetes Code(s): E11.9 - TYPE 2 DIABETES MELLITUS WITHOUT COMPLICATIONS Status: Chronic Qualifiers: Diabetes mellitus type: type 2 Diabetes mellitus fdc insulin use: without fdc use Diabetes mellitus complication status: with kidney complications Diabetes mellitus complication detail: with chronic kidney disease Chronic kidney disease stage: stage 4 (severe) Qualified Code(s): E11.22 - Type 2 diabetes mellitus with diabetic chronic kidney disease; N18.4 - Chronic kidney disease, stage 4 (severe); N18.4 - Chronic kidney disease, stage 4 (severe); N18.4 - Chronic kidney disease, stage 4 (severe); N18.4 - Chronic kidney disease, stage 4 (severe) (13) Hyperlipidemia Code(s): E78.5 - HYPERLIPIDEMIA, UNSPECIFIED Status: Chronic Qualifiers: Hyperlipidemia type: unspecified Qualified Code(s): E78.5 - Hyperlipidemia , unspecified (14) Hypertension Code(s): I10 - ESSENTIAL (PRIMARY) HYPERTENSION Status: Chronic Qualifiers: Hypertension type: essential hypertension Qualified Code(s): I10 - Essential (primary) hypertension (15) Hypertensive urgency Code(s): I16.0 - HYPERTENSIVE URGENCY Status: Resolved - Plan * .
--- NOTE | 2018-03-08 14:41 | PQF ---
DATE: 03-08-18 ATTN: DR. ALBERTO KAPOOR Please exercise your independent, professional judgment in responding to the clarification form. Clinical indicators are provided on the bottom of this form for your review Please check appropriate box(s) to clarify if the following diagnosis has been ruled in or ruled out: SEPSIS [ x ] Ruled in diagnosis [ x ] Continue to treat [ ] Resolved [ ] Ruled out diagnosis [ ] Other diagnosis [ ] Unable to determine In addition, please specify: Present on Admission (POA): [ x ] Yes [ ] No [ ] Unable to determine For continuity of documentation, please document condition throughout progress notes and discharge summary. Thank You. CLINICAL INDICATORS - SIGNS / SYMPTOMS / LABS H&P: PEG TUBE MALFUNCTION, POSSIBLE SEPSIS, HYPOGLYCEMIA, HYPERNATREMIA, MODERATE TO SEVERE DEHYDRATION PROGRESS NOTE DR. SAMPSON 03-02-18: ACUTE METABOLIC ACIDOSIS, ACUTE THROMBOCYTOPENIA, ABDOMINAL WOUND WBC: 02-23-18: 13.6, 02-26-18: 11.2, 02-27-18: 11.3, 03-04-18: 12.7 BANDS; 02-26-18: 5 18: 19 03-06-18: 17 18: 15 03-08-18: 16 TEMP: 03-08-18: 99.7, 99.7 RISK FACTORS: H&P: H/O CVA, DM 2, HTN, HX OF DYSPHAGIA WITH PEG TUBE FEEDING TREATMENTS: MAR: MAXIPIME 02-26-18: BC DRAWN H&P: SEPTIC WORKUP, EMPIRICALLY ON ZOSYN (This form is maintained as a part of the permanent medical record) 2014 [employer], [employer]. All Rights Reserved [email or web address] [email or web address] Office: [phone] KERI
[2018-03-08] MEDS: Cefepime 1 GM in Sodium Chloride 0.9% 100 ML IVPB SCH (14:43)
--- NOTE | 2018-03-08 17:43 | PRG ---
DATE OF SERVICE: 03/08/2018 Mg Vogel is doing well today. She is tolerating her tube feeds. She remains on the ventilat or. Dr. Carolina is talking to the family regarding long-term care. She possible may need a tracheos jocelyne. PHYSICAL EXAMINATION: LUNGS: Clear to auscultation. CARDIAC: Regular rate and rhythm without murmur or gallop. ABDOMEN: Soft, plus bowel sounds. LABORATORY DATA: White count 7, hemoglobin 9.4. Basic metabolic profile unremarkable. Potassium 3. 1. ASSESSMENT AND PLAN: 1. Tolerating tube feedings. Discontinue TPN. 2. Respiratory failure, tracheostomy per pending discussion, Dr. Carolina with family. 3. Devastating stroke, long-term poor prognosis, LTAC destination in the future.
[2018-03-09] MEDS: Metoprolol Tartrate 5 MG/5 ML VIAL IVP SCH ×4 (05:03→21:09)
[2018-03-09 06:14] LABS: ALT (SGPT) 43 U/L (8-55); AST (SGOT) 56 U/L (5-34); Albumin 2.6 g/dL (3.4-4.8); Alkaline Phosphatase 212 U/L (40-150); Anion Gap 11 mmol/L (10-20); BUN (Urea Nitrogen) 22 mg/dL (9.8-20.1); Calc. Creatinine Clearance 35 mL/min (70-130); Calcium 8.2 mg/dL (7.8-10.44); Carbon Dioxide 29 mmol/L (23-31); Chloride 100 mmol/L (98-107); Estimated GFR-MDRD 29; Glucose 231 mg/dL (83-110); Magnesium 1.7 mg/dL (1.6-2.6); Potassium 3.6 mmol/L (3.5-5.1); Protein, Total 5.6 g/dL (6.0-8.3); Sodium 136 mmol/L (136-145)
[2018-03-09 06:34] LABS: Mean Corpuscular HGB CONC 30.6 g/dL (32.0-36.0); Mean Corpuscular Hemoglobin 27.4 pg (27.0-31.0); Mean Corpuscular Volume 89.7 fL (78.0-98.0); Mean Platelet Volume 10.5 fL (7.4-10.4); Platelet Count 48 thou/uL (130-400); RBC Distribution Width 15.7 % (11.5-14.5); Red Blood Cell (RBC) Count 3.66 mill/uL (4.20-5.40); White Blood Cell (WBC) Count 7.8 thou/uL (4.8-10.8)
[2018-03-09 07:00] LABS: Band 22 % (5-11); Eosinophils 1 % (0-10); Lymphocytes 9 % (21-51); Monocytes 12 % (0-10); Neutrophil 56 % (42-75)
[2018-03-09 07:01] LABS: Anisocytosis SLIGHT = 6-15 cells (100X) (0-5/hpf); Hypochromia SLIGHT = 6-15 cells (100X) (0-5/hpf); PLT Morphology Comment Appears Decreased; Polychromasia SLIGHT = 2-3 cells (100X) (0-2/hpf)
[2018-03-09 07:02] LABS: MDiff Complete? YES
[2018-03-09 07:11] LABS: Actual Bicarbonate (HCO3a) 26.6 mEq/L (22-28); Base Excess (BEa) 3.4 mEq/L (-2.0 to +3.0); CO2 Tension 34.8 mmHg (35.0-45.0); Carboxyhemoglobin (COHb) 2.2 gm% (0.0-3.0); Hemoglobin (Hb) 8.6 g/dL (12.0-16.0); O2 Tension (PaO2) 77.2 mmHg (> 70.0)
[2018-03-09 07:12] LABS: Potassium - ABG Lab 3.5 mmol/L (3.70-5.30); Puncture Site RR
[2018-03-09] MEDS: Albuterol Sulfate 2.5 mg/3 ml Neb NEB SCH ×3 (07:40→18:38)
[2018-03-09] MEDS ORDERED: Activase 2 MG VIAL CATH SCH (08:30)
--- NOTE | 2018-03-09 08:37 | RAD ---
PORTABLE CHEST: Date: 03/09/18 HISTORY: On ventilator. CCU follow-up. COMPARISON: 03/08/18. FINDINGS/IMPRESSION: There is cardiomegaly and mild vascular congestion. There is hazy alveolar infiltrate throughout the right lung which could represent asymmetric edema or inflammatory process. I cannot exclude small eff usions. POS: [facility]
[2018-03-09] MEDS ORDERED: Sterile Water 10 ML VIAL IVP SCH ×2 (09:00)
[2018-03-09] MEDS: Cefepime 1 GM in Sodium Chloride 0.9% 100 ML IVPB SCH (09:46)
[2018-03-09] MEDS: Pantoprazole 40 MG VIAL IVP SCH (09:47)
[2018-03-09] MEDS: Amlodipine 5 MG TAB PO SCH ×2 (09:47→21:08)
[2018-03-09] MEDS: Insulin Glargine 20 UNITS in Pre-Filled Syringe 1 EACH SC SCH ×2 (09:47→21:38)
[2018-03-09] MEDS: HumaLOG 300 UNITS/3 ML VIAL SC PRN ×2 (09:48→15:27)
[2018-03-09] MEDS: Preparation H HC 1% Cream 26 GM TUBE TOP SCH ×2 (09:50→21:09)
--- NOTE | 2018-03-09 10:01 | PRG ---
DATE OF SERVICE: 03/09/2018 Thirty-five minutes critical care time. SUBJECTIVE: The patient remains intubated on mechanical ventilation. She is on basically no sedation at this time. She will move around to stimulation, but does not follow commands consistently. PHYSICAL EXAMINATION: VITAL SIGNS: On exam, temperature is 99.0 with a T-max of 100.1, pulse 90, blood pressure 168/51. A 24-hour intake 1765, output 1070 including 4100 in dialysis removed yesterday. HEENT EXAM: Pupils 3 mm and reactive. Sclerae icteric. Oropharynx: ET tube in place. NECK: No JVD. CHEST: Clear. CARDIAC: S1 and S2, regular. ABDOMEN: Soft, nontender. EXTREMITIES: Edematous throughout. IMAGING: Her chest x-ray shows no acute change. She has pulmonary edema versus infiltrate, which is most prominent in the right chest. LABORATORY DATA: White blood cell count 7.8, hematocrit 32.8, platelet count 48. PH 7.50, pCO2 of 34, pO2 of 77 that is on CPAP 5, pressure support 10, FiO2 25%. Sodium 136, potassium 3.6, chloride 100, CO2 of 29, BUN 22, creatinine 2.1, glucose 231. ASSESSMENT: 1. Acute respiratory failure, requiring mechanical ventilation. 2. Renal insufficiency, requiring hemodialysis. 3. Cerebrovascular accident. 4. Hypertension. PLAN: I met with the patient's daughter yesterday. I have told her that I had grave concerns that the patient would be able to maintain her airway once extubated, and based on that, she may end up needing a tracheostomy. I was very direct with her regarding the future of the patient's care should she had to have a tracheostomy. The patient wanted to discuss this with her family and get back with me. I think that is reasonable. In the meantime, we will continue present care, which is basically supportive in nature with mechanical ventilation and tube feedings. The above encompassed 35 minutes critical care time. 30 minute meeting with daughter and son today. The son seems a little reluctant to withdraw care and says they need more time to make a family decision. KERI
[2018-03-09] MEDS: hydrALAZINE 20 MG/ML VIAL SLOW IVP PRN ×2 (13:11→18:12)
[2018-03-10] MEDS: Albuterol Sulfate 2.5 mg/3 ml Neb NEB SCH ×4 (00:26→19:15)
[2018-03-10] MEDS: Metoprolol Tartrate 5 MG/5 ML VIAL IVP SCH ×4 (02:43→20:14)
[2018-03-10] MEDS: Labetalol HCl 100 MG/20 ML VIAL SLOW IVP PRN (05:08)
[2018-03-10] MEDS: HumaLOG 300 UNITS/3 ML VIAL SC PRN (05:09)
[2018-03-10 05:41] LABS: ALT (SGPT) 43 U/L (8-55); AST (SGOT) 74 U/L (5-34); Albumin 2.7 g/dL (3.4-4.8); Alkaline Phosphatase 275 U/L (40-150); Anion Gap 14 mmol/L (10-20); BUN (Urea Nitrogen) 39 mg/dL (9.8-20.1); Bilirubin, Total 2.2 mg/dL (0.2-1.2); Calc. Creatinine Clearance 23 mL/min (70-130); Calcium 8.6 mg/dL (7.8-10.44); Carbon Dioxide 27 mmol/L (23-31); Chloride 99 mmol/L (98-107); Estimated GFR-MDRD 17; Globulin 3.4 g/dL (2.4-3.5); Glucose 198 mg/dL (83-110); Magnesium 1.7 mg/dL (1.6-2.6); Phosphorus 1.6 mg/dL (2.3-4.7); Potassium 3.7 mmol/L (3.5-5.1); Protein, Total 6.1 g/dL (6.0-8.3); Sodium 136 mmol/L (136-145)
[2018-03-10 05:45] LABS: Hemoglobin 9.1 g/dL (12.0-16.0); Mean Corpuscular HGB CONC 34.3 g/dL (32.0-36.0); Mean Corpuscular Volume 90.2 fL (78.0-98.0); Mean Platelet Volume 10.1 fL (7.4-10.4); Platelet Count 58 thou/uL (130-400); Red Blood Cell (RBC) Count 2.92 mill/uL (4.20-5.40); White Blood Cell (WBC) Count 7.6 thou/uL (4.8-10.8)
[2018-03-10 05:54] LABS: Band 8 % (5-11); Eosinophils 1 % (0-10); Lymphocytes 20 % (21-51); MDiff Complete? YES; Monocytes 14 % (0-10); Neutrophil 57 % (42-75); PLT Morphology Comment Appears Decreased
[2018-03-10 07:22] LABS: Actual Bicarbonate (HCO3a) 26.8 mEq/L (22-28); Base Excess (BEa) 3.3 mEq/L (-2.0 to +3.0); O2 Tension (PaO2) 86.3 mmHg (> 70.0); pH, Arterial 7.49 (7.35-7.45)
[2018-03-10 07:23] LABS: Calcium, Ionized 1.1 mmol/L (1.12-1.30); Carboxyhemoglobin (COHb) 1.7 gm% (0.0-3.0); Hemoglobin (Hb) 8.8 g/dL (12.0-16.0); Potassium - ABG Lab 3.7 mmol/L (3.70-5.30); Puncture Site RR
--- NOTE | 2018-03-10 08:18 | RAD ---
PORTABLE CHEST: History: Respiratory distress. Comparison: Prior day's exam. FINDINGS: Endotracheal tube is in satisfactory position. Central lines appear unchanged in position. Parenchyma l changes show some improvement to the right basilar lung change. IMPRESSION: Slight improvement to the right basilar lung change. Otherwise, essentially stable chest. POS: [facility]
--- NOTE | 2018-03-10 08:39 | PRG ---
DATE OF SERVICE: 03/10/2018 This is 35 minutes critical care time. Ms. Vogel remains intubated on mechanical ventilation. Her family has not gotten back to me with a decision regarding potential tracheostomy placement. The patient has been off sedation for quite s ome time and I do not see any changes in her overall condition. PHYSICAL EXAMINATION: VITAL SIGNS: Her temperature is 100.5 with a T-max of 100.9, pulse 86, blood pressure 163/50, 24-oscar r intake 1065, output 135. Also, she had about 4100 taken out by dialysis yesterday. HEENT: Unremarkable. NECK: No JVD. LUNGS: Clear, but distant breath sounds. CARDIAC: S1 and S2 regular. ABDOMEN: Soft. EXTREMITIES: Edematous throughout. LABORATORY DATA: White blood cell count 7.6, hematocrit 26.4, platelet count 58, pH 7.49, pCO2 36, p O2 of 86 on CPAP 5, pressure support 10. Sodium 136, potassium 3.7, chloride 99, CO2 27, BUN 39, cre atinine 3.2, glucose 198. ASSESSMENT: 1. Acute on chronic respiratory failure requiring mechanical ventilation. 2. Severe neurologic deficit, status post stroke. 3. Renal insufficiency requiring hemodialysis. 4. Thrombocytopenia. PLAN: Again, I do not have any confidence that this patient can maintain her airway, extubated. I t hink the family is faced with the decision of either putting a tracheostomy in and enduring rehab and perhaps chcf placement versus extubation and comfort care type measures. I believe her long -term prognosis is extremely poor with whatever choice the family makes.
--- NOTE | 2018-03-10 09:57 | PRG ---
DATE OF SERVICE: 03/10/2018 SERVICE: Renal Medicine. SUBJECTIVE: Ms. Vogel is a 72-year-old black female with chronic renal failure/end-stage renal di sease and currently being followed by the Renal Service for her maintenance hemodialysis. I placed h er on 3 times a week hemodialysis. I am currently at the bedside supervising her dialysis. She was noted to have a low grade fever to date. Blood culture has been ordered. No other acute events. patient is still not a candidate for extubation. Tracheostomy is being considered. OBJECTIVE: VITAL SIGNS: Blood pressure is 159/46, heart rate 88, respiratory rate 20, temperature is 100, pulse ox 99%. GENERAL: The patient is arousable, intubated on ventilator support. SKIN: Adequate turgor. HEENT: She has slightly pale conjunctivae, anicteric sclerae. NECK: No neck mass, no carotid bruits, no JVD. CHEST: No deformities. LUNGS: Decreased breath sounds. HEART: Normal sinus rhythm. No murmur, no gallops, no rubs. ABDOMEN: Globular, soft, nontender, no masses. Positive for surgical wound plus wound VAC. EXTREMITIES: No edema. MEDICATIONS: Of 03/10/2018 was reviewed. LABORATORY DATA: Of 03/10/2018, white count 7.6, hemoglobin 9.1. Sodium 136, potassium 3.7, chlorid e 99, carbon dioxide 27, BUN 39, creatinine 3.27, glucose 190, magnesium 1.7, phosphorus 1.6. Albumi n is 2.7. ASSESSMENT AND PLAN: 1. Chronic renal failure/end-stage renal disease - Continue maintenance hemodialysis of Wednesday, Wed, and Wednesday. Again, fluid removal as tolerated. I am at the bedside supervising her dialysi s. Attempting 3.5 liter of fluid removal. Please note, the patient still on TPN. 2. Mild hypophosphatemia, adjusting TPN. 3. Anemia, continuing weekly Epogen. 4. Status post cerebrovascular accident - left hemiplegia, supportive care. 5. Acute respiratory failure - patient is being considered for tracheostomy. 6. Fever, on cefepime. Repeat blood culture x2. Overall, prognosis remains guarded.
[2018-03-10] MEDS: hydrALAZINE 20 MG/ML VIAL SLOW IVP PRN ×2 (11:44→18:12)
[2018-03-10] MEDS: Preparation H HC 1% Cream 26 GM TUBE TOP SCH ×2 (11:44→20:11)
[2018-03-10] MEDS ORDERED: Heparin 10,000 UNITS/ 10 ML VIAL ONE (12:00)
[2018-03-10] MEDS: Cefepime 1 GM in Sodium Chloride 0.9% 100 ML IVPB SCH (12:49)
[2018-03-10] MEDS: Pantoprazole 40 MG VIAL IVP SCH (12:50)
[2018-03-10] MEDS: Amlodipine 5 MG TAB PO SCH ×2 (12:54→20:10)
[2018-03-10] MEDS: Insulin Glargine 20 UNITS in Pre-Filled Syringe 1 EACH SC SCH ×2 (12:54→20:11)
--- NOTE | 2018-03-10 13:17 | PDOC.PN ---
- Subjective Encounter Start Date: 03/09/18 Encounter Start Time: 09:00 -: non-verbal remained intubated, arousable, following simple commands. No fevers overnight, no N/V, no diarrhea. no fmaily at bedside. ROs not obtainable - Objective Resuscitation Status: Resuscitation Status FULL:Full Resuscitation MAR Reviewed: Yes Vital Signs & Weight: Vital Signs (12 hours) Temp Pulse Resp BP 03/10/18 12:32 95 162/50 H 03/10/18 12:00 19 03/10/18 11:00 99.4 F 03/10/18 10:36 92 163/49 H 03/10/18 10:00 21 H 03/10/18 08:00 100.0 F H 84 21 H 03/10/18 07:14 88 168/51 H 03/10/18 06:00 22 H 03/10/18 05:08 92 171/53 H 03/10/18 04:03 92 03/10/18 04:00 100.5 F H 03/10/18 03:53 24 H 03/10/18 02:00 27 H Weight Admit Weight 194 lb 7.163 oz Weight 203 lb 0.732 oz Most Recent Monitor Data Heart Rate from ECG 91 NIBP 172/53 NIBP BP-Mean 108 Respiration from ECG 16 SpO2 97 I&O: 03/09/18 03/10/18 03/11/18 06:59 06:59 06:59 Intake Total 1740.2 1065 Output Total 362 725 0526 Balance 950.2 930 -1045 Result Diagrams: 03/10/18 05:10 03/10/18 05:10 Additional Labs: Accuchecks 03/10/18 03/10/18 03/09/18 05:01 00:11 15:26 POC Glucose 191 H 176 H 186 H Radiology Reviewed by me: Yes EKG Reviewed by me: Yes Phys Exam - Physical Examination Constitutional: NAD HEENT: PERRLA, moist MMs, sclera anicteric, oral pharynx no lesions orally intubated Neck: no nodes, no JVD, supple, full ROM Respiratory: no wheezing, no rhonchi bibasilar crackles, no wheezes or rhonchi Cardiovascular: RRR, no rub Gastrointestinal: soft, non-tender, positive bowel sounds distended and tympanitic Musculoskeletal: edema present Left hemiplegia, neglect Lymphatic: no nodes Skin: no rash, normal turgor, cap refill <2 seconds Dx/Plan (1) Acute respiratory failure Code(s): J96.00 - ACUTE RESPIRATORY FAILURE, UNSP W HYPOXIA OR HYPERCAPNIA Status: Acute Qualifiers: Respiratory failure complication: hypoxia Qualified Code(s): J96.01 - Acute respiratory failure with hypoxia Comment: on ventilator, pulm managing. Not weaning (2) CKD (chronic kidney disease) stage 5, GFR less than 15 ml/min Code(s): N18.5 - CHRONIC KIDNEY DISEASE, STAGE 5 Status: Chronic Comment: on HD at present (3) PEG tube malfunction Code(s): K94.23 - GASTROSTOMY MALFUNCTION Status: Resolved (4) Thrombocytopenia Code(s): D69.6 - THROMBOCYTOPENIA, UNSPECIFIED Status: Acute Comment: stable at 75K (5) Hypokalemia Code(s): E87.6 - HYPOKALEMIA Status: Resolved (6) FRANCIS (acute kidney injury) Code(s): N17.9 - ACUTE KIDNEY FAILURE, UNSPECIFIED Status: Acute Comment: stable (7) Acute encephalopathy Code(s): G93.40 - ENCEPHALOPATHY, UNSPECIFIED Status: Resolved Comment: sec to massive cva - stable (8) Dysphagia Code(s): R13.10 - DYSPHAGIA, UNSPECIFIED Status: Acute Qualifiers: Dysphagia type: unspecified Qualified Code(s): R13.10 - Dysphagia, unspecified Comment: s/p peg (9) FTT (failure to thrive) in adult Status: Chronic (10) Hemiplegia affecting left nondominant side Code(s): G81.94 - HEMIPLEGIA, UNSPECIFIED AFFECTING LEFT NONDOMINANT SIDE Status: Chronic Qualifiers: Hemiplegia type: flaccid (11) Metabolic acidosis Code(s): E87.2 - ACIDOSIS Status: Resolved (12) Diabetes Code(s): E11.9 - TYPE 2 DIABETES MELLITUS WITHOUT COMPLICATIONS Status: Chronic Qualifiers: Diabetes mellitus type: type 2 Diabetes mellitus tariff publishing agent insulin use: without tariff publishing agent use Diabetes mellitus complication status: with kidney complications Diabetes mellitus complication detail: with chronic kidney disease Chronic kidney disease stage: stage 4 (severe) Qualified Code(s): E11.22 - Type 2 diabetes mellitus with diabetic chronic kidney disease; N18.4 - Chronic kidney disease, stage 4 (severe); N18.4 - Chronic kidney disease, stage 4 (severe); N18.4 - Chronic kidney disease, stage 4 (severe); N18.4 - Chronic kidney disease, stage 4 (severe) (13) Hyperlipidemia Code(s): E78.5 - HYPERLIPIDEMIA, UNSPECIFIED Status: Chronic Qualifiers: Hyperlipidemia type: unspecified Qualified Code(s): E78.5 - Hyperlipidemia , unspecified (14) Hypertension Code(s): I10 - ESSENTIAL (PRIMARY) HYPERTENSION Status: Chronic Qualifiers: Hypertension type: essential hypertension Qualified Code(s): I10 - Essential (primary) hypertension (15) Hypertensive urgency Code(s): I16.0 - HYPERTENSIVE URGENCY Status: Resolved - Plan * .
--- NOTE | 2018-03-10 13:19 | PDOC.PN ---
- Subjective Encounter Start Date: 03/10/18 Encounter Start Time: 11:30 -: non-verbal Pt awake, no changes. febrile to 100.9 earlier, down to 100.0 now family meeting with PC RN now regarding trach, current plan is to 'decide by wednesday' No acute events otherwise ROS not obtainable - Objective Resuscitation Status: Resuscitation Status FULL:Full Resuscitation MAR Reviewed: Yes Vital Signs & Weight: Vital Signs (12 hours) Temp Pulse Resp BP 03/10/18 12:32 95 162/50 H 03/10/18 12:00 19 03/10/18 11:00 99.4 F 03/10/18 10:36 92 163/49 H 03/10/18 10:00 21 H 03/10/18 08:00 100.0 F H 84 21 H 03/10/18 07:14 88 168/51 H 03/10/18 06:00 22 H 03/10/18 05:08 92 171/53 H 03/10/18 04:03 92 03/10/18 04:00 100.5 F H 03/10/18 03:53 24 H 03/10/18 02:00 27 H Weight Admit Weight 194 lb 7.163 oz Weight 203 lb 0.732 oz Most Recent Monitor Data Heart Rate from ECG 91 NIBP 172/53 NIBP BP-Mean 108 Respiration from ECG 16 SpO2 97 I&O: 03/09/18 03/10/18 03/11/18 06:59 06:59 06:59 Intake Total 1740.2 1065 Output Total 706 969 9791 Balance 950.2 930 -1045 Result Diagrams: 03/10/18 05:10 03/10/18 05:10 Additional Labs: Accuchecks 03/10/18 03/10/18 03/09/18 05:01 00:11 15:26 POC Glucose 191 H 176 H 186 H Phys Exam - Physical Examination Constitutional: NAD HEENT: PERRLA, moist MMs, sclera anicteric, oral pharynx no lesions orally intubated Neck: no nodes, no JVD, supple, full ROM Respiratory: no wheezing, no rhonchi, clear to auscultation bilateral Cardiovascular: RRR, no significant murmur, no rub Gastrointestinal: soft, non-tender, no distention, positive bowel sounds Musculoskeletal: pulses present, edema present Left hemiplegia and neglect - stable Lymphatic: no nodes Skin: no rash, normal turgor, cap refill <2 seconds Dx/Plan (1) Acute respiratory failure Code(s): J96.00 - ACUTE RESPIRATORY FAILURE, UNSP W HYPOXIA OR HYPERCAPNIA Status: Acute Qualifiers: Respiratory failure complication: hypoxia Qualified Code(s): J96.01 - Acute respiratory failure with hypoxia Comment: on ventilator, pulm managing. Not weaning (2) CKD (chronic kidney disease) stage 5, GFR less than 15 ml/min Code(s): N18.5 - CHRONIC KIDNEY DISEASE, STAGE 5 Status: Chronic Comment: on HD at present (3) PEG tube malfunction Code(s): K94.23 - GASTROSTOMY MALFUNCTION Status: Resolved (4) Thrombocytopenia Code(s): D69.6 - THROMBOCYTOPENIA, UNSPECIFIED Status: Acute Comment: stable at 75K (5) Hypokalemia Code(s): E87.6 - HYPOKALEMIA Status: Resolved (6) FRANCIS (acute kidney injury) Code(s): N17.9 - ACUTE KIDNEY FAILURE, UNSPECIFIED Status: Acute Comment: stable (7) Acute encephalopathy Code(s): G93.40 - ENCEPHALOPATHY, UNSPECIFIED Status: Resolved Comment: sec to massive cva - stable (8) Dysphagia Code(s): R13.10 - DYSPHAGIA, UNSPECIFIED Status: Acute Qualifiers: Dysphagia type: unspecified Qualified Code(s): R13.10 - Dysphagia, unspecified Comment: s/p peg (9) FTT (failure to thrive) in adult Status: Chronic (10) Hemiplegia affecting left nondominant side Code(s): G81.94 - HEMIPLEGIA, UNSPECIFIED AFFECTING LEFT NONDOMINANT SIDE Status: Chronic Qualifiers: Hemiplegia type: flaccid (11) Metabolic acidosis Code(s): E87.2 - ACIDOSIS Status: Resolved (12) Diabetes Code(s): E11.9 - TYPE 2 DIABETES MELLITUS WITHOUT COMPLICATIONS Status: Chronic Qualifiers: Diabetes mellitus type: type 2 Diabetes mellitus long term care pharmacist insulin use: without long term care pharmacist use Diabetes mellitus complication status: with kidney complications Diabetes mellitus complication detail: with chronic kidney disease Chronic kidney disease stage: stage 4 (severe) Qualified Code(s): E11.22 - Type 2 diabetes mellitus with diabetic chronic kidney disease; N18.4 - Chronic kidney disease, stage 4 (severe); N18.4 - Chronic kidney disease, stage 4 (severe); N18.4 - Chronic kidney disease, stage 4 (severe); N18.4 - Chronic kidney disease, stage 4 (severe) (13) Hyperlipidemia Code(s): E78.5 - HYPERLIPIDEMIA, UNSPECIFIED Status: Chronic Qualifiers: Hyperlipidemia type: unspecified Qualified Code(s): E78.5 - Hyperlipidemia , unspecified (14) Hypertension Code(s): I10 - ESSENTIAL (PRIMARY) HYPERTENSION Status: Chronic Qualifiers: Hypertension type: essential hypertension Qualified Code(s): I10 - Essential (primary) hypertension (15) Hypertensive urgency Code(s): I16.0 - HYPERTENSIVE URGENCY Status: Resolved - Plan * .
[2018-03-11] MEDS: Albuterol Sulfate 2.5 mg/3 ml Neb NEB SCH ×5 (01:50→23:44)
[2018-03-11] MEDS: Metoprolol Tartrate 5 MG/5 ML VIAL IVP SCH ×4 (03:18→21:31)
[2018-03-11 03:57] LABS: Cardiac Risk 6.3 (Less than 4.5)
[2018-03-11 03:59] LABS: ALT (SGPT) 40 U/L (8-55); AST (SGOT) 72 U/L (5-34); Albumin 2.6 g/dL (3.4-4.8); Alkaline Phosphatase 267 U/L (40-150); Anion Gap 10 mmol/L (10-20); BUN (Urea Nitrogen) 35 mg/dL (9.8-20.1); Calc. Creatinine Clearance 26 mL/min (70-130); Calcium 8.5 mg/dL (7.8-10.44); Carbon Dioxide 31 mmol/L (23-31); Chloride 99 mmol/L (98-107); Estimated GFR-MDRD 20; Globulin 3.2 g/dL (2.4-3.5); Glucose 126 mg/dL (83-110); Magnesium 1.5 mg/dL (1.6-2.6); Phosphorus 2.2 mg/dL (2.3-4.7); Potassium 4.2 mmol/L (3.5-5.1); Protein, Total 5.8 g/dL (6.0-8.3); Sodium 136 mmol/L (136-145)
[2018-03-11 04:45] LABS: Band 10 % (5-11); Hemoglobin 8.1 g/dL (12.0-16.0); Hypochromia SLIGHT = 6-15 cells (100X) (0-5/hpf); Lymphocytes 4 % (21-51); MDiff Complete? YES; Mean Corpuscular HGB CONC 34.5 g/dL (32.0-36.0); Mean Corpuscular Hemoglobin 31.1 pg (27.0-31.0); Mean Corpuscular Volume 90.4 fL (78.0-98.0); Mean Platelet Volume 9.9 fL (7.4-10.4); Monocytes 13 % (0-10); Neutrophil 73 % (42-75); Nucleated RBC 1 % (0); PLT Morphology Comment Appears Decreased; Platelet Count 47 thou/uL (130-400); RBC Distribution Width 15.7 % (11.5-14.5); Red Blood Cell (RBC) Count 2.61 mill/uL (4.20-5.40); White Blood Cell (WBC) Count 6.7 thou/uL (4.8-10.8)
[2018-03-11 06:30] LABS: INR-International Normal Ratio 1.2; PTT 38.3 SEC (22.9-36.1); Prothrombin Time 15.1 SEC (12.0-14.7)
[2018-03-11] MEDS: Sodium Chloride 0.45% 1,000 ML IV SCH ×2 (08:48→21:31)
--- NOTE | 2018-03-11 08:58 | RAD ---
CHEST 1 VIEW: Date: 03/11/18 HISTORY: Dyspnea. Respiratory distress. COMPARISON: 03/10/18. FINDINGS: Cardiac silhouette is magnified and enlarged. Pulmonary vasculature remains engorged. Opacity through out the right chest has increased since the prior study. Mediastinum is midline. Lines and tubes appe ar unchanged in position. No evidence of pneumothorax. IMPRESSION: 1. Opacification of the right hemithorax has reworsened since the previous exam. Possible right pleu ral fluid. 2. Cardiomegaly and pulmonary vascular congestion are otherwise stable. POS: [facility]
[2018-03-11] MEDS: Pantoprazole 40 MG VIAL IVP SCH (09:06)
[2018-03-11] MEDS: Amlodipine 5 MG TAB PO SCH ×2 (09:06→21:30)
[2018-03-11] MEDS: Preparation H HC 1% Cream 26 GM TUBE TOP SCH ×2 (09:07→21:30)
[2018-03-11] MEDS: Cefepime 1 GM in Sodium Chloride 0.9% 100 ML IVPB SCH (09:44)
[2018-03-11] MEDS: Insulin Glargine 20 UNITS in Pre-Filled Syringe 1 EACH SC SCH ×2 (09:44→21:30)
--- NOTE | 2018-03-11 09:45 | PRG ---
DATE OF SERVICE: 03/11/2018 Thirty-five minutes critical care time. The patient remains intubated on mechanical ventilation. The family has not decided how they want to proceed with her care yet. PHYSICAL EXAMINATION: VITAL SIGNS: Temperature is 98, pulse 85, blood pressure 175/52. 24 hour intake 1146, output 1165. HEENT: Unremarkable. NECK: No JVD. Endotracheal tube in place. LUNGS: Coarse breath sounds. CARDIAC: S1 and S2 regular. ABDOMEN: Soft. EXTREMITIES: Trace edema. LABORATORY DATA: White blood cell count 6.7, hematocrit 23.6, platelet count 47. INR 1.2. Sodium 1 36, potassium 4.2, chloride 99, CO2 31, BUN 35, creatinine 2.8, glucose 126. ASSESSMENT: 1. Disabling stroke. 2. Acute respiratory failure with 1 failed extubation. 3. Severe neurologic deficit after the stroke. 4. Renal insufficiency requiring hemodialysis. 5. Thrombocytopenia. PLAN: We are still trying to get the family to give us guidance as to what direction they want to g o in terms of tracheostomy versus extubation and comfort measures. In the meantime we are continuing supportive care.
--- NOTE | 2018-03-11 10:15 | PRG ---
DATE OF SERVICE: 03/11/2018 RENAL MEDICINE SUBJECTIVE: Ms. Vogel is a 72-year-old black female with acute kidney injury/chronic renal failur e and has been placed on maintenance hemodialysis due to severe volume overload. No evidence of lore l recovery. She still could not be weaned from her ventilator. The plan is to consider tracheostomy . Please note, she recently was status post cerebrovascular accident with left hemiplegia. VITAL SIGNS: Blood pressure 171/54, heart rate 86, respiratory rate 20, pulse ox 99%. GENERAL: The patient is awake. Can follow simple commands, intubated on ventilator support. SKIN: Adequate turgor. HEENT: Slightly pale conjunctivae, anicteric sclerae. NECK: No neck mass, no carotid bruits, no JVD. CHEST: No deformities. LUNGS: Decreased breath sounds. HEART: Normal sinus rhythm. No murmurs, no gallops, no rubs. ABDOMEN: Globular, soft, nontender, no masses. Positive for PEG tube. EXTREMITIES: No edema. MEDICATIONS: Medications of 03/11/2018 was reviewed. LABORATORY DATA: Laboratories of 03/11/2018; white count 6.7, hemoglobin 8.1. Sodium 136, potassium 4.2, chloride 99, carbon dioxide 31, BUN 35, creatinine 2.85, glucose 126, magnesium 1.5, phosphorus 2.2, alkaline phosphatase 267, albumin 2.6. ASSESSMENT AND PLAN: 1. Chronic renal failure/end-stage renal disease - patient most likely has reached end-stage renal d isease. Continue current 3 times a week hemodialysis regimen. Again, fluid removal only as tolerate d by the patient. There is no indication for any emergent hemodialysis today. 2. Acute respiratory failure. The patient could not be weaned off. The plan is to have a tracheost dominik if family will agree with this. 3. Anemia, continuing weekly Epogen, p.r.n. blood transfusion.
--- NOTE | 2018-03-11 11:05 | PDOC.PN ---
- Subjective Encounter Start Date: 03/11/18 Encounter Start Time: 09:30 -: non-verbal Pt orally intubated, awake and alert, denies and F/C, no CP or SOB, no other pain, no N/V/d/C. TF off for possible trach this afternoon with Dr Hammond, Dr Hammond to meet with family this morning No acute overnight events ROS not obtainable - Objective Resuscitation Status: Resuscitation Status FULL:Full Resuscitation MAR Reviewed: Yes Vital Signs & Weight: Vital Signs (12 hours) Temp Pulse Resp BP Pulse Ox 03/11/18 09:55 82 185/55 H 03/11/18 09:06 86 171/54 H 03/11/18 08:00 99.4 F 86 20 99 03/11/18 07:44 86 171/54 H 03/11/18 06:00 18 03/11/18 04:34 88 184/56 H 03/11/18 04:00 22 H 03/11/18 02:03 88 03/11/18 01:50 99 Weight Admit Weight 194 lb 7.163 oz Weight 201 lb 9.6 oz Most Recent Monitor Data Heart Rate from ECG 81 NIBP 158/50 NIBP BP-Mean 118 Respiration from ECG 20 SpO2 99 I&O: 03/10/18 03/11/18 03/12/18 06:59 06:59 06:59 Intake Total 1065 1146 20 Output Total 135 1165 18 Balance 930 -19 2 Result Diagrams: 03/11/18 03:15 03/11/18 03:15 Additional Labs: Accuchecks 03/10/18 03/10/18 03/10/18 20:18 15:59 11:43 POC Glucose 137 H 164 H 147 H Radiology Reviewed by me: Yes EKG Reviewed by me: Yes Phys Exam - Physical Examination Constitutional: NAD HEENT: PERRLA, moist MMs, sclera anicteric, oral pharynx no lesions Neck: no nodes, no JVD, supple, full ROM Respiratory: no wheezing, no rales, no rhonchi, clear to auscultation bilateral Cardiovascular: RRR, no significant murmur, no rub Gastrointestinal: soft, non-tender, no distention, positive bowel sounds PEG C/D/I Musculoskeletal: pulses present, edema present left hemiplegia Lymphatic: no nodes Psychiatric: normal affect Skin: no rash, normal turgor, cap refill <2 seconds Dx/Plan (1) Acute respiratory failure Code(s): J96.00 - ACUTE RESPIRATORY FAILURE, UNSP W HYPOXIA OR HYPERCAPNIA Status: Acute Qualifiers: Respiratory failure complication: hypoxia Qualified Code(s): J96.01 - Acute respiratory failure with hypoxia Comment: on ventilator, pulm managing. Not weaning (2) CKD (chronic kidney disease) stage 5, GFR less than 15 ml/min Code(s): N18.5 - CHRONIC KIDNEY DISEASE, STAGE 5 Status: Chronic Comment: on HD at present (3) PEG tube malfunction Code(s): K94.23 - GASTROSTOMY MALFUNCTION Status: Resolved (4) Thrombocytopenia Code(s): D69.6 - THROMBOCYTOPENIA, UNSPECIFIED Status: Acute Comment: stable at 75K (5) Hypokalemia Code(s): E87.6 - HYPOKALEMIA Status: Resolved (6) FRANCIS (acute kidney injury) Code(s): N17.9 - ACUTE KIDNEY FAILURE, UNSPECIFIED Status: Acute Comment: stable (7) Acute encephalopathy Code(s): G93.40 - ENCEPHALOPATHY, UNSPECIFIED Status: Resolved Comment: sec to massive cva - stable (8) Dysphagia Code(s): R13.10 - DYSPHAGIA, UNSPECIFIED Status: Acute Qualifiers: Dysphagia type: unspecified Qualified Code(s): R13.10 - Dysphagia, unspecified Comment: s/p peg (9) FTT (failure to thrive) in adult Status: Chronic (10) Hemiplegia affecting left nondominant side Code(s): G81.94 - HEMIPLEGIA, UNSPECIFIED AFFECTING LEFT NONDOMINANT SIDE Status: Chronic Qualifiers: Hemiplegia type: flaccid (11) Metabolic acidosis Code(s): E87.2 - ACIDOSIS Status: Resolved (12) Diabetes Code(s): E11.9 - TYPE 2 DIABETES MELLITUS WITHOUT COMPLICATIONS Status: Chronic Qualifiers: Diabetes mellitus type: type 2 Diabetes mellitus heel finisher insulin use: without prison use Diabetes mellitus complication status: with kidney complications Diabetes mellitus complication detail: with chronic kidney disease Chronic kidney disease stage: stage 4 (severe) Qualified Code(s): E11.22 - Type 2 diabetes mellitus with diabetic chronic kidney disease; N18.4 - Chronic kidney disease, stage 4 (severe); N18.4 - Chronic kidney disease, stage 4 (severe); N18.4 - Chronic kidney disease, stage 4 (severe); N18.4 - Chronic kidney disease, stage 4 (severe) (13) Hyperlipidemia Code(s): E78.5 - HYPERLIPIDEMIA, UNSPECIFIED Status: Chronic Qualifiers: Hyperlipidemia type: unspecified Qualified Code(s): E78.5 - Hyperlipidemia , unspecified (14) Hypertension Code(s): I10 - ESSENTIAL (PRIMARY) HYPERTENSION Status: Chronic Qualifiers: Hypertension type: essential hypertension Qualified Code(s): I10 - Essential (primary) hypertension (15) Hypertensive urgency Code(s): I16.0 - HYPERTENSIVE URGENCY Status: Resolved - Plan * .
--- NOTE | 2018-03-11 16:28 | PRG ---
DATE OF SERVICE: 03/11/2018 SUBJECTIVE: Mg Vogel is doing well. OBJECTIVE: LUNGS: Clear to auscultation. She is awake on the ventilator. CARDIAC: Regular rate and rhythm without murmur or gallop. ABDOMEN: Soft. I have discussed with Dr. Carolina. The patient is felt that she would not do well off the ventilator and family has not consented to tracheostomy nor they consented to a DNR or palliative care. Today, I had a long discussion with the patient's daughter, Ata, and she has another family member on the line that is dialysis nurse. We had a long discussion regarding her care. I recommended marie tment options either tracheostomy with or without DNR, transferred to an LTAC versus DNR and extubati on with agreement that she would not be intubated thus avoiding tracheostomy. Family, however, does not want to make a decision until Wednesday (today is Wednesday). I will be out of town next week. Dr. Veena gomez is covering for me. If she needs tracheostomy, please call Dr. Ocasio. Her gastrostomy tube is functioning well. Her laboratories are acceptable. Her renal function is improving. BUN 35, creatinine 2.8, GFR 20. Urine output 165 for 24 hours. ASSESSMENT: 1. Oliguric renal failure with a past history of chronic kidney disease. I doubt she will enjoy muc h renal recovery and most likely is destined for long-term dialysis. 2. Respiratory failure, on ventilator. We will need tracheostomy most likely versus hospice care. 3. Large stroke, nonambulatory, doubt that she will be ambulation in the future and have discussed w ith family risk of decubitus, urinary tract infection, pneumonia associated with her immobility.
[2018-03-12] MEDS: Metoprolol Tartrate 5 MG/5 ML VIAL IVP SCH ×4 (02:50→20:14)
[2018-03-12 05:39] LABS: Anion Gap 11 mmol/L (10-20); BUN (Urea Nitrogen) 51 mg/dL (9.8-20.1); Calc. Creatinine Clearance 19 mL/min (70-130); Calcium 8.4 mg/dL (7.8-10.44); Carbon Dioxide 29 mmol/L (23-31); Chloride 98 mmol/L (98-107); Estimated GFR-MDRD 14; Glucose 73 mg/dL (83-110); Potassium 4.4 mmol/L (3.5-5.1); Sodium 134 mmol/L (136-145)
[2018-03-12 05:40] LABS: Band 9 % (5-11); Eosinophils 2 % (0-10); Hemoglobin 8.1 g/dL (12.0-16.0); Lymphocytes 11 % (21-51); MDiff Complete? YES; Mean Corpuscular HGB CONC 34.6 g/dL (32.0-36.0); Mean Corpuscular Hemoglobin 31.4 pg (27.0-31.0); Mean Corpuscular Volume 90.7 fL (78.0-98.0); Metamyelocyte 1 % (0-0); Monocytes 4 % (0-10); Neutrophil 72 % (42-75); PLT Morphology Comment Appears Decreased; Platelet Count 31 thou/uL (130-400); RBC Distribution Width 15.6 % (11.5-14.5); Red Blood Cell (RBC) Count 2.56 mill/uL (4.20-5.40); Target Cells SLIGHT = 2-5 cells (100X) (0-1/hpf); Vacuoles SLIGHT; White Blood Cell (WBC) Count 6.7 thou/uL (4.8-10.8)
[2018-03-12] MEDS: Albuterol Sulfate 2.5 mg/3 ml Neb NEB SCH ×3 (07:38→18:46)
[2018-03-12] MEDS: Amlodipine 5 MG TAB PO SCH ×2 (09:07→20:14)
[2018-03-12] MEDS: Preparation H HC 1% Cream 26 GM TUBE TOP SCH ×2 (09:08→20:25)
[2018-03-12] MEDS: Cefepime 1 GM in Sodium Chloride 0.9% 100 ML IVPB SCH (09:09)
[2018-03-12] MEDS: Pantoprazole 40 MG VIAL IVP SCH (09:09)
[2018-03-12] MEDS: Sodium Chloride 0.45% 1,000 ML IV SCH ×2 (09:09→22:51)
[2018-03-12] MEDS: Insulin Glargine 20 UNITS in Pre-Filled Syringe 1 EACH SC SCH ×2 (09:41→20:14)
--- NOTE | 2018-03-12 13:12 | PRG ---
DATE OF SERVICE: 03/12/2018 SUBJECTIVE: Ms. Vogel is a 72-year-old black female who seen by the Renal Service for her chroni c renal failure. She has been initiated on hemodialysis due to volume overload and progressive worse angela of the renal dysfunction. She is currently on maintenance hemodialysis Wednesday, , and . I have scheduled her for regular dialysis today. No acute events. Family still contemplat ing whether to proceed with a tracheostomy or not. She has not been able to be weaned off from her r espirator. No acute events. OBJECTIVE: VITAL SIGNS: Blood pressure is 155/52, heart rate 82, respiratory rate 20, temperature 100.8, pulse ox 99%. GENERAL: Noted to be sleepy, but arousable, not in distress. The patient is intubated, on ventilato r support. HEENT: Slightly pale conjunctivae, anicteric sclerae. NECK: No neck mass, no carotid bruits, no JVD. CHEST: No deformities. LUNGS: Decreased breath sounds. HEART: Normal sinus rhythm. No murmur, no gallops, no rubs. ABDOMEN: Globular, soft, nontender, no masses. Positive for PEG tube. EXTREMITIES: No edema. MEDICATIONS: Of 03/12/2018, was reviewed. LABORATORY DATA: Of 03/12/2018, white count 6.7, hemoglobin 8.1. Sodium 134, potassium 4.4, chlorid e 98, carbon dioxide 29, BUN 51, creatinine 3.91, GFR 14 mL per minute, glucose 73, calcium 8.4. ASSESSMENT AND PLAN: 1. Chronic renal failure - currently on maintenance hemodialysis. Continuing 3 times a week hemodia lysis regimen with this patient. Fluid removal only as tolerated. 2. Anemia, currently on weekly Epogen, p.r.n. blood transfusion. 3. Status post cerebrovascular accident - left hemiplegia. Continue supportive care. 4. Acute respiratory failure - patient is unable to wean off from the ventilator. Consideration for tracheostomy is being made. Family still undecided. Agree with supportive care. Overall, prognosis remains poor.
--- NOTE | 2018-03-12 13:17 | PDOC.PN ---
- Subjective Encounter Start Date: 03/12/18 Encounter Start Time: 08:55 -: non-verbal Intubated. Dr Hammond spoke to family yestrerday, it was too soon for them to make a deciison, treach decision postponed until Wednesday febrile to 100.8 today. arousable, no other complaints. nochange in left hemiplegia ROS not obtainalbe - Objective Resuscitation Status: Resuscitation Status FULL:Full Resuscitation MAR Reviewed: Yes Vital Signs & Weight: Vital Signs (12 hours) Temp Pulse Resp BP Pulse Ox 03/12/18 13:08 86 03/12/18 12:00 100.1 F H 20 03/12/18 10:00 14 03/12/18 09:54 81 03/12/18 09:07 81 159/53 H 03/12/18 08:00 100.8 F H 82 20 99 03/12/18 07:34 81 03/12/18 07:00 100.8 F H 03/12/18 06:00 22 H 03/12/18 04:00 100.2 F H 18 03/12/18 02:00 24 H Weight Admit Weight 194 lb 7.163 oz Weight 200 lb 9.6 oz Most Recent Monitor Data Heart Rate from ECG 81 NIBP 167/56 NIBP BP-Mean 125 Respiration from ECG 19 SpO2 99 I&O: 03/11/18 03/12/18 03/13/18 06:59 06:59 06:59 Intake Total 1146 1293 Output Total 1165 1046 140 Balance -19 247 -140 Result Diagrams: 03/12/18 05:10 03/12/18 05:10 Additional Labs: Accuchecks 03/12/18 03/11/18 03/11/18 00:44 21:29 16:45 POC Glucose 96 110 107 Phys Exam - Physical Examination Constitutional: NAD HEENT: PERRLA, moist MMs, sclera anicteric, oral pharynx no lesions Neck: no nodes, no JVD, supple, full ROM Respiratory: no rales, clear to auscultation bilateral Cardiovascular: RRR, no significant murmur, no rub Gastrointestinal: soft, non-tender, positive bowel sounds Musculoskeletal: edema present left hemiplegia and neglect Lymphatic: no nodes Skin: no rash, normal turgor, cap refill <2 seconds Dx/Plan (1) Acute respiratory failure Code(s): J96.00 - ACUTE RESPIRATORY FAILURE, UNSP W HYPOXIA OR HYPERCAPNIA Status: Acute Qualifiers: Respiratory failure complication: hypoxia Qualified Code(s): J96.01 - Acute respiratory failure with hypoxia Comment: on ventilator, pulm managing. Not weaning (2) CKD (chronic kidney disease) stage 5, GFR less than 15 ml/min Code(s): N18.5 - CHRONIC KIDNEY DISEASE, STAGE 5 Status: Chronic Comment: on HD at present (3) PEG tube malfunction Code(s): K94.23 - GASTROSTOMY MALFUNCTION Status: Resolved (4) Thrombocytopenia Code(s): D69.6 - THROMBOCYTOPENIA, UNSPECIFIED Status: Acute Comment: stable at 75K (5) Hypokalemia Code(s): E87.6 - HYPOKALEMIA Status: Resolved (6) FRANCIS (acute kidney injury) Code(s): N17.9 - ACUTE KIDNEY FAILURE, UNSPECIFIED Status: Acute Comment: stable (7) Acute encephalopathy Code(s): G93.40 - ENCEPHALOPATHY, UNSPECIFIED Status: Resolved Comment: sec to massive cva - stable (8) Dysphagia Code(s): R13.10 - DYSPHAGIA, UNSPECIFIED Status: Acute Qualifiers: Dysphagia type: unspecified Qualified Code(s): R13.10 - Dysphagia, unspecified Comment: s/p peg (9) FTT (failure to thrive) in adult Status: Chronic (10) Hemiplegia affecting left nondominant side Code(s): G81.94 - HEMIPLEGIA, UNSPECIFIED AFFECTING LEFT NONDOMINANT SIDE Status: Chronic Qualifiers: Hemiplegia type: flaccid (11) Metabolic acidosis Code(s): E87.2 - ACIDOSIS Status: Resolved (12) Diabetes Code(s): E11.9 - TYPE 2 DIABETES MELLITUS WITHOUT COMPLICATIONS Status: Chronic Qualifiers: Diabetes mellitus type: type 2 Diabetes mellitus termite technician insulin use: without senior care use Diabetes mellitus complication status: with kidney complications Diabetes mellitus complication detail: with chronic kidney disease Chronic kidney disease stage: stage 4 (severe) Qualified Code(s): E11.22 - Type 2 diabetes mellitus with diabetic chronic kidney disease; N18.4 - Chronic kidney disease, stage 4 (severe); N18.4 - Chronic kidney disease, stage 4 (severe); N18.4 - Chronic kidney disease, stage 4 (severe); N18.4 - Chronic kidney disease, stage 4 (severe) (13) Hyperlipidemia Code(s): E78.5 - HYPERLIPIDEMIA, UNSPECIFIED Status: Chronic Qualifiers: Hyperlipidemia type: unspecified Qualified Code(s): E78.5 - Hyperlipidemia , unspecified (14) Hypertension Code(s): I10 - ESSENTIAL (PRIMARY) HYPERTENSION Status: Chronic Qualifiers: Hypertension type: essential hypertension Qualified Code(s): I10 - Essential (primary) hypertension (15) Hypertensive urgency Code(s): I16.0 - HYPERTENSIVE URGENCY Status: Resolved - Plan * .
--- NOTE | 2018-03-12 13:22 | PRG ---
DATE OF SERVICE: 03/12/2018 SUBJECTIVE: This patient remains on mechanical ventilation. We are still awaiting decision from the family on how to proceed. OBJECTIVE: VITAL SIGNS: Temperature 100.8, pulse 81, blood pressure 115/53, O2 sat 99%, intake for 24 hours 129 3, output 1046. HEENT: Unremarkable. NECK: No JVD. LUNGS: Fairly clear anteriorly. CARDIOVASCULAR: S1, S2 regular. ABDOMEN: Soft. EXTREMITIES: Edematous throughout. LABORATORY DATA: White blood cell count 6.7, hematocrit 23.2, platelet count 31. Sodium 134, potass ium 4.4, chloride 98, CO2 29, BUN 51, creatinine 3.9, glucose 173. ASSESSMENT: 1. Status post massive left-sided stroke resulting in aphagia, odynophagia and right-sided hemipares is. 2. Acute respiratory failure with one failed extubation secondary to retained secretions. 3. Renal insufficiency, requiring hemodialysis. 4. Thrombocytopenia. PLAN: 1. Continue supportive care until family makes a decision on how they want to proceed. I have spent a great deal of time with him in the last week, going over the options and they still seem confused as to how to proceed. 2. Continue antibiotics for the time being, but probably need to consider stopping those in the next day or two as she remains thrombocytopenic and source of infection has not been found.
[2018-03-12] MEDS: cloNIDine 0.3mg/24 Hour PATCH TD SCH (20:13)
[2018-03-13] MEDS: Albuterol Sulfate 2.5 mg/3 ml Neb NEB SCH ×4 (00:13→18:33)
[2018-03-13] MEDS: Metoprolol Tartrate 5 MG/5 ML VIAL IVP SCH ×4 (02:45→20:18)
[2018-03-13 05:12] LABS: Platelet Count 24 thou/uL (130-400)
[2018-03-13 05:25] LABS: Anion Gap 14 mmol/L (10-20); BUN (Urea Nitrogen) 38 mg/dL (9.8-20.1); Calc. Creatinine Clearance 25 mL/min (70-130); Calcium 8.3 mg/dL (7.8-10.44); Carbon Dioxide 27 mmol/L (23-31); Chloride 99 mmol/L (98-107); Estimated GFR-MDRD 19; Glucose 169 mg/dL (83-110); Potassium 4.3 mmol/L (3.5-5.1); Sodium 136 mmol/L (136-145)
[2018-03-13 05:41] LABS: Band 4 % (5-11); Elliptocytes SLIGHT = 2-5 cells (100X) (0-1/hpf); Eosinophils 1 % (0-10); Hemoglobin 8.3 g/dL (12.0-16.0); Lymphocytes 12 % (21-51); MDiff Complete? YES; Mean Corpuscular HGB CONC 33.7 g/dL (32.0-36.0); Mean Corpuscular Hemoglobin 30.9 pg (27.0-31.0); Mean Corpuscular Volume 91.5 fL (78.0-98.0); Mean Platelet Volume 13.3 fL (7.4-10.4); Monocytes 6 % (0-10); Neutrophil 77 % (42-75); PLT Morphology Comment Appears Decreased; RBC Distribution Width 15.6 % (11.5-14.5); Red Blood Cell (RBC) Count 2.68 mill/uL (4.20-5.40); Target Cells SLIGHT = 2-5 cells (100X) (0-1/hpf); White Blood Cell (WBC) Count 8.1 thou/uL (4.8-10.8)
[2018-03-13] MEDS: HumaLOG 300 UNITS/3 ML VIAL SC PRN ×3 (06:09→18:21)
[2018-03-13] MEDS: Acetaminophen 325 MG TAB PO PRN (08:14)
[2018-03-13] MEDS: Preparation H HC 1% Cream 26 GM TUBE TOP SCH ×2 (08:14→20:27)
[2018-03-13] MEDS: Amlodipine 5 MG TAB PO SCH ×2 (08:14→20:18)
[2018-03-13] MEDS: Pantoprazole 40 MG VIAL IVP SCH (08:15)
[2018-03-13] MEDS ORDERED: VANCOMYCIN IVPB PRN (09:31)
[2018-03-13] MEDS ORDERED: Vancomycin HCl 1.75 GM in Sodium Chloride 0.9% 500 ML IVPB SCH (10:30)
[2018-03-13] MEDS ORDERED: Vancomycin HCl 1.25 GM in Sodium Chloride 0.9% 250 ML 250 ML IVPB SCH (10:30)
[2018-03-13] MEDS ORDERED: Vancomycin HCl 1 GM in Premix Bag 1 BAG IVPB SCH (10:30)
[2018-03-13] MEDS ORDERED: HOLD VANCOMYCIN FOR LEVEL >20 FS SCH (10:30)
[2018-03-13] MEDS ORDERED: Vancomycin HCl 500 MG in Sodium Chloride 0.9% 100 ML IVPB SCH (10:30)
[2018-03-13] MEDS ORDERED: Vancomycin HCl 750 MG in Sodium Chloride 0.9% 250 ML 250 ML IVPB SCH (10:30)
[2018-03-13] MEDS: Sodium Chloride 0.45% 1,000 ML IV SCH (11:03)
[2018-03-13] MEDS: Epoetin (ESRD) 20,000 UNITS/ML SC SCH (12:42)
--- NOTE | 2018-03-13 13:02 | PRG ---
DATE OF SERVICE: 03/13/2018 35 minutes of critical care time. SUBJECTIVE: The patient remains intubated on mechanical ventilation. There have been no acute changes. PHYSICAL EXAMINATION: VITAL SIGNS: Temperature is 101.0, pulse 84, blood pressure 154/51. 24-hour intake 1647, output 440. HEENT: Unremarkable. NECK: No adenopathy, no JVD. LUNGS: Clear. CARDIAC: S1 and S2 regular. ABDOMEN: Soft. EXTREMITIES: No edema. LABORATORY DATA: White blood cell count 8.1, hematocrit 24.5, platelet count 24 ,000. Sodium 136, potassium 4.3, chloride 99, CO2 27, BUN 38, creatinine 2.8, glucose 169. ASSESSMENT: There has been no change in the patient's clinical status other than the fever and developing thrombocytopenia. PLAN: 1. The patient's family wants to meet again discussing the trach. I think we need to stop the cefepime and reculture the patient. The cefepime could be leading to the thrombocytopenia. 2. Check for heparin-induced antibodies. 3. Consider discontinuation of central line. MTDD
--- NOTE | 2018-03-13 15:10 | PDOC.PN ---
- Subjective Encounter Start Date: 03/13/18 Encounter Start Time: 11:00 orally tintubated,a rousable. per nursing, family had made DNR. Planning for trach on wednesday, then to LTAC. Febrile this Am to 101.0. BCx sent, no change otherwise ROS not obtainable, no family in the room - Objective Resuscitation Status: Resuscitation Status DNR:Do Not Resuscitate MAR Reviewed: Yes Vital Signs & Weight: Vital Signs (12 hours) Temp Pulse Resp Pulse Ox 03/13/18 14:00 23 H 03/13/18 13:05 86 03/13/18 12:00 16 03/13/18 11:00 99.8 F H 03/13/18 10:01 80 03/13/18 10:00 22 H 03/13/18 08:14 82 03/13/18 08:00 101.0 F H 82 24 H 98 03/13/18 07:20 86 03/13/18 07:00 101.0 F H 03/13/18 06:00 27 H 03/13/18 04:00 99.9 F H 29 H 03/13/18 03:12 86 Weight Admit Weight 194 lb 7.163 oz Weight 189 lb 6.033 oz Most Recent Monitor Data Heart Rate from ECG 82 NIBP 166/61 NIBP BP-Mean 128 Respiration from ECG 7 SpO2 98 I&O: 03/12/18 03/13/18 03/14/18 06:59 06:59 06:59 Intake Total 1293 1674 260 Output Total 1046 440 120 Balance 247 1234 140 Result Diagrams: 03/13/18 05:00 03/13/18 05:00 Additional Labs: Accuchecks 03/13/18 03/13/18 03/13/18 12:41 06:05 00:48 POC Glucose 211 H 170 H 145 H 03/12/18 18:10 POC Glucose 120 H Phys Exam - Physical Examination Constitutional: NAD HEENT: PERRLA, moist MMs, sclera anicteric, oral pharynx no lesions Neck: no nodes, no JVD, supple Respiratory: no rales, no rhonchi, clear to auscultation bilateral Cardiovascular: RRR, no significant murmur, no rub Gastrointestinal: soft, non-tender, no distention, positive bowel sounds Musculoskeletal: edema present left hemiplegia Lymphatic: no nodes Skin: no rash, normal turgor, cap refill <2 seconds Dx/Plan (1) Acute respiratory failure Code(s): J96.00 - ACUTE RESPIRATORY FAILURE, UNSP W HYPOXIA OR HYPERCAPNIA Status: Acute Qualifiers: Respiratory failure complication: hypoxia Qualified Code(s): J96.01 - Acute respiratory failure with hypoxia Comment: on ventilator, pulm managing. Not weaning. trach Wednesday (2) CKD (chronic kidney disease) stage 5, GFR less than 15 ml/min Code(s): N18.5 - CHRONIC KIDNEY DISEASE, STAGE 5 Status: Chronic Comment: on HD at present (3) PEG tube malfunction Code(s): K94.23 - GASTROSTOMY MALFUNCTION Status: Resolved (4) Thrombocytopenia Code(s): D69.6 - THROMBOCYTOPENIA, UNSPECIFIED Status: Acute Comment: down to 24K. no signs of bleeding (5) Hypokalemia Code(s): E87.6 - HYPOKALEMIA Status: Resolved (6) FRANCIS (acute kidney injury) Code(s): N17.9 - ACUTE KIDNEY FAILURE, UNSPECIFIED Status: Acute Comment: stable (7) Acute encephalopathy Code(s): G93.40 - ENCEPHALOPATHY, UNSPECIFIED Status: Resolved Comment: sec to massive cva - stable (8) Dysphagia Code(s): R13.10 - DYSPHAGIA, UNSPECIFIED Status: Acute Qualifiers: Dysphagia type: unspecified Qualified Code(s): R13.10 - Dysphagia, unspecified Comment: s/p peg (9) FTT (failure to thrive) in adult Status: Chronic (10) Hemiplegia affecting left nondominant side Code(s): G81.94 - HEMIPLEGIA, UNSPECIFIED AFFECTING LEFT NONDOMINANT SIDE Status: Chronic Qualifiers: Hemiplegia type: flaccid (11) Metabolic acidosis Code(s): E87.2 - ACIDOSIS Status: Resolved (12) Diabetes Code(s): E11.9 - TYPE 2 DIABETES MELLITUS WITHOUT COMPLICATIONS Status: Chronic Qualifiers: Diabetes mellitus type: type 2 Diabetes mellitus mcfp insulin use: without mcfp use Diabetes mellitus complication status: with kidney complications Diabetes mellitus complication detail: with chronic kidney disease Chronic kidney disease stage: stage 4 (severe) Qualified Code(s): E11.22 - Type 2 diabetes mellitus with diabetic chronic kidney disease; N18.4 - Chronic kidney disease, stage 4 (severe); N18.4 - Chronic kidney disease, stage 4 (severe); N18.4 - Chronic kidney disease, stage 4 (severe); N18.4 - Chronic kidney disease, stage 4 (severe) (13) Hyperlipidemia Code(s): E78.5 - HYPERLIPIDEMIA, UNSPECIFIED Status: Chronic Qualifiers: Hyperlipidemia type: unspecified Qualified Code(s): E78.5 - Hyperlipidemia , unspecified (14) Hypertension Code(s): I10 - ESSENTIAL (PRIMARY) HYPERTENSION Status: Chronic Qualifiers: Hypertension type: essential hypertension Qualified Code(s): I10 - Essential (primary) hypertension (15) Hypertensive urgency Code(s): I16.0 - HYPERTENSIVE URGENCY Status: Resolved - Plan * .
[2018-03-13] MEDS: hydrALAZINE 20 MG/ML VIAL SLOW IVP PRN (19:15)
[2018-03-13] MEDS: Insulin Glargine 20 UNITS in Pre-Filled Syringe 1 EACH SC SCH (20:18)
[2018-03-14] MEDS: HumaLOG 300 UNITS/3 ML VIAL SC PRN ×4 (00:11→15:03)
[2018-03-14] MEDS: Albuterol Sulfate 2.5 mg/3 ml Neb NEB SCH ×5 (00:38→23:29)
[2018-03-14] MEDS: Sodium Chloride 0.45% 1,000 ML IV SCH ×3 (01:52→22:56)
[2018-03-14] MEDS: Metoprolol Tartrate 5 MG/5 ML VIAL IVP SCH ×4 (03:54→21:06)
[2018-03-14 06:02] LABS: Mean Corpuscular HGB CONC 33.4 g/dL (32.0-36.0); Mean Corpuscular Hemoglobin 30.3 pg (27.0-31.0); Mean Corpuscular Volume 90.7 fL (78.0-98.0); Mean Platelet Volume 13.6 fL (7.4-10.4); Platelet Count 21 thou/uL (130-400); RBC Distribution Width 15.4 % (11.5-14.5); Red Blood Cell (RBC) Count 2.63 mill/uL (4.20-5.40); White Blood Cell (WBC) Count 9.2 thou/uL (4.8-10.8)
[2018-03-14 06:09] LABS: Band 8 % (5-11); Lymphocytes 24 % (21-51); MDiff Complete? YES; Metamyelocyte 1 % (0-0); Monocytes 3 % (0-10); Neutrophil 64 % (42-75); PLT Morphology Comment Appears Decreased
[2018-03-14 06:12] LABS: Anion Gap 14 mmol/L (10-20); BUN (Urea Nitrogen) 66 mg/dL (9.8-20.1); Calc. Creatinine Clearance 17 mL/min (70-130); Calcium 8.2 mg/dL (7.8-10.44); Carbon Dioxide 26 mmol/L (23-31); Estimated GFR-MDRD 13; Glucose 172 mg/dL (83-110)
[2018-03-14 06:17] LABS: Chloride 97 mmol/L (98-107); Potassium 4.3 mmol/L (3.5-5.1); Sodium 133 mmol/L (136-145)
--- NOTE | 2018-03-14 07:50 | PRG ---
DATE OF SERVICE: 03/14/2018 Thirty-five minutes critical care time. The patient remains intubated on mechanical ventilation. She is much more awake today than she has b een in the last week. PHYSICAL EXAMINATION: VITAL SIGNS: Her temperature is 100.1 with a T-max of 101 yesterday, pulse 91, blood pressure 166/63 , 24-hour intake 1365, output 1315. HEENT: Unremarkable. NECK: No adenopathy or JVD. LUNGS: Fairly clear. CARDIOVASCULAR: S1, S2 regular. ABDOMEN: Soft. EXTREMITIES: Edematous throughout. LABORATORY DATA: White blood cell count 9.2, hematocrit 23.9, platelet count 21,000. Sodium 133, po tassium 4.3, chloride 97, CO2 26, BUN 66, creatinine 4.0, glucose 172. ASSESSMENT: 1. Acute respiratory failure requiring mechanical ventilation - failed extubation secondary to retai isaías secretions. 2. Status post stroke. 3. Thrombocytopenia. 4. Fever. PLAN: 1. Stop hydralazine. 2. Discontinue central line and start peripheral IV if possible. 3. The patient will likely need platelets before the percutaneous trach tomorrow. I have asked Dr. Newman to do that for us. 4. I spoke with the patient's daughter, [id number] and son yesterday.
[2018-03-14] MEDS: Amlodipine 5 MG TAB PO SCH ×2 (09:00→20:43)
[2018-03-14] MEDS: Pantoprazole 40 MG VIAL IVP SCH (09:00)
--- NOTE | 2018-03-14 09:31 | PRG ---
DATE OF SERVICE: 03/13/2018 TIME OF EVALUATION: 8:30 a.m. SUBJECTIVE: Ms. Vogel is a 72-year-old black female with ESRD and being followed by the [facility] for her maintenance hemodialysis. She underwent dialysis yesterday without any difficulty. We continue to place her on a Wednesday, , and Wednesday dialysis regimen. In addition a planned t racheostomy is being entertained by the family. PHYSICAL EXAMINATION: VITAL SIGNS: Blood pressure was 154/51 with heart rate 84, respiratory rate is 10, pulse ox 99%. GENERAL: Noted to be arousable, but sleepy, not in distress, intubated on ventilator support, HEENT: She has slightly pale conjunctivae, anicteric sclerae. LUNGS: No neck mass. No carotid bruits, no JVD. CHEST: No deformities. LUNGS: Clear breath sounds. HEART: Normal sinus rhythm. No murmur, no gallops or rubs. ABDOMEN: Globular, soft. Positive for a PEG tube. EXTREMITIES: No edema, no deformities. MEDICATIONS: 03/13/2018 - Reviewed. LABORATORIES: 03/13/2018 - White count 8.1, hemoglobin 8.3, hematocrit 24.5, platelet count is 24,00 0. Sodium was 136, potassium 4.3, chloride 99, carbon dioxide 27, BUN 38, creatinine 2.89, glucose 1 69, calcium 8.3. ASSESSMENT AND PLAN: 1. End-stage renal disease - stable. No indication for any dialytic intervention. She underwent he modialysis yesterday 03/12/2018 without any difficulty. 2. Acute respiratory failure - for a planned tracheostomy - unable to wean off the patient from the ventilator. 3. Status post cerebrovascular accident with left hemiplegia - supportive care. 4. Anemia, continuing weekly Epogen. P.r.n. blood transfusion. Overall, prognosis with this patient remains guarded.
[2018-03-14] MEDS: Preparation H HC 1% Cream 26 GM TUBE TOP SCH ×2 (10:52→19:40)
--- NOTE | 2018-03-14 16:10 | PRG ---
DATE OF SERVICE: 03/14/2018 SUBJECTIVE: Ms. Vogel is a 72-year-old black female with known history of ESRD and currently on m aintenance hemodialysis. Patient has been evaluated by Dr. Newman for placement of a percutaneous tra cheostomy. She is unable to be weaned off from the ventilator. OBJECTIVE: VITAL SIGNS: Blood pressure is 175/57, heart rate 88, respiratory rate is 14, pulse ox 99%. GENERAL: Noted to be arousable and follows simple commands, intubated on ventilator support. HEENT: Has slightly pale conjunctivae, anicteric sclerae. NECK: No neck mass, no carotid bruits, no JVD. CHEST: No deformities. LUNGS: Decreased breath sounds. HEART: Normal sinus rhythm. No murmur, no gallops, no rubs. ABDOMEN: Globular, soft, nontender, no masses. EXTREMITIES: No edema, no deformities. MEDICATIONS: 03/14/2018 was reviewed. LABORATORY DATA: 03/14/2018 reviewed. Please note white count is 9.2, hemoglobin is 8. Sodium was 133, potassium 4.3, BUN 66, creatinine 4 .03 with a calcium 8.2. ASSESSMENT AND PLAN: 1. End-stage renal disease, stable. No indication for any emergent hemodialysis. I have scheduled her back for hemodialysis tomorrow. Fluid removal only as tolerated. 2. Anemia, continuing weekly Epogen, p.r.n. blood transfusion. 3. Acute respiratory failure - unable to be weaned off. Surgical consult with Dr. Newman has been do ne for placement of a tracheostomy. 4. Status post cerebrovascular accident with left hemiplegia. Continue supportive care. Overall, p rognosis remains guarded.
--- NOTE | 2018-03-14 19:41 | PRG ---
DATE OF SERVICE: 03/14/2018 SUBJECTIVE: The patient is intubated, but she is awake. She is still fairly somnolent, but awakens easily. She shakes her head. Denies any specific pains or complaints. OBJECTIVE: VITAL SIGNS: Temperature was 99.1, pulse 88, BP 175/64, O2 sat 100%. GENERAL APPEARANCE: The patient is intubated, but drowsy, but easily awakened. HEART: Regular without murmur. LUNGS: Clear, not breathing above the vent. ABDOMEN: Soft, nontender. EXTREMITIES: Edematous with left-sided sarcopenia. LABORATORY DATA: White count is 9.2, hemoglobin 23.9, platelets 21,000. BUN 66, creatinine 4.0. IMPRESSION AND PLAN: 1. Acute respiratory failure. The patient remains on the ventilator and unable to wean. Plan for t silverio tomorrow. 2. Kidney disease. The patient has advanced kidney disease. Followed by Dr. Murcia. Continue with he modialysis. 3. Thrombocytopenia, unclear etiology. She is to get some platelets prior to the trach procedure. 4. Encephalopathy. The patient has been somewhat encephalopathic since her initial large right sara spheric stroke with left hemiplegia. 5. Dysphagia. The patient has PEG tube in place. 6. Left hemiplegia. 7. Metabolic acidosis, resolved. 8. Diabetes mellitus. Continue with sliding scale as needed. 9. Hypertension. The patient continues to have some elevations of blood pressure. Continuing to ma nage it with p.r.n. medications. 10. Disposition. This patient has a generally poor prognosis given that she has had a large right h emispheric cerebrovascular accident with left hemiplegia. She has had a complicated hospital course this time including some rupture of the bowel requiring intervention with surgery. She is now vent d ependent requiring a trach and remains PEG dependent as well. Hopefully, once the patient has the tr [facility], she may be stabilized again and potentially able to go to a long-term nursing facility.
[2018-03-14] MEDS: Insulin Glargine 20 UNITS in Pre-Filled Syringe 1 EACH SC SCH (20:45)
[2018-03-14] MEDS: cloNIDine 0.1 MG TAB PER TUBE PRN (23:09)
[2018-03-15] MEDS: Metoprolol Tartrate 5 MG/5 ML VIAL IVP SCH ×4 (02:03→21:54)
[2018-03-15] MEDS: Labetalol HCl 100 MG/20 ML VIAL SLOW IVP PRN ×2 (04:40→19:50)
[2018-03-15] MEDS: cloNIDine 0.1 MG TAB PER TUBE PRN ×2 (04:46→19:49)
[2018-03-15 05:33] LABS: Anion Gap 17 mmol/L (10-20); BUN (Urea Nitrogen) 88 mg/dL (9.8-20.1); Calc. Creatinine Clearance 14 mL/min (70-130); Calcium 8.7 mg/dL (7.8-10.44); Carbon Dioxide 23 mmol/L (23-31); Chloride 96 mmol/L (98-107); Estimated GFR-MDRD 11; Glucose 177 mg/dL (83-110); Potassium 4.7 mmol/L (3.5-5.1); Sodium 131 mmol/L (136-145)
[2018-03-15 05:44] LABS: Band 6 % (5-11); Eosinophils 1 % (0-10); Hemoglobin 8.4 g/dL (12.0-16.0); Hypochromia SLIGHT = 6-15 cells (100X) (0-5/hpf); Lymphocytes 12 % (21-51); MDiff Complete? YES; Mean Corpuscular HGB CONC 34.2 g/dL (32.0-36.0); Mean Corpuscular Hemoglobin 30.5 pg (27.0-31.0); Mean Corpuscular Volume 89.2 fL (78.0-98.0); Mean Platelet Volume 13.4 fL (7.4-10.4); Monocytes 5 % (0-10); Neutrophil 76 % (42-75); PLT Morphology Comment Appears Decreased; Platelet Count 41 thou/uL (130-400); RBC Distribution Width 15.4 % (11.5-14.5); Red Blood Cell (RBC) Count 2.76 mill/uL (4.20-5.40); White Blood Cell (WBC) Count 8.9 thou/uL (4.8-10.8)
[2018-03-15] MEDS: Preparation H HC 1% Cream 26 GM TUBE TOP SCH ×2 (07:32→20:01)
[2018-03-15] MEDS: Pantoprazole 40 MG VIAL IVP SCH (07:40)
[2018-03-15] MEDS: Albuterol Sulfate 2.5 mg/3 ml Neb NEB SCH ×3 (07:48→18:59)
--- NOTE | 2018-03-15 08:14 | PRG ---
DATE OF SERVICE: 03/15/2018 The patient is about the same, there have been no acute changes overnight. PHYSICAL EXAMINATION: VITAL SIGNS: Temperature is 99.7 with a T-max of 100.4, pulse 81, blood pressure 133/40, O2 sat 100% . Total intake for 24 hours 1371. Urine output 370. HEENT: Unremarkable. NECK: No JVD. CHEST: Clear. CARDIAC: S1 and S2 regular. ABDOMEN: Soft. EXTREMITIES: No edema. Cultures show no growth to date. ASSESSMENT: 1. Respiratory failure requiring mechanical ventilation. 2. Large left middle cerebral artery distribution stroke. 3. Thrombocytopenia which has improved somewhat overnight. 4. Generalized failure to thrive. PLAN: Percutaneous tracheostomy planned for today. Continuing vancomycin for the time being.
--- NOTE | 2018-03-15 08:41 | PRG ---
DATE OF SERVICE: 03/15/2018 SERVICE: Renal Medicine. SUBJECTIVE: Ms. Vogel is a 72-year-old black female being followed up for her chronic renal failu re and currently on maintenance hemodialysis. She will be undergoing dialysis later this afternoon. Now the plan is for her to undergo percutaneous tracheostomy due to the inability to wean her off fr om her ventilator. No acute events. OBJECTIVE: VITAL SIGNS: Blood pressure is 158/48, heart rate 82, respiratory rate 22, pulse ox 100%. GENERAL: The patient is sedated, responsive to my verbal stimuli this morning, but yesterday she was up and awake and can follow commands. HEENT: Slightly pale conjunctivae, anicteric sclerae. NECK: No neck mass, no carotid bruits, no JVD. CHEST: No deformities. LUNGS: Clear breath sounds. No wheezing, no crackles. HEART: Normal sinus rhythm. No murmur, no gallop, no rub. ABDOMEN: Globular, soft. Positive for PEG. EXTREMITIES: No edema. MEDICATIONS: Of 03/15/2018 was reviewed. LABORATORY DATA: Of 03/15/2018, white count 8.9, hemoglobin 8.4, sodium 131, potassium 4.7, chloride 96, carbon dioxide 23, BUN 88, creatinine 4.87, glucose 177, calcium 8.7. ASSESSMENT AND PLAN: 1. Chronic renal failure - currently on maintenance hemodialysis. We will schedule for another 4 ho ur hemodialysis regimen. Fluid removal as tolerated by the patient. 2. Anemia, p.r.n. blood transfusion. Continue weekly Epogen 10,000 units subcutaneously every week. 3. Acute respiratory failure, unable to wean off the ventilator. The patient is planned for percuta neous tracheostomy at bedside today. 4. Status post cerebrovascular accident with left hemiplegia. Continue supportive care.
[2018-03-15 09:00] LABS: Vancomycin, Random 17.5 ug/mL (See Comment)
[2018-03-15] MEDS: Amlodipine 5 MG TAB PO SCH ×2 (09:00→20:00)
[2018-03-15] MEDS ORDERED: Fentanyl 100 MCG/2 ML VIAL SLOW IVP PRN (10:35)
[2018-03-15] MEDS ORDERED: Midazolam HCl 2 mg/2 ml Vial IVP PRN (10:36)
[2018-03-15] MEDS ORDERED: Lidocaine 1% w/Epinephrine 1:100K 20 ML VIAL FS SCH (10:45)
[2018-03-15] MEDS ORDERED: Vecuronium 10 MG VIAL IV SCH (10:45)
[2018-03-15] MEDS ORDERED: PROPOFOL 20 ML ONE (10:48)
[2018-03-15] MEDS ORDERED: Heparin 1,000 UNITS/ML VIAL ONE (11:11)
[2018-03-15] MEDS: Midazolam HCl 2 mg/2 ml Vial IVP PRN ×3 (11:45→13:10)
[2018-03-15] MEDS: Fentanyl 100 MCG/2 ML VIAL SLOW IVP PRN ×4 (11:45→13:09)
[2018-03-15] MEDS ORDERED: Midazolam HCl 2 mg/2 ml Vial ONE (12:10)
[2018-03-15] MEDS ORDERED: Fentanyl 100 MCG/2 ML VIAL ONE (12:10)
--- NOTE | 2018-03-15 12:50 | OP ---
DATE OF PROCEDURE: 03/15/2018. PREOPERATIVE DIAGNOSES: 1. Acute respiratory failure. 2. Status post cerebrovascular accident. POSTOPERATIVE DIAGNOSES: 1. Acute respiratory failure. 2. Status post cerebrovascular accident. PROCEDURES PERFORMED: Placement of a percutaneous tracheostomy tube. SURGEON: Harman Newman D.O. ANESTHESIA: Deep sedation and local. INDICATIONS FOR PROCEDURE: A 72-year-old -[place] woman who is status post cerebrovascular a ccident. The patient has developed acute respiratory failure, difficult to wean from mechanical vent ilator support. I was asked to place a percutaneous tracheostomy tube to facilitate ventilatory wean in anticipation of likely prolonged ventilator support. DESCRIPTION OF PROCEDURE: Informed consent was obtained from the patient's daughter, power of attorn cesario. The patient was placed in spine position. She was given aliquots of midazolam and fentanyl to a chieve adequate sedation. She was then given vecuronium 10 mg intravenously. Mechanical ventilator support was set at full support with FIO2 100%. The anterior neck is sterilely prepped and draped in usual fashion. Two fingerbreadths above the suprasternal notch was anesthetized in midline using 1% lidocaine with epinephrine. A 1 cm vertical incision is made here using 15 scalpel. An introducer needle was inserted through this incision, advanced through the anterior tracheal wall. Through this , a guidewire was passed and advanced into distal tracheal lumen under bronchoscopy. Needle was with drawn over the guidewire. Anterior tracheal wall is sterilely dilated over the guidewire. A size 8 tracheostomy tube was then advanced over the guidewire with a stylet. The tracheostomy tube was left in the distal tracheal lumen. A dilator and guidewire were removed as a unit leaving the tracheosto my tube in place. The cuff was inflated and the patient is connected to mechanical ventilator suppor t via newly placed tracheostomy tube. Good tidal volume is returned. Tracheostomy is secured to ant erior neck using old silk suture at 2 points. Trach dressings and tie were applied. Bronchoscope wa s withdrawn with the endotracheal tube as a unit visualizing the tracheostomy site from above with go od hemostasis. The bronchoscope was then reintroduced into the newly placed tracheostomy tube and ad vanced to visualize the pina. The scope was then withdrawn, visualizing the tracheostomy site from below with good hemostasis. The patient tolerated the operation without any apparent complication a nd remains hemodynamically stable following completion of the procedure. Oxygen saturation was 100% at all times.
[2018-03-15] MEDS: Sodium Chloride 0.45% 1,000 ML IV SCH (16:31)
--- NOTE | 2018-03-15 18:44 | PRG ---
DATE OF SERVICE: 03/15/2018 SUBJECTIVE: The patient is nonverbal. PHYSICAL EXAMINATION: VITAL SIGNS: Temperature was 99, pulse 85, respirations 18, O2 sat 100%, blood pressure 151/59. GENERAL APPEARANCE: The patient was intubated and ventilated. HEART: Regular rate and rhythm. LUNGS: Clear bilaterally. ABDOMEN: Soft, nontender, nondistended with positive bowel sounds. EXTREMITIES: Warm and dry. Left-sided paralysis. LABORATORY DATA: White count 8.9, hemoglobin 8.4, platelets 41,000. Sodium 131, potassium 4.7, chlo ride 96, BUN 88, creatinine 4.87, glucose 177. IMPRESSION AND PLAN: 1. Respiratory failure requiring ventilator support. The patient is to have trach placed today for failure to wean. 2. Kidney disease. Followed by Dr. Murcia. Continue with scheduled hemodialysis. 3. Thrombocytopenia, somewhat better. Was able to get trach scheduled for today. 4. Encephalopathy secondary to the stroke. 5. Dysphagia, addressed with PEG tube. 6. Left hemiplegia, stable. 7. Diabetes mellitus. Continue with sliding scale. 8. Hypertension. Blood pressure is somewhat improved. 9. Disposition. Now, the patient has a PEG tube in place and will get the trach tube stabilized. S he may be stable for transfer to a facility where her ventilator can be managed.
[2018-03-15] MEDS: Insulin Glargine 20 UNITS in Pre-Filled Syringe 1 EACH SC SCH (20:02)
[2018-03-16] MEDS: cloNIDine 0.1 MG TAB PER TUBE PRN (00:02)
[2018-03-16] MEDS: Labetalol HCl 100 MG/20 ML VIAL SLOW IVP PRN (00:03)
[2018-03-16] MEDS: Albuterol Sulfate 2.5 mg/3 ml Neb NEB SCH ×4 (00:33→18:36)
[2018-03-16] MEDS: Metoprolol Tartrate 5 MG/5 ML VIAL IVP SCH ×2 (02:23→19:49)
[2018-03-16] MEDS: Sodium Chloride 0.45% 1,000 ML IV SCH (04:16)
[2018-03-16] MEDS: HumaLOG 300 UNITS/3 ML VIAL SC PRN ×2 (05:15→23:22)
[2018-03-16 05:34] LABS: Band 8 % (5-11); Hemoglobin 8.2 g/dL (12.0-16.0); Lymphocytes 16 % (21-51); MDiff Complete? YES; Mean Corpuscular HGB CONC 34.6 g/dL (32.0-36.0); Mean Corpuscular Hemoglobin 31.2 pg (27.0-31.0); Mean Corpuscular Volume 90.2 fL (78.0-98.0); Mean Platelet Volume 10.2 fL (7.4-10.4); Monocytes 11 % (0-10); Neutrophil 64 % (42-75); PLT Morphology Comment Appears Decreased; Platelet Count 50 thou/uL (130-400); RBC Distribution Width 15.4 % (11.5-14.5); Red Blood Cell (RBC) Count 2.64 mill/uL (4.20-5.40); White Blood Cell (WBC) Count 6.7 thou/uL (4.8-10.8)
[2018-03-16 05:43] LABS: Anion Gap 16 mmol/L (10-20); BUN (Urea Nitrogen) 48 mg/dL (9.8-20.1); Calc. Creatinine Clearance 22 mL/min (70-130); Calcium 8.4 mg/dL (7.8-10.44); Carbon Dioxide 25 mmol/L (23-31); Chloride 96 mmol/L (98-107); Estimated GFR-MDRD 19; Glucose 145 mg/dL (83-110); Sodium 133 mmol/L (136-145)
--- NOTE | 2018-03-16 08:03 | PRG ---
DATE OF SERVICE: 03/16/2018 This is 35 minutes critical care time. The patient underwent percutaneous tracheostomy by Dr. Newman yesterday. She is awake and alert, selwyn cates that she is not having any difficulty this morning. PHYSICAL EXAMINATION: VITAL SIGNS: Temperature is 100.5. She has been running these low-grade temperatures for several da ys. Pulse 84, blood pressure 182/60, 24 hour intake 1361, output 237 by urine, 3000 by dialysis. HEENT: Pupils react. Sclerae anicteric. Oropharynx clear. NECK: Trach in good position. LUNGS: Clear anteriorly. CARDIOVASCULAR: S1, S2 regular, without murmur. ABDOMEN: Soft, nontender. PEG tube noted. EXTREMITIES: No clubbing, cyanosis, but she has diffuse edema throughout. LABORATORY DATA: White blood cell count 6.7, hemoglobin 8.2, hematocrit 23.8, platelet count 50. So dium 133, potassium 4, chloride 96, CO2 of 25, BUN 48, creatinine 3.0, glucose 145. ASSESSMENT: 1. Acute on chronic respiratory failure requiring mechanical ventilation and now tracheostomy. 2. Chronic renal failure requiring hemodialysis. 3. Anemia. 4. Thrombocytopenia. 5. Yeast in urine. PLAN: 1. Add Diflucan for 7 days. 2. Trach collar trials. 3. Up in chair as tolerated. 4. Add low dose Reglan for elevated gastric residuals. 5. At this point, I would consider LTAC placement.
[2018-03-16] MEDS: Amlodipine 5 MG TAB PO SCH ×2 (08:38→20:03)
[2018-03-16] MEDS: Pantoprazole 40 MG VIAL IVP SCH (08:39)
[2018-03-16] MEDS: ADMIXTURE FEE CHEMO IVPB SCH (08:43)
[2018-03-16] MEDS: NACL ISO OSM IVPB SCH (08:43)
[2018-03-16] MEDS: FLUCONAZOLE IVPB SCH (08:43)
[2018-03-16] MEDS: Metoclopramide HCl 10 MG/2 ML VIAL IVP SCH ×3 (08:45→20:03)
[2018-03-16] MEDS ORDERED: Fluconazole In NaCl,Iso-Osm 200 MG in Premix Bag 1 BAG IVPB SCH (09:00)
--- NOTE | 2018-03-16 09:17 | PRG ---
DATE OF SERVICE: 03/16/2018 SUBJECTIVE: Ms. Vogel is a 72-year-old black female with ESRD/chronic renal failure, being follow ed by Renal Service for her maintenance hemodialysis. She underwent hemodialysis yesterday without a ny difficulty. In addition, a percutaneous tracheostomy was done by Dr. Newman. This morning, no oth er complaints. She is arousable and comfortable. PHYSICAL EXAMINATION: VITAL SIGNS: Blood pressure is 167/82 with heart rate of 82, respiratory rate 4, pulse ox 100%. GENERAL: Awake, can follow simple commands, not in distress. HEENT: Slightly pale conjunctivae, anicteric sclerae. NECK: No neck mass, no carotid bruits, no JVD. Positive for tracheostomy. CHEST: No deformities. LUNGS: Decreased breath sounds. HEART: Normal sinus rhythm. No murmur, no gallops, no rubs. ABDOMEN: Globular, soft, nontender, no masses. Positive for PEG tube. EXTREMITIES: No edema, no deformities. MEDICATIONS: Medications of 03/16/2018 was reviewed. LABORATORY DATA: Laboratories of 03/16/2018; white count 6.7, hemoglobin 8.2. Sodium 133, potassium 4, chloride 96, carbon dioxide 25, BUN 48, creatinine 3, glucose 145, calcium 8.4. ASSESSMENT AND PLAN: 1. Chronic renal failure/end-stage renal disease, stable. Continuing 3 times a week hemodialysis re gimen. Fluid removal is being tolerated. Continuing weekly Epogen, p.r.n. blood transfusion. 2. Acute respiratory failure - patient is extubated and is now with a tracheostomy. Continue suppor tive care. 3. Status post cerebrovascular accident with left hemiplegia. Continue supportive care. Overall, prognosis remains guarded with this patient. Patient will probably need LTAC placement.
--- NOTE | 2018-03-16 12:35 | PRG ---
DATE OF SERVICE: 03/16/2018 SUBJECTIVE: The patient is sitting up in chair and awake. She has mother and [id number] in the room with her. She herself denies any pain. She is nonverbal, but shakes her head. Her daughter-i n-law requests some suctioning because she has some secretions at the trach itself. OBJECTIVE: VITAL SIGNS: Temperature max was 100.9, pulse 82, BP 168/48, respirations 16-18, O2 sat 100% on trac h collar. GENERAL APPEARANCE: The patient is sitting up in the chair. She has a trach in place and a Leblanc in place. She is awake and alert, makes eye contact, does shake her head typically to questions that a re straight forward. HEENT: Pupils are reactive. HEART: Regular without murmurs. LUNGS: Clear to auscultation bilaterally anteriorly. ABDOMEN: Soft, slightly protuberant, slightly hypertympanic, but nontender to palpation. Good bowel sounds present. EXTREMITIES: Warm and dry without significant edema. LABORATORY DATA: White count 6.7, hemoglobin 8.2, platelets 50,000. Sodium 133, potassium 4, chlori de 96, BUN 48, creatinine is 3.0, glucose 145. IMPRESSION AND PLAN: 1. Chronic respiratory failure, status post trach placement for failure to wean. Appears to be stab le. Still getting some support at night. Continue to consider LTAC for further weaning. 2. Chronic renal failure, on hemodialysis. 3. Chronic anemia, likely secondary to chronic disease. 4. Thrombocytopenia of unclear etiology. This appears to be improving. 5. Urinary tract infection with yeast. May account for the low-grade fevers. She has Diflucan now added to her regimen. We will continue to monitor. She does not have significant leukocytosis. 6. The patient has a bit of a distended abdomen and some increased residuals on her PEG feeds. Regl an has been added. We will continue to monitor. 7. Discussed the situation with the patient's [id number] and her mother. At this point, she murray s much happening, but everything appears to be relatively stable, although she does need some continu ed work and therefore looking at potential LTAC placement. They are amenable to this. 8. Hypertension. We will be changing the patient's IV Lopressor to a PEG dose, which is about 5 mg per day higher. We will continue to monitor.
[2018-03-16] MEDS: Preparation H HC 1% Cream 26 GM TUBE TOP SCH ×2 (14:52→20:03)
[2018-03-16] MEDS: Metoprolol Tartrate 25 MG TAB PER TUBE SCH (20:03)
[2018-03-16] MEDS: Insulin Glargine 20 UNITS in Pre-Filled Syringe 1 EACH SC SCH (20:04)
[2018-03-17] MEDS: Albuterol Sulfate 2.5 mg/3 ml Neb NEB SCH ×5 (00:08→23:21)
[2018-03-17] MEDS: Metoclopramide HCl 10 MG/2 ML VIAL IVP SCH ×4 (02:17→20:51)
[2018-03-17] MEDS: cloNIDine 0.1 MG TAB PER TUBE PRN ×2 (04:25→16:38)
[2018-03-17 05:20] LABS: Anion Gap 18 mmol/L (10-20); BUN (Urea Nitrogen) 73 mg/dL (9.8-20.1); Band 9 % (5-11); Calc. Creatinine Clearance 16 mL/min (70-130); Calcium 8.4 mg/dL (7.8-10.44); Carbon Dioxide 24 mmol/L (23-31); Chloride 95 mmol/L (98-107); Estimated GFR-MDRD 13; Glucose 120 mg/dL (83-110); Hemoglobin 8.6 g/dL (12.0-16.0); Lymphocytes 16 % (21-51); MDiff Complete? YES; Mean Corpuscular HGB CONC 35.6 g/dL (32.0-36.0); Mean Corpuscular Hemoglobin 32.1 pg (27.0-31.0); Mean Corpuscular Volume 90.2 fL (78.0-98.0); Mean Platelet Volume 11.6 fL (7.4-10.4); Monocytes 10 % (0-10); Neutrophil 65 % (42-75); PLT Morphology Comment Appears Decreased; Platelet Count 62 thou/uL (130-400); Potassium 4.2 mmol/L (3.5-5.1); Red Blood Cell (RBC) Count 2.67 mill/uL (4.20-5.40); Sodium 133 mmol/L (136-145); White Blood Cell (WBC) Count 7.1 thou/uL (4.8-10.8)
[2018-03-17] MEDS: NACL ISO OSM IVPB SCH (09:05)
[2018-03-17] MEDS: FLUCONAZOLE IVPB SCH (09:05)
[2018-03-17] MEDS: Pantoprazole 40 MG VIAL IVP SCH (09:05)
[2018-03-17] MEDS: ADMIXTURE FEE CHEMO IVPB SCH (09:05)
[2018-03-17] MEDS: Amlodipine 5 MG TAB PO SCH ×2 (09:05→20:50)
[2018-03-17] MEDS: Metoprolol Tartrate 25 MG TAB PER TUBE SCH ×2 (09:05→20:50)
[2018-03-17] MEDS: Preparation H HC 1% Cream 26 GM TUBE TOP SCH ×2 (09:20→20:51)
[2018-03-17] MEDS ORDERED: Hydrocortisone 1% Cream 1.5 GM Packet TOP PRN (09:45)
--- NOTE | 2018-03-17 09:46 | PRG ---
DATE OF SERVICE: 03/17/2018 SERVICE: Renal Medicine. SUBJECTIVE: Ms. Vogel is a 72-year-old black female followed by the Renal Service for her mainten ance hemodialysis. She has been in dialysis for the last several weeks. She is tolerating the said treatment. My plan is to do her on a Wednesday, , and Wednesday dialysis using a 4-hour time du ration. We are currently using a 3-0 potassium bath. No acute events noted last night. In the last few days, a percutaneous tracheostomy has been done on the patient. She is now on a trach collar. She is off the ventilator. OBJECTIVE: VITAL SIGNS: Blood pressure is 172/54, heart rate is 88, respiratory rate 16, pulse ox 100%. GENERAL: Sleepy, less arousable today. SKIN: Adequate turgor. HEENT: Slightly pale conjunctivae, anicteric sclerae. NECK: No neck mass, no carotid bruits, no JVD. Positive for a tracheostomy. LUNGS: Clear breath sounds. No wheezing, no crackles. HEART: Normal sinus rhythm. No murmur, no gallops or rubs. ABDOMEN: Globular, soft, nontender, no masses. Positive for PEG tube. EXTREMITIES: No edema, no deformities. MEDICATIONS: Of 03/17/2018 was reviewed. LABORATORY DATA: Of 03/17/2018, white count 7.1, hemoglobin 8.6. Sodium 133, potassium 4.2, chlorid e 95, carbon dioxide 24, BUN 73, creatinine 4.19, glucose 120, calcium 8.4. ASSESSMENT AND PLAN: 1. End-stage renal disease/chronic renal failure - patient will be dialyzed today. I am at the beds marlyn supervising her dialysis. We will do a 4-hour hemodialysis in attempt between 3 and 3.5 liter of fluid removal as tolerated. We will be using a potassium bath of 3.0. 2. Status post cerebrovascular accident with left hemiplegia. Continue supportive care. 3. Acute respiratory failure, off the ventilator. Patient currently has a tracheostomy. Doing well . The patient will be subsequently referred for LTAC placement. Overall, agree with current management .
--- NOTE | 2018-03-17 09:50 | PRG ---
DATE OF SERVICE: 03/17/2018 The patient has been off the ventilator for 24 hours without much difficulty at all. PHYSICAL EXAMINATION: VITAL SIGNS: Temperature 98.8, pulse 79, pressure 164/54, O2 sat 100%. Total intake 1361, output 73 7. She had 3000 removed by dialysis yesterday. HEENT: Unremarkable. NECK: Trach in good position, minimal secretions. CARDIAC: S1 and S2 regular. ABDOMEN: Soft, nontender. EXTREMITIES: No edema. LABORATORY DATA: White blood cell count 7.1, hematocrit 24.1, platelet count 62. Sodium 133, potass ium 4.2, chloride 95, CO2 24, BUN 73, creatinine 4.1, glucose 120. ASSESSMENT: 1. Acute respiratory failure requiring mechanical ventilation and tracheostomy placement. 2. Status post stroke. 3. Yeast in urine. 4. Thrombocytopenia, which is slightly improved. 5. Anemia. 6. Chronic renal failure requiring hemodialysis. PLAN: 1. Continue the Diflucan. 2. Continue trach collar and pulmonary toilet. 3. Can move to [facility] pending LTAC placement.
[2018-03-17] MEDS ORDERED: Hydrocortisone 1% Cream 30 GM TUBE TOP PRN (10:47)
[2018-03-17 11:25] LABS: Heparin-Induced Ab (HITA) Negative (.)
[2018-03-17] MEDS ORDERED: Heparin 10,000 UNITS/1 ML VIAL ONE (12:26)
[2018-03-17 14:31] VITALS: BMI 28.5
[2018-03-17] MEDS: Insulin Glargine 20 UNITS in Pre-Filled Syringe 1 EACH SC SCH (21:10)
--- NOTE | 2018-03-18 01:04 | PRG ---
DATE OF SERVICE: 03/17/2018 SUBJECTIVE: Patient is nonverbal. She is able to indicate she is having no pain and no specific complaints. OBJECTIVE: VITAL SIGNS: Temperature 98.4, BP is 117/54, pulse nml. GENITOURINARY: She has Leblanc in place and she has trach in place and PEG tube in place. GENERAL: Patient is comfortable. She is in no distress. HEART: Regular rate and rhythm. LUNGS: Clear. ABDOMEN: Soft, nontender, positive bowel sounds. EXTREMITIES: Warm and dry, persistent left hemiplegia. LABORATORY DATA: White count 7.1, hemoglobin 8.6, platelets 62. Sodium 133, potassium 4.2, chloride 95, BUN 73, creatinine 4.19. IMPRESSION AND PLAN: 1. Chronic respiratory failure, status post trach placement. She is doing well and was able to stay off vent support overnight. 2. Chronic renal failure, stable on dialysis. 3. Anemia of chronic disease. 4. Thrombocytopenia, improving. 5. Urinary tract infection with use, she is on Diflucan. 6. Patient had slightly distended abdomen yesterday. She has had several bowel movements on liquid, but now her abdomen appears much more cool. 7. Hypertension. Stable with transition over to PEG medications. We will continue to monitor and make adjustments to the dosing as needed. DISPOSITION: The patient is awaiting LTAC placement. [facility]
[2018-03-18] MEDS: Metoclopramide HCl 10 MG/2 ML VIAL IVP SCH ×4 (01:45→20:12)
[2018-03-18 05:43] LABS: Anion Gap 14 mmol/L (10-20); BUN (Urea Nitrogen) 42 mg/dL (9.8-20.1); Calc. Creatinine Clearance 23 mL/min (70-130); Calcium 8.4 mg/dL (7.8-10.44); Carbon Dioxide 28 mmol/L (23-31); Chloride 97 mmol/L (98-107); Estimated GFR-MDRD 20; Glucose 209 mg/dL (83-110); Potassium 3.7 mmol/L (3.5-5.1); Sodium 135 mmol/L (136-145)
[2018-03-18 06:00] LABS: Anisocytosis SLIGHT = 6-15 cells (100X) (0-5/hpf); Band 16 % (5-11); Eosinophils 1 % (0-10); Hemoglobin 7.8 g/dL (12.0-16.0); Lymphocytes 10 % (21-51); MDiff Complete? YES; Mean Corpuscular HGB CONC 34.8 g/dL (32.0-36.0); Mean Corpuscular Hemoglobin 31.1 pg (27.0-31.0); Mean Corpuscular Volume 89.5 fL (78.0-98.0); Monocytes 12 % (0-10); Neutrophil 60 % (42-75); PLT Morphology Comment Appears Decreased; Platelet Count 80 thou/uL (130-400); RBC Distribution Width 15.3 % (11.5-14.5); Red Blood Cell (RBC) Count 2.52 mill/uL (4.20-5.40); White Blood Cell (WBC) Count 7.2 thou/uL (4.8-10.8)
[2018-03-18] MEDS: HumaLOG 300 UNITS/3 ML VIAL SC PRN ×3 (06:23→20:07)
[2018-03-18] MEDS: Albuterol Sulfate 2.5 mg/3 ml Neb NEB SCH ×4 (07:54→23:45)
--- NOTE | 2018-03-18 08:04 | PRG ---
DATE OF SERVICE: 03/18/2018 SUBJECTIVE: The patient was transferred to the Intermediate Care Unit yesterday. She has done well. She continues on trach collar. PHYSICAL EXAMINATION: VITAL SIGNS: Temperature is 98.8, pulse 87, respiratory rate 17, O2 sat 99%, blood pressure 173/60. HEENT: Unremarkable. NECK: No JVD. Trach in good position, minimal secretions. CARDIAC: S1 and S2 regular. ABDOMEN: Soft, nontender. EXTREMITIES: No clubbing, cyanosis, or edema. LABORATORY DATA: Sodium 135, potassium 3.7, chloride 97, CO2 28, BUN 42, creatinine 2.8, glucose 209 . White blood cell count 7.2, hematocrit 22.5, platelet count 80. ASSESSMENT: 1. Yeast in urine. 2. Acute respiratory failure requiring mechanical ventilation and tracheostomy placement and ____, s uccessfully weaned: 3. Status post left middle cerebral artery distribution stroke. 4. Thrombocytopenia, which appears to be improved after elimination of her cephalosporins and treatm ent of her yeast with Gali. 5. Generalized failure to thrive. PLAN: 1. This is mainly a placement issue at this point. She will need alf capable of taking car e of tracheostomy and transporting her for dialysis. An LTAC may be required in the interim. 2. Co ntinue sliding scale insulin for elevated blood sugars. 3. Continue Diflucan and finish a total of 7 days. 4. I will stop her daily labs. They can probably be rechecked on Wednesday.
[2018-03-18] MEDS: Amlodipine 5 MG TAB PO SCH ×2 (09:35→20:05)
[2018-03-18] MEDS: Pantoprazole 40 MG VIAL IVP SCH (09:35)
[2018-03-18] MEDS: Metoprolol Tartrate 25 MG TAB PER TUBE SCH ×2 (09:35→20:05)
[2018-03-18] MEDS: FLUCONAZOLE IVPB SCH (09:35)
[2018-03-18] MEDS: ADMIXTURE FEE CHEMO IVPB SCH (09:35)
[2018-03-18] MEDS: NACL ISO OSM IVPB SCH (09:35)
[2018-03-18] MEDS ORDERED: Heparin 10,000 UNITS/ 10 ML VIAL ONE (15:58)
[2018-03-18] MEDS: Insulin Glargine 20 UNITS in Pre-Filled Syringe 1 EACH SC SCH (20:04)
[2018-03-18] MEDS: Acetaminophen 325 MG TAB PO PRN (20:05)
--- NOTE | 2018-03-18 23:13 | PDOC.PN ---
- Subjective Encounter Start Date: 03/18/18 Encounter Start Time: 12:45 Non-verbal. - Objective Resuscitation Status: Resuscitation Status DNR:Do Not Resuscitate Vital Signs & Weight: Vital Signs (12 hours) Temp Pulse Pulse Pulse Resp BP BP 03/18/18 20:05 101 H 207/62 H 03/18/18 20:00 98.0 F 101 H 20 03/18/18 19:00 98.0 F 99 20 03/18/18 18:24 97 20 03/18/18 16:49 97.7 F 98 20 03/18/18 14:45 91 91 168/54 H 03/18/18 13:45 88 19 BP BP Pulse Ox 03/18/18 20:05 03/18/18 20:00 99 03/18/18 19:00 204/63 H 99 03/18/18 18:24 03/18/18 16:49 168/54 H 99 03/18/18 14:45 187/57 H 03/18/18 13:45 Weight Admit Weight 209 lb 7.026 oz Weight 182 lb 8.684 oz Most Recent Monitor Data Heart Rate from ECG 85 NIBP 166/60 NIBP BP-Mean 104 Respiration from ECG 16 SpO2 100 I&O: 03/17/18 03/18/18 03/19/18 06:59 06:59 06:59 Intake Total 958 1375 300 Output Total 141 3834 60 Balance 817 -2459 240 Result Diagrams: 03/18/18 05:00 03/18/18 05:00 Additional Labs: Accuchecks 03/18/18 03/18/18 03/18/18 16:31 10:34 05:49 POC Glucose 192 H 185 H 203 H 03/18/18 03/18/18 04:29 00:19 POC Glucose 185 H 200 H Phys Exam - Physical Examination Constitutional: NAD Respiratory: no wheezing, no rales, no rhonchi Cardiovascular: RRR, no significant murmur Gastrointestinal: soft, non-tender, no distention PEG in place Left hemiplegia. Non-verbal. Does answer with nods. Dx/Plan (1) Acute respiratory failure Code(s): J96.00 - ACUTE RESPIRATORY FAILURE, UNSP W HYPOXIA OR HYPERCAPNIA Status: Acute Qualifiers: Respiratory failure complication: hypoxia Qualified Code(s): J96.01 - Acute respiratory failure with hypoxia Comment: on ventilator, pulm managing. Not weaning. trach Wednesday (2) Dysphagia Code(s): R13.10 - DYSPHAGIA, UNSPECIFIED Status: Acute Qualifiers: Dysphagia type: unspecified Qualified Code(s): R13.10 - Dysphagia, unspecified Comment: s/p peg (3) Hemiplegia affecting left nondominant side Code(s): G81.94 - HEMIPLEGIA, UNSPECIFIED AFFECTING LEFT NONDOMINANT SIDE Status: Chronic Qualifiers: Hemiplegia type: flaccid - Plan * Awaiting placement.
[2018-03-19] MEDS: HumaLOG 300 UNITS/3 ML VIAL SC PRN ×3 (00:04→16:50)
[2018-03-19] MEDS: Metoclopramide HCl 10 MG/2 ML VIAL IVP SCH ×4 (01:45→20:31)
[2018-03-19] MEDS: cloNIDine 0.1 MG TAB PER TUBE PRN (05:19)
[2018-03-19] MEDS: Albuterol Sulfate 2.5 mg/3 ml Neb NEB SCH ×3 (07:33→18:43)
[2018-03-19] MEDS: ADMIXTURE FEE CHEMO IVPB SCH (08:32)
[2018-03-19] MEDS: FLUCONAZOLE IVPB SCH (08:32)
[2018-03-19] MEDS: NACL ISO OSM IVPB SCH (08:32)
[2018-03-19] MEDS: Amlodipine 5 MG TAB PO SCH ×2 (08:33→20:30)
[2018-03-19] MEDS: Pantoprazole 40 MG VIAL IVP SCH (08:33)
[2018-03-19] MEDS: Metoprolol Tartrate 25 MG TAB PER TUBE SCH (08:34)
--- NOTE | 2018-03-19 14:53 | RAD ---
AP VIEW CHEST: Date: 03/19/18 HISTORY: Chronic respiratory failure. FINDINGS: Comparison made to previous exam from 03/11/18. AP view of chest demonstrates a right jugular dialysis catheter in place. Tracheostomy tube is in nancy ce. Mild cardiomegaly and pulmonary vascular congestion seen. No evidence of effusions seen. IMPRESSION: Cardiomegaly and mild pulmonary vascular congestion. No other acute intrathoracic abnormality seen. POS: [facility]
--- NOTE | 2018-03-19 15:04 | PRG ---
DATE OF SERVICE: 03/19/2018 SERVICE: Pulmonary Medicine. INTERVAL HISTORY: The patient is doing fine from a respiratory standpoint. She remains in static en cephalopathy. She cannot really provide any elements of the history. She appears to be comfortable. Nursing reports no events overnight. PHYSICAL EXAMINATION: VITAL SIGNS: Afebrile, pulse 87, blood pressure 178/57, respirations 20, and saturation 99% on room air. GENERAL: The patient is awake, alert, in no apparent distress. LUNGS: Decent air entry. There is rhonchi present, which are extensive. There is no prolonged expi ratory phase or wheezing. HEART: Normal rate, regular. ABDOMEN: Soft, nontender, nondistended. Bowel sounds are positive. MUSCULOSKELETAL: No cyanosis or clubbing. There is no pitting in the bilateral lower extremities. NEUROLOGIC: Grossly nonfocal. LABORATORY DATA: WBC 7.2, hemoglobin 7.8, platelets 80,000, and continuing to trend upwards. INR 1. 2. Blood sugars ranged from 185-203. Platelet factor 4 was unremarkable. All culture results remai n negative except for urine culture growing yeast species. ASSESSMENT: 1. Urinary tract infection secondary to yeast. 2. Thrombocytopenia, resolving following discontinuation of cefepime, and initiation of treatment fo r yeast urinary tract infection. 3. Middle cerebral artery distribution, cerebrovascular accident. 4. Deconditioning and debility, severe, status post tracheostomy and PEG tube placement. DISCUSSION AND PLAN: The patient is stable for transition out of the hospital. Diflucan will be dis continued after total duration of 7 days. I will provide the patient with a lab holiday starting dennise . Pulmonary Critical Care will continue to follow.
--- NOTE | 2018-03-19 16:02 | PDOC.PN ---
- Subjective Encounter Start Date: 03/19/18 Encounter Start Time: 08:15 Non-verbal. Denies any pain. - Objective Resuscitation Status: Resuscitation Status DNR:Do Not Resuscitate Vital Signs & Weight: Vital Signs (12 hours) Temp Pulse Resp BP BP Pulse Ox 03/19/18 15:08 98.8 F 95 18 176/59 H 100 03/19/18 12:38 87 16 03/19/18 10:58 97.8 F 87 20 138/44 L 99 03/19/18 08:33 88 178/57 H 03/19/18 08:00 99.0 F 88 14 100 03/19/18 07:33 88 14 03/19/18 07:16 99.0 F 88 18 185/64 H 100 03/19/18 05:19 189/57 H Weight Admit Weight 209 lb 7.026 oz Weight 182 lb 8.684 oz Most Recent Monitor Data Heart Rate from ECG 85 NIBP 166/60 NIBP BP-Mean 104 Respiration from ECG 16 SpO2 100 I&O: 03/18/18 03/19/18 03/20/18 06:59 06:59 06:59 Intake Total 1375 820 Output Total 3834 80 Balance -2459 740 Result Diagrams: 03/18/18 05:00 03/18/18 05:00 Additional Labs: Accuchecks 03/19/18 03/19/18 03/18/18 10:51 05:28 23:59 POC Glucose 171 H 149 H 198 H 03/18/18 16:31 POC Glucose 192 H Phys Exam - Physical Examination Constitutional: NAD Trach Respiratory: no wheezing Has some cough and upper airway rales. Cardiovascular: RRR, no significant murmur Gastrointestinal: soft, non-tender, no distention PEG Musculoskeletal: no edema Psychiatric: normal affect Dx/Plan (1) Acute respiratory failure Code(s): J96.00 - ACUTE RESPIRATORY FAILURE, UNSP W HYPOXIA OR HYPERCAPNIA Status: Acute Qualifiers: Respiratory failure complication: hypoxia Qualified Code(s): J96.01 - Acute respiratory failure with hypoxia Comment: Trach in place. Maturing well. (2) Dysphagia Code(s): R13.10 - DYSPHAGIA, UNSPECIFIED Status: Acute Qualifiers: Dysphagia type: unspecified Qualified Code(s): R13.10 - Dysphagia, unspecified Comment: s/p peg (3) Hemiplegia affecting left nondominant side Code(s): G81.94 - HEMIPLEGIA, UNSPECIFIED AFFECTING LEFT NONDOMINANT SIDE Status: Chronic Qualifiers: Hemiplegia type: flaccid Comment: Awaiting placement. (4) Candidal UTI (urinary tract infection) Code(s): B37.49 - OTHER UROGENITAL CANDIDIASIS Status: Acute Comment: On Diflucan - Plan * Awaiting placement.
[2018-03-19] MEDS: cloNIDine 0.3mg/24 Hour PATCH TD SCH (20:30)
[2018-03-19] MEDS: Metoprolol Tartrate 50 MG TAB PER TUBE SCH (20:30)
[2018-03-19] MEDS: Insulin Glargine 20 UNITS in Pre-Filled Syringe 1 EACH SC SCH (20:32)
--- NOTE | 2018-03-19 20:46 | PRG ---
DATE OF SERVICE: 03/19/2018 SUBJECTIVE: Ms. Vogel is a 72-year-old black female who is status post CVA with left hemiplegia a nd being followed by Renal Service for her chronic renal failure. She is currently on maintenance he modialysis. I am at the bedside supervising her dialysis. Attempting about 3-liter fluid removal as tolerated by the patient. No new acute events. OBJECTIVE: VITAL SIGNS: Blood pressure is noted at 132/57 with a heart rate of 94, respiratory rate 18, tempera ture 99.2, pulse oximetry 99%. GENERAL: Awake, alert, comfortable. Can follow simple commands. HEENT: Slightly pale conjunctivae, anicteric sclerae. NECK: No neck mass, no carotid bruits, no JVD. Positive for tracheostomy. LUNGS: Decreased breath sounds. HEART: Normal sinus rhythm. No murmur, no gallops, no rubs. ABDOMEN: Globular, soft, nontender, no masses. EXTREMITIES: No edema, no deformities. Positive for a PEG tube in the belly. MEDICATIONS: Medications of 03/18/2018 was reviewed. LABORATORY DATA: Labs of 03/18/2018, white count 7.2, hemoglobin 7.8; 03/18/2018, sodium 135, potas sium 3.7, chloride 97, carbon dioxide 28, BUN 42, creatinine 2.85, glucose 209, calcium 8.4. ASSESSMENT AND PLAN: 1. Chronic renal failure -- currently on maintenance hemodialysis. No evidence of renal recovery, c ontinue 3 times a week hemodialysis, three-liter fluid removal as tolerated by the patient. We will do a 4-hour hemodialysis today. 2. Anemia, weekly Epogen, p.r.n. blood transfusion. 3. Status post cerebrovascular accident with left hemiplegia. Continue supportive care. Awaiting L TAC placement. Agree with current management.
[2018-03-20] MEDS: Metoclopramide HCl 10 MG/2 ML VIAL IVP SCH ×4 (02:37→18:11)
[2018-03-20] MEDS: HumaLOG 300 UNITS/3 ML VIAL SC PRN ×4 (02:40→17:50)
[2018-03-20] MEDS: Albuterol Sulfate 2.5 mg/3 ml Neb NEB SCH ×4 (02:42→18:47)
[2018-03-20] MEDS: Acetaminophen 325 MG TAB PO PRN (07:37)
[2018-03-20] MEDS: Amlodipine 5 MG TAB PO SCH ×2 (08:56→21:04)
[2018-03-20] MEDS: Metoprolol Tartrate 50 MG TAB PER TUBE SCH ×2 (08:56→21:04)
[2018-03-20] MEDS: Pantoprazole 40 MG VIAL IVP SCH (08:56)
[2018-03-20] MEDS: FLUCONAZOLE IVPB SCH (09:25)
[2018-03-20] MEDS: ADMIXTURE FEE CHEMO IVPB SCH (09:25)
[2018-03-20] MEDS: NACL ISO OSM IVPB SCH (09:25)
--- NOTE | 2018-03-20 10:31 | PRG ---
DATE OF SERVICE: 03/20/2018 RENAL MEDICINE SUBJECTIVE: Ms. Vogel is a 72-year-old black female with ESRD/chronic renal failure - status post cerebrovascular accident with left hemiplegia and being followed by the Renal Service for her mainte nance hemodialysis. She underwent hemodialysis yesterday. She tolerated the said fluid removal. Ou r plan is again to continue her Wednesday, , and Wednesday dialysis regimen. No acute events noted. OBJECTIVE: VITAL SIGNS: Blood pressure is 165/61, heart rate 90, respiratory rate 22, temperature 101.2, and O2 sat 99%. GENERAL: Sleepy, but arousable, comfortable, not in distress. SKIN: Adequate turgor. HEENT: Slightly pale conjunctivae, anicteric sclerae. NECK: No neck mass, no carotid bruits, no JVD. CHEST: No deformities. LUNGS: Decreased breath sounds. HEART: Normal sinus rhythm. No murmur, no gallops, no rubs. ABDOMEN: Globular, soft, nontender. Positive for PEG. EXTREMITIES: No edema, no deformities. MEDICATIONS: Of 03/20/2018, was reviewed. LABORATORY DATA: Of 03/18/2018, white count 7.2, hemoglobin 7.8. 03/20/2018, glucose 180. 03/18/20 18, sodium 135, potassium 3.7, chloride 97, carbon dioxide 28, BUN 42, creatinine 2.85, glucose 209, calcium 8.4. ASSESSMENT AND PLAN: 1. Chronic renal failure/end-stage renal disease - stable. We will continue current - Wednesday, , and Wednesday dialysis regimen. Again, fluid removal only as tolerated. No evidence of renal r ecovery. We will check base met tomorrow. 2. Anemia, on weekly Epogen. Recheck CBC again. 3. Fever - the patient currently on an antifungal regimen. 4. We will agree with current management.
--- NOTE | 2018-03-20 11:52 | PRG ---
DATE OF SERVICE: 03/20/2018 SERVICE: Pulmonary Medicine. INTERVAL HISTORY: The patient is doing fine from a respiratory standpoint. There has been no interval change to his condition. He is not able to provide any elements of the history. Otherwise, we are awaiting on placement. Nursing reports no overnight events. PHYSICAL EXAMINATION: VITAL SIGNS: Currently, febrile with a T-max of 101.2, pulse 90, blood pressure 165/61, respirations 22, saturation 99% on 5 liter via T-collar. HEENT: Normocephalic, atraumatic. Sclerae are white, conjunctivae pink. Oral and nasal mucosa moist without lesions. Tracheostomy is in place. LUNGS: Extensive rhonchi are present throughout bilateral lung camilo. No wheezing or crackles are appreciated. HEART: Normal rate, regular. ABDOMEN: Soft, nontender, nondistended. Bowel sounds are positive. MUSCULOSKELETAL: No cyanosis or clubbing. There is no pitting in the bilateral lower extremities. NEUROLOGIC: Grossly nonfocal. ASSESSMENT: 1. Urinary tract infection, secondary to yeast. 2. Thrombocytopenia, previously resolving after discontinuation of cefepime and initiation of treatment for yeast. 3. Middle cerebral artery cerebrovascular accident. 4. Deconditioning and debility, severe, status post tracheostomy and PEG tube placement. 5. Sepsis, recrudesce. DISCUSSION AND PLAN: We will vora culture the patient once again. We will continue our empiric antibiotics for the time being. Return to broad-spectrum antibiotics will be directed by culture results. Pulmonary Critical Care will continue to follow while the patient remains in the IMCU. We should probably hold transfer until Wednesday or Wednesday of this week until the patient's new sepsis profile starts to settle back down once again. I will repeat laboratories tomorrow morning. KERI
--- NOTE | 2018-03-20 14:09 | PDOC.PN ---
- Subjective Encounter Start Date: 03/20/18 Encounter Start Time: 09:05 -: non-verbal - Objective Resuscitation Status: Resuscitation Status DNR:Do Not Resuscitate Vital Signs & Weight: Vital Signs (12 hours) Temp Pulse Pulse Pulse Resp BP BP 03/20/18 13:02 82 18 03/20/18 11:00 99.5 F 84 24 H 03/20/18 08:56 91 165/61 H 03/20/18 08:50 88 90 186/52 H 03/20/18 08:00 101.2 F H 90 22 H 03/20/18 07:00 101.2 F H 90 22 H 03/20/18 06:13 92 16 03/20/18 04:00 98.6 F 90 20 03/20/18 02:42 91 20 BP BP Pulse Ox Pulse Ox Pulse Ox 03/20/18 13:02 100 03/20/18 11:00 172/56 H 100 03/20/18 08:56 03/20/18 08:50 165/61 H 99 98 03/20/18 08:00 99 03/20/18 07:00 170/52 H 99 03/20/18 06:13 97 03/20/18 04:00 145/45 H 99 03/20/18 02:42 99 Weight Admit Weight 209 lb 7.026 oz Weight 182 lb 8.684 oz Most Recent Monitor Data Heart Rate from ECG 85 NIBP 166/60 NIBP BP-Mean 104 Respiration from ECG 16 SpO2 100 I&O: 03/19/18 03/20/18 03/21/18 06:59 06:59 06:59 Intake Total 910 630 160 Output Total 80 100 30 Balance 830 530 130 Result Diagrams: 03/18/18 05:00 03/18/18 05:00 Additional Labs: Accuchecks 03/20/18 03/20/18 03/20/18 11:57 06:06 01:17 POC Glucose 197 H 180 H 227 H 03/19/18 16:43 POC Glucose 197 H Phys Exam - Physical Examination Constitutional: NAD Respiratory: no wheezing, no rales, no rhonchi, clear to auscultation bilateral Cardiovascular: RRR, no significant murmur Gastrointestinal: soft, non-tender, no distention Musculoskeletal: no edema Dx/Plan (1) Acute respiratory failure Code(s): J96.00 - ACUTE RESPIRATORY FAILURE, UNSP W HYPOXIA OR HYPERCAPNIA Status: Acute Qualifiers: Respiratory failure complication: hypoxia Qualified Code(s): J96.01 - Acute respiratory failure with hypoxia Comment: Trach in place. Maturing well. (2) Dysphagia Code(s): R13.10 - DYSPHAGIA, UNSPECIFIED Status: Acute Qualifiers: Dysphagia type: unspecified Qualified Code(s): R13.10 - Dysphagia, unspecified Comment: s/p peg (3) Hemiplegia affecting left nondominant side Code(s): G81.94 - HEMIPLEGIA, UNSPECIFIED AFFECTING LEFT NONDOMINANT SIDE Status: Chronic Qualifiers: Hemiplegia type: flaccid Comment: Awaiting placement. (4) Candidal UTI (urinary tract infection) Code(s): B37.49 - OTHER UROGENITAL CANDIDIASIS Status: Acute Comment: On Diflucan (5) Fever Code(s): R50.9 - FEVER, UNSPECIFIED Status: Acute Comment: CXR was negative yesterday. Will get blood cultures if it occurs again. Check UA and DC Leblanc. - Plan * Stable. Consider removing Leblanc. Very oliguric. * Awaiting placement.
[2018-03-20] MEDS: Epoetin (ESRD) 20,000 UNITS/ML SC SCH (14:19)
[2018-03-20] MEDS: cloNIDine 0.1 MG TAB PER TUBE PRN ×2 (15:39→22:32)
[2018-03-20] MEDS: Labetalol HCl 100 MG/20 ML VIAL SLOW IVP PRN (18:07)
[2018-03-20] MEDS: Insulin Glargine 20 UNITS in Pre-Filled Syringe 1 EACH SC SCH (21:05)
[2018-03-20 21:57] LABS: Bilirubin Moderate (Negative); Blood, Urine Large (Negative); Glucose, Urine (Dipstick) Negative (Negative); Leukocyte Large (Negative); Nitrite Positive (Negative); Protein, Urine (Dipstick) > or equal to 300 mg/dL (Neg-Trace); Urobilinogen 0.2 mg/dL (0.2-1.0); pH, Urine 7.5 (5.0-9.0)
[2018-03-20 21:58] LABS: Bacteria/HPF 1+ HPF (None Seen); Clarity Turbid (Clear); Crystals/HPF 2+ AMORPH PHOS HPF (Negative); Hyaline Casts/LPF 0-3 HYALINE CAST LPF (0-3 Hyaline); RBC/HPF 21-50 HPF (0-3); Squamous Epithelial 0-3 HPF (0-3); WBC/HPF 21-50 HPF (0-3); Yeast-All Forms 2+ HPF (None Seen)
[2018-03-21] MEDS: HumaLOG 300 UNITS/3 ML VIAL SC PRN ×4 (00:43→18:18)
[2018-03-21] MEDS: Albuterol Sulfate 2.5 mg/3 ml Neb NEB SCH ×4 (01:04→19:27)
[2018-03-21] MEDS: Metoclopramide HCl 10 MG/2 ML VIAL IVP SCH ×4 (02:08→20:42)
[2018-03-21] MEDS: Labetalol HCl 100 MG/20 ML VIAL SLOW IVP PRN ×2 (02:10→08:45)
[2018-03-21] MEDS: cloNIDine 0.1 MG TAB PER TUBE PRN (06:09)
--- NOTE | 2018-03-21 08:13 | PRG ---
DATE OF SERVICE: 03/21/2018 Ms. Vogel is lying in bed, does not look much different than she has looked the past week. PHYSICAL EXAMINATION: VITAL SIGNS: Temperature is 99.4, pulse 89, respirations 20, O2 sat 100%, blood pressure 172/54. HEENT: Remarkable for bitemporal wasting. NECK: Trach in good position, minimal secretions. CARDIAC: S1 and S2 regular, without murmur. LUNGS: Clear without wheezing or rhonchi. ABDOMEN: Soft, nontender. EXTREMITIES: Generalized edema throughout. LABORATORY DATA: No new labs were done today. ASSESSMENT: 1. She had fever yesterday morning, she was recultured and we are waiting for full results from that . 2. Status post tracheostomy and PEG tube placement for stroke and aspiration. PLAN: 1. Trend CBC tomorrow. 2. Continue Diflucan for UTI until she has completed 7 days. 3. Proceed with LTAC placement whenever possible.
[2018-03-21] MEDS: Amlodipine 5 MG TAB PO SCH ×2 (08:42→20:42)
[2018-03-21] MEDS: Pantoprazole 40 MG VIAL IVP SCH (08:42)
[2018-03-21] MEDS: Metoprolol Tartrate 50 MG TAB PER TUBE SCH (08:44)
[2018-03-21] MEDS: NACL ISO OSM IVPB SCH (08:45)
[2018-03-21] MEDS: ADMIXTURE FEE CHEMO IVPB SCH (08:45)
[2018-03-21] MEDS: FLUCONAZOLE IVPB SCH (08:45)
[2018-03-21 09:02] LABS: #Basophils 0.1 thou/uL (0.0-0.2); #Eosinphils 0.1 thou/uL (0.0-0.7); #Lymphocytes 1.8 thou/uL (1.20-3.40); #Monocytes 0.6 thou/uL (0.11-0.59); #Neutrophils 5.5 thou/uL (1.40-6.50); %Basophils 0.8 % (0.0-1.0); %Eosinophils 1.2 % (0.0-10.0); %Lymphocytes 22.2 % (21.0-51.0); %Monocytes 7.7 % (0.0-10.0); %Neutrophils 68.1 % (42.0-75.0); Hemoglobin 7.8 g/dL (12.0-16.0); Mean Corpuscular HGB CONC 34.1 g/dL (32.0-36.0); Mean Corpuscular Hemoglobin 30.6 pg (27.0-31.0); Mean Corpuscular Volume 89.7 fL (78.0-98.0); Mean Platelet Volume 9.7 fL (7.4-10.4); Platelet Count 97 thou/uL (130-400); RBC Distribution Width 15.5 % (11.5-14.5); Red Blood Cell (RBC) Count 2.56 mill/uL (4.20-5.40); White Blood Cell (WBC) Count 8.1 thou/uL (4.8-10.8)
[2018-03-21 09:20] LABS: Anion Gap 15 mmol/L (10-20); BUN (Urea Nitrogen) 56 mg/dL (9.8-20.1); Calc. Creatinine Clearance 15 mL/min (70-130); Calcium 8.9 mg/dL (7.8-10.44); Carbon Dioxide 27 mmol/L (23-31); Chloride 95 mmol/L (98-107); Estimated GFR-MDRD 12; Glucose 262 mg/dL (83-110); Magnesium 1.9 mg/dL (1.6-2.6); Phosphorus 2.2 mg/dL (2.3-4.7); Sodium 133 mmol/L (136-145)
--- NOTE | 2018-03-21 14:19 | PDOC.PN ---
- Subjective Encounter Start Date: 03/21/18 Encounter Start Time: 14:17 Subjective: awake, no appropriatee responce - Objective Resuscitation Status: Resuscitation Status DNR:Do Not Resuscitate MAR Reviewed: Yes Vital Signs & Weight: Vital Signs (12 hours) Temp Pulse Pulse Pulse Resp BP BP 03/21/18 14:00 87 20 03/21/18 11:50 98.2 F 83 20 03/21/18 10:40 03/21/18 10:35 81 80 175/62 H 03/21/18 08:55 99.4 F 92 20 03/21/18 08:45 92 175/82 H 03/21/18 08:42 92 175/82 H 03/21/18 08:03 03/21/18 08:01 89 20 03/21/18 07:44 99.4 F 89 28 H 03/21/18 06:07 94 03/21/18 04:44 97.4 F L 91 25 H BP BP Pulse Ox Pulse Ox Pulse Ox 03/21/18 14:00 99 03/21/18 11:50 173/55 H 100 03/21/18 10:40 160/54 H 03/21/18 10:35 160/54 H 100 100 03/21/18 08:55 99 03/21/18 08:45 03/21/18 08:42 03/21/18 08:03 99 03/21/18 08:01 99 03/21/18 07:44 172/54 H 100 03/21/18 06:07 186/56 H 03/21/18 04:44 173/51 H 100 Weight Admit Weight 209 lb 7.026 oz Weight 182 lb 8.684 oz Most Recent Monitor Data Heart Rate from ECG 85 NIBP 166/60 NIBP BP-Mean 104 Respiration from ECG 16 SpO2 100 I&O: 03/20/18 03/21/18 03/22/18 06:59 06:59 06:59 Intake Total 630 1038 100 Output Total 100 30 Balance 530 1008 100 Result Diagrams: 03/21/18 08:53 03/21/18 08:53 Additional Labs: Accuchecks 03/21/18 03/21/18 03/21/18 12:25 05:50 00:32 POC Glucose 284 H 249 H 251 H 03/20/18 17:49 POC Glucose 222 H Phys Exam - Physical Examination Neck: no JVD Respiratory: clear to auscultation bilateral Cardiovascular: RRR, no significant murmur Gastrointestinal: soft, positive bowel sounds Musculoskeletal: edema present L hemiplegia Dx/Plan (1) Acute respiratory failure Code(s): J96.00 - ACUTE RESPIRATORY FAILURE, UNSP W HYPOXIA OR HYPERCAPNIA Status: Acute Qualifiers: Respiratory failure complication: hypoxia Qualified Code(s): J96.01 - Acute respiratory failure with hypoxia Comment: Trach in place. Maturing well. (2) Candidal UTI (urinary tract infection) Code(s): B37.49 - OTHER UROGENITAL CANDIDIASIS Status: Acute Comment: On Diflucan (3) CKD (chronic kidney disease) stage 5, GFR less than 15 ml/min Code(s): N18.5 - CHRONIC KIDNEY DISEASE, STAGE 5 Status: Chronic Comment: on HD at present (4) Hemiplegia affecting left nondominant side Code(s): G81.94 - HEMIPLEGIA, UNSPECIFIED AFFECTING LEFT NONDOMINANT SIDE Status: Chronic Qualifiers: Hemiplegia type: flaccid Comment: Awaiting placement. (5) Hyperlipidemia Code(s): E78.5 - HYPERLIPIDEMIA, UNSPECIFIED Status: Chronic Qualifiers: Hyperlipidemia type: unspecified Qualified Code(s): E78.5 - Hyperlipidemia , unspecified (6) Hypertension Code(s): I10 - ESSENTIAL (PRIMARY) HYPERTENSION Status: Chronic Qualifiers: Hypertension type: essential hypertension Qualified Code(s): I10 - Essential (primary) hypertension (7) Acute encephalopathy Code(s): G93.40 - ENCEPHALOPATHY, UNSPECIFIED Status: Resolved Comment: sec to massive cva - stable - Plan on vent, non-weanable -: nutrition, meds per PEG -: LTAC referral * .
[2018-03-21] MEDS: hydrALAZINE 25 MG TAB PO SCH ×2 (14:42→20:45)
[2018-03-21] MEDS: Carvedilol 25 MG TAB PO SCH (16:54)
[2018-03-21] MEDS: Insulin Glargine 20 UNITS in Pre-Filled Syringe 1 EACH SC SCH (20:46)
[2018-03-22] MEDS: Albuterol Sulfate 2.5 mg/3 ml Neb NEB SCH ×4 (00:10→18:56)
[2018-03-22] MEDS: HumaLOG 300 UNITS/3 ML VIAL SC PRN ×3 (00:32→16:31)
[2018-03-22] MEDS: Metoclopramide HCl 10 MG/2 ML VIAL IVP SCH ×5 (01:31→21:02)
[2018-03-22 03:58] LABS: #Eosinphils 0.2 thou/uL (0.0-0.7); #Lymphocytes 1.6 thou/uL (1.20-3.40); #Monocytes 0.7 thou/uL (0.11-0.59); #Neutrophils 6.4 thou/uL (1.40-6.50); %Basophils 0.2 % (0.0-1.0); %Eosinophils 1.7 % (0.0-10.0); %Lymphocytes 18.2 % (21.0-51.0); %Monocytes 7.6 % (0.0-10.0); %Neutrophils 72.2 % (42.0-75.0); Hemoglobin 7.8 g/dL (12.0-16.0); Mean Corpuscular HGB CONC 35.5 g/dL (32.0-36.0); Mean Corpuscular Hemoglobin 31.6 pg (27.0-31.0); Mean Platelet Volume 10.6 fL (7.4-10.4); Platelet Count 105 thou/uL (130-400); RBC Distribution Width 15.4 % (11.5-14.5); Red Blood Cell (RBC) Count 2.48 mill/uL (4.20-5.40); White Blood Cell (WBC) Count 8.9 thou/uL (4.8-10.8)
[2018-03-22 04:07] LABS: Anion Gap 15 mmol/L (10-20); BUN (Urea Nitrogen) 71 mg/dL (9.8-20.1); Calc. Creatinine Clearance 12 mL/min (70-130); Calcium 9.1 mg/dL (7.8-10.44); Carbon Dioxide 26 mmol/L (23-31); Chloride 94 mmol/L (98-107); Estimated GFR-MDRD 9; Glucose 264 mg/dL (83-110); Potassium 4.1 mmol/L (3.5-5.1); Sodium 131 mmol/L (136-145)
--- NOTE | 2018-03-22 07:45 | PDOC.PN ---
- Subjective Encounter Start Date: 03/22/18 Encounter Start Time: 07:43 Subjective: non-verbal, nods to verbal stimuli - Objective Resuscitation Status: Resuscitation Status DNR:Do Not Resuscitate MAR Reviewed: Yes Vital Signs & Weight: Vital Signs (12 hours) Temp Pulse Resp BP BP Pulse Ox 03/22/18 07:17 99 03/22/18 07:16 87 20 99 03/22/18 04:00 98.5 F 90 20 178/67 H 100 03/22/18 02:42 98 03/22/18 00:10 89 16 100 03/22/18 00:00 98.2 F 89 18 163/50 H 100 03/21/18 20:45 89 167/52 H 03/21/18 20:42 89 167/52 H 03/21/18 20:00 99.2 F 86 20 100 Weight Admit Weight 209 lb 7.026 oz Weight 182 lb 8.684 oz Most Recent Monitor Data Heart Rate from ECG 85 NIBP 166/60 NIBP BP-Mean 104 Respiration from ECG 16 SpO2 100 I&O: 03/21/18 03/22/18 03/23/18 06:59 06:59 06:59 Intake Total 1038 1028 Output Total 30 Balance 1008 1028 Result Diagrams: 03/22/18 03:37 03/22/18 03:37 Additional Labs: Accuchecks 03/22/18 03/22/18 03/21/18 06:03 00:31 18:18 POC Glucose 276 H 285 H 284 H 03/21/18 12:25 POC Glucose 284 H Phys Exam - Physical Examination Neck: no JVD Respiratory: clear to auscultation bilateral Cardiovascular: RRR, no significant murmur Gastrointestinal: soft, positive bowel sounds Musculoskeletal: edema present Dx/Plan (1) Acute respiratory failure Code(s): J96.00 - ACUTE RESPIRATORY FAILURE, UNSP W HYPOXIA OR HYPERCAPNIA Status: Acute Qualifiers: Respiratory failure complication: hypoxia Qualified Code(s): J96.01 - Acute respiratory failure with hypoxia Comment: Trach in place. Maturing well. (2) Candidal UTI (urinary tract infection) Code(s): B37.49 - OTHER UROGENITAL CANDIDIASIS Status: Acute Comment: On Diflucan (3) CKD (chronic kidney disease) stage 5, GFR less than 15 ml/min Code(s): N18.5 - CHRONIC KIDNEY DISEASE, STAGE 5 Status: Chronic Comment: on HD at present (4) Hemiplegia affecting left nondominant side Code(s): G81.94 - HEMIPLEGIA, UNSPECIFIED AFFECTING LEFT NONDOMINANT SIDE Status: Chronic Qualifiers: Hemiplegia type: flaccid Comment: Awaiting placement. (5) Hyperlipidemia Code(s): E78.5 - HYPERLIPIDEMIA, UNSPECIFIED Status: Chronic Qualifiers: Hyperlipidemia type: unspecified Qualified Code(s): E78.5 - Hyperlipidemia , unspecified (6) Hypertension Code(s): I10 - ESSENTIAL (PRIMARY) HYPERTENSION Status: Chronic Qualifiers: Hypertension type: essential hypertension Qualified Code(s): I10 - Essential (primary) hypertension - Plan resp failure- vent dependent -: on 3x weekly HD -: nutrition , meds per PEG -: LTAC referral * .
--- NOTE | 2018-03-22 08:10 | PRG ---
DATE OF SERVICE: 03/22/2018 SUBJECTIVE: The patient will nod and shake her head to questions, but no answer is really reliable t hat I can tell. PHYSICAL EXAMINATION: VITAL SIGNS: Temperature 98.5, pulse 87, respirations 20, O2 sat 99%, blood pressure 178/67. HEENT: Unremarkable. Trach in good position, midline, very faint secretions. CARDIAC: S1 and S2 regular. LUNGS: Clear without wheezing or rhonchi. ABDOMEN: Soft, nontender. EXTREMITIES: Trace edema throughout. LABORATORY DATA: White blood cell count 8.9, hematocrit 22.0, platelet count 105. Sodium 131, potas sium 4.1, chloride 94, CO2 26, BUN 71, creatinine 5.4, glucose 264. ASSESSMENT: 1. Status post acute respiratory failure, which required tracheostomy placement. 2. Acute on chronic renal failure requiring hemodialysis. 3. Improved thrombocytopenia. 4. Fungal urinary tract infection. PLAN: We are still awaiting placement. LTAC referrals have been made. This is mainly a [facility] and placement issue. I have not seen the family in quite some time, but I will be happy to updat e them when they come around.
[2018-03-22] MEDS ORDERED: Epoetin (ESRD) 10,000 UNITS/ML VIAL SC SCH (08:50)
--- NOTE | 2018-03-22 09:04 | PRG ---
DATE OF SERVICE: 03/22/2018 SUBJECTIVE: Ms. Vogel is a 72-year-old black female being followed by the [facility] for her m aintenance hemodialysis. She is currently now on a regular maintenance dialysis. She was initially admitted for a CVA with left hemiplegia with multiple complications including displacement of her PEG tube. Overall, doing well. She is currently undergoing dialysis today. I am at the bedside superv ising her dialysis. Attempting between 2 and 3 liter fluid removal as tolerated. OBJECTIVE: VITAL SIGNS: Blood pressure 184/63, heart rate 89, respiratory rate 33, pulse ox 100%, temperature 9 8.7. GENERAL: Awake, alert, comfortable, can follow simple commands. She has a positive tracheostomy on tracheal mask. LUNGS: Decreased breath sounds. HEART: Normal sinus rhythm. No murmur, no gallops, no rubs. ABDOMEN: Globular, soft, nontender, no masses. Positive for PEG tube. EXTREMITIES: No edema, no deformities. NEUROLOGIC: Awake and follows simple commands, left hemiplegia. MEDICATIONS: 03/22/2018 - Reviewed. LABORATORY DATA: 03/22/2018 - White count 8.9, hemoglobin 7.8, hematocrit 22. Sodium 131, potassium 4.9, chloride 94, carbon dioxide 26, BUN 71, creatinine 5.43, glucose 264, calcium 9.1. ASSESSMENT AND PLAN: 1. End-stage renal disease/chronic renal failure, currently undergoing hemodialysis. Continue , , and Wednesday dialysis regimen. Fluid removal as tolerated. No changes will be made wi th the current dialysis regimen. 2. Anemia - currently on weekly Epogen. My bias is to increase now the Epogen to 10,000 units subcu taneously every week. 3. Status post cerebrovascular accident with left hemiplegia. Continue supportive care. We are cur rently awaiting LTAC placement.
[2018-03-22] MEDS ORDERED: Heparin 10,000 UNITS/ 10 ML VIAL ONE (12:00)
[2018-03-22] MEDS: Carvedilol 25 MG TAB PO SCH ×2 (12:04→12:19)
[2018-03-22] MEDS: Amlodipine 5 MG TAB PO SCH ×2 (12:19→20:41)
[2018-03-22] MEDS: hydrALAZINE 25 MG TAB PO SCH ×3 (12:20→20:41)
[2018-03-22] MEDS: Pantoprazole 40 MG VIAL IVP SCH (12:20)
[2018-03-22] MEDS: FLUCONAZOLE IVPB SCH ×2 (12:35→14:07)
[2018-03-22] MEDS: NACL ISO OSM IVPB SCH ×2 (12:35→14:07)
[2018-03-22] MEDS: ADMIXTURE FEE CHEMO IVPB SCH ×2 (12:35→14:07)
[2018-03-22] MEDS: Acetaminophen 325 MG TAB PO PRN (20:40)
[2018-03-22] MEDS: Insulin Glargine 20 UNITS in Pre-Filled Syringe 1 EACH SC SCH (20:57)
[2018-03-23] MEDS: Albuterol Sulfate 2.5 mg/3 ml Neb NEB SCH ×4 (00:04→18:57)
[2018-03-23] MEDS: Metoclopramide HCl 10 MG/2 ML VIAL IVP SCH ×4 (01:17→21:36)
[2018-03-23] MEDS: HumaLOG 300 UNITS/3 ML VIAL SC PRN ×4 (01:39→17:29)
--- NOTE | 2018-03-23 08:38 | PRG ---
DATE OF SERVICE: 03/23/2018 She appears to be about the same. She is not communicative this morning. PHYSICAL EXAMINATION: VITAL SIGNS: Temperature 98.8, pulse 91, respirations 19, O2 sat 100%, blood pressure 168/49. HEENT: Unremarkable. NECK: Trach in good position. No excess secretions. LUNGS: Clear. CARDIAC: S1 and S2 regular. ABDOMEN: Soft. EXTREMITIES: Generalized edema throughout. LABORATORY DATA: No labs were obtained today. ASSESSMENT: 1. Status post tracheostomy for persistent respiratory failure. 2. 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 3. Acute on chronic renal failure requiring hemodialysis. 4. Improved thrombocytopenia. 5. Fungal urinary tract infection. PLAN: Awaiting long-term acute care hospital placement. The patient's fluconazole can be discontinu ed after today's dose.
[2018-03-23] MEDS: Carvedilol 25 MG TAB PO SCH ×2 (08:59→17:29)
[2018-03-23] MEDS: Amlodipine 5 MG TAB PO SCH ×2 (08:59→21:38)
[2018-03-23] MEDS: hydrALAZINE 25 MG TAB PO SCH ×3 (08:59→21:37)
[2018-03-23] MEDS: Pantoprazole 40 MG VIAL IVP SCH (09:00)
--- NOTE | 2018-03-23 10:31 | PDOC.PN ---
- Subjective Encounter Start Date: 03/23/18 Encounter Start Time: 10:30 -: non-verbal Subjective: no overnite events - Objective Resuscitation Status: Resuscitation Status DNR:Do Not Resuscitate Vital Signs & Weight: Vital Signs (12 hours) Temp Pulse Resp BP BP Pulse Ox 03/23/18 08:59 86 166/50 H 03/23/18 07:27 98.8 F 91 19 168/49 H 100 03/23/18 06:18 93 18 100 03/23/18 04:09 98.8 F 82 20 159/47 H 100 03/23/18 00:04 88 18 100 03/23/18 00:00 99.0 F 93 22 H 164/51 H 100 Weight Admit Weight 209 lb 7.026 oz Weight 182 lb 8.684 oz Most Recent Monitor Data Heart Rate from ECG 85 NIBP 166/60 NIBP BP-Mean 104 Respiration from ECG 16 SpO2 100 I&O: 03/22/18 03/23/18 03/24/18 06:59 06:59 06:59 Intake Total 1028 760 Balance 1028 760 Result Diagrams: 03/22/18 03:37 03/22/18 03:37 Additional Labs: Accuchecks 03/23/18 03/23/18 03/22/18 05:54 00:22 18:57 POC Glucose 256 H 286 H 243 H 03/22/18 15:29 POC Glucose 269 H Phys Exam - Physical Examination Neck: no JVD Respiratory: clear to auscultation bilateral Cardiovascular: RRR, no significant murmur Gastrointestinal: soft, positive bowel sounds PEG Musculoskeletal: no edema Dx/Plan (1) Acute respiratory failure Code(s): J96.00 - ACUTE RESPIRATORY FAILURE, UNSP W HYPOXIA OR HYPERCAPNIA Status: Acute Qualifiers: Respiratory failure complication: hypoxia Qualified Code(s): J96.01 - Acute respiratory failure with hypoxia Comment: Trach in place. Maturing well. (2) Candidal UTI (urinary tract infection) Code(s): B37.49 - OTHER UROGENITAL CANDIDIASIS Status: Acute Comment: On Diflucan (3) CKD (chronic kidney disease) stage 5, GFR less than 15 ml/min Code(s): N18.5 - CHRONIC KIDNEY DISEASE, STAGE 5 Status: Chronic Comment: on HD at present (4) Hemiplegia affecting left nondominant side Code(s): G81.94 - HEMIPLEGIA, UNSPECIFIED AFFECTING LEFT NONDOMINANT SIDE Status: Chronic Qualifiers: Hemiplegia type: flaccid Comment: Awaiting placement. (5) Hyperlipidemia Code(s): E78.5 - HYPERLIPIDEMIA, UNSPECIFIED Status: Chronic Qualifiers: Hyperlipidemia type: unspecified Qualified Code(s): E78.5 - Hyperlipidemia , unspecified (6) Hypertension Code(s): I10 - ESSENTIAL (PRIMARY) HYPERTENSION Status: Chronic Qualifiers: Hypertension type: essential hypertension Qualified Code(s): I10 - Essential (primary) hypertension - Plan vent dependent -: PEG nutrition and meds -: cont accu/ss/ LA insulin * .
[2018-03-23] MEDS ORDERED: Pancrelipase DR 12000 1 CAP FS PRN (10:48)
[2018-03-23] MEDS ORDERED: Sodium Bicarbonate Tab 325 MG TAB PER TUBE PRN (10:48)
[2018-03-23] MEDS: ADMIXTURE FEE CHEMO IVPB SCH (13:11)
[2018-03-23] MEDS: FLUCONAZOLE IVPB SCH (13:11)
[2018-03-23] MEDS: NACL ISO OSM IVPB SCH (13:11)
[2018-03-23] MEDS: Insulin Glargine 20 UNITS in Pre-Filled Syringe 1 EACH SC SCH (21:55)
[2018-03-24] MEDS: Albuterol Sulfate 2.5 mg/3 ml Neb NEB SCH ×4 (01:00→18:25)
[2018-03-24] MEDS: Metoclopramide HCl 10 MG/2 ML VIAL IVP SCH ×4 (01:12→21:04)
[2018-03-24] MEDS: HumaLOG 300 UNITS/3 ML VIAL SC PRN ×3 (01:18→16:48)
--- NOTE | 2018-03-24 08:16 | PDOC.PN ---
- Subjective Encounter Start Date: 03/24/18 Encounter Start Time: 08:14 -: non-verbal Subjective: no overnite events - Objective Resuscitation Status: Resuscitation Status DNR:Do Not Resuscitate MAR Reviewed: Yes Vital Signs & Weight: Vital Signs (12 hours) Temp Pulse Resp BP BP Pulse Ox 03/24/18 07:38 98.5 F 89 26 H 168/48 H 100 03/24/18 06:50 87 16 100 03/24/18 04:00 98.4 F 89 24 H 154/50 H 100 03/24/18 01:00 79 16 100 03/24/18 00:00 99.2 F 83 20 158/47 H 100 03/23/18 21:38 85 162/53 H 03/23/18 21:37 86 162/53 H Weight Admit Weight 209 lb 7.026 oz Weight 182 lb 8.684 oz Most Recent Monitor Data Heart Rate from ECG 85 NIBP 166/60 NIBP BP-Mean 104 Respiration from ECG 16 SpO2 100 I&O: 03/23/18 03/24/18 03/25/18 06:59 06:59 06:59 Intake Total 760 760 Balance 760 760 Result Diagrams: 03/22/18 03:37 03/22/18 03:37 Additional Labs: Accuchecks 03/24/18 03/24/18 03/23/18 06:00 00:12 16:38 POC Glucose 266 H 284 H 242 H 03/23/18 10:46 POC Glucose 296 H Phys Exam - Physical Examination Constitutional: NAD Neck: no JVD Respiratory: clear to auscultation bilateral Cardiovascular: RRR, no significant murmur Gastrointestinal: soft, non-tender, positive bowel sounds Musculoskeletal: no edema Dx/Plan (1) Acute respiratory failure Code(s): J96.00 - ACUTE RESPIRATORY FAILURE, UNSP W HYPOXIA OR HYPERCAPNIA Status: Acute Qualifiers: Respiratory failure complication: hypoxia Qualified Code(s): J96.01 - Acute respiratory failure with hypoxia Comment: Trach in place. Maturing well. (2) Candidal UTI (urinary tract infection) Code(s): B37.49 - OTHER UROGENITAL CANDIDIASIS Status: Acute Comment: On Diflucan (3) CKD (chronic kidney disease) stage 5, GFR less than 15 ml/min Code(s): N18.5 - CHRONIC KIDNEY DISEASE, STAGE 5 Status: Chronic Comment: on HD at present (4) Hemiplegia affecting left nondominant side Code(s): G81.94 - HEMIPLEGIA, UNSPECIFIED AFFECTING LEFT NONDOMINANT SIDE Status: Chronic Qualifiers: Hemiplegia type: flaccid Comment: Awaiting placement. (5) Hyperlipidemia Code(s): E78.5 - HYPERLIPIDEMIA, UNSPECIFIED Status: Chronic Qualifiers: Hyperlipidemia type: unspecified Qualified Code(s): E78.5 - Hyperlipidemia , unspecified (6) Hypertension Code(s): I10 - ESSENTIAL (PRIMARY) HYPERTENSION Status: Chronic Qualifiers: Hypertension type: essential hypertension Qualified Code(s): I10 - Essential (primary) hypertension - Plan vent dependent, has trach -: HD dependent -: PEG for nutrition, meds * .
--- NOTE | 2018-03-24 08:17 | PRG ---
DATE OF SERVICE: 03/24/2018 SUBJECTIVE: The patient remains in the IMCU. She is awaiting placement in LTAC. PHYSICAL EXAMINATION: VITAL SIGNS: Temperature is 98.5 with no fever in the last 48 hours, pulse 89, respirations 26, O2 s at 100%, blood pressure 146/48. HEENT: Unremarkable. NECK: No JVD. Trach in good position, minimal secretions. LUNGS: Clear. CARDIOVASCULAR: S1, S2 regular. ABDOMEN: Soft. EXTREMITIES: No edema. LABORATORY DATA: Accu-Chek 266. ASSESSMENT: 1. Generalized failure to thrive. 2. Status post tracheostomy for persistent respiratory failure. 3. 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 4. Acute on chronic renal failure requiring hemodialysis. 5. Fungal urinary tract infection. PLAN: We will go ahead and discontinue the Diflucan as she has had 7 days of treatment. Otherwise, continue supportive care with tube feeds and hemodialysis. The tracheostomy rate remains in place in order for suctioning to be performed. This patient's prognosis continues to be quite poor.
[2018-03-24] MEDS: Carvedilol 25 MG TAB PO SCH ×2 (08:57→16:46)
[2018-03-24] MEDS: Amlodipine 5 MG TAB PO SCH ×2 (08:57→21:18)
[2018-03-24] MEDS: hydrALAZINE 25 MG TAB PO SCH ×3 (08:57→21:18)
[2018-03-24] MEDS: Pantoprazole 40 MG VIAL IVP SCH (08:57)
--- NOTE | 2018-03-24 09:55 | PRG ---
DATE OF SERVICE: 03/24/2018 SUBJECTIVE: Ms. Vogel is a 72-year-old black female with status post cerebrovascular accident wit h left hemiplegia and being followed up for her chronic renal failure. She has now been placed on ron hemodialysis. We are doing 3 times a week dialysis. I am currently dialyzing at the bedside. Attempting 2.5 liter fluid removal as tolerated. No acute events noted. OBJECTIVE: VITAL SIGNS: Blood pressure 164/53, heart rate 83, respiratory rate 26, temperature 98.5, pulse ox 1 00%. GENERAL: She is sleepy but arousable. She has a trach collar. HEENT: Slightly pale conjunctivae, anicteric sclerae. NECK: No neck mass, no carotid bruits, no JVD. CHEST: No deformities. LUNGS: Clear breath sounds. No wheezing. HEART: Normal sinus rhythm. No murmur, no gallops, no rubs. ABDOMEN: Globular, soft. Positive for PEG tube. EXTREMITIES: No edema. NEUROLOGIC: Decreased mentation, left hemiplegia. MEDICATIONS: Medications of 03/24/2018 was reviewed. LABORATORY DATA: Laboratories of 03/22/2018; white count 8.9, hemoglobin 7.8. On 03/22/2018; sodium 131, potassium 4.1, chloride 94, carbon dioxide 26, BUN 71, creatinine 5.43, ca lcium 9.1. ASSESSMENT AND PLAN: 1. Chronic renal failure/acute kidney injury - most likely the patient is now ESRD. Continuing 3 ti mes a week hemodialysis. Again, fluid removal only as tolerated. 2. Status post cerebrovascular accident. Supportive care. Awaiting LTAC placement. 3. Anemia, on weekly Epogen of 10,000 units.
[2018-03-24] MEDS ORDERED: Heparin 10,000 UNITS/ 10 ML VIAL ONE (12:00)
--- NOTE | 2018-03-24 13:51 | PRG ---
DATE OF SERVICE: 03/24/2018 Ms. Vogel is doing well. She is tolerating her tube feedings. She is undergoing hemodialysis. S he has acute superimposed on chronic renal failure and probably will need superintendent container terminal dialysis. Ultras ound vein mapping both arms revealed veins to be of poor quality. If we did initiate long-term dialy sis access, she most likely will require prosthetic graft. The patient's wound healing is poor. The wound from the old gastrostomy tube has not granulated well, but overall looks better. There is les s drainage from it. Today senior care acute care is in progress of being arranged. Today, I talked to the patient's family per telephone. Her daughter is a dialysis nurse. I was asked to establish long-term dialysis acces s, but I have recommended to the family that that not be done. Due to her overall multiple medical p roblems are poor wound healing, I would not want to make any new incisions and not place a prosthetic graft which is probably what she would need for long-term access. At this time, I would wait until she has better wound healing and see how she does clinically. Long-term prognosis is poor. I would recommend that she be on hemodialysis via hemodialysis catheter and if unexpectantly she does better then I can provide dialysis access in the future when she returned to this area. At this point, I wi ll see her as needed. Please call if necessary. The patient is stable to go to a long-term acute ca re.
[2018-03-24] MEDS: Insulin Glargine 20 UNITS in Pre-Filled Syringe 1 EACH SC SCH (21:25)
[2018-03-25] MEDS: Albuterol Sulfate 2.5 mg/3 ml Neb NEB SCH ×4 (00:07→18:26)
[2018-03-25] MEDS: HumaLOG 300 UNITS/3 ML VIAL SC PRN ×4 (01:07→18:33)
[2018-03-25] MEDS: Metoclopramide HCl 10 MG/2 ML VIAL IVP SCH ×4 (01:12→20:14)
[2018-03-25] MEDS ORDERED: Albuterol Sulfate 2.5 mg/3 ml Neb ONE (07:52)
[2018-03-25] MEDS: hydrALAZINE 25 MG TAB PO SCH ×3 (08:05→21:11)
[2018-03-25] MEDS: Amlodipine 5 MG TAB PO SCH ×2 (08:05→21:12)
[2018-03-25] MEDS: Carvedilol 25 MG TAB PO SCH ×2 (08:05→16:03)
[2018-03-25] MEDS: Pantoprazole 40 MG VIAL IVP SCH (08:06)
--- NOTE | 2018-03-25 08:16 | PRG ---
DATE OF SERVICE: 03/25/2018 The patient is about the same. There have been no acute changes. PHYSICAL EXAMINATION: VITAL SIGNS: Temperature is 98.8, pulse 89, respirations 18, O2 sat 100%, blood pressure 182/53. HEENT: Unremarkable. NECK: Trach in good position. LUNGS: Clear but distant breath sounds. CARDIAC: S1 and S2 regular. ABDOMEN: Soft. EXTREMITIES: Generalized mild edema throughout. ASSESSMENT: 1. Status post trach and PEG. 2. Status post massive stroke with severe debilitation. PLAN: We are basically hoping for transfer to LTAC. I think her prognosis is very poor. She is co ntinuing on dialysis. I think the family may need to rethink end of life measures as her chances for recovery seemed almost zero.
[2018-03-25] MEDS: Insulin Glargine 20 UNITS in Pre-Filled Syringe 1 EACH SC SCH (21:13)
[2018-03-26] MEDS: Albuterol Sulfate 2.5 mg/3 ml Neb NEB SCH ×4 (00:03→18:26)
[2018-03-26] MEDS: HumaLOG 300 UNITS/3 ML VIAL SC PRN ×3 (00:41→11:49)
[2018-03-26] MEDS: Metoclopramide HCl 10 MG/2 ML VIAL IVP SCH ×4 (03:13→21:01)
[2018-03-26 07:45] LABS: #Eosinphils 0.1 thou/uL (0.0-0.7); #Monocytes 0.9 thou/uL (0.11-0.59); #Neutrophils 8.7 thou/uL (1.40-6.50); %Basophils 0.3 % (0.0-1.0); %Lymphocytes 17.1 % (21.0-51.0); %Monocytes 7.3 % (0.0-10.0); %Neutrophils 74.3 % (42.0-75.0); Hemoglobin 8.2 g/dL (12.0-16.0); Mean Corpuscular HGB CONC 34.9 g/dL (32.0-36.0); Mean Corpuscular Hemoglobin 31.1 pg (27.0-31.0); Mean Corpuscular Volume 89.3 fL (78.0-98.0); Mean Platelet Volume 9.9 fL (7.4-10.4); Platelet Count 190 thou/uL (130-400); RBC Distribution Width 16.3 % (11.5-14.5); Red Blood Cell (RBC) Count 2.62 mill/uL (4.20-5.40); White Blood Cell (WBC) Count 11.7 thou/uL (4.8-10.8)
[2018-03-26 07:53] LABS: Anion Gap 17 mmol/L (10-20); BUN (Urea Nitrogen) 56 mg/dL (9.8-20.1); Calc. Creatinine Clearance 15 mL/min (70-130); Calcium 9.2 mg/dL (7.8-10.44); Carbon Dioxide 26 mmol/L (23-31); Chloride 94 mmol/L (98-107); Estimated GFR-MDRD 12; Glucose 274 mg/dL (83-110); Potassium 3.7 mmol/L (3.5-5.1); Sodium 133 mmol/L (136-145)
[2018-03-26] MEDS ORDERED: Propofol 1,000 MG/100 ML VIAL IV ONE (08:23)
[2018-03-26] MEDS: Carvedilol 25 MG TAB PO SCH ×2 (09:28→16:43)
[2018-03-26] MEDS: Amlodipine 5 MG TAB PO SCH ×2 (09:29→21:00)
[2018-03-26] MEDS: hydrALAZINE 25 MG TAB PO SCH ×3 (09:30→21:01)
[2018-03-26] MEDS: Pantoprazole 40 MG VIAL IVP SCH (09:31)
[2018-03-26] MEDS ORDERED: Heparin 1,000 UNITS/ML VIAL ONE (11:11)
--- NOTE | 2018-03-26 12:23 | PRG ---
DATE OF SERVICE: 03/26/2018 SUBJECTIVE: Ms. Vogel is a 72-year-old black female who was admitted initially for CVA with left hemiplegia, and we are now following her up for acute kidney injury on top of her chronic renal failu re. She has been initiated on dialysis due to the volume overload and progressive azotemia. This mo rning, she is noted to be sleepy, but arousable and not in distress. No acute events noted. OBJECTIVE: VITAL SIGNS: Blood pressure 161/57, heart rate 89, respiratory rate 20, temperature 98.3, pulse ox 9 8%. GENERAL: The patient is sleepy, but arousable and comfortable, can follow simple commands. Positive for tracheostomy. LUNGS: Clear breath sounds. No wheezing, no crackles. HEART: Normal sinus rhythm. No murmur, no gallops or rubs. ABDOMEN: Globular, soft, nontender, no masses. EXTREMITIES: No edema, no deformities. Positive for PEG tube. MEDICATIONS: Medications of 03/26/2018 was reviewed. LABORATORY DATA: Laboratories of 03/26/2018, white count 11.7, hemoglobin 8.2. Sodium 133, potassiu m 3.7, chloride 94, carbon dioxide 26, BUN 56, creatinine 4.32, glucose 274, calcium 9.2. ASSESSMENT AND PLAN: 1. Chronic renal failure/acute kidney injury - I have scheduled this patient for her maintenance hem odialysis. Again, fluid removal only as tolerated by the patient. 2. Anemia - continuing current weekly Epogen. Please note that the anemia is slightly improving wit h the most recent hemoglobin at 8.2. P.r.n. blood transfusion. 3. Status post cerebrovascular accident - left hemiplegia and dysphagia - currently, continue suppor tive care, currently on PEG tube feeding. Awaiting long-term acute care placement.
--- NOTE | 2018-03-26 12:41 | PDOC.PN ---
- Subjective Encounter Start Date: 03/26/18 Encounter Start Time: 11:30 Patient is alert, Discussed with brother at Bedside. Plan to transfer to LTAC when ready. She remains very sick. - Objective Resuscitation Status: Resuscitation Status DNR:Do Not Resuscitate MAR Reviewed: Yes Vital Signs & Weight: Vital Signs (12 hours) Temp Pulse Pulse Pulse Resp BP BP 03/26/18 11:04 97.8 F 85 19 03/26/18 09:30 89 161/57 H 03/26/18 09:29 89 161/57 H 03/26/18 09:00 98.3 F 89 18 03/26/18 08:48 89 86 161/57 H 03/26/18 07:41 03/26/18 07:39 89 20 03/26/18 07:31 98.3 F 83 18 03/26/18 04:49 97.8 F 81 21 H BP BP Pulse Ox Pulse Ox Pulse Ox 03/26/18 11:04 164/53 H 100 03/26/18 09:30 03/26/18 09:29 03/26/18 09:00 99 03/26/18 08:48 161/55 H 100 100 03/26/18 07:41 98 03/26/18 07:39 98 03/26/18 07:31 168/57 H 100 03/26/18 04:49 156/47 H 100 Weight Admit Weight 209 lb 7.026 oz Weight 182 lb 8.684 oz Most Recent Monitor Data Heart Rate from ECG 85 NIBP 166/60 NIBP BP-Mean 104 Respiration from ECG 16 SpO2 100 I&O: 03/25/18 03/26/18 03/27/18 06:59 06:59 06:59 Intake Total 730 1060 30 Balance 730 1060 30 Result Diagrams: 03/26/18 07:04 03/26/18 07:04 Additional Labs: Accuchecks 03/26/18 03/26/18 03/26/18 10:28 06:00 00:25 POC Glucose 330 H 265 H 327 H 03/25/18 16:43 POC Glucose 308 H Radiology Reviewed by me: Yes Phys Exam - Physical Examination HEENT: PERRLA, moist MMs Neck: no nodes, no JVD Respiratory: no wheezing, no rales Cardiovascular: RRR, no significant murmur Gastrointestinal: soft, non-tender Musculoskeletal: pulses present, edema present Neurological: non-focal Dx/Plan (1) Acute respiratory failure Code(s): J96.00 - ACUTE RESPIRATORY FAILURE, UNSP W HYPOXIA OR HYPERCAPNIA Status: Acute Qualifiers: Respiratory failure complication: hypoxia Qualified Code(s): J96.01 - Acute respiratory failure with hypoxia Comment: Trach in place. Maturing well. (2) Candidal UTI (urinary tract infection) Code(s): B37.49 - OTHER UROGENITAL CANDIDIASIS Status: Acute Comment: On Diflucan (3) Fever Code(s): R50.9 - FEVER, UNSPECIFIED Status: Acute Comment: CXR was negative yesterday. Will get blood cultures if it occurs again. Check UA and DC Leblanc. (4) Thrombocytopenia Code(s): D69.6 - THROMBOCYTOPENIA, UNSPECIFIED Status: Acute Comment: down to 24K. no signs of bleeding (5) CKD (chronic kidney disease) stage 5, GFR less than 15 ml/min Code(s): N18.5 - CHRONIC KIDNEY DISEASE, STAGE 5 Status: Chronic Comment: on HD at present (6) Hypokalemia Code(s): E87.6 - HYPOKALEMIA Status: Resolved (7) PEG tube malfunction Code(s): K94.23 - GASTROSTOMY MALFUNCTION Status: Resolved (8) FRANCIS (acute kidney injury) Code(s): N17.9 - ACUTE KIDNEY FAILURE, UNSPECIFIED Status: Acute Comment: stable (9) Hyperglycemia due to type 2 diabetes mellitus Code(s): E11.65 - TYPE 2 DIABETES MELLITUS WITH HYPERGLYCEMIA Status: Acute Comment: Incmrease lantus to 30 untis sc daily. - Plan plan discussed w/ family, continue antibiotics, social media marketing specialist, respiratory therapy, DVT proph w/lovenox * . Review of Systems - Review of Systems Other: Unable to obtain as pt is trached. - Medications/Allergies Allergies/Adverse Reactions: Allergies Allergy/AdvReac Type Severity Reaction Status Date / Time lisinopril [From Prinivil] Allergy Verified 02/24/18 01:52 Medications: Current Medications Acetaminophen (Tylenol) 650 mg PO Q4H PRN PRN Reason: Headache/Fever or Pain Last Admin: 03/22/18 20:40 Dose: 650 mg Albuterol Sulfate (Ventolin) 2.5 mg NEB [id number] [facility] Last Admin: 03/26/18 07:39 Dose: 2.5 mg Amlodipine Besylate (Norvasc) 5 mg PO BID [facility] Last Admin: 03/26/18 09:29 Dose: 5 mg Lipase/Protease/Amylase ([place] 23818) 1 cap FS .PER PROTOCOL PRN PRN Reason: TUBE OCCLUSION PROTOCOL Last Admin: 03/23/18 11:17 Dose: 1 cap Carvedilol (Coreg) 25 mg PO BID-WM [facility] Last Admin: 03/26/18 09:28 Dose: 25 mg Clonidine (Catapres) 0.1 mg PER TUBE Q4H PRN PRN Reason: Systolic BP > 170 Last Admin: 03/21/18 06:09 Dose: 0.1 mg Clonidine (Fafuvtya-Otw-1) 0.3 mg TD Q7D [facility] Last Admin: 03/19/18 20:30 Dose: 0.3 mg Dextrose/Water (Dextrose 50%) 25 gm SLOW IVP PRN PRN PRN Reason: Hypoglycemia Epoetin Vimal (Procrit) 10,000 units SC Q7D [facility] Last Admin: 03/22/18 12:19 Dose: 10,000 units Glucagon (Glucagon) 1 mg IM PRN PRN PRN Reason: Hypoglycemia Hydralazine HCl (Apresoline) 25 mg PO TID [facility] Last Admin: 03/26/18 09:30 Dose: 25 mg Hydrocortisone/Aloe (Hydrocortisone 1% Cream) 0 gm TOP PRN PRN PRN Reason: TO AFFECTED AREA Dextrose/Water (D5w) 1,000 mls @ 0 mls/hr IV .Q0M PRN PRN Reason: Hypoglycemia Insulin Glargine 30 units/ (Miscellaneous Medication) 0.3 mls @ 0 mls/hr SC [facility] Insulin Human Lispro (Humalog) 0 units SC .MODERATE SLIDING SC PRN PRN Reason: Moderate Correctional Scale Last Admin: 03/26/18 11:49 Dose: 8 unit Insulin Human Lispro (Humalog) 0 units SC .BEDTIME SLIDING SC PRN PRN Reason: Bedtime Correctional Scale Last Admin: 03/21/18 00:43 Dose: 3 unit Labetalol HCl (Normodyne) 20 mg SLOW IVP Q4H PRN PRN Reason: Systolic BP > 170 Last Admin: 03/21/18 08:45 Dose: 20 mg Metoclopramide HCl (Reglan) 10 mg IVP Q6H [facility] Last Admin: 03/26/18 09:27 Dose: Not Given Ondansetron HCl (Zofran) 4 mg IVP Q6H PRN PRN Reason: Nausea/Vomiting Last Admin: 03/11/18 16:08 Dose: 4 mg Pantoprazole Sodium (Protonix) 40 mg IVP DAILY [facility] Last Admin: 03/26/18 09:31 Dose: 40 mg Sodium Bicarbonate (Bicarbonate, Sodium) 650 mg PER TUBE .PER PROTOCOL PRN PRN Reason: ENTERAL TUBE OCCLUSION Sodium Chloride (Flush - Normal Saline) 10 ml IVF Q12HR [facility] Last Admin: 03/26/18 09:31 Dose: 10 ml Sodium Chloride (Flush - Normal Saline) 10 ml IVF PRN PRN PRN Reason: Saline Flush Last Admin: 03/09/18 09:47 Dose: 10 ml
--- NOTE | 2018-03-26 12:44 | PDOC.PN ---
- Subjective Encounter Start Date: 03/25/18 Encounter Start Time: 15:30 Patient seen today, lethargic, No concenr noted. - Objective Resuscitation Status: Resuscitation Status DNR:Do Not Resuscitate MAR Reviewed: Yes Vital Signs & Weight: Vital Signs (12 hours) Temp Pulse Pulse Pulse Resp BP BP 03/26/18 11:04 97.8 F 85 19 03/26/18 09:30 89 161/57 H 03/26/18 09:29 89 161/57 H 03/26/18 09:00 98.3 F 89 18 03/26/18 08:48 89 86 161/57 H 03/26/18 07:41 03/26/18 07:39 89 20 03/26/18 07:31 98.3 F 83 18 03/26/18 04:49 97.8 F 81 21 H BP BP Pulse Ox Pulse Ox Pulse Ox 03/26/18 11:04 164/53 H 100 03/26/18 09:30 03/26/18 09:29 03/26/18 09:00 99 03/26/18 08:48 161/55 H 100 100 03/26/18 07:41 98 03/26/18 07:39 98 03/26/18 07:31 168/57 H 100 03/26/18 04:49 156/47 H 100 Weight Admit Weight 209 lb 7.026 oz Weight 182 lb 8.684 oz Most Recent Monitor Data Heart Rate from ECG 85 NIBP 166/60 NIBP BP-Mean 104 Respiration from ECG 16 SpO2 100 I&O: 03/25/18 03/26/18 03/27/18 06:59 06:59 06:59 Intake Total 730 1060 30 Balance 730 1060 30 Result Diagrams: 03/26/18 07:04 03/26/18 07:04 Additional Labs: Accuchecks 03/26/18 03/26/18 03/26/18 10:28 06:00 00:25 POC Glucose 330 H 265 H 327 H 03/25/18 16:43 POC Glucose 308 H Radiology Reviewed by me: Yes Dx/Plan (1) Acute respiratory failure Code(s): J96.00 - ACUTE RESPIRATORY FAILURE, UNSP W HYPOXIA OR HYPERCAPNIA Status: Acute Qualifiers: Respiratory failure complication: hypoxia Qualified Code(s): J96.01 - Acute respiratory failure with hypoxia Comment: Trach in place. Maturing well. (2) Candidal UTI (urinary tract infection) Code(s): B37.49 - OTHER UROGENITAL CANDIDIASIS Status: Acute Comment: On Diflucan (3) Fever Code(s): R50.9 - FEVER, UNSPECIFIED Status: Acute Comment: CXR was negative yesterday. Will get blood cultures if it occurs again. Check UA and DC Leblanc. (4) Thrombocytopenia Code(s): D69.6 - THROMBOCYTOPENIA, UNSPECIFIED Status: Acute Comment: down to 24K. no signs of bleeding (5) CKD (chronic kidney disease) stage 5, GFR less than 15 ml/min Code(s): N18.5 - CHRONIC KIDNEY DISEASE, STAGE 5 Status: Chronic Comment: on HD at present (6) Hypokalemia Code(s): E87.6 - HYPOKALEMIA Status: Resolved (7) PEG tube malfunction Code(s): K94.23 - GASTROSTOMY MALFUNCTION Status: Resolved (8) FRANCIS (acute kidney injury) Code(s): N17.9 - ACUTE KIDNEY FAILURE, UNSPECIFIED Status: Acute Comment: stable (9) Hyperglycemia due to type 2 diabetes mellitus Code(s): E11.65 - TYPE 2 DIABETES MELLITUS WITH HYPERGLYCEMIA Status: Acute Comment: pt on Lantus 20 untis daily, will monitor closley. - Plan cont current plan of care, continue antibiotics, social work case manager, respiratory therapy, DVT proph w/lovenox Plan to Consult CAse mnager for LTAC * . Review of Systems - Review of Systems Other: Unable to obtain ROS - Medications/Allergies Allergies/Adverse Reactions: Allergies Allergy/AdvReac Type Severity Reaction Status Date / Time lisinopril [From Prinivil] Allergy Verified 02/24/18 01:52 Medications: Current Medications Acetaminophen (Tylenol) 650 mg PO Q4H PRN PRN Reason: Headache/Fever or Pain Last Admin: 03/22/18 20:40 Dose: 650 mg Albuterol Sulfate (Ventolin) 2.5 mg NEB [id number] [facility] Last Admin: 03/26/18 07:39 Dose: 2.5 mg Amlodipine Besylate (Norvasc) 5 mg PO BID [facility] Last Admin: 03/26/18 09:29 Dose: 5 mg Lipase/Protease/Amylase ([place] [id number]) 1 cap FS .PER PROTOCOL PRN PRN Reason: TUBE OCCLUSION PROTOCOL Last Admin: 03/23/18 11:17 Dose: 1 cap Carvedilol (Coreg) 25 mg PO BID-WM [facility] Last Admin: 03/26/18 09:28 Dose: 25 mg Clonidine (Catapres) 0.1 mg PER TUBE Q4H PRN PRN Reason: Systolic BP > 170 Last Admin: 03/21/18 06:09 Dose: 0.1 mg Clonidine (Odwjehdo-Xed-5) 0.3 mg TD Q7D [facility] Last Admin: 03/19/18 20:30 Dose: 0.3 mg Dextrose/Water (Dextrose 50%) 25 gm SLOW IVP PRN PRN PRN Reason: Hypoglycemia Epoetin Vimal (Procrit) 10,000 units SC Q7D [facility] Last Admin: 03/22/18 12:19 Dose: 10,000 units Glucagon (Glucagon) 1 mg IM PRN PRN PRN Reason: Hypoglycemia Hydralazine HCl (Apresoline) 25 mg PO TID [facility] Last Admin: 03/26/18 09:30 Dose: 25 mg Hydrocortisone/Aloe (Hydrocortisone 1% Cream) 0 gm TOP PRN PRN PRN Reason: TO AFFECTED AREA Dextrose/Water (D5w) 1,000 mls @ 0 mls/hr IV .Q0M PRN PRN Reason: Hypoglycemia Insulin Glargine 30 units/ (Miscellaneous Medication) 0.3 mls @ 0 mls/hr SC [facility] Insulin Human Lispro (Humalog) 0 units SC .MODERATE SLIDING SC PRN PRN Reason: Moderate Correctional Scale Last Admin: 03/26/18 11:49 Dose: 8 unit Insulin Human Lispro (Humalog) 0 units SC .BEDTIME SLIDING SC PRN PRN Reason: Bedtime Correctional Scale Last Admin: 03/21/18 00:43 Dose: 3 unit Labetalol HCl (Normodyne) 20 mg SLOW IVP Q4H PRN PRN Reason: Systolic BP > 170 Last Admin: 03/21/18 08:45 Dose: 20 mg Metoclopramide HCl (Reglan) 10 mg IVP Q6H [facility] Last Admin: 03/26/18 09:27 Dose: Not Given Ondansetron HCl (Zofran) 4 mg IVP Q6H PRN PRN Reason: Nausea/Vomiting Last Admin: 03/11/18 16:08 Dose: 4 mg Pantoprazole Sodium (Protonix) 40 mg IVP DAILY [facility] Last Admin: 03/26/18 09:31 Dose: 40 mg Sodium Bicarbonate (Bicarbonate, Sodium) 650 mg PER TUBE .PER PROTOCOL PRN PRN Reason: ENTERAL TUBE OCCLUSION Sodium Chloride (Flush - Normal Saline) 10 ml IVF Q12HR [facility] Last Admin: 03/26/18 09:31 Dose: 10 ml Sodium Chloride (Flush - Normal Saline) 10 ml IVF PRN PRN PRN Reason: Saline Flush Last Admin: 03/09/18 09:47 Dose: 10 ml
[2018-03-26] MEDS: cloNIDine 0.3mg/24 Hour PATCH TD SCH (20:59)
[2018-03-26] MEDS ORDERED: Insulin Glargine 30 UNITS in Pre-Filled Syringe 1 EACH SC SCH (21:00)
[2018-03-27] MEDS: Albuterol Sulfate 2.5 mg/3 ml Neb NEB SCH ×4 (01:11→18:35)
[2018-03-27] MEDS: Metoclopramide HCl 10 MG/2 ML VIAL IVP SCH ×4 (01:35→20:04)
[2018-03-27] MEDS: HumaLOG 300 UNITS/3 ML VIAL SC PRN ×4 (01:35→17:59)
[2018-03-27] MEDS: Carvedilol 25 MG TAB PO SCH ×2 (08:38→17:14)
[2018-03-27] MEDS: hydrALAZINE 25 MG TAB PO SCH ×3 (08:38→20:05)
[2018-03-27] MEDS: Amlodipine 5 MG TAB PO SCH ×2 (08:39→20:05)
[2018-03-27] MEDS: Pantoprazole 40 MG VIAL IVP SCH (08:40)
[2018-03-27] MEDS: Acetaminophen 325 MG TAB PO PRN (08:40)
--- NOTE | 2018-03-27 14:00 | PDOC.PN ---
- Subjective Encounter Start Date: 03/27/18 Encounter Start Time: 11:00 PAtient is seen today drowsy and lethargic, had her HD. pt ius noted to have low grade fever last night. - Objective Resuscitation Status: Resuscitation Status DNR:Do Not Resuscitate MAR Reviewed: Yes Vital Signs & Weight: Vital Signs (12 hours) Temp Pulse Resp BP BP Pulse Ox 03/27/18 11:00 99.6 F 81 18 147/48 H 100 03/27/18 08:39 82 143/52 H 03/27/18 08:38 82 143/52 H 03/27/18 08:00 100.2 F H 88 22 H 100 03/27/18 07:44 100 03/27/18 07:28 89 20 100 03/27/18 07:00 100.2 F H 88 22 H 166/51 H 100 03/27/18 03:56 98.2 F 88 24 H 159/49 H 100 Weight Admit Weight 209 lb 7.026 oz Weight 182 lb 8.684 oz Most Recent Monitor Data Heart Rate from ECG 85 NIBP 166/60 NIBP BP-Mean 104 Respiration from ECG 16 SpO2 100 I&O: 03/26/18 03/27/18 03/28/18 06:59 06:59 06:59 Intake Total 1060 2040 60 Output Total 1900 0 Balance 1060 140 60 Result Diagrams: 03/26/18 07:04 03/26/18 07:04 Additional Labs: Accuchecks 03/27/18 03/27/18 03/27/18 12:03 05:29 01:32 POC Glucose 281 H 257 H 335 H 03/26/18 03/26/18 20:09 16:56 POC Glucose 286 H 185 H Radiology Reviewed by me: Yes EKG Reviewed by me: Yes Phys Exam - Physical Examination Constitutional: NAD HEENT: PERRLA, moist MMs Neck: no nodes, no JVD Respiratory: no wheezing, no rales Cardiovascular: RRR, no significant murmur Gastrointestinal: soft, non-tender Musculoskeletal: no edema, pulses present Neurological: non-focal, normal sensation Lymphatic: no nodes Dx/Plan (1) Acute respiratory failure Code(s): J96.00 - ACUTE RESPIRATORY FAILURE, UNSP W HYPOXIA OR HYPERCAPNIA Status: Acute Qualifiers: Respiratory failure complication: hypoxia Qualified Code(s): J96.01 - Acute respiratory failure with hypoxia Comment: Trach in place. Maturing well. (2) Candidal UTI (urinary tract infection) Code(s): B37.49 - OTHER UROGENITAL CANDIDIASIS Status: Acute Comment: On Diflucan (3) Fever Code(s): R50.9 - FEVER, UNSPECIFIED Status: Acute Comment: will repeat chest xray today, and KUB. will get Blood Cultures. (4) Thrombocytopenia Code(s): D69.6 - THROMBOCYTOPENIA, UNSPECIFIED Status: Acute Comment: down to 24K. no signs of bleeding (5) CKD (chronic kidney disease) stage 5, GFR less than 15 ml/min Code(s): N18.5 - CHRONIC KIDNEY DISEASE, STAGE 5 Status: Chronic Comment: on HD at present (6) Hypokalemia Code(s): E87.6 - HYPOKALEMIA Status: Resolved (7) PEG tube malfunction Code(s): K94.23 - GASTROSTOMY MALFUNCTION Status: Resolved (8) FRANCIS (acute kidney injury) Code(s): N17.9 - ACUTE KIDNEY FAILURE, UNSPECIFIED Status: Acute Comment: stable (9) Hyperglycemia due to type 2 diabetes mellitus Code(s): E11.65 - TYPE 2 DIABETES MELLITUS WITH HYPERGLYCEMIA Status: Acute Comment: increase Lantus to 45 untis daily, will monitor closley. - Plan cont current plan of care, continue antibiotics, PT/OT, social work assistant, respiratory therapy, incentive spirometry, DVT proph w/lovenox * .
--- NOTE | 2018-03-27 14:13 | RAD ---
PORTABLE CHEST: HISTORY: Assess for source of infection. PEG tube placement. COMPARISON: 03/19/18. Large-caliber central line overlies the SVC. Tracheostomy device is again noted. Lungs show no evid ence of infiltrate. IMPRESSION: No definite infiltrate seen on portable chest. POS: [facility]
--- NOTE | 2018-03-27 14:14 | RAD ---
SUPINE ABDOMEN: HISTORY: PEG tube placement. Assess for source of infection. FINDINGS: PEG tube overlies the abdomen just to the right of midline. Bowel gas pattern is unremarkable with s cattered stool and gas in the colon. A large rounded amorphous calcification overlying the mid pelvi s measures up to 6 cm and would be consistent with a large calcified fibroid. There are other benign -appearing calcifications overlying the pelvis. IMPRESSION: Unremarkable bowel gas pattern. POS: [facility]
[2018-03-27] MEDS ORDERED: Atorvastatin Calcium 40 MG TAB PO SCH (21:00)
[2018-03-27] MEDS ORDERED: Insulin Glargine 45 UNITS in Pre-Filled Syringe SC SCH (21:00)
[2018-03-28] MEDS: Albuterol Sulfate 2.5 mg/3 ml Neb NEB SCH ×2 (00:03→07:26)
[2018-03-28] MEDS: HumaLOG 300 UNITS/3 ML VIAL SC PRN ×3 (00:58→10:57)
[2018-03-28] MEDS: Metoclopramide HCl 10 MG/2 ML VIAL IVP SCH ×3 (02:42→09:37)
[2018-03-28] MEDS: Acetaminophen 325 MG TAB PO PRN (03:58)
--- NOTE | 2018-03-28 08:05 | PDOC.PULPN ---
Progress Note: Subj/Obj - Subjective Date: 03/28/18 Time: 08:03 Narrative: about the same - ROS ROS unobtainable: due to mental status - Objective Allergies/Adverse Reactions: Allergies Allergy/AdvReac Type Severity Reaction Status Date / Time lisinopril [From Prinivil] Allergy Verified 02/24/18 01:52 MAR Reviewed: Yes Vital Signs: Vital Signs Temp 98.3 F 03/28/18 07:25 Pulse 83 03/28/18 07:26 Resp 20 03/28/18 07:26 BP 153/54 H 03/28/18 07:25 Pulse Ox 100 03/28/18 07:26 Progress Note: Exam - Physical Exam Constitutional: NAD HEENT: PERRLA, sclera anicteric Deviation from normal: trach in good position. minimal secretions Cardiovascular: RRR Respiratory: clear to auscultation bilaterally Gastrointestinal: soft, non-tender Musculoskeletal: edema present Skin: no rash Progress Note: Data - Labs Result Diagrams: 03/26/18 07:04 03/26/18 07:04 Progress Note: A/P - Problems (1) Acute respiratory failure Current Visit: Yes Status: Acute Code(s): J96.00 - ACUTE RESPIRATORY FAILURE , UNSP W HYPOXIA OR HYPERCAPNIA Qualifiers: Respiratory failure complication: hypoxia Qualified Code(s): J96.01 - Acute respiratory failure with hypoxia (2) Acute CVA (cerebrovascular accident) Current Visit: No Status: Acute Code(s): I63.9 - CEREBRAL INFARCTION, UNSPECIFIED (3) FTT (failure to thrive) in adult Current Visit: No Status: Chronic - Plan Plan: Awaiting placement. Family needs to make decision regarding jail dialysis (to me, the prospect of oil heaterman dialysis is somewhat unreasonable because of patients poor performance status and unlikelihood of improvement)
[2018-03-28] MEDS ORDERED: Aspirin 81 mg Enteric Coated Tablet PO SCH (09:00)
[2018-03-28] MEDS: Amlodipine 5 MG TAB PO SCH (09:03)
[2018-03-28] MEDS: Carvedilol 25 MG TAB PO SCH (09:03)
[2018-03-28] MEDS: Pantoprazole 40 MG VIAL IVP SCH ×2 (09:04→09:38)
[2018-03-28] MEDS: hydrALAZINE 25 MG TAB PO SCH (09:04)
--- NOTE | 2018-03-28 09:52 | PRG ---
DATE OF SERVICE: 03/28/2018 SERVICE: Renal Medicine. SUBJECTIVE: Ms. Vogel is a 72-year-old black female, who was admitted for cerebrovascular acciden t with left hemiplegia. In the interim, she went to acute respiratory failure, and due to the inabil ity to be weaned off from the ventilator, a tracheostomy has been placed. We are following her up al so for her maintenance hemodialysis. She developed acute renal failure on top of her chronic renal f ailure without any evidence of renal recovery. No new complaints today. I was notified that she has already a placement for LTAC. No acute events noted last night. PHYSICAL EXAMINATION: VITAL SIGNS: Blood pressure 160/55, heart rate 83, respirations 20, O2 sat 100%. GENERAL EXAM: Patient is sleeping, but arousable. She can follow simple commands. SKIN: Adequate turgor. HEENT: She has slightly pale conjunctivae, anicteric sclerae. NECK: No neck mass, no carotid bruits, no JVD. Positive for tracheostomy. LUNGS: Clear breath sounds. No wheezing, no crackles. HEART: Normal sinus rhythm. No murmur, no gallops, no rubs. ABDOMEN: Globular, soft. Positive for a PEG. EXTREMITIES: No edema, no deformities. Medications of 03/28/2018 were reviewed. LABORATORY DATA: Laboratories of 03/26/2018, white count 11.7, hemoglobin 8.2. 03/28/2018, glucose 286. 03/26/2018, BUN 56, creatinine 4.32, potassium 3.7, glucose 274, calcium 9.2. ASSESSMENT AND PLAN: 1. Acute kidney injury/chronic renal failure, currently on maintenance hemodialysis. No evidence of renal recovery. Continue supportive care. Continue 3 times a week hemodialysis. 2. Anemia, stable and stabilizing. Continue weekly Epogen of 10,000 units subcutaneously every week . 3. Status post cerebrovascular accident with left hemiplegia. Continue supportive care. Currently on PEG tube feeding as well on a tracheostomy. Overall, agree with current management.
[2018-03-28 10:59] VITALS: BP 149/51; TEMP 97.3
--- NOTE | 2018-03-28 19:39 | PDOC.PN ---
- Subjective Encounter Start Date: 03/28/18 Encounter Start Time: 19:38 (late entry) Subjective: no new complaints, denies any pain/discomfort - Objective Resuscitation Status: Resuscitation Status DNR:Do Not Resuscitate MAR Reviewed: Yes Vital Signs & Weight: Vital Signs (12 hours) Temp Pulse Resp BP BP Pulse Ox 03/28/18 10:58 97.3 F L 81 18 149/51 H 100 03/28/18 09:05 98.3 F 83 17 100 03/28/18 09:04 83 03/28/18 09:03 83 163/55 H Weight Admit Weight 209 lb 7.026 oz Weight 182 lb 8.684 oz Most Recent Monitor Data Heart Rate from ECG 85 NIBP 166/60 NIBP BP-Mean 104 Respiration from ECG 16 SpO2 100 I&O: 03/27/18 03/28/18 03/29/18 06:59 06:59 06:59 Intake Total 2040 775 60 Output Total 1900 0 Balance 140 775 60 Result Diagrams: 03/26/18 07:04 03/26/18 07:04 Additional Labs: Accuchecks 03/28/18 03/28/18 03/28/18 10:45 06:18 00:08 POC Glucose 266 H 264 H 286 H Phys Exam - Physical Examination Constitutional: NAD HEENT: PERRLA, moist MMs, sclera anicteric, oral pharynx no lesions Neck: no nodes, no JVD, supple, full ROM Respiratory: no wheezing, no rales, no rhonchi, clear to auscultation bilateral Cardiovascular: RRR, no significant murmur, no rub Gastrointestinal: soft, non-tender, no distention, positive bowel sounds Musculoskeletal: no edema, pulses present Psychiatric: normal affect Dx/Plan (1) FRANCIS (acute kidney injury) Code(s): N17.9 - ACUTE KIDNEY FAILURE, UNSPECIFIED Status: Acute Comment: stable (2) Acute CVA (cerebrovascular accident) Code(s): I63.9 - CEREBRAL INFARCTION, UNSPECIFIED Status: Acute Comment: Dense left hemiplegia with large right MCA cva (3) Acute respiratory failure Code(s): J96.00 - ACUTE RESPIRATORY FAILURE, UNSP W HYPOXIA OR HYPERCAPNIA Status: Acute Qualifiers: Respiratory failure complication: hypoxia Qualified Code(s): J96.01 - Acute respiratory failure with hypoxia Comment: Trach in place. Maturing well. (4) Candidal UTI (urinary tract infection) Code(s): B37.49 - OTHER UROGENITAL CANDIDIASIS Status: Acute Comment: On Diflucan (5) Dysphagia Code(s): R13.10 - DYSPHAGIA, UNSPECIFIED Status: Acute Qualifiers: Dysphagia type: unspecified Qualified Code(s): R13.10 - Dysphagia, unspecified Comment: s/p peg (6) Fever Code(s): R50.9 - FEVER, UNSPECIFIED Status: Acute Comment: will repeat chest xray today, and KUB. will get Blood Cultures. (7) Hyperglycemia due to type 2 diabetes mellitus Code(s): E11.65 - TYPE 2 DIABETES MELLITUS WITH HYPERGLYCEMIA Status: Acute Comment: increase Lantus to 45 untis daily, will monitor closley. (8) CKD (chronic kidney disease) stage 4, GFR 15-29 ml/min Code(s): N18.4 - CHRONIC KIDNEY DISEASE, STAGE 4 (SEVERE) Status: Chronic (9) FTT (failure to thrive) in adult Status: Chronic (10) Hemiplegia affecting left nondominant side Code(s): G81.94 - HEMIPLEGIA, UNSPECIFIED AFFECTING LEFT NONDOMINANT SIDE Status: Chronic Qualifiers: Hemiplegia type: flaccid Comment: Awaiting placement. (11) Hyperlipidemia Code(s): E78.5 - HYPERLIPIDEMIA, UNSPECIFIED Status: Chronic Qualifiers: Hyperlipidemia type: unspecified Qualified Code(s): E78.5 - Hyperlipidemia , unspecified (12) Hypertension Code(s): I10 - ESSENTIAL (PRIMARY) HYPERTENSION Status: Chronic Qualifiers: Hypertension type: essential hypertension Qualified Code(s): I10 - Essential (primary) hypertension - Plan approved at [facility] & cleared by [facility].nephrology -: cont HD as an OP -: PEG,Trach care. -: meds reconciled -: will DC to [facility] * .
== END 2018-03-28 13:47 | DRG 3 ==
LOC: ERS 12:44 → 2SE 17:55 → OBSVTOIN 18:32 → CCU 02-26 00:15 → IMCU/EMU 03-01 23:12 → CCU 03-03 20:25 → IMCU/EMU 03-17 17:46
PROVIDERS: ADMIT Internal Medicine; ATTEND Internal Medicine
PROC: 0JB80ZZ Excision of Abdomen Subcutaneous Tissue and Fascia, Open Approach (ICD-10-PCS; principal; 2018-02-24)
PROC: 0DH63UZ Insertion of Feeding Device into Stomach, Percutaneous Approach (ICD-10-PCS; 2018-02-24)
PROC: 30233N1 Transfusion of Nonautologous Red Blood Cells into Peripheral Vein, Percutaneous Approach (ICD-10-PCS; 2018-02-26)
PROC: 0DQ64ZZ Repair Stomach, Percutaneous Endoscopic Approach (ICD-10-PCS; 2018-03-03)
PROC: 0FN24ZZ Release Left Lobe Liver, Percutaneous Endoscopic Approach (ICD-10-PCS; 2018-03-03)
PROC: 0JB80ZZ Excision of Abdomen Subcutaneous Tissue and Fascia, Open Approach (ICD-10-PCS; 2018-03-03)
PROC: 0JH63XZ Insertion of Tunneled Vascular Access Device into Chest Subcutaneous Tissue and Fascia, Percutaneous Approach (ICD-10-PCS; 2018-03-03)
PROC: 02H633Z Insertion of Infusion Device into Right Atrium, Percutaneous Approach (ICD-10-PCS; 2018-03-03)
PROC: 5A1955Z Respiratory Ventilation, Greater than 96 Consecutive Hours (ICD-10-PCS; 2018-03-04)
PROC: 0BH17EZ Insertion of Endotracheal Airway into Trachea, Via Natural or Artificial Opening (ICD-10-PCS; 2018-03-04)
PROC: 5A1D70Z Performance of Urinary Filtration, Intermittent, Less than 6 Hours Per Day (ICD-10-PCS; 2018-03-05)
PROC: 30233R1 Transfusion of Nonautologous Platelets into Peripheral Vein, Percutaneous Approach (ICD-10-PCS; 2018-03-06)
PROC: 30233N1 Transfusion of Nonautologous Red Blood Cells into Peripheral Vein, Percutaneous Approach (ICD-10-PCS; 2018-03-06)
PROC: 0B113F4 Bypass Trachea to Cutaneous with Tracheostomy Device, Percutaneous Approach (ICD-10-PCS; 2018-03-15)
DX: K94.22 Gastrostomy infection (principal); A41.9 Sepsis, unspecified organism; G93.6 Cerebral edema; J69.0 Pneumonitis due to inhalation of food and vomit; I21.A1 Myocardial infarction type 2; N18.6 End stage renal disease; G93.40 Encephalopathy, unspecified; J96.21 Acute and chronic respiratory failure with hypoxia; L03.311 Cellulitis of abdominal wall; I69.354 Hemiplegia and hemiparesis following cerebral infarction affecting left non-dominant side; R18.8 Other ascites; N17.9 Acute kidney failure, unspecified; K91.71 Accidental puncture and laceration of a digestive system organ or structure during a digestive system procedure; E87.0 Hyperosmolality and hypernatremia; K31.6 Fistula of stomach and duodenum; E87.2 Acidosis; N39.0 Urinary tract infection, site not specified; K56.7 Ileus, unspecified; I12.0 Hypertensive chronic kidney disease with stage 5 chronic kidney disease or end stage renal disease; B37.49 Other urogenital candidiasis; K94.29 Other complications of gastrostomy; K94.23 Gastrostomy malfunction; D63.1 Anemia in chronic kidney disease; E11.22 Type 2 diabetes mellitus with diabetic chronic kidney disease; I16.0 Hypertensive urgency; B96.89 Other specified bacterial agents as the cause of diseases classified elsewhere; E86.0 Dehydration; D69.6 Thrombocytopenia, unspecified; I69.391 Dysphagia following cerebral infarction; I69.320 Aphasia following cerebral infarction; K64.9 Unspecified hemorrhoids; R62.7 Adult failure to thrive; R13.12 Dysphagia, oropharyngeal phase; E11.649 Type 2 diabetes mellitus with hypoglycemia without coma; Z79.4 Long term (current) use of insulin; Z79.82 Long term (current) use of aspirin; Z79.02 Long term (current) use of antithrombotics/antiplatelets; Y83.3 Surgical operation with formation of external stoma as the cause of abnormal reaction of the patient, or of later complication, without mention of misadventure at the time of the procedure
CPT/HCPCS: 36415; 36416; 36430; 44500; 70450; 71045; 74018; 74176; 74340; 80048; 80053; 80061; 80202; 81001; 81003; 81015; 82140; 82542; 82553; 82805; 83036; 83605; 83690; 83735; 83880; 84100; 84134; 84484; 85007; 85025; 85027; 85610; 85730; 86706; 86850; 86900; 86901; 86921; 86922; 87040; 87070; 87077; 87086; 87186; 87205; 87340; 90935; 93005; 93010; 94002; 94003; 94640; 94760; 96374; A4216; A4217; C1752; C1769; C9113; G0257; G8978-GP-CM; G8978-GP-CN; G8979-GP-CL; G8987-GO-CM; G8987-GO-CN; G8988-GO-CK; G8988-GO-CL; J0360; J0670; J0692; J1450; J1642; J1644; J1650; J1815; J1940; J2001; J2250; J2270; J2370; J2405; J2543; J2597; J2704; J2765; J2997; J3010; J3370; J3475; J7050; J7611; P9016; P9035; P9047; Q0162; Q4081; Q9968; S0028